=== PATIENT | male | born 1965 | race Caucasian/White ===

== ENCOUNTER 2019-11-30 08:38 | Outpatient (CLI) | payer OTHER, SELFPAY ==
--- NOTE | ~2019-11-30 | CT_ITS ---
EXAMINATION: CT abdomen pelvis w con EXAM DATE: 11/30/2019 09:19 INDICATION: Right lower quadrant pain. TECHNIQUE: Spiral CT of the abdomen and pelvis was performed following intravenous injection of 100 m L Omnipaque 350. Axial, coronal and sagittal images were reviewed. The dose-length product (DLP) fo r this examination was 653.21 mGy-cm. The exposure was tailored according to patient size (auto mA e xposure control), and iterative reconstruction (ASIR) was used as additional dose reduction technique . There is no prior study for comparison. FINDINGS: The liver, spleen, adrenal glands and pancreas are unremarkable. Gallbladder is unremarkab le. No biliary obstruction. Portal and splenic veins are patent. Kidneys enhance symmetrically. T here is no hydronephrosis. The prostate is unremarkable. The bladder is unremarkable. There is no retroperitoneal or pelvic lymphadenopathy. There is mild scattered arteriosclerotic disease. The appendix is normal. The stomach and small bowel are unremarkable. There is moderate amount of c olonic stool. No free intraperitoneal gas. The heart is normal in size. There are no pericardial or pleural effusions. The lung bases are unremarkable. There is a lesion within the left femoral n marlon measuring 1.5 cm, with narrow zone of transition, not causing endosteal scalloping, another simil ar-appearing but even more chronic benign-appearing lesion in the anterior aspect of the left acetabu lum. These are more likely benign lesions then osteolytic disease. Consider 3-six-month follow-up CT pelvis. IMPRESSION: 1. No acute intra-abdominal findings. Normal appendix. 2. Right femoral neck and left acetabular bone lesions most likely benign; recommend 3-six-month fol low-up CT pelvis without contrast. Reviewed, dictated and finalized at location A. IMPRESSION: 1. No acute intra-abdominal findings. Normal appendix. 2. Right femoral neck and left acetabular bone lesions most likely benign; rec ommend 3-six-month follow-up CT pelvis without contrast.
[2019-11-30 09:10] LABS: Estimated Glomerular Filt Rate > 60
== END 2019-11-30 08:39 | disposition home or self-care (01) ==
LOC: ANHIMG 08:44
PROVIDERS: PCP Internal Medicine; Visit Provider Internal Medicine Gastroenterology
DX: R10.31 Right lower quadrant pain (principal); M89.9 Disorder of bone, unspecified
CPT/HCPCS: 36415; 74177; Q9967

== ENCOUNTER 2019-12-16 12:27 | Outpatient (CLI) | payer OTHER, SELFPAY ==
--- NOTE | ~2019-12-16 | XR_ITS ---
EXAMINATION: XR femur RT min 2V, XR pelvis 1-2V DATE: 12/16/2019 INDICATION: Lytic lesions at the right femoral neck and left acetabulum on recent CT study. TECHNIQUE: 1. Anteroposterior view of the pelvis was obtained. 2. Overlapping distal frontal and lateral views of the remainder of the more distal femur were obtain ed. COMPARISON: CT dated 11/30/2019 FINDINGS: Bone alignment is normal. No fracture. Again seen are subtle lytic lesions at the left acetabulum and with mild endosteal scalloping at the right femoral neck. There is an additional eccentric 1.9 x 1.0 cm ovoid lytic lesion in the distal right femoral diaphysis without evident endosteal scalloping. Po stoperative change of prior right anterior cruciate ligament reconstruction. Mild patellofemoral oste oarthritis with small marginal osteophytes but without significant joint space narrowing. Several phl eboliths in the pelvis. IMPRESSION: 1. Lytic lesions at the left acetabulum, right femoral neck and distal right femoral diaphysis. The f ormer is in a location typical of degenerative subchondral cystic change although the left hip joint space appears relatively preserved. The latter 2 lesions are in more atypical locations with addition al concern is a limited from the endosteal scalloping of the lesion at the femoral neck and different ial would include multiple myeloma and lytic metastatic disease. Reviewed, dictated and finalized at location A. IMPRESSION: 1. Lytic lesions at the left acetabulum, right femoral neck and distal right fe moral diaphysis. The former is in a location typical of degenerative subchondra l cystic change although the left hip joint space appears relatively preserved. The latter 2 lesions are in more atypical locations with additional concern is a limited from the endosteal scalloping of the lesion at the femoral neck and differential would include multiple myeloma and lytic metastatic disease.
== END 2019-12-16 12:28 | disposition home or self-care (01) ==
PROVIDERS: PCP Internal Medicine; Visit Provider Internal Medicine
DX: R93.89 Abnormal findings on diagnostic imaging of other specified body structures (principal); M89.9 Disorder of bone, unspecified
CPT/HCPCS: 72170; 73552

== ENCOUNTER 2020-10-26 13:31 | Outpatient (CLI) | payer OTHER, SELFPAY ==
[2020-10-26 14:11] LABS: Hematocrit 52.1 % (42.0-52.0); Hemoglobin 17.6 g/dL (14.0-18.0); Mean Corpuscular HGB Conc 33.8 g/dl (32-36); Mean Corpuscular Hemoglobin 29.9 pg (26-34); Mean Corpuscular Volume 88.5 fl (80-100); Mean Platelet Volume 8.3 fl (7.4-10.4); Platelet Count Result 202 k/mm3 (150-375); Red Blood Count 5.89 M/mm3 (4.6-6.20); Red Cell Distribution Width 12.9 % (11.5-14.5); White Blood Count 7.9 K/mm3 (4.5-10.0)
[2020-10-26 14:25] LABS: Alanine Aminotransferase 30 U/L (4-50); Albumin Level 4.1 g/dL (3.5-5.1); Alkaline Phosphatase 71 U/L (38-126); Anion Gap 3 mmol/L (8-16); Aspartate Amino Transferase 40 U/L (17-59); Bilirubin,Total 0.6 mg/dL (0.2-1.3); Blood Urea Nitrogen 14 mg/dL (9-20); CRP 0.6 mg/dL (<1.0); Calcium 10.2 mg/dL (8.4-10.2); Carbon Dioxide 27 mmol/L (22-30); Chloride 111 mmol/L (98-107); Estimated Glomerular Filt Rate > 60; Glucose 95 mg/dL (75-110); Potassium 4.3 mmol/L (3.4-5.0); Sodium 141 mmol/L (137-145)
[2020-10-26 15:10] LABS: Erythrocyte Sedimentation Rate 2 mm/hr (0-20)
== END 2020-10-26 13:32 | disposition home or self-care (01) ==
PROVIDERS: PCP Internal Medicine; Visit Provider Nurse Practitioner Family
DX: K51.90 Ulcerative colitis, unspecified, without complications (principal)
CPT/HCPCS: 36415; 80053; 85027; 85652; 86140

== ENCOUNTER 2021-10-18 07:53 | Emergency (ER) | payer OTHER, SELFPAY ==
[2021-10-18] VITALS (15 sets, daily range): BP systolic 106–136; BP diastolic 68–80; PULSE 61–82; RESP 12–20; TEMP 37; O2SAT 96–100
--- NOTE | ~2021-10-18 | CT_ITS ---
EXAMINATION: CT abdomen pelvis w con DATE: 10/18/2021 09:18 INDICATION: Bloody stools. History of ulcerative colitis. Abdomen pain. TECHNIQUE: Computed tomography (CT) of the abdomen and pelvis was performed with 100 cc Omnipaque 350 intravenous contrast. The dose-length product was 942.45 mGy-cm. Automated exposure control and iter ative reconstruction technique were employed. COMPARISON: CT dated 11/30/2019. FINDINGS: Lung bases are unremarkable. Heart size normal. No significant pleural or pericardial effus ion. No significant vascular abnormality. No lymphadenopathy. Fatty infiltration of the liver. There are surgical changes in the upper abdomen. Gallbladder is pres ent. The spleen, pancreas, adrenal glands and right kidney are unremarkable. There is a 2-3 mm nonobs tructing left renal stone. Gallbladder is present. No ureteral stones or hydronephrosis. Bladder is d ecompressed limiting evaluation for wall thickening. There is abnormal thickening of the transverse, descending and sigmoid colon as well as rectum, consi stent with colitis. 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 Mild lumbar spondylosis. IMPRESSION: 1. Findings compatible with colitis, likely infectious or inflammatory. 2: Nonobstructing left nephrolithiasis. Reviewed, dictated and finalized at location B. 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
[2021-10-18 08:12] LABS: Basophils Absolute Auto 0.1 K/mm3 (0.0-0.1); Basophils Percent Auto 0.7 % (0.2-1.2); Eosinophils Absolute Auto 0.5 K/mm3 (0-0.3); Eosinophils Percent Auto 4.9 % (0-4.4); Hematocrit 46.5 % (42.0-52.0); Hemoglobin 15.5 g/dL (14.0-18.0); Immature Granulocyte Absolute 0.12 K/mm3 (0.00-0.031); Immature Granulocyte Percent A 1.2 % (0-0.5); Lymphocytes Percent Auto 31.3 % (18.3-44.2); Mean Corpuscular HGB Conc 33.3 g/dl (32-36); Mean Corpuscular Hemoglobin 30.1 pg (26-34); Mean Corpuscular Volume 90.3 fl (80-100); Mean Platelet Volume 8.3 fl (7.4-10.4); Monocytes Absolute Auto 1.2 K/mm3 (0.1-0.6); Monocytes Percent Auto 11.4 % (2.6-8.5); Neutrophils Absolute Auto 5.2 K/mm3 (1.3-6.7); Neutrophils Percent Auto 50.5 % (45.5-73.1); Platelet Count Result 263 k/mm3 (150-375); Red Blood Count 5.15 M/mm3 (4.6-6.20); Red Cell Distribution Width 12.2 % (11.5-14.5); White Blood Count 10.2 K/mm3 (4.5-10.0)
--- NOTE | 2021-10-18 08:18 | ED.GENADULT ---
HPI - General Adult General Chief complaint: GI Bleed Stated complaint: blood in stool Time Seen by Provider: 10/18/21 07:55 Source: RN notes reviewed History of Present Illness HPI narrative: Patient presents emergency department from home for blood in stool. Patient states has been having blood in his stool for the past 2 weeks he states that initially was more bright red has become darker in color he states over the past 4 days has been having numerous loose stools states he has a history of ulcerative colitis and is followed by Dr. Mccann he called the office and they had instructed him to come the ER for symptoms worsen states he had some mild lightheadedness yesterday and came into the emergency department today for further evaluation he notes mild abdominal pain in the left lower abdomen described as cramping he denies any fevers or chills chest pain shortness of breath or any other symptoms Related Data Home Medications Medication Instructions Recorded Confirmed pantoprazole 40 mg tablet,delayed 40 mg PO QAM 10/26/20 10/26/20 release fenofibrate micronized mg 10/18/21 lisinopril-hydrochlorothiazide tablet 10/18/21 metoprolol tartrate 10/18/21 rivaroxaban [Xarelto] mg 10/18/21 Allergies Allergy/AdvReac Type Severity Reaction Status Date / Time NSAIDS (Non-Steroidal Allergy Mild Unknown Verified 10/26/20 13:04 Anti-Inflamma Review of Systems Review of Systems: Gen.: Denies fevers or chills ENT: Denies congestion Respiratory: Denies shortness of breath or cough CV: Denies chest pain or palpitations GI: See HPI denies burning, urgency, frequency or hematuria Musculoskeletal: Denies back pain or muscle pain Neuro: Denies numbness, tingling, weakness or focal weakness Skin: Denies rash Except as documented, all other systems reviewed and negative [facility] Past Medical History Medical History GERD (gastroesophageal reflux disease) Overweight (BMI 25.0-29.9) Tobacco use Ulcerative colitis Social History Social History Smoking status: Current some day smoker Exam Narrative: APPEARANCE: No acute distress, nontoxic, resting in bed HEENT: Normocephalic, atraumatic, OMM RESPIRATORY: No respiratory distress, clear to auscultation bilaterally with no rhonchi wheezing or rales CARDIOVASCULAR: RRR s murmur ABDOMINAL: Soft nondistended tender palpation left lower quadrant no tenderness left upper quadrant, right upper quadrant right lower quadrant no rebound or guarding Rectal: No hemorrhoids or fissures soft brown stool that is Hemoccult positive MUSCULOSKELETAl: Moves all extremities. No clubbing, cyanosis or edema. NEURO: Awake and alert. Following commands, speech normal, no focal deficits SKIN:: Warm, dry. Normal Color PSYCHIATRIC: Normal affect/mood Course Course Emergency Course: Discussed with Dr. Mccann presentation and work-up at this time recommends patient start on a Medrol Dosepak and may be discharged follow-up in the office is a schedule appointment October 26 Discussed with patient results of workup and diagnosis. Discussed need for follow-up with primary care, proper use of medication, and reasons to return to the emergency department. Patient understands and agrees to current treatment plan Vital Signs Vital signs: Vital Signs Temperature 98.6 F 10/18/21 07:57 Pulse Rate 78 10/18/21 07:57 Respiratory Rate 14 10/18/21 07:57 Blood Pressure 136/80 10/18/21 07:57 Pulse Oximetry 100 10/18/21 07:57 Temperature 98.6 F 10/18/21 07:57 Pulse Rate 82 10/18/21 11:11 Respiratory Rate 20 10/18/21 10:15 Blood Pressure 126/78 10/18/21 11:11 Pulse Oximetry 99 10/18/21 10:15 Medical Decision Making [facility] Narrative Medical decision making narrative: Patient with history of ulcerative colitis blood in stool for the past 2 weeks hemoglobin currently stable he is fo
[2021-10-18 08:22] LABS: Alanine Aminotransferase 25 U/L (4-50); Albumin Level 4.3 g/dL (3.5-5.1); Alkaline Phosphatase 71 U/L (38-126); Anion Gap 7 mmol/L (8-16); Aspartate Amino Transferase 36 U/L (17-59); Bilirubin,Total 0.7 mg/dL (0.2-1.3); Blood Urea Nitrogen 17 mg/dL (9-20); Calcium 9.6 mg/dL (8.4-10.2); Carbon Dioxide 26 mmol/L (22-30); Chloride 103 mmol/L (98-107); Estimated CRCL calculation 77 ml/min; Estimated Glomerular Filt Rate > 60; Glucose 110 mg/dL (65-110); Sodium 136 mmol/L (137-145)
[2021-10-18 09:15] LABS: INR 1.3; Prothrombin Time 15.7 Seconds (11.1-14.7)
[2021-10-18] MEDS: predniSONE 20 MG TABLET 60 MG PO (10:00)
[2021-10-18] MEDS: SODIUM CHLORIDE 0.9% IV 1,000 ML 999 ML IV CONT (10:00)
== END 2021-10-18 11:26 | disposition home or self-care (01) ==
PROVIDERS: Emergency Provider Emergency Medicine; PCP Internal Medicine
DX: K51.90 Ulcerative colitis, unspecified, without complications (principal); K92.2 Gastrointestinal hemorrhage, unspecified; K21.9 Gastro-esophageal reflux disease without esophagitis; E66.3 Overweight; Z68.31 Body mass index [BMI] 31.0-31.9, adult; F17.200 Nicotine dependence, unspecified, uncomplicated; Z79.01 Long term (current) use of anticoagulants; N20.0 Calculus of kidney
CPT/HCPCS: 36415; 74177; 80053; 85025; 85610; 85730; 86850; 86900; 86901; 96360; 99284; J7030; J7512; Q9967

== ENCOUNTER 2021-12-31 01:06 | Day surgery (SDC) | payer OTHER, SELFPAY ==
[2021-12-27 11:23] VITALS: BMI 32.9
--- NOTE | 2021-12-30 12:55 | PM.HPGS ---
History of Present Illness History of Present Illness Consent: Risks, benefits, and alternatives have been discussed and questions answered. Patient agrees to proceed with procedure. Chief complaint: ulcerative colitis Narrative: Lorenzo Vicente is a 56 year old male With chronic ulcerative colitis maintained on balsalazide. At the time of his last colonoscopy he had moderately severe colitis in the rectum and sigmoid colon. Good after starting Cosentyx for arthritis a couple of months ago he began having severe diarrhea with blood, 5-10 stools per day as well as abdominal cramping. He was seen in our office and started on a prednisone taper and also was given Flagyl. We had also gone to the emergency room where CT scan was done that showed evidence of colitis in the transverse and descending colon as well as the more distal colon. He states that the bleeding has slowed down. Stool cultures were done which were negative. Calprotectin level however on October 29, was over 2400. Review of Systems Review of Systems: All systems reviewed & are unremarkable except as noted in HPI and below PMFSH Past Medical History Medical History Atrial flutter GERD (gastroesophageal reflux disease) Hypertension Overweight (BMI 25.0-29.9) Tobacco use Ulcerative colitis Social History Social History Smoking packs per day: 1 Smoking cigarettes per day: 20.0 Years smoked: 20 Smoking pack-years: 20.00 Smoking status: Current every day smoker Tobacco type: cigarettes Alcohol intake: current Alcohol use details: social Substance use: never Substance use type: does not use Living arrangements: with family Spiritual care concerns: No Meds Home Medications and Allergies Home Medications Medication Instructions Recorded Confirmed Type pantoprazole 40 mg tablet,delayed 40 mg PO QAM 10/26/20 12/31/21 History release fenofibrate micronized 134 mg PO DAILY 10/18/21 12/31/21 History lisinopril-hydrochlorothiazide 1 tablet PO DAILY 10/18/21 12/31/21 History metoprolol tartrate 50 mg PO BID 10/18/21 12/31/21 History rivaroxaban [Xarelto] 20 mg PO DAILY 10/18/21 12/31/21 History balsalazide 750 mg capsule 2,250 mg PO TID 90 Days #810 cap 11/10/21 12/31/21 Rx Allergies Allergy/AdvReac Type Severity Reaction Status Date / Time NSAIDS (Non-Steroidal Allergy Mild Unknown Verified 12/31/21 11:46 Anti-Inflamma Exam Resp: Auscultation: clear to auscultation bilaterally Cardio: Rate: regular rate Rhythm: regular rhythm GI: GI Palp: Yes Soft to palpation and No Tenderness to palpation present (GI) Assessment and Plan Assessment and plan (1) Ulcerative colitis: Code(s): K51.90 - Ulcerative colitis, unspecified, without complications Status: Acute Assessment and Plan: Colonoscopy with possible biopsy or polypectomy or cautery or injection of substances.
[2021-12-31 11:47] VITALS: BP 128/84; PULSE 95; RESP 18; TEMP 36.3; O2SAT 97
[2021-12-31] MEDS: LACTATED RINGERS 1,000 ML 150 ML IV CONT (11:55)
--- NOTE | 2021-12-31 12:46 | P.PNAN_ITS ---
Anes - Initial Pre Proc Eval Procedure: Operation Date: 12/31/21 13:00 Proposed Procedures p Colonoscopy - Pedro Pablo Mccann MD Date/Time: 12/31/21 12:46 Surgeon: Pedro Pablo Mccann MD Pre Op Diagnosis: ulcerative colitis Patient Data Age: 56 Gender: M Height: 1.73 m Weight: 93.1 kg Last Vital Signs Temp 36.3 C L 12/31/21 11:47 Pulse 95 12/31/21 11:47 Resp 18 12/31/21 11:47 BP 128/84 12/31/21 11:47 Pulse Ox 97 12/31/21 11:47 Allergies Allergy/AdvReac Type Severity Reaction Status Date / Time NSAIDS (Non-Steroidal Allergy Mild Unknown Verified 12/31/21 11:46 Anti-Inflamma Home Medications Medication Instructions Recorded Confirmed Type pantoprazole 40 mg tablet,delayed 40 mg PO QAM 10/26/20 12/31/21 History release fenofibrate micronized 134 mg PO DAILY 10/18/21 12/31/21 History lisinopril-hydrochlorothiazide 1 tablet PO DAILY 10/18/21 12/31/21 History metoprolol tartrate 50 mg PO BID 10/18/21 12/31/21 History rivaroxaban [Xarelto] 20 mg PO DAILY 10/18/21 12/31/21 History balsalazide 750 mg capsule 2,250 mg PO TID 90 Days #810 cap 11/10/21 12/31/21 Rx Patient hx anesthesia problems: none Family hx anesthesia problems: none Results Review: All pre-operative results and documents have been reviewed as part of the pre-operative evaluation. [facility] Past Medical History Medical History Atrial flutter GERD (gastroesophageal reflux disease) Hypertension Overweight (BMI 25.0-29.9) Tobacco use Ulcerative colitis Social History Social History Smoking packs per day: 1 Smoking cigarettes per day: 20.0 Years smoked: 20 Smoking pack-years: 20.00 Smoking status: Current every day smoker Tobacco type: cigarettes Alcohol intake: current Alcohol use details: social Substance use: never Substance use type: does not use Living arrangements: with family Spiritual care concerns: No Anes - Eval Final PreProcedure Day of Procedure 12/31/21 12:46 Patient weight: overweight Heart: regular rate and rhythm Lungs: decreased breath sounds Airway: Mallampati scale class II Neurological: alert and oriented Last oral intake: >/= 8 hours ASA classification: III Emergent: no Anesthetic plan: proceed Anesthesia type and monitoring: general GIVS and standard monitoring Results Review: All pre-operative results and documents have been reviewed as part of the pre-operative evaluation. Informed Consent: The patient's anesthetic plan and its attendant risks and benefits were discussed with the patient/family/POA. Questions were solicited and answers provided to the satisfaction of the patient/family/POA.
[2021-12-31 13:11] VITALS: BP 106/75; PULSE 101; RESP 22; O2SAT 95
[2021-12-31 13:21] VITALS: BP 108/77; PULSE 93; RESP 24; O2SAT 96
[2021-12-31 13:31] VITALS: BP 127/91; PULSE 81; RESP 20; O2SAT 96
== END 2021-12-31 13:41 | disposition home or self-care (01) ==
PROVIDERS: PCP Internal Medicine; Visit Provider Internal Medicine Gastroenterology
PROC: 0DJD8ZZ Inspection of Lower Intestinal Tract, Via Natural or Artificial Opening Endoscopic (ICD-10-PCS; CPT 45378; principal; 2021-12-31 13:00)
DX: K51.00 Ulcerative (chronic) pancolitis without complications (principal); I48.92 Unspecified atrial flutter; I10 Essential (primary) hypertension; K21.9 Gastro-esophageal reflux disease without esophagitis; F17.210 Nicotine dependence, cigarettes, uncomplicated; Z79.01 Long term (current) use of anticoagulants
CPT/HCPCS: 45380; 88305; J2704; J7120

== ENCOUNTER 2023-09-20 10:00 | Emergency (ER) | payer OTHER, SELFPAY ==
--- NOTE | 2023-09-20 10:04 | ECG_ITS ---
Measurements Intervals [place] Rate: 132 P: 136 MI: 197 QRS: 49 QRSD: 167 T: 49 QT: 336 QTc: 498 Interpretive Statements ATRIAL FLUTTER/TACHYCARDIA WITH RAPID VENTRICULAR RESPONSE RIGHT BUNDLE BRANCH BLOCK ST-T WAVE ABNORMALITY IN ANTEROLATERAL LEADS- CONSIDER ISCHEMIA ABNORMAL ECG NO PREVIOUS ECG AVAILABLE FOR COMPARISON Electronically Signed On 09-20-2023 10:51:21 [employer] by Amarjit Callaway D.O.
--- NOTE | 2023-09-20 10:21 | ED.SOB ---
HPI - SOB/Dyspnea General Chief Complaint: Upper Respiratory Infection Stated Complaint: sob,heart racing,cough Time Seen by Provider: 09/20/23 10:16 Source: patient and RN notes reviewed Mode of arrival: ambulatory Limitations: no limitations History of Present Illness HPI Narrative: 58-year-old male presents concern for malaise, fatigue, shortness of breath, heart racing, vomiting, diarrhea, headache, sinus pressure. Reports symptoms started on Monday and have been worsening since then. He reports he wants a COVID test. He reports a cardiac history of having to have heart shocked twice, he believes it was atrial flutter. He reports history of aortic aneurysm several decades ago. MD elicited complaint: shortness of breath Related Data Home Medications Medication Instructions Recorded Confirmed pantoprazole 40 mg tablet,delayed 40 mg PO QAM 10/26/20 12/31/21 release fenofibrate micronized 134 mg 134 mg PO DAILY 10/18/21 12/31/21 capsule lisinopril 10 1 tablet PO DAILY 10/18/21 12/31/21 mg-hydrochlorothiazide 12.5 mg tablet metoprolol tartrate 50 mg tablet 50 mg PO BID 10/18/21 12/31/21 rivaroxaban 20 mg tablet (Xarelto) 20 mg PO DAILY 10/18/21 12/31/21 Allergies Allergy/AdvReac Type Severity Reaction Status Date / Time NSAIDS (Non-Steroidal Allergy Mild Unknown Verified 12/31/21 11:46 Anti-Inflamma Review of Systems Review of Systems: CONSTITUTIONAL: Reports malaise, chills, sweats, fever. EYES: Denies visual changes, redness, or discharge. ENT: Reports rhinorrhea, congestion, dry mouth CARDIOVASCULAR: Denies chest pain or edema. Reports fast heartbeat RESPIRATORY: Reports cough, dyspnea. GASTROINTESTINAL: Denies abdominal pain. Reports nausea, vomiting, diarrhea SKIN: Denies rash or itching. NEUROLOGIC: Reports headache. All systems reviewed & are unremarkable except as noted in HPI and below PMFSH Past Medical History Medical History Atrial flutter GERD (gastroesophageal reflux disease) Hypertension Overweight (BMI 25.0-29.9) Tobacco use Ulcerative colitis Social History Social History Smoking packs per day: 1 Smoking cigarettes per day: 20.0 Years smoked: 20 Smoking pack-years: 20.00 Smoking status: Current every day smoker Tobacco type: cigarettes Alcohol intake: current Alcohol use details: social Substance use: never Substance use type: does not use Living arrangements: with family Spiritual care concerns: No Comments At time of signature, agree with nursing past medical, surgical, social and family history. There is no relevant family history pertinent to the presenting complaint Exam Narrative: GENERAL: Nontoxic-appearing and in no acute distress. HEAD: Normocephalic EYES: PERRLA, conjunctivae clear ENT: Nares clear. Mucous membranes moist NECK: Supple. CHEST: Clear to auscultation, breath sounds equal. No wheezing, rhonchi, rales, or stridor. No respiratory distress, speaks in full sentences. HEART: Fast rate. No murmur heard. SKIN: Warm, dry, no rash. NEURO: Alert and oriented x3. PSYCH: Normal mood and affect Course Course Emergency Course: Patient is aware of, understands and agrees be transferred to the emergency room. Patient offered EMS transfer, he refused. Reports his daughter is a nurse and she will drive him. I discussed again the risks of driving a prior vehicle versus EMS, patient verbalizes understanding. Patient agrees to proceed directly to the emergency department. Portions of this record may have been created with voice recognition software Level of Care: Express Care Visit Vital Signs Vital signs: Reviewed. Transfer Transfered to: [facility] Medical Transportation: Other (Private vehicle, refused EMS) Transfer rationale: Shortness of breath, abnormal EKG, positive flu Accepting physicia
[2023-09-20 10:24] VITALS: BP 111/83; PULSE 140; RESP 20; TEMP 36.4; O2SAT 100
== END 2023-09-20 10:30 | disposition short-term general hospital (02) ==
PROVIDERS: Emergency Provider Nurse Practitioner; PCP Internal Medicine
DX: R94.31 Abnormal electrocardiogram [ECG] [EKG] (principal); R06.02 Shortness of breath; J10.1 Influenza due to other identified influenza virus with other respiratory manifestations; I48.92 Unspecified atrial flutter; I45.10 Unspecified right bundle-branch block; F17.210 Nicotine dependence, cigarettes, uncomplicated; K21.9 Gastro-esophageal reflux disease without esophagitis; I10 Essential (primary) hypertension; Z79.01 Long term (current) use of anticoagulants
CPT/HCPCS: 87426; 87804; 93005; 99213; G0463

== ENCOUNTER 2023-11-21 13:31 | Emergency (ER) | payer OTHER, SELFPAY ==
--- NOTE | ~2023-11-21 | XR_ITS ---
XR foot RT min 3V 11/21/2023 13:50 Indication: Right foot pain Procedure: 4 views right foot Comparison: No prior studies for comparison. Findings: There is a minimally displaced intra-articular fracture base of the fifth metatarsal. Mild soft tissue swelling. Mild osteoarthritis of the first metatarsal phalangeal and interphalangeal join ts. No other fracture. No foreign bodies. Impression: 1: Minimally displaced intra-articular fracture proximal aspect of the right fifth metatarsal. Reviewed, dictated and finalized at location L. Impression: 1: Minimally displaced intra-articular fracture proximal aspect of the right fi fth metatarsal.
--- NOTE | 2023-11-21 13:43 | ED.LOWEXIN ---
HPI - Extremity Injury (Lower) General Chief Complaint: Extremity Injury, Lower Stated Complaint: lower extremity injury Time Seen by Provider: 11/21/23 14:04 Source: patient and RN notes reviewed Mode of arrival: ambulatory Limitations: no limitations History of Present Illness HPI Narrative: 58-year-old male presents with concern for right foot pain. Reports he tripped over his shoe last night and rolled his foot. He reports deformities lateral foot, pain, worsening pain with weight-bearing. He has taken Tylenol without pain MD complaint: foot injury Related Data Home Medications Medication Instructions Recorded Confirmed pantoprazole 40 mg tablet,delayed 40 mg PO QAM 10/26/20 11/21/23 release fenofibrate micronized 134 mg 134 mg PO DAILY 10/18/21 11/21/23 capsule lisinopril 10 1 tablet PO DAILY 10/18/21 11/21/23 mg-hydrochlorothiazide 12.5 mg tablet metoprolol tartrate 50 mg tablet 50 mg PO BID 10/18/21 11/21/23 rivaroxaban 20 mg tablet (Xarelto) 20 mg PO DAILY 10/18/21 11/21/23 amiodarone 200 mg tablet 200 mg PO BID 11/21/23 11/21/23 duloxetine 30 mg capsule,delayed 30 mg PO DAILY 11/21/23 11/21/23 release magnesium oxide 400 mg (241.3 mg 400 mg PO BID 11/21/23 11/21/23 magnesium) tablet tadalafil 5 mg tablet 5 mg PO DAILY 11/21/23 11/21/23 Allergies Allergy/AdvReac Type Severity Reaction Status Date / Time NSAIDS (Non-Steroidal AdvReac Mild Gastrointestinal Verified 11/21/23 13:38 Anti-Inflamma Upset Review of Systems Review of Systems: CONSTITUTIONAL: Denies malaise, chills, sweats, or fever. SKIN: Denies rash or itching, open skin, laceration, abrasion, redness, warmth, swelling. MUSCULOSKELETAL: Reports right foot pain NEUROLOGIC: Denies numbness, weakness All systems reviewed & are unremarkable except as noted in HPI and below PMFSH Past Medical History Medical History Atrial flutter GERD (gastroesophageal reflux disease) Hypertension Overweight (BMI 25.0-29.9) Tobacco use Ulcerative colitis Social History Social History Smoking packs per day: 1 Smoking cigarettes per day: 20.0 Years smoked: 20 Smoking pack-years: 20.00 Smoking status: Current every day smoker Tobacco type: cigarettes Alcohol intake: current Alcohol use details: social Substance use: never Substance use type: does not use Living arrangements: with family Spiritual care concerns: No Comments At time of signature, agree with nursing past medical, surgical, social and family history. There is no relevant family history pertinent to the presenting complaint Exam Narrative: GENERAL: Well-appearing, well-nourished, and in no acute distress. HEAD: Normocephalic, atraumatic. EYES: PERRLA, conjunctivae clear NECK: Supple. CHEST: Speaks in full sentences. No respiratory distress. HEART: Regular rate and rhythm. Normal and equal peripheral pulses. EXTREMITIES: Right ankle, foot, digits have grossly normal strength and sensation, gross normal range of motion with slightly decreased flexion in digits 3, 4, 5. No edema or ecchymosis. 5Normal sensation with sensitivity to light touch and pain. Lateral foot tenderness. No open wounds, no skin tenting, no devitalized tissue or atrophy, no trophic changes, no obvious deformity, alignment normal, nearby joints and structures intact. Distal pulses palpable and equal bilaterally, skin warm, dry, pink. Capillary refill less than 3 seconds. SKIN: Warm, dry, no rash. NEURO: Alert and oriented x3. PSYCH: Normal mood and affect Course Course Emergency Course: Patient is aware of diagnosis, understands and agrees to treatment plan. Anticipatory guidance given. Patient agrees to follow-up as directed and is aware of reasons to seek care at the emergency department. Portions of this record may have been created with voice recognition sof
[2023-11-21 13:56] VITALS: BP 144/77; PULSE 69; RESP 20; TEMP 36.6; O2SAT 99
== END 2023-11-21 14:17 | disposition home or self-care (01) ==
PROVIDERS: Emergency Provider Nurse Practitioner; PCP Internal Medicine
DX: S92.351A Displaced fracture of fifth metatarsal bone, right foot, initial encounter for closed fracture (principal); X50.9XXA Other and unspecified overexertion or strenuous movements or postures, initial encounter; F17.210 Nicotine dependence, cigarettes, uncomplicated; I48.92 Unspecified atrial flutter; K21.9 Gastro-esophageal reflux disease without esophagitis; I10 Essential (primary) hypertension
CPT/HCPCS: 73630; 99214; G0463

== ENCOUNTER 2024-03-27 09:56 | Outpatient (CLI) | payer OTHER, SELFPAY ==
--- NOTE | ~2024-03-27 | XR_ITS ---
XR shoulder RT min 2V Ordering provider: Phill Grubbs MD History: . M25.511 - Pain in right shoulder . Comparison: None. FINDINGS: BONES: No acute fracture or dislocation. Degenerative changes in the greater tuberosity which may ind icate supraspinatous tendinitis. JOINT SPACES: The acromioclavicular joint is normal. The glenohumeral joint is normal. SOFT TISSUES: Normal. IMPRESSION: No acute osseous abnormality right shoulder. Degenerative changes at the site of the insertion of the supraspinatus tendon. Reviewed, dictated and finalized at location A.
[2024-03-27 10:36] LABS: Hematocrit 51.6 % (42.0-52.0); Hemoglobin 17.1 g/dL (14.0-18.0); Mean Corpuscular HGB Conc 33.1 g/dl (32-36); Mean Corpuscular Hemoglobin 30.6 pg (26-34); Mean Corpuscular Volume 92.3 fl (80-100); Mean Platelet Volume 8.9 fl (7.4-10.4); Platelet Count Result 219 k/mm3 (150-375); Red Blood Count 5.59 M/mm3 (4.6-6.20); Red Cell Distribution Width 13.1 % (11.5-14.5); White Blood Count 6.6 K/mm3 (4.5-10.0)
[2024-03-27 10:46] LABS: Alanine Aminotransferase 29 U/L (6-50); Albumin Level 4.5 g/dL (3.5-5.1); Alkaline Phosphatase 66 U/L (38-126); Anion Gap 9 mmol/L (4-12); Aspartate Amino Transferase 37 U/L (17-59); Bilirubin,Total 0.6 mg/dL (0.2-1.3); Blood Urea Nitrogen 16 mg/dL (9-20); CRP < 0.5 mg/dL (<1.0); Carbon Dioxide 29 mmol/L (22-30); Chloride 103 mmol/L (98-107); Estimated Glomerular Filt Rate > 60; Glucose 116 mg/dL (65-110); Potassium 4.7 mmol/L (3.4-5.0); Sodium 141 mmol/L (137-145)
[2024-03-27 12:28] LABS: Erythrocyte Sedimentation Rate 1 mm/hr (0-20)
== END 2024-03-27 09:57 | disposition home or self-care (01) ==
PROVIDERS: PCP Internal Medicine; Referring Provider Nurse Practitioner Family; Visit Provider Orthopaedic Surgery
DX: K51.90 Ulcerative colitis, unspecified, without complications (principal); M19.011 Primary osteoarthritis, right shoulder
CPT/HCPCS: 36415; 73030; 80053; 85027; 85652; 86140

== ENCOUNTER 2024-06-18 15:56 | Outpatient (CLI) | payer OTHER, SELFPAY ==
--- NOTE | ~2024-06-18 | MR_ITS ---
EXAMINATION: MR shoulder RT wo con DATE: 06/18/2024 16:29 INDICATION: Impingement syndrome of right shoulder. Right shoulder pain. TECHNIQUE: Magnetic resonance imaging (MRI) of the right shoulder was performed without intravenous c ontrast. Sequences included axial PD-weighted FS FSE, coronal oblique PD-weighted FS FSE and T2-weigh sonya FS FSE, and sagittal oblique T2-weighted FS FSE and T1-weighted FSE. COMPARISON: Right shoulder radiographs 03/27/2024 FINDINGS: Coracoacromial arch: There is a mesoacromial os acromiale. The acromion undersurface is curved in morphology (type II). T here is severe acromioclavicular joint osteoarthritis. There is mild subacromial/subdeltoid bursitis. Rotator cuff: There is severe supraspinatus tendinopathy and mild infraspinatus tendinopathy. There is an interstit ial tear at the distal attachment of posterior aspect of supraspinatus tendon measuring 7 mm anterior to posterior by 20 mm proximal to distal by 60% tendon thickness. Teres minor tendon is normal. Ther e is moderate subscapularis tendinopathy. There is no asymmetric fatty atrophy of the rotator cuff mu scle bellies. Biceps tendon and glenoid labrum: Biceps tendon is in bicipital groove. There is a partial tear of biceps tendon. There is a degenerati ve tear of glenoid labrum at 12:00 (SLAP tear). Fluid: There is a small glenohumeral joint effusion. Bones/cartilage: There is cartilage surface irregularity of glenoid and humeral head. Osteophytes are noted. IMPRESSION: 1. Severe rotator cuff tendinopathy with partial-thickness tear of supraspinatus tendon. 2. Mild glenohumeral joint chondrosis. 3. Partial tear of biceps tendon. 4. Small glenohumeral joint effusion. 5. Severe acromioclavicular joint osteoarthritis. 6. Mild subacromial/subdeltoid bursitis. Reviewed, dictated and finalized at location A. IMPRESSION: 1. Severe rotator cuff tendinopathy with partial-thickness tear of supraspinatu s tendon. 2. Mild glenohumeral joint chondrosis. 3. Partial tear of biceps tendon. 4. Small glenohumeral joint effusion. 5. Severe acromioclavicular joint osteoarthritis. 6. Mild subacromial/subdeltoid bursitis.
== END 2024-06-18 15:57 | disposition home or self-care (01) ==
PROVIDERS: PCP Internal Medicine; Visit Provider Physician Assistant Surgical
DX: M25.411 Effusion, right shoulder (principal); M19.011 Primary osteoarthritis, right shoulder; M75.51 Bursitis of right shoulder
CPT/HCPCS: 73221

== ENCOUNTER 2024-12-12 13:22 | Outpatient (CLI) | payer OTHER, SELFPAY ==
--- NOTE | 2024-12-12 13:30 | ECG_ITS ---
Test Date: 2024-12-12 13:48:25 Measurements Intervals [place] Rate: 60 P: -65 NH: 228 QRS: -75 QRSD: 216 T: 31 QT: 504 QTc: 505 Interpretive Statements ELECTRONIC ATRIAL PACEMAKER RIGHT BUNDLE BRANCH BLOCK LEFT ANTERIOR FASCICULAR BLOCK BASELINE ARTIFACT- II, III, AVR, AVL, AVF, V4-V6 ABNORMAL ECG No previous ECG available for comparison Electronically Signed On 12-12-2024 13:57:44 CDT by Amarjit Callaway D.O.
--- OUTSIDE RECORDS SUMMARY | 2024-12-12 13:43 | XMS_ITS | Clinical Summary ---
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 Gender Identity Not on file Sexual Orientation Not on file Plan of Treatment Health Maintenance Due Date Last Done Comments DTAP/TDAP/TD VACCINES (1 - Tdap) 1982 COLORECTAL SCREENING 2008 Colorectal Cancer Screening 2008 FIT-DNA Q 3 years 2008 FIT/FOBT Q 1 year 2008 Flex Sig/CT Colonography Q 5 years 2008 ZOSTER VACCINE (1 of 2) 2013 INFLUENZA VACCINE (#1) 2024 RSV VACCINE (60+ or ) (1 - 1-dose 75+ series) 2038 Insurance [facility] [id number] Care Teams Stone Polisher Relationship Specialty Start Date End Date Odilon Garvey MD [address] [place] [address] PCP - General Internal Medicine 09/16/19
--- OUTSIDE RECORDS SUMMARY | 2024-12-12 13:43 | XMS_ITS | Patient Health Record ---
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 Odilon Ruby Unavailable [phone] ZZ-Migration, Provider Unavailable Unavailab le Allergies No Known Allergies Reason For Referral No Information Medications Medication SIG (Take, Route, Frequency, Duration) Notes Start Date End Date Status LISINOPRIL 10 mg 1 tab(s) orally once a day Active Lisinopril 10 MG 1 tab(s) orally once a day Active TRAMADOL 100 mg/24 hours 1 pill orally 4x/day Active BALSALAZIDE 750 mg 3 cap(s) orally 3 times a day Active METOPROLOL 50 mg 1 tab(s) orally once a day Active CETIRIZINE 10 mg 1 tab(s) orally once a day Active XARELTO 10 mg 1 tab(s) orally once a day Active FENOFIBRATE 67 mg 1 cap(s) orally once a day Active PANTOPRAZOLE 40 mg 1 tab(s) orally once a day Active Fenofibrate 67 MG 1 cap(s) orally once a day Active Pantoprazole Sodium 40 MG 1 tab(s) orally once a day Active ALFUZOSIN 10 mg 1 tab(s) orally once a day Active Xarelto 10 MG 1 tab(s) orally once a day Active Alfuzosin HCl ER 10 MG 1 tab(s) orally once a day Active PREGABALIN 100 mg 1 qHS x 1 wk, then 1 bid x 1 wk, then 1 tid orally as directed for 30 days 06/29/2023 Active Metoprolol Tartrate 50 MG 1 tab(s) [...] cap(s) orally 3 times a day Active Pregabalin 100 MG 1 qHS x 1 wk, then 1 bid x 1 wk, then 1 tid orally as directed for 30 days 06/29/2023 Active Problems Problem Type SNOMED Code ICD Code Onset Dates Problem Status W/U Status Risk Notes Problem Chronic migraine without aura, non-refractory (disorder) (37683308463714 0) Migraine without aura, not intractable, without status migrainosus (G43.009) Active confirmed Problem Migraine with aura (1796230) Migraine with aura, not intractable, without status migrainosus (G43.109) Active confirmed Problem Chronic migraine without aura, non-intractable (17509333489364 0) Chronic migraine without aura, not intractable, without status migrainosus (G43.709) Active confirmed Problem Hereditary disorder of nervous system (779686524) Hereditary and idiopathic neuropathy, unspecified (G60.9) Active confirmed Encounters Encounter Location Date Provider Diagnosis [address] [address] 02/10/2024 Provider MITCHELL-Yamilka Hereditary and idiopathic neuropathy, 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
--- OUTSIDE RECORDS SUMMARY | 2024-12-12 13:44 | XMS_ITS | Data Portability ---
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 Plan: The following were reviewed and explained to the patient: primary care/referral note [facility] home sleep study 07/15/21 AHI = 2 [facility] diagnostic sleep study 08/17/22 sleep onset = 34.5 minutes, REM onset = 70.5 minutes, AHI = 7, REM AHI = 11, supine AHI = 53, PLMI = 12 [facility] home sleep study 10/11/23 AHI = 25, supine AHI = 82 [facility] titration sleep study 12/29/23 sleep onset = 39.5 minutes, REM onset = 37.5 minutes, ResMed large AirFit P10 nasal pillows @ 15 cmH2O, PLMI = 0.0 Elevation in periodic limb movement index may be contributed by cetirizine. Non-pharmacologic therapy options for periodic limb movement disorder include avoidance of aggravating drugs and substances, mental alerting activities, short daily hemodialysis for patients in renal failure, exercise, leg massage, stretching calf muscles, use of a weighted blanket and applied heat. Patient will cut down on alcohol consumption, nicotine use and caffeine intake. We will check BUN, Creatinine, Vitamin E, Vitamin B12, RBC folate, Iron, TIBC, Ferritin, ESR, Magnesium, Hgb and Hct levels. Educated the patient on problems and solutions associated with positive airway pressure (PAP) use. Difficulty tolerating pressure, mask leaks, intolerance of interface, nasal congestion, claustrophobic response, dry mouth, and unintentional mask removal during sleep were covered. ResMed Air Sense 11 auto set unit with heated humidifier, supplies and ResMed large AirFit P10 nasal pillows @ 15 cmH2O ordered. Further titration will be based on clinical response. Provided the patient with a list of local home care stores where positive airway pressure (PAP) units, accouterments, and services are available. Home care store selection is based on patient's insurance carrier. Patient will setup an appointment with [facility] for supplies and pressure adjustments. A major predictor of success with use of PAP is follow-up with both the respiratory supplier and the treating physician. The respiratory supplier optimally will follow-up within two weeks after starting use while the treating physician optimally will follow-up within 90 days after starting therapy to assess adherence and effectiveness of treatment. The download results can show the treating physician information about adherence to treatment, residual AHI while on treatment and presence of large mask leakage. This information is especially helpful if the patient has residual sleepiness despite treatment. General information on sleep disordered breathing, evaluation of sleep disordered breathing, treatment with PAP therapy, and living with PAP therapy were covered. We discussed with the patient the impact of weight on: Sleep disordered breathing DM Mixed hyperlipidemia Hypertension LONG Lumbar spondylosis Plantar fasciitis Metatarsal fracture We discussed with the patient the benefit of PAP therapy on: Sleep disordered breathing Rhinitis DM Hypertension LONG ED Educated the patient on sleep hygiene measures. Relaxing rituals to rest easy, understanding foods with positive and negative impact on sleep, creating a peaceful sleep environment, timing of exercise, using herbal sleep aids, and practicing sleep-friendly meditation were covered. To determine how much sleep is needed, the patient will assess where he falls on the spectrum, examine what lifestyle factors such as work schedules and stress are affecting the quality and quantity of sleep. In general, adults need 7-9 hours of sleep. Educated the patient regarding foods that promote sleep. These include but are not limited to cherries, bananas, toast, oatmeal, and warm milk. Educated the patient regarding foods and drinks to avoid before bedtime. These include but are not limited to aged cheese, chocolate, spicy foods, tomato-based sauces, soy, ginseng tea and processed meat. Advocated influenza vaccination annually and pneumonia vaccination DILAN. Advocated weight loss through diet and exercise. Patient's ideal body weight according to height and gender is up to 180 lbs. Encouraged patient to adjust caloric intake to maintain/achieve ideal body weight, emphasizing on fruits, vegetables, whole grains, and fat-free or low-fat products. These include lean meats, poultry, fish, beans, eggs, and nuts and foods that are low in saturated fats, trans-fats, cholesterol, salt (sodium), and glycemic index. Stressed the importance of regular exercise up to the patient's capacity limits. In this case, we recommend 20 min daily walking, 2 days a week of resistance training. Patient to monitor BP daily and bring records to PCP for further management. 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 Plan: The following were reviewed and explained to the patient: [facility] home sleep study 07/15/21 AHI = 2 [facility] diagnostic sleep study 08/17/22 sleep onset = 34.5 minutes, REM onset = 70.5 minutes, AHI = 7, REM AHI = 11, supine AHI = 53, PLMI = 12 [facility] home sleep study 10/11/23 AHI = 25, supine AHI = 82 [facility] titration sleep study 12/29/23 sleep onset = 39.5 minutes, REM onset = 37.5 minutes, ResMed large AirFit P10 nasal pillows @ 15 cmH2O, PLMI = 0.0 B12 01/16/24 >1000 pg/mL Hgb 01/16/24 17.5 gm% Hct 01/16/24 50.5% Elevation in periodic limb movement index may be contributed by cetirizine. Non-pharmacologic therapy options for periodic limb movement disorder include avoidance of aggravating drugs and substances, mental alerting activities, short daily hemodialysis for patients in renal failure, exercise, leg massage, stretching calf muscles, use of a weighted blanket and applied heat. Patient will cut down on alcohol consumption, nicotine use and caffeine intake. BUN, Creatinine, Vitamin E, RBC folate, Iron, TIBC, Ferritin, ESR, Magnesium are within normal limits. Patient will cut down his B12 5 mg from daily to weekly to keep the levels > 400 pg/ml. We will hold off on dopaminergic therapy for now. PAP compliance downloaded and interpreted x 20 minutes. Data reviewed and explained to the patient. Average apnea/hypopnea index (AHI) is 1.5. Patient used PAP > 4 hours 56% of the time. PAP is set at 15 cmH2O. PAP will be reset at 14 cmH2O. Turn EPR on to +1. Keep ramp start at 4 cmH2O. Keep ramp time at 15 minutes. Keep humidifier level at 5. Keep tube temperature at 80 F. Oxygen supplementation: none Patient is benefiting from PAP therapy. Encouraged patient to maintain PAP use more than 70% of the time. Statement of PAP use and benefits will be sent to the home care store. Provide chin strap to prevent jaw drop during sleep. Educated the patient on problems and solutions associated with positive airway pressure (PAP) use. Difficulty tolerating pressure, mask leaks, intolerance of interface, nasal congestion, claustrophobic response, dry mouth, and unintentional mask removal during sleep were covered. Provided the patient with a list of local home care stores where positive airway pressure (PAP) units, accoutrement, and services are available. Home care store selection is based on patient's insurance carrier. Patient will setup an appointment with [facility] for supplies and pressure adjustments. A major predictor of success with use of PAP is follow-up with both the respiratory supplier and the treating physician. The respiratory supplier optimally will follow-up within two weeks after starting use while the treating physician optimally will follow-up within 90 days after starting therapy to assess adherence and effectiveness of treatment. The download results can show the treating physician information about adherence to treatment, residual AHI while on treatment and presence of large mask leakage. This information is especially helpful if the patient has residual sleepiness despite treatment. General information on sleep disordered breathing, evaluation of sleep disordered breathing, treatment with PAP therapy, and living with PAP therapy were covered. We discussed with the patient the impact of weight on: Sleep disordered breathing DM Mixed hyperlipidemia Hypertension LONG Lumbar spondylosis Plantar fasciitis Metatarsal fracture We discussed with the patient the benefit of PAP therapy on: Sleep disordered breathing Rhinitis DM Hypertension LONG ED Educated the patient on sleep hygiene measures. Relaxing rituals to rest easy, understanding foods with positive and negative impact on sleep, creating a peaceful sleep environment, timing of exercise, using herbal sleep aids, and practicing sleep-friendly meditation were covered. To determine how much sleep is needed, the patient will assess where he falls on the spectrum, examine what lifestyle factors such as work schedules and stress are affecting the quality and quantity of sleep. In general, adults need 7-9 hours of sleep. Educated the patient regarding foods that promote sleep. These include but are not limited to cherries, bananas, toast, oatmeal, and warm milk. Educated the patient regarding foods and drinks to avoid before bedtime. These include but are not limited to aged cheese, chocolate, spicy foods, tomato-based sauces, soy, ginseng tea and processed meat. Advocated influenza vaccination annually and pneumonia vaccination DILAN. Advocated weight loss through diet and exercise. Patient's ideal body weight according to height and gender is up to 180 lbs. Encouraged patient to adjust caloric intake to maintain/achieve ideal body weight, emphasizing on fruits, vegetables, whole grains, and fat-free or low-fat products. These include lean meats, poultry, fish, beans, eggs, and nuts and foods that are low in saturated fats, trans-fats, cholesterol, salt (sodium), and glycemic index. Stressed the importance of regular exercise up to the patient's capacity limits. In this case, we recommend 20 min daily walking, 2 days a week of resistance training. Patient to monitor BP daily and bring records to PCP for further management. Follow-up: 2 months, April 2024 Not available 03/07/2024 11:00:20 Plan of Treatment Reminders Order Date Submit Date Provider Last Modified By Organization Details Last Modified Time Details Appointments None recorded. Lab vitamin B12, serum 2023 024 [email or web address] 82 [facility] (Lab), [address] [place], [address], 4 12:49:41 iron + TIBC + ferritin, serum 2023 024 [email or web address] [facility] (Lab), [address] [place], [address], 19:15:27 folate, RBC 2023 024 [email or web address] 25 [facility] (Lab), [address] [place], [address], 4 09:28:47 vitamin B12, serum 2023 024 [email or web address] 25 [facility] (Lab), [address] [place], [address], 4 09:28:47 ESR (erythrocyt e sedimentati on rate), blood 2023 024 [email or web address] 25 [facility] (Lab), [address] [place], [address], 4 09:28:47 hemoglobin + hematocrit, blood 2023 024 [email or web address] 25 [facility] (Lab), [address] [place], [address], 4 09:28:48 bun (blood urea nitrogen), serum or plasma 2023 024 [email or web address] 25 [facility] (Lab), [address] [place], [address], 4 09:28:48 creatinine, serum or plasma 2023 024 [email or web address] 25 [facility] (Lab), [address] [place], [address], 4 09:28:48 magnesium, serum or plasma [email or web address] [place] [address] (Lab), [address] [place], [address], 4 09:28:48 vitamin E, serum [email or web address] [place] [address] (Lab), [address] [place], [address], 4 09:28:48 CMP, serum or plasma 2022 023 [facility] (Lab), [address] [place], [address], 3 18:19:29 lipid panel, serum 2022 023 [facility] (Lab), [address] [place], [address], 3 18:19:43 CBC w/ auto diff 2022 023 [facility] (Lab), [address] [place], [address], 18:03:56 magnesium, serum or plasma 2022 023 [facility] (Lab), [address] [place], [address], 18:19:49 PSA, total, serum or plasma [address], [address] [place], [address], 14:23:17 Referral None recorded. Procedures None recorded. Surgeries None recorded. Imaging US, bladder 2022 023 [email or web address], [address] [facility] [address], [place], [address], 3 14:23:17 Medication Orders Uroxatral 10 mg tablet,exte nded release 2022 023 [place] [id number], [address] [facility], [place], [place], [id number], 3 17:33:53 Cialis 5 mg tablet 2022 023 [facility], [address] , [place], [address], 14:59:53 Patient TargetsNo targets recorded. Patient InstructionsNo instructions recorded. Reason for Referral None Reported. Results Created Date Observation Date Name Description Value Unit Range Abnormal Flag Note LastModifiedBy Organization Detail LastModifiedTime 11/30/19 23 11/29/2022 CBC/C OMPLE TE BLD COUNT W/DIF F white blood cells 7.4 x10'3 /uL 4.2-10 .8 Not Available [facility] (Lab) [address] [place], [address], 11/29/2022 18:16:29 11/30/1911/29/2022 CBC/C OMPLE TE BLD COUNT W/DIF F red blood cells 5.36 x10'6 /uL 4.10-5 .80 Not Available [facility] (Lab) [address] [place], [address], 11/29/2022 18:16:29 11/30/19 23 11/29/2022 CBC/C OMPLE TE BLD COUNT W/DIF F hemoglobin 15.7 g/dL 13.2-1 7.0 Not Available [facility] (Lab) [address] [place], [address], 11/29/2022 18:16:29 11/30/1911/29/2022 CBC/C OMPLE TE BLD COUNT W/DIF F hematocrit 48.6 % 39.3-5 0.0 Not Available [facility] (Lab) [address] [place], [address], 11/29/2022 18:16:29 11/30/1911/29/2022 CBC/C OMPLE TE BLD COUNT W/DIF F mean red cell volume 90.7 fL 80.0-9 7.0 Not Available [facility] (Lab) [address] [place], [address], 11/29/2022 18:16:29 11/30/19 23 11/29/2022 CBC/C OMPLE TE BLD COUNT W/DIF F mean red cell hemoglobin 29.3 pg 27.0-3 3.0 Not Available [facility] (Lab) [address] [place], [address], 11/29/2022 18:16:29 11/30/19 23 11/29/2022 CBC/C OMPLE TE BLD COUNT W/DIF F mean RBC HGB concentratio n 32.3 g/dL 31.0-3 6.0 Not Available [facility] (Lab) [address] [place], [address], 11/29/2022 18:16:29 11/30/19 23 11/29/2022 CBC/C OMPLE TE BLD COUNT W/DIF F red cell distribution width 13.2 % 11.8-1 5.5 Not Available [facility] (Lab) [address] [place], [address], 11/29/2022 18:16:29 11/30/19 23 11/29/2022 CBC/C OMPLE TE BLD COUNT W/DIF F platelets 221 x10'3 /uL 150-40 0 Not Available [facility] (Lab) [address] [place], [address], 11/29/2022 18:16:29 11/30/19 23 11/29/2022 CBC/C OMPLE TE BLD COUNT W/DIF F mean platelet volume 9.1 fL 9.0-12 .4 Not Available [facility] (Lab) [address] [place], [address], 11/29/2022 18:16:29 11/30/19 23 11/29/2022 CBC/C OMPLE TE BLD COUNT W/DIF F neutrophils 41.2 % 39.0-7 2.0 Not Available [facility] (Lab) [address] [place], [address], 11/29/2022 18:16:29 11/30/19 23 11/29/2022 CBC/C OMPLE TE BLD COUNT W/DIF F lymphocytes 44.8 % 16.0-4 7.0 Not Available [facility] (Lab) [address] [place], [address], 11/29/2022 18:16:29 11/30/19 23 11/29/2022 CBC/C OMPLE TE BLD COUNT W/DIF F monocytes 10.6 % 5.0-12 .0 Not Available [facility] (Lab) [address] [place], [address], 11/29/2022 18:16:29 11/30/19 23 11/29/2022 CBC/C OMPLE TE BLD COUNT W/DIF F eosinophils 2.6 % 1.0-7. 0 Not Available [facility] (Lab) [address] [place], [address], 11/29/2022 18:16:29 11/30/19 23 11/29/2022 CBC/C OMPLE TE BLD COUNT W/DIF F basophils 0.4 % 0.0-2. 0 Not Available [facility] (Lab) [address] [place], [address], 11/29/2022 18:16:29 11/30/1911/29/2022 CBC/C OMPLE TE BLD COUNT W/DIF F immature granulocytes 0.4 % 0.00-0 .50 Not Available [facility] (Lab) [address] [place], [address], 11/29/2022 18:16:29 11/30/19 23 11/29/2022 CBC/C OMPLE TE BLD COUNT W/DIF F neutrophils, absolute count 3.06 x10'3 /uL 1.5-8. 0 Not Available [facility] (Lab) [address] [place], [address], 11/29/2022 18:16:29 11/30/19 23 11/29/2022 CBC/C OMPLE TE BLD COUNT W/DIF F lymphocytes, absolute count 3.33 x10'3 /uL 1.07-3 .43 Not Available [facility] (Lab) [address] [place], [address], 11/29/2022 18:16:29 11/30/19 23 11/29/2022 CBC/C OMPLE TE BLD COUNT W/DIF F monocytes, absolute count 0.79 x10'3 /uL 0.29-0 .99 Not Available [facility] (Lab) [address] [place], [address], 11/29/2022 18:16:29 11/30/19 23 11/29/2022 CBC/C OMPLE TE BLD COUNT W/DIF F eosinophils, absolute count 0.19 x10'3 /uL 0.02-0 .53 Not Available [facility] (Lab) [address] [place], [address], 11/29/2022 18:16:29 11/30/19 23 11/29/2022 CBC/C OMPLE TE BLD COUNT W/DIF F basophils, absolute count 0.03 x10'3 /uL 0.01-0 .08 Not Available [facility] (Lab) [address] [place], [address], 11/29/2022 18:16:29 11/30/19 23 11/29/2022 CBC/C OMPLE TE BLD COUNT W/DIF F immature granulocytes ,absolute 0.03 x10'3 /uL 0.00-0 .05 Not Available [facility] (Lab) [address] [place], [address], 11/29/2022 18:16:29 11/30/19 23 11/29/2022 CBC/C OMPLE TE BLD COUNT W/DIF F nucleated red blood cells 0.0 % -0 Not Available [facility] (Lab) [address] [place], [address], 11/29/2022 18:16:29 11/30/19 23 11/29/2022 CBC/C OMPLE TE BLD COUNT W/DIF F NRBC# 0.00 x10'3 /uL Not Available [facility] (Lab) [address] [place], [address], 11/29/2022 18:16:29 11/30/19 23 11/29/2022 COMPR EHENS JANAK METAB OLIC PANEL sodium 141 mmol/ L 137-14 5 Not Available [facility] (Lab) [address] [place], [address], 11/29/2022 18:54:21 11/30/19 23 11/29/2022 COMPR EHENS JANAK METAB OLIC PANEL potassium 4.4 mmol/ L 3.5-5. 1 Not Available [facility] (Lab) [address] [place], [address], 11/29/2022 18:54:21 11/30/19 23 11/29/2022 COMPR EHENS JANAK METAB OLIC PANEL chloride 110 mmol/ L 98-107 high Not Available [facility] (Lab) [address] [place], [address], 11/29/2022 18:54:21 11/30/19 23 11/29/2022 COMPR EHENS JANAK METAB OLIC PANEL carbon dioxide 23 mmol/ L 22-30 Not Available [facility] (Lab) [address] [place], [address], 11/29/2022 18:54:21 11/30/19 23 11/29/2022 COMPR EHENS JANAK METAB OLIC PANEL anion gap 12.4 mmol/ L 14-22 low Not Available [facility] (Lab) [address] [place], [address], 11/29/2022 18:54:21 11/30/19 23 11/29/2022 COMPR EHENS JANAK METAB OLIC PANEL glucose 87 mg/dL 70-99 Not Available [facility] (Lab) [address] [place], [address], 11/29/2022 18:54:21 11/30/19 23 11/29/2022 COMPR EHENS JANAK METAB OLIC PANEL BUN 23 mg/dL 8-19 high Not Available [facility] (Lab) [address] [place], [address], 11/29/2022 18:54:21 11/30/19 23 11/29/2022 COMPR EHENS JANAK METAB OLIC PANEL creatinine 0.86 mg/dL 0.66-1 .25 Not Available [facility] (Lab) [address] [place], [address], 11/29/2022 18:54:21 11/30/19 23 11/29/2022 COMPR EHENS JANAK METAB OLIC PANEL GFR >60 Refer ence Range : Pierce ge GFR Healt hy Adult : >60 mL/mi n/1.7 3 m2 Chron ic Kidne y Disea se: 15-60 mL/mi n/1.7 3 m2 Kidne y Failu re: <15/m L/min /1.73 m2 www.n iddk. nih.g ov The MDRD study equat ion has not been valid ated in child celestino <18 years of age; pregn ant women ; the elder ly >85 years of age; or in some racia l or ethni c subgr oups, such as Hispa nics. Outsi de the valid ated lupe eters , estim ated GFR is less accur ate, requi ring clini fredrick judgm ent on a case- by-ca se basis . Clini fredrick inter preta tion for other races and ages must be made by the clini elizabeth. The MDRD study equat ion has not been valid ated for the evalu ation of serum creat inine relat ed to nutri stephany l statu s or medic ation usage . For perso ns <18 years of age, a pedia tric GFR calcu latshahida is avail able on the [facility] websi te: https ://edgardo ryan.mehran rodriguez/pr ofess ional s/kdo qi/gf r_cal culat or Not Available [facility] (Lab) [address] [place], [address], 11/29/2022 18:54:21 11/30/19 23 11/29/2022 COMPR EHENS JANAK METAB OLIC PANEL alkaline phosphatase 68 U/L 38-126 Not Available [facility] (Lab) [address] [place], [address], 11/29/2022 18:54:21 11/30/19 23 11/29/2022 COMPR EHENS JANAK METAB OLIC PANEL alanine aminotransfe rase 39 U/L 0-50 Not Available [facility] (Lab) [address] [place], [address], 11/29/2022 18:54:21 11/30/19 23 11/29/2022 COMPR EHENS JANAK METAB OLIC PANEL aspartate aminotransfe rase 50 U/L 15-46 high Not Available [facility] (Lab) [address] [place], [address], 11/29/2022 18:54:21 11/30/19 23 11/29/2022 COMPR EHENS JANAK METAB OLIC PANEL bilirubin, total 0.50 mg/dL 0.20-1 .30 Not Available [facility] (Lab) [address] [place], [address], 11/29/2022 18:54:21 11/30/19 23 11/29/2022 COMPR EHENS JANAK METAB OLIC PANEL calcium 10.2 mg/dL 8.4-10 .2 Not Available [facility] (Lab) [address] [place], [address], 11/29/2022 18:54:21 11/30/19 23 11/29/2022 COMPR EHENS JANAK METAB OLIC PANEL total protein 6.9 g/dL 6.3-8. 2 Not Available [facility] (Lab) [address] [place], [address], 11/29/2022 18:54:21 11/30/19 23 11/29/2022 COMPR EHENS JANAK METAB OLIC PANEL albumin 4.4 g/dL 3.4-5. 0 Not Available [facility] (Lab) [address] [place], [address], 11/29/2022 18:54:21 11/30/19 23 11/29/2022 COMPR EHENS JANAK METAB OLIC PANEL globulin 2.5 g/dL 2.6-4. 2 low Not Available [facility] (Lab) [address] [place], [address], 11/29/2022 18:54:21 11/30/19 23 11/29/2022 COMPR EHENS JANAK METAB OLIC PANEL A/G ratio 1.8 ratio 1.0-2. 0 Not Available [facility] (Lab) [address] [place], [address], 11/29/2022 18:54:21 11/30/19 23 11/29/2022 LIPID PANEL cholesterol 196 mg/dL 140-19 9 [facility] HENRY NSUS RECOM MENDA TION FOR EDITH STERO L: ADULT CHILD LOW RISK: <200 <170 BORDE RLINE : <200- 239 ----- HIGH RISK: >240 >200 Not Available [facility] (Lab) [address] [place], [address], 11/29/2022 18:54:25 11/30/19 23 11/29/2022 LIPID PANEL triglyceride s 264 mg/dL 0-150 high NIH HENRY NSUS REPOR T RECOM MENDA TION FOR TRIGL YCERI SRINI: ADULT CHILD LOW RISK: <150 ----- BODER LINE: 150-1 99 ----- HIGH RISK: >200 ----- Not Available [facility] (Lab) [address] [place], [address], 11/29/2022 18:54:25 11/30/19 23 11/29/2022 LIPID PANEL HDL cholesterol 38 mg/dL 40- low Not Available [facility] (Lab) [address] [place], [address], 11/29/2022 18:54:25 11/30/19 23 11/29/2022 LIPID PANEL LDL cholesterol, calculated 105 mg/dL 0-130 [facility] HENRY NSUS REPOR T RECOM MENDA TIONS FOR LDL: ADULT CHILD LOW RISK <130 <110 (OPTI MAL LDL) <100 ----- BORDE RLINE : 130-1 59 ----- HIGH RISK: >160 >130 A TRIGL YCERI DE RESUL T >400 INVAL IDATE S THE CALCU LATIO N FOR LDL FRACT IONAT ION - THE LDL RESUL T WILL NOT BE REPOR FALGUNI. Not Available [facility] (Lab) [address] [place], [address], 11/29/2022 18:54:25 11/30/19 23 11/29/2022 T3 FREE free T3 3.6 pg/mL 2.77-5 .27 Not Available [facility] (Lab) [address] [place], [address], 11/29/2022 19:00:32 11/30/19 23 11/29/2022 T4 FREE free T4 0.80 NG/dL 0.78-2 .19 Not Available [facility] (Lab) [address] [place], [address], 11/29/2022 19:00:33 11/30/19 23 11/29/2022 TSH thyroid-stim ulating hormone 2.560 uIU/m L 0.465- 4.680 Not Available [facility] (Lab) [address] [place], [address], 11/29/2022 19:14:11 06/12/2006/12/2023 CBC/C OMPLE TE BLD COUNT W/DIF F white blood cells 10.0 x10'3 /uL 4.2-10 .8 Not Available [facility] (Lab) [address] [place], [address], 06/12/2023 18:03:56 06/12/2006/12/2023 CBC/C OMPLE TE BLD COUNT W/DIF F red blood cells 5.35 x10'6 /uL 4.10-5 .80 Not Available [facility] (Lab) [address] [place], [address], 06/12/2023 18:03:56 06/12/2006/12/2023 CBC/C OMPLE TE BLD COUNT W/DIF F hemoglobin 16.1 g/dL 13.2-1 7.0 Not Available [facility] (Lab) [address] [place], [address], 06/12/2023 18:03:56 06/12/2006/12/2023 CBC/C OMPLE TE BLD COUNT W/DIF F hematocrit 48.5 % 39.3-5 0.0 Not Available [facility] (Lab) [address] [place], [address], 06/12/2023 18:03:56 06/12/2006/12/2023 CBC/C OMPLE TE BLD COUNT W/DIF F mean red cell volume 90.7 fL 80.0-9 7.0 Not Available [facility] (Lab) [address] [place], [address], 06/12/2023 18:03:56 06/12/2006/12/2023 CBC/C OMPLE TE BLD COUNT W/DIF F mean red cell hemoglobin 30.1 pg 27.0-3 3.0 Not Available [facility] (Lab) [address] [place], [address], 06/12/2023 18:03:56 06/12/2006/12/2023 CBC/C OMPLE TE BLD COUNT W/DIF F mean RBC HGB concentratio n 33.2 g/dL 31.0-3 6.0 Not Available [facility] (Lab) [address] [place], [address], 06/12/2023 18:03:56 06/12/2006/12/2023 CBC/C OMPLE TE BLD COUNT W/DIF F red cell distribution width 13.2 % 11.8-1 5.5 Not Available [facility] (Lab) [address] [place], [address], 06/12/2023 18:03:56 06/12/2006/12/2023 CBC/C OMPLE TE BLD COUNT W/DIF F platelets 211 x10'3 /uL 150-40 0 Not Available [facility] (Lab) [address] [place], [address], 06/12/2023 18:03:56 06/12/2006/12/2023 CBC/C OMPLE TE BLD COUNT W/DIF F mean platelet volume 9.1 fL 9.0-12 .4 Not Available [facility] (Lab) [address] [place], [address], 06/12/2023 18:03:56 06/12/2006/12/2023 CBC/C OMPLE TE BLD COUNT W/DIF F neutrophils 46.8 % 39.0-7 2.0 Not Available [facility] (Lab) [address] [place], [address], 06/12/2023 18:03:56 06/12/2006/12/2023 CBC/C OMPLE TE BLD COUNT W/DIF F lymphocytes 37.4 % 16.0-4 7.0 Not Available [facility] (Lab) [address] [place], [address], 06/12/2023 18:03:56 06/12/2006/12/2023 CBC/C OMPLE TE BLD COUNT W/DIF F monocytes 10.9 % 5.0-12 .0 Not Available [facility] (Lab) [address] [place], [address], 06/12/2023 18:03:56 06/12/2006/12/2023 CBC/C OMPLE TE BLD COUNT W/DIF F eosinophils 4.0 % 1.0-7. 0 Not Available [facility] (Lab) [address] [place], [address], 06/12/2023 18:03:56 06/12/2006/12/2023 CBC/C OMPLE TE BLD COUNT W/DIF F basophils 0.5 % 0.0-2. 0 Not Available [facility] (Lab) [address] [place], [address], 06/12/2023 18:03:56 06/12/2006/12/2023 CBC/C OMPLE TE BLD COUNT W/DIF F immature granulocytes 0.4 % 0.00-0 .50 Not Available [facility] (Lab) [address] [place], [address], 06/12/2023 18:03:56 06/12/2006/12/2023 CBC/C OMPLE TE BLD COUNT W/DIF F neutrophils, absolute count 4.67 x10'3 /uL 1.5-8. 0 Not Available [facility] (Lab) [address] [place], [address], 06/12/2023 18:03:56 10/16/20 23 06/12/2023 CBC/C OMPLE TE BLD COUNT W/DIF F lymphocytes, absolute count 3.73 x10'3 /uL 1.07-3 .43 high Not Available [facility] (Lab) [address] [place], [address], 06/12/2023 18:03:56 06/12/2006/12/2023 CBC/C OMPLE TE BLD COUNT W/DIF F monocytes, absolute count 1.09 x10'3 /uL 0.29-0 .99 high Not Available [facility] (Lab) [address] [place], [address], 06/12/2023 18:03:56 06/12/2006/12/2023 CBC/C OMPLE TE BLD COUNT W/DIF F eosinophils, absolute count 0.40 x10'3 /uL 0.02-0 .53 Not Available [facility] (Lab) [address] [place], [address], 06/12/2023 18:03:56 06/12/2006/12/2023 CBC/C OMPLE TE BLD COUNT W/DIF F basophils, absolute count 0.05 x10'3 /uL 0.01-0 .08 Not Available [facility] (Lab) [address] [place], [address], 06/12/2023 18:03:56 06/12/2006/12/2023 CBC/C OMPLE TE BLD COUNT W/DIF F immature granulocytes ,absolute 0.04 x10'3 /uL 0.00-0 .05 Not Available [facility] (Lab) [address] [place], [address], 06/12/2023 18:03:56 06/12/2006/12/2023 CBC/C OMPLE TE BLD COUNT W/DIF F nucleated red blood cells 0.0 % -0 Not Available [facility] (Lab) [address] [place], [address], 06/12/2023 18:03:56 06/12/2006/12/2023 CBC/C OMPLE TE BLD COUNT W/DIF F NRBC# 0.00 x10'3 /uL Not Available [facility] (Lab) [address] [place], [address], 06/12/2023 18:03:56 06/12/2006/12/2023 COMPR EHENS JANAK METAB OLIC PANEL sodium 139 mmol/ L 137-14 5 Not Available [facility] (Lab) [address] [place], [address], 06/12/2023 18:19:29 06/12/2006/12/2023 COMPR EHENS JANAK METAB OLIC PANEL potassium 4.4 mmol/ L 3.5-5. 1 Not Available [facility] (Lab) [address] [place], [address], 06/12/2023 18:19:29 06/12/2006/12/2023 COMPR EHENS JANAK METAB OLIC PANEL chloride 105 mmol/ L 98-107 Not Available [facility] (Lab) [address] [place], [address], 06/12/2023 18:19:29 06/12/20 23 06/12/2023 COMPR EHENS JANAK METAB OLIC PANEL carbon dioxide 29 mmol/ L 22-30 Not Available [facility] (Lab) [address] [place], [address], 06/12/2023 18:19:29 06/12/20 23 06/12/2023 COMPR EHENS JANAK METAB OLIC PANEL anion gap 9.4 mmol/ L 14-22 low Not Available [facility] (Lab) [address] [place], [address], 06/12/2023 18:19:29 06/12/20 23 06/12/2023 COMPR EHENS JANAK METAB OLIC PANEL glucose 98 mg/dL 70-99 Not Available [facility] (Lab) [address] [place], [address], 06/12/2023 18:19:29 06/12/20 23 06/12/2023 COMPR EHENS JANAK METAB OLIC PANEL BUN 18 mg/dL 8-19 Not Available [facility] (Lab) [address] [place], [address], 06/12/2023 18:19:29 06/12/20 23 06/12/2023 COMPR EHENS JANAK METAB OLIC PANEL creatinine 0.98 mg/dL 0.66-1 .25 Not Available [facility] (Lab) [address] [place], [address], 06/12/2023 18:19:29 06/12/2006/12/2023 COMPR EHENS JANAK METAB OLIC PANEL GFR >60 Refer ence Range : Pierce ge GFR Healt hy Adult : >60 mL/mi n/1.7 3 m2 Chron ic Kidne y Disea se: 15-60 mL/mi n/1.7 3 m2 Kidne y Failu re: <15/m L/min /1.73 m2 www.n iddk. nih.g ov The MDRD study equat ion has not been valid ated in child celestino <18 years of age; pregn ant women ; the elder ly >85 years of age; or in some racia l or ethni c subgr oups, such as Hispa nics. Outsi de the valid ated lupe eters , estim ated GFR is less accur ate, requi ring clini fredrick judgm ent on a case- by-ca se basis . Clini fredrick inter preta tion for other races and ages must be made by the clini elizabeth. The MDRD study equat ion has not been valid ated for the evalu ation of serum creat inine relat ed to nutri stephany l statu s or medic ation usage . For perso ns <18 years of age, a pedia tric GFR calcu lator is avail able on the NKF websi te: https ://edgardo ryan.mehran rodriguez/pr ofess ional s/kdo qi/gf r_cal culat or Not Available [facility] (Lab) [address] [place], [address], 06/12/2023 18:19:29 06/12/20 23 06/12/2023 COMPR EHENS JANAK METAB OLIC PANEL alkaline phosphatase 60 U/L 38-126 Not Available [facility] (Lab) [address] [place], [address], 06/12/2023 18:19:29 06/12/2006/12/2023 COMPR EHENS JANAK METAB OLIC PANEL alanine aminotransfe rase 31 U/L 0-50 Not Available [facility] (Lab) [address] [place], [address], 06/12/2023 18:19:29 06/12/20 23 06/12/2023 COMPR EHENS JANAK METAB OLIC PANEL aspartate aminotransfe rase 37 U/L 15-46 Not Available [facility] (Lab) [address] [place], [address], 06/12/2023 18:19:29 06/12/20 23 06/12/2023 COMPR EHENS JANAK METAB OLIC PANEL bilirubin, total 0.50 mg/dL 0.20-1 .30 Not Available [facility] (Lab) [address] [place], [address], 06/12/2023 18:19:29 06/12/20 23 06/12/2023 COMPR EHENS JANAK METAB OLIC PANEL calcium 10.5 mg/dL 8.4-10 .2 high Not Available [facility] (Lab) [address] [place], [address], 06/12/2023 18:19:29 06/12/20 23 06/12/2023 COMPR EHENS JANAK METAB OLIC PANEL total protein 6.7 g/dL 6.3-8. 2 Not Available [facility] (Lab) [address] [place], [address], 06/12/2023 18:19:29 06/12/2006/12/2023 COMPR EHENS JANAK METAB OLIC PANEL albumin 4.2 g/dL 3.4-5. 0 Not Available [facility] (Lab) [address] [place], [address], 06/12/2023 18:19:29 06/12/2006/12/2023 COMPR EHENS JANAK METAB OLIC PANEL globulin 2.5 g/dL 2.6-4. 2 low Not Available [facility] (Lab) [address] [place], [address], 06/12/2023 18:19:29 06/12/2006/12/2023 COMPR EHENS JANAK METAB OLIC PANEL A/G ratio 1.7 ratio 1.0-2. 0 Not Available [facility] (Lab) [address] [place], [address], 06/12/2023 18:19:29 06/12/2006/12/2023 LIPID PANEL cholesterol 172 mg/dL 140-19 9 NIH HENRY NSUS RECOM MENDA TION FOR EDITH STERO L: ADULT CHILD LOW RISK: <200 <170 BORDE RLINE : <200- 239 ----- HIGH RISK: >240 >200 Not Available [facility] (Lab) [address] [place], [address], 06/12/2023 18:19:43 06/12/2006/12/2023 LIPID PANEL triglyceride s 232 mg/dL 0-150 high NIH HENRY NSUS REPOR T RECOM MENDA TION FOR TRIGL YCERI SRINI: ADULT CHILD LOW RISK: <150 ----- BODER LINE: 150-1 99 ----- HIGH RISK: >200 ----- Not Available [facility] (Lab) [address] [place], [address], 06/12/2023 18:19:43 06/12/2006/12/2023 LIPID PANEL HDL cholesterol 36 mg/dL 40- low Not Available [facility] (Lab) [address] [place], [address], 06/12/2023 18:19:43 06/12/2006/12/2023 LIPID PANEL LDL cholesterol, calculated 90 mg/dL 0-130 NIH HENRY NSUS REPOR T RECOM MENDA TIONS FOR LDL: ADULT CHILD LOW RISK <130 <110 (OPTI MAL LDL) <100 ----- BORDE RLINE : 130-1 59 ----- HIGH RISK: >160 >130 A TRIGL YCERI DE RESUL T >400 INVAL IDATE S THE CALCU LATIO N FOR LDL FRACT IONAT ION - THE LDL RESUL T WILL NOT BE REPOR FALGUNI. Not Available [facility] (Lab) [address], [place], [address], 06/12/2023 18:19:43 06/12/2006/12/2023 MAGNE SIUM magnesium 2.2 mg/dL 1.6-2. 3 Not Available [facility] (Lab) [address] [place], [address], 06/12/2023 18:19:49 04/01/20 24 04/02/2024 VITAM IN B12 vitamin B12 556 pg/mL 232-12 45 normal Not Available [facility] ([facility]) [address], [place], [address], 04/02/2024 03:36:13 12/20/1912/19/2022 US, amber er No observ ation record ed. [email or web address] [facility] [address] [address], [place], [address], 12/20/2022 14:26:46 11/21/19 24 11/21/2023 XR, foot No observ ation record ed. [email or web address] [facility] [address], [place], [address], 02/26/2024 09:34:22 01/02/20 24 12/29/2023 polys omnog akilah, titra tion study No observ ation record ed. BARCODE Not Available 2023 17:23:50 01/03/20 24 10/11/2023 home sleep study No observ ation record ed. BARCODE Not Available 2023 12:23:55 Result Notes None recorded. Problems Name Problem SNOMED Code Status Onset Date Resolution Date Notes Provider Name and Address Organization Details Recorded Time Primary erectile dysfuncti on 595125269 Active 2022 Not Available [facility] 4 14:50:19 Kidney stone 86719048 Active 2022 Not Available [facility] 4 14:50:19 Lower urinary tract symptoms due to benign prostatic hypertrop hy 67535868840 101 Active 2022 Not Available [facility] 4 14:50:19 Peptic ulcer 03303494 Active 2021 Not Available [facility] 4 14:50:19 Plantar fasciitis 096761525 Active Not Available [facility] 4 14:50:19 Gastroeso phageal reflux disease 546718972 Active Not Available [facility] 4 14:50:19 Gastroeso phageal reflux disease without esophagit is 433170206 Active 2021 Not Available [facility] 4 14:50:19 Anxiety 63437979 Active Not Available [facility] 4 14:50:19 Talipes planus 24471023 Active Not Available [facility] 4 14:50:19 Atrial flutter 7482758 Active 2020 CLAIRE cardiover neel 2020 Not Available [facility] 4 14:50:19 Essential hypertens ion 57516375 Active 2018 Not Available [facility] 4 14:50:19 Ulcerativ e colitis 98029518 Active 2021 Not Available [facility] 4 14:50:19 Obesity 019640548 Active 2022 Not Available [facility] 14:50:19 Obstructi ve sleep apnea syndrome 02143380 Active 2023 Newton Barker MD [address] [address], [address], [place], [address] , [facility] [employer] [facility] 4 12:24:06 Periodic limb movement disorder 074087426 Active 2023 Newton Barker MD [address], [place], [address] , [facility] [employer] [facility] 4 12:33:13 Notes:Medical History: Rhini tis Nicotine use Persistent early REM onset Erythrocytosis Obesity with mod OSAHS, AHI = 25, 10/11/23, on CPAP c/o IVRC T2DM with neuropathy Mixed hyperlipidemia Hypertension RBBB Paroxysmal atrial flutter on Xarelto LONG Ulcerative colitis on Simponi, balsalazide Renal calculi BPH with LUTS ED Lumbar spondylosis PLMD Plantar fasciitis Talipes planus Right 5th metatarsal fracture Procedure History: AAA repair 1999 Right knee surgery 2005 Colonoscopy 2021 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 Procedures Surgical History Date Name Laterality Status Provider Name and Address Organization Details Recorded Time Rotator cuff surgery completed Not Available [facility] 10/26/2022 02:55:59 AAA Repair completed Not Available [facility] 10/26/2022 02:55:59 transesophageal echocardiography completed Not Available [facility] 10/26/2022 02:55:59 Imaging Results Imaging Date Name Status LastModified by Organiz ation Details LastModified Time 12/19/2022 US, bladder completed [email or web address] [facility] [address] [facility] [address], [place], [address], 12/20/2022 14:26:46 11/21/2023 XR, foot completed [email or web address] [facility] [address] [place] [address] [address], [address], 02/26/2024 09:34:22 12/29/2023 polysomnogram, titration study completed BARCODE Information not available 01/02/2024 17:23:50 10/11/2023 home sleep study completed [facility] Information not available 01/03/2024 12:23:55 Procedure Notes None recorded. Medical Equipment None Reported. Allergies Allergen ID Allergen Name Allergen Category Reaction Reaction Severity Criticality Documentation Date Start Date Code Code System Note Provider Name and Address Organization Details Recorded Time 5489 Non-stero idal anti-infl ammatory agent (product) medicatio n Not available Not available Not available 10/26/2022 12129 005 SNOMED abdom inal aneur ysm Not Available [facility] 03:13:30 Medications Name Sig Start Date Stop Date Status Note LastModified by Organization Details LastModified Time amoxicillin 500 mg capsule Take 1 capsule 3 times a day by oral route for 7 days. active Not Available Not Available No t Available prednisone 10 mg tablet TAKE 1-2 TABLETS BY MOUTH ONCE DAILY FOR ARTHRITIS FLARE UPS 06/06 completed Not Available Not Available Not Available doxycycline hyclate 100 mg capsule TK ONE C PO QD 10/15 completed Not Available Not Available Not Available ketoconazol e 2 % shampoo 04/07 completed Not Available Not Available Not Available nabumetone 750 mg tablet TK 1 T PO BID 12/10 completed Not Available Not Available Not Available clindamycin HCl 300 mg capsule TAKE 1 CAPSULE BY MOUTH EVERY 12 HOURS FOR 7 DAYS 04/27 completed Not Available Not Available Not Available cetirizine 10 mg tablet TAKE 1 TABLET BY MOUTH EVERY DAY active Not Available Not Available No t Available azithromyci n 250 mg tablet TAKE 2 TABLETS BY MOUTH FOR 1 DAY THEN TAKE 1 TABLET BY MOUTH DAILY FOR 4 DAYS 12/31 completed Not Available Not Available Not Available amiodarone 200 mg tablet TAKE 1 TABLET BY MOUTH TWICE DAILY active Not Available Not Available No t Available hydrocodone 5 mg-acetamin ophen 325 mg tablet TAKE 1 TABLET BY MOUTH EVERY 4 TO 6 HOURS NEEDED FOR PAIN active Not Available Not Available No t Available meloxicam 15 mg tablet TK 1 T PO ONCE A DAY 12/10 completed Not Available Not Available Not Available prednisone 5 mg tablet 11/18 completed Not Available Not Available Not Available sulfasalazi ne 500 mg tablet,alyssa yed release TAKE 1 TO 2 TABLETS BY MOUTH TWICE DAILY 11/29 completed Not Available Not Available Not Available clobetasol 0.05 % topical cream APPLY TO AFFECTED AREAS TWICE DAILY 04/07 completed Not Available Not Available Not Available amlodipine 2.5 mg tablet TAKE 1 TABLET BY MOUTH EVERY DAY 06/08 completed Not Available Not Available Not Available metronidazo le 500 mg tablet TAKE 1 TABLET BY MOUTH EVERY 8 HOURS FOR 7 DAYS 11/18 completed Not Available Not Available Not Available azathioprin e 50 mg tablet 12/31 completed Not Available Not Available Not Available phentermine 37.5 mg tablet TAKE 1 TABLET BY MOUTH 2 HOURS AFTER BREAKFAST active Not Available Not Available No t Available acetaminoph en 300 mg-codeine 30 mg tablet TAKE 1 TO 2 TABLETS BY MOUTH EVERY 4 HOURS NEEDED FOR PAIN 04/27 completed Not Available Not Available Not Available ciprofloxac in 500 mg tablet TAKE 1 TABLET BY MOUTH TWICE DAILY 11/29 completed Not Available Not Available Not Available sulfamethox azole 800 mg-trimetho prim 160 mg tablet TK 1 T PO Q 12 H 10/15 completed Not Available Not Available Not Available tramadol 50 mg tablet TAKE 1 TO 2 TABLETS BY MOUTH THREE TIMES DAILY FOR 16 DAYS NEEDED active Not Available Not Available No t Available triamcinolo ne acetonide 0.1 % topical cream JORGE TO BOTH ARMS BID PRN 06/06 completed Not Available Not Available Not Available fenofibrate micronized 134 mg capsule TAKE 1 CAPSULE BY MOUTH EVERY DAY active Not Available Not Available No t Available ketorolac 10 mg tablet TAKE 1 TABLET BY MOUTH EVERY 6 HOURS NEEDED 04/27 completed Not Available Not Available Not Available terbinafine HCl 250 mg tablet TK 1 T PO QD 11/15 completed Not Available Not Available Not Available amoxicillin 875 mg tablet TAKE 1 TABLET BY MOUTH TWICE DAILY UNTIL ALL TAKEN 12/31 completed Not Available Not Available Not Available magnesium oxide 400 mg (241.3 mg magnesium) tablet TAKE 1 TABLET BY MOUTH TWICE DAILY active Not Available Not Available No t Available benzonatate 100 mg capsule TK ONE C PO Q 8 H 10/23 completed Not Available Not Available Not Available hydrocodone 7.5 mg-acetamin ophen 325 mg tablet 10/15 completed Not Available Not Available Not Available pantoprazol e 40 mg tablet,alyssa yed release TAKE 1 TABLET BY MOUTH EVERY DAY active Not Available Not Available No t Available tacrolimus 0.1 % topical ointment JORGE TO HANDS BID PRN 10/15 completed Not Available Not Available Not Available oseltamivir 75 mg capsule TAKE 1 CAPSULE BY MOUTH EVERY 12 HOURS FOR 5 DAYS 01/15 completed Not Available Not Available Not Available triamcinolo ne acetonide 0.1 % topical ointment JORGE AA BID 10/15 completed Not Available Not Available Not Available metoprolol tartrate 50 mg tablet TAKE 1 TABLET BY MOUTH TWICE DAILY. INCREASE DOSE active Not Available Not Available No t Available triamcinolo ne acetonide 0.025 % topical ointment JORGE SMALL AMOUNT AA BID UTD 04/27 completed Not Available Not Available Not Available balsalazide 750 mg capsule TAKE 3 CAPSULES BY MOUTH THREE TIMES DAILY active Not Available Not Available No t Available folic acid 1 mg tablet 11/29 completed Not Available Not Available Not Available montelukast 10 mg tablet TK 1 T PO Q NIGHT active Not Available Not Available No t Available hydroxyzine HCl 25 mg tablet TAKE 1 TABLET BY MOUTH THREE TIMES DAILY NEEDED FOR ITCHING active Not Available Not Available No t Available mupirocin 2 % topical ointment JORGE A SML AMT IEN BID 10/15 completed Not Available Not Available Not Available gabapentin 100 mg capsule 11/29 completed Not Available Not Available Not Available clobetasol 0.05 % topical ointment APPLY THIN LAYER TOPICALLY TO THE AFFECTED AREA TWICE DAILY 12/31 completed Not Available Not Available Not Available Viagra 100 mg tablet TAKE ONE TABLET DIRECTED 10/16 completed Not Available Not Available Not Available diazepam 10 mg tablet 10/15 completed Not Available Not Available Not Available epinephrine 0.3 mg/0.3 mL injection, auto-inject or INJ UTD FOR ANAPHYLAX IS 06/06 completed Not Available Not Available Not Available lisinopril 10 mg-hydrochl orothiazide 12.5 mg tablet TAKE 1 TABLET BY MOUTH EVERY DAY active Not Available Not Available No t Available levofloxaci n 500 mg tablet TK 1 T PO QD 10/15 completed Not Available Not Available Not Available methylpredn isolone 4 mg tablets in a dose pack FOLLOW PACKAGE DIRECTION S 06/06 completed Not Available Not Available Not Available ketoconazol e 2 % topical cream APPLY THIN LAYER TOPICALLY TO FEET TWICE DAILY UNTIL GONE. CONTINUE FOR 1 ADDITIONA L WEEK. 30 DAYS SUPPLY 12/31 completed Not Available Not Available Not Available hydroxyzine HCl 10 mg tablet TAKE 1 TABLET BY MOUTH AT NIGHT NEEDED 01/15 completed Not Available Not Available Not Available clobetasol 0.05 % scalp solution APPLY TOPICALLY TO THE SCALP TWICE DAILY IN THE MORNING AND IN THE EVENING 12/31 completed Not Available Not Available Not Available cefdinir 300 mg capsule Take 1 capsule twice a day by oral route for 10 days. active Not Available Not Available No t Available fluticasone propionate 50 mcg/actuati on nasal spray,suspe nsion SHAKE LIQUID AND USE 2 SPRAYS IN EACH NOSTRIL EVERY DAY IN THE EVENING active Not Available Not Available No t Available amoxicillin 875 mg-potassiu m clavulanate 125 mg tablet TK 1 T PO BID FOR 10 DAYS 04/26 completed Not Available Not Available Not Available Ventolin HFA 90 mcg/actuati on aerosol inhaler INHALE 2 PUFFS BY MOUTH EVERY 4 HOURS active Not Available Not Available No t Available methotrexat e sodium (PF) 25 mg/mL injection solution 11/29 completed Not Available Not Available Not Available vardenafil 10 mg tablet TAKE 1 TABLET BY MOUTH EVERY DAY DIRECTED 12/31 completed Not Available Not Available Not Available Levitra 20 mg tablet take as directed 06/25 completed Not Available Not Available Not Available Uroxatral 10 mg tablet,exte nded release Take 1 tablet(s) every day by oral route. active Not Available Not Available No t Available tadalafil 5 mg tablet TAKE ONE TABLET BY MOUTH DAILY active Not Available Not Available No t Available metoprolol tartrate 25 mg tablet TAKE 1 TABLET BY MOUTH TWICE DAILY 06/06 completed Not Available Not Available Not Available clobetasol 0.05 % shampoo APPLY TO SCALP DAILY PRN 12/31 completed Not Available Not Available Not Available duloxetine 30 mg capsule,del ayed release TAKE 1 CAPSULE BY MOUTH EVERY DAY active Not Available Not Available No t Available pregabalin 100 mg capsule active Not Available Not Available Not Available Men's One Daily 01/15 completed Not Available Not Available Not Available diclofenac 1 % topical gel JORGE TO BOTH FEET PRN 10/15 completed Not Available Not Available Not Available Simponi 12/31 completed Not Available Not Available Not Available Suprep Bowel Prep Kit 17.5 gram-3.13 gram-1.6 gram oral solution MIX AND DRINK UTD 12/10 completed Not Available Not Available Not Available Xarelto 20 mg tablet TAKE 1 TABLET BY MOUTH EVERY DAY active Not Available Not Available No t Available Fluvirin 45 mcg (15 mcg x 3)/0.5 mL intramuscul ar suspension ADM 0.5ML UTD active Not Available Not Available No t Available Otezla 30 mg tablet Take 1 tablet twice a day by oral route. 11/18 completed Not Available Not Available Not Available Fluvirin 45 mcg (15 mcg x 3)/0.5 mL intramuscul ar suspension INJECT 0.5 ML INTRAMUSC ULARLY DIRECTED. active Not Available Not Available No t Available ProAir RespiClick 90 mcg/actuati on breath activated INL 2 PFS PO Q 6 H PRF COUGH OR WHZ OR SOB 12/10 completed Not Available Not Available Not Available naloxone 4 mg/actuatio n nasal spray active Not Available Not Available Not Available Orencia ClickJect 125 mg/mL subcutaneou s auto-inject or active Not Available Not Available Not Available Fluvirin (PF) 45 mcg (15 mcg x 3)/0.5 mL intramuscul ar syringe ADM 0.5ML IM UTD 11/15 completed Not Available Not Available Not Available Fluvirin (PF) 45 mcg(15 mcg x3)/0.5 mL intramuscul ar syringe ADM 0.5ML IM UTD 10/16 completed Not Available Not Available Not Available Fluzone Quad (PF) 60 mcg(15 mcgx4)/0.5 mL intramuscul ar syringe ADM 0.5ML IM UTD 10/15 completed Not Available Not Available Not Available Afluria Qd 2018- (36 mos up)(PF)60 mcg (15 mcg x4)/0.5 mL IM syringe ADM 0.5ML IM UTD 10/23 completed Not Available Not Available Not Available Rybelsus 3 mg tablet Take by oral route for 30 days. active Not Available Not Available No t Available Wegovy 0.25 mg/0.5 mL subcutaneou s pen injector inject 0.25mg wkly for 4wks then go to 0.5mg wkly for 4wks 12/19 completed Not Available Not Available Not Available Wegovy 0.5 mg/0.5 mL subcutaneou s pen injector inject 0.5mg wkly for 4wks then go to 1mg wkly for 4wks 12/19 completed Not Available Not Available Not Available Vitals Date Recorded Body height Provider Name an d Address Organization Details Last Updated DateTime 12/19/2022 177.8 cm Priti Dougherty MA ME ITYZ [facility] [employer] 12/19/2022 17:00:13 Date Recorded Body mass index (BMI) Body weight Heart rate Body temperature Oxygen saturation Oxygen saturation in Arterial blood by Pulse oximetry Systolic blood pressure Diastolic blood pressure Provider Name and Address Organization Details Last Updated DateTime 3 31.7 kg/m2 890512. 91 g 54 /min 97.3 [degF] 97 % 97 % 138 mm[Hg] 86 mm[Hg] LUZ MARINA Harrington ME ITYZ [facility] [employer] 3 17:03:52 Date Recorded Body height Heart rate Body temperature Body mass index (BMI) Body weight Oxygen saturation Oxygen saturation in Arterial blood by Pulse oximetry Systolic blood pressure Diastolic blood pressure Provider Name and Address Organization Details Last Updated DateTime 3 177.8 cm 79 /min 97.9 [degF] 30.8 kg/m2 55917.3 6 g 96 % 96 % 131 mm[Hg] 97 mm[Hg] Priti Dougherty MA [employer] 3 17:15:54 Date Recorded Body height Body weight Body temperature Heart rate Oxygen saturation Oxygen saturation in Arterial blood by Pulse oximetry Systolic blood pressure Diastolic blood pressure Provider Name and Address Organization Details Last Updated DateTime 3 177.8 cm 72466.9 5 g 98 [degF] 88 /min 98 % 98 % 110 mm[Hg] 70 mm[Hg] Sandee Gonzalez RN [facility] [employer] [facility] 3 16:52:27 Date Recorded Body height Body mass index (BMI) Body weight Heart rate Oxygen saturation Oxygen saturation in Arterial blood by Pulse oximetry Body temperature Systolic blood pressure Diastolic blood pressure Provider Name and Address Organization Details Last Updated DateTime 4 177.8 cm 31.6 kg/m2 24764.3 2 g 75 /min 96 % 96 % 98 [degF] 122 mm[Hg] 72 mm[Hg] Braeden Silveira [facility] [employer] 4 11:29:18 Date Recorded Heart rate Respiratory rate Provider Elvia mercer and Address Organization Details Last Updated DateTime 01/16/2024 75 /min 15 /min Newton Barker MD [address], [place], [address], [facility] [employer] [facility] 01/16/2024 12:43:17 Date Recorded Body height Body mass index (BMI) Body weight Heart rate Oxygen saturation Oxygen saturation in Arterial blood by Pulse oximetry Body temperature Systolic blood pressure Diastolic blood pressure Provider Name and Address Organization Details Last Updated DateTime 4 177.8 cm 31.1 kg/m2 80249.5 4 g 65 /min 97 % 97 % 97.8 [degF] 118 mm[Hg] 68 mm[Hg] Braeden Silveira [facility] 4 10:16:31 Date Recorded Heart rate Respiratory rate Provider Elvia mercer and Address Organization Details Last Updated DateTime 03/07/2024 65 /min 14 /min Newton Barker MD [address], [address], [place], [address], [facility] [employer] 03/07/2024 11:05:45 Social History Question Answer Notes LastModified by Organizat ion Details LastModified Time Tobacco Smoking Status Current Every Day Smoker GARY Ma, [facility] 12/19/2022 17:02:58 Do You Have An Advance Directive? Yes [id number] Information not available 10/26/2022 What Is Your Level Of Alcohol Consumption? Moderate MIGRATION.85488 [id number] Information not available 10/26/2022 Do You Wear A Helmet When Biking? No MIGRATION.38709 90469 Information not available 10/26/2022 What Is Your Level Of Caffeine Consumption? Moderate MIGRATION.64100 82717 Information not available 10/26/2022 How Much Tobacco Do You Chew? None MIGRATION.79612 [id number] Information not available 10/26/2022 In The 14 Days Before Symptom Onset, Have You Had Close Contact With A Laboratory-confi rmed COVID-19 While That Case Was Ill? No MIGRATION.83408 84369 Information not available 10/26/2022 In The 14 Days Before Symptom Onset, Have You Had Close Contact With A Person Who Is Under Investigation For COVID-19 While That Person Was Ill? No MIGRATION.49753 41755 Information not available 10/26/2022 What Type Of Diet Are You Following? REGULAR MIGRATION.11890 75520 Information not available 10/26/2022 Which Illicit Or Recreational Drugs Have You Used? None MIGRATION.98883 55292 Information not available 10/26/2022 Do You Or Have You Ever Used E-cigarettes Or Vape? Never Used Electronic Cigarettes MIGRATION.96678 16734 Information not available 10/26/2022 What Is The Highest Grade Or Level Of School You Have Completed Or The Highest Degree You Have Received? 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 No MIGRATION.84652 13422 Information not available 10/26/2022 Are There Any Guns Present In Your Home? Yes MIGRATION.06507 86609 Information not available 10/26/2022 Do You Use Insect Repellent Routinely? No MIGRATION.13866 37705 Information not available 10/26/2022 Where Do You Live? [facility] MIGRATION.22939 73343 Information not available 10/26/2022 Do You Have A Medical Power Of Scrap Bunch Maker? Yes MIGRATION.46578 06540 Information not available 10/26/2022 What Was The Date Of Your Most Recent Tobacco Screening? 06/12/2023 [email or web address] Information not available 06/12/2023 Have You Ever Been Counseled For Unhealthy Alcohol Use? No MIGRATION.72156 27634 Information not available 10/26/2022 Do You Have Any Pets? Yes MIGRATION.11880 30843 Information not available 10/26/2022 What Is Your Relationship Status? MIGRATION.96654 39508 Information not available 10/26/2022 Do You Use Your Seat Belt Or Car Seat Routinely? Yes MIGRATION.65729 33958 Information not available 10/26/2022 Do You Have Smoke And Carbon Monoxide Detectors In Your Home? Yes MIGRATION.34600 56927 Information not available 10/26/2022 At What Age Did You Start Smoking Tobacco? 11 MIGRATION.00447 79675 Information not available 10/26/2022 Are You Passively Exposed To Smoke? No MIGRATION.47489 39644 Information not available 10/26/2022 Do You Or Have You Ever Used Smokeless Tobacco? Never Used Smokeless Tobacco MIGRATION.03092 36756 Information not available 10/26/2022 Are There Any Smokers In Your House? No MIGRATION.78539 43539 Information not available 10/26/2022 How Much Tobacco Do You Smoke? 1 PPW MIGRATION.42591 85470 Information not available 10/26/2022 Do You Feel Stressed (tense, Restless, Nervous, Or Anxious, Or Unable To Sleep At Night)? [id number] MIGRATION.92596 07757 Information not available 10/26/2022 Do You Use Any Illicit Or Recreational Drugs? No MIGRATION.22185 43673 Information not available 10/26/2022 Do You Use Sunscreen Routinely? Yes MIGRATION.51128 57838 Information not available 10/26/2022 Has Tobacco Cessation Counseling Been Provided? No MIGRATION.45194 82858 Information not available 10/26/2022 How Many Years Have You Smoked Tobacco? 40 [email or web address] Information not available 12/19/2022 Have You Recently Traveled Abroad? No MIGRATION.59896 07110 Information not available 10/26/2022 Do You Have Any Dietary Restrictions? No MIGRATION.79986 70615 Information not available 10/26/2022 Do You Or Have You Ever Used Any Other Forms Of Tobacco Or Nicotine? No MIGRATION.84513 43241 Information not available 10/26/2022 Sex: Male Functional Status Question Answer Note LastModified by Organizat ion Details LastModified Time What is your exercise level? Moderate [id number] Information not available 10/26/2022 Mental Status None recorded. Family History Relationship Description Onset Age of this Age Resolved Age Notes LastModified by Organization Details LastModified Time Father Pulmonary embolism 50 [id number] Not available 10/26/2022 02:56:05 Father Hypertensive disorder [email or web address] Not available 2023 12:35:41 Brother Hypertensive disorder [email or web address] Not available 2023 12:35:47 Sister Osteoarthrit is of knee [email or web address] Not available 01/15 12:36:55 Medical History Condition Response BLINDNESS N NERVE DISEASE N RHEUMATIC FEVER N BLADDER PROBLEMS N KIDNEY STONES N MRSA N OTHER # 1 N POLIO N LUNG DISEASE/DISORDER N HISTORY OF DRUG ABUSE N RADIATION / CHEMOTHERAPY N COPD N Other # 2 N BLOOD DISEASES N SURGERY N EAR OR HEARING PROBLEMS N MUMPS N SHINGLES N BOWEL PROBLEMS N DEPRESSION (INCLUDING POST ) N STROKE/TIA N ULCERS N BENIGN PROSTATIC HYPERPLASIA N MEASLES N MYOCARDIAL INFARCTION N OBESITY N GERD/NAUSEA Y ANEURYSM N URINARY/BLADDER/KIDNEY PROBLEMS N CORONARY ARTERY DISEASE (CAD) N ADDICTION CONCERNS N Impotence Y ENDOMETRIOSIS N USE OF BLOOD THINNERS N SKIN PROBLEMS Y GASTROINTESTINAL DISORDER N PERIPHERAL VASCULAR DISEASE N MUSCLE,JOINT OR BONE PROBLEMS N GASTROINTESTINAL BLEEDING N BLOOD CLOTS N ASTHMA N CATARACTS N ERECTILE DYSFUNCTION N VARICOSITIES N GI PROBLEMS N Low Testosterone N INFERTILITY N AIDS/HIV N CHEMOTHERAPY / RADIATION N LIVER DISEASE N MALE HYPOGONADISM N HYPERTENSION Y Deficiency N ANXIETY DISORDER Y BLOOD TRANSFUSION N ANEMIA/BLOOD DISORDER N CHRONIC EAR INFECTIONS N BRONCHITIS N TUBERCULOSIS N GLAUCOMA N FOOT PROBLEM N DIVERTICULITIS N SLEEP APNEA N CHICKENPOX N INFECTIOUS DISEASE N PROSTATE N HEART ARRHYTHMIA N INSOMNIA N HIGH CHOLESTEROL / HYPERLIPIDEMIA N EYE PROBLEMS N HYPERTHYROIDISM N NEUROLOGICAL PROBLEMS N EDEMA N CHRONIC PAIN SYNDROME N HYPOTHYROIDISM N CAROTID BLOCKAGE N CONSTIPATION N BACK / NECK PROBLEMS N HAVE YOU BEEN HOSPITALIZED OR SEEN IN [facility] IN THE PAST YEAR ? Y ATHEROSCLEROSIS N BREAST PROBLEMS N DIALYSIS N ECZEMA N OSTEOPOROSIS N ARTHRITIS N APPENDICITIS N DIABETES, TYPE N BAD TEETH N ENT N HEARTBURN / REFLUX N AUTISM SPECTRUM DISORDER (ASD) N HEPATITIS / LIVER DISEASE N GOUT N SLEEP DISORDER N ALZHEIMER'S DISEASE N Brain Problems N DEMENTIA N HERPES N SEIZURES/EPILEPSY N HEADACHES/MIGRAINES N VASCULAR DISEASE N PACEMAKER N Blood Disorder N DIZZINESS N HEART DISEASE/HEART PROBLEMS Y KIDNEY DISEASE N MULTIPLE SCLEROSIS N CANCER: SPECIFY N CARDIAC ARRHYTHMIA N ATRIAL FIBRILLATION N Gall Stones N PULMONARY EMBOLISM N AUTOIMMUNE DISEASE N Immunizations Vaccine Type Date Status Note Provider Nam e and Address Organization Details Recorded Time Td, adsorbed, preservative free, adult use, Lf unspecified 2 completed Not Available [facility] 10/17/2023 14:50:21 COVID-19, mRNA, LNP-S, PF, 100 mcg/0.5mL dose or 50 mcg/0.25mL dose 1 completed Not Available [facility] 10/17/2023 14:50:21 COVID-19, mRNA, LNP-S, PF, 100 mcg/0.5mL dose or 50 mcg/0.25mL dose 1 completed Not Available [facility] 10/17/2023 14:50:21 Influenza, split virus, quadrivalent, preservative 9 completed Not Available [facility] 10/17/2023 14:50:21 influenza, unspecified formulation 8 completed Not Available [facility] 10/17/2023 14:50:21 zoster recombinant 1 completed Not Available [facility] 10/17/2023 14:50:21 zoster recombinant 1 completed Not Available [facility] 10/17/2023 14:50:21 Influenza, high-dose, trivalent, PF 3 completed Not Available [facility] 10/17/2023 14:50:21 Influenza, split virus, quadrivalent, PF 2 completed Not Available [facility] 10/17/2023 14:50:21 Influenza, split virus, quadrivalent, PF 6 completed Not Available [facility] 10/17/2023 14:50:21 Past Encounters Encounter ID Performer Location Encounter Start Date Encounter Closed Date Diagnosis/Indication Diagnosis SNOMED-CT Code Diagnosis ICD10 Code Diagnosis Note [id number] [facility] [place] [address] 12/10/2020 00:00:00 12/10/2020 21:19:22 [id number] [facility] [address] 04/27/2021 00:00:00 05/03/2021 11:23:00 [id number] [facility] Mallory reagan [address] [facility] , [facility] [place] [address] 06/08/2021 00:00:00 06/09/2021 09:05:26 [id number] [facility] [address] [facility], [address] [address] 11/18/2021 00:00:00 12/25/2021 11:14:58 [id number] [facility] [address] [place] [address], [address] [address] 06/06/2022 00:00:00 06/06/2022 14:29:05 [id number] Brenda Garvey MD [facility] [address] [facility], [address] [address] 11/29/2022 16:23:40 11/29/2022 17:12:16 Essential hypertension 75203517 I10 Dysuria 98162426 R30.0 Overweight 893989810 E66 .3 Urinary symptoms 6918192 08 R39.9 Ulcerative colitis 99823 004 K51.90 [id number] MD PAULINE [facility] [address] [place] [address] 12/19/2022 16:32:40 12/19/2022 17:27:36 Screening for malignant neoplasm of prostate 978049784 Z12.5 Bothersome symptoms, suggested he try daily cialis and cut out caffeine. Normal YOKO, check psa. Primary er ectile dysfunction 700704309 N52.9 Suggested stop smokine and try cialis, told could take up to 20mg a day. [id number] Dorian Wade MD [facility] [address] [place] [address] 02/20/2023 16:46:47 02/20/2023 17:32:01 Lower urinary tract symptoms due to benign prostatic hypertrophy 6732426355 9101 N40.1 Bothersome symptoms, will try switching to uroxatral, and use cialis prn for erections. 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 D50.8 E83.42 [id number] Newton Barker MD [place] [address] 03/07/2024 10:05:45 03/08/2024 08:42:22 Obstructive sleep apnea syndrome 24736727 G47.33 Periodic l imb movement disorder 657504692 G47.61 D50.8 E83.42 Health Concerns Section Related Observation LastModified by Organization Detai ls LastModified Time None Recorded Concern Status LastModified by Organization Details LastModified Time None Recorded Advance Directives Directive Y: Payers Encounter Date Sequence Insurance Name Policy Number Policy Hoffmann Covered Member ID Hoffmann Member ID Guarantor Name 12/19/2022 1 [employer] - CHOICE PLUS [id number] Farrukh L Cinthia [id number] Lorenzo L Cinthia 02/20/2023 1 [facility] [employer] [id number] Farrukh L Cinthia [id number] Lorenzo L Cinthia 06/12/2023 1 [facility] [employer] [id number] Farrukh L Cinthia [id number] Lorenzo L Cinthia 01/16/2024 1 [facility] [employer] [id number] Farrukh L Cinthia [id number] Lorenzo L Cinthia 03/07/2024 1 [facility] [id number] Farrukh Vicente [id number] Lorenzo Ramirez Cinthia Notes Date Note Type Note Provider Name and Address Organization Details Recorded Time 3 text/html BPH (benign prostatic hyperplasia)Reported bypatient.Notes:Pt presents with complaints of discomfort with voiding for past month or so, states urine has been darker, no hematuria. No urgency or frequency had has to wait to start , stream is ok, nocturia 1-2x. No hx of utis or stones, urine check was negative. Nothing new in diet or meds. Drinks coffee and coke, smokes a pack a week.Erectile DysfunctionReported bypatient.Notes:Minimal erections, has tried viagra and cialis in the past , viagra worked better. Dorian Wade MD [address], [facility], [place], [address], [employer] 12/19/2022 17:45:59 3 text/html BPH (benign prostatic hyperplasia)Reported bypatient.Notes:Pt presents with complaints of discomfort with voiding for past month or so, states urine has been darker, no hematuria. No urgency or frequency had has to wait to start , stream is ok, nocturia 1-2x. No hx of utis or stones, urine check was negative. Nothing new in diet or meds. Drinks coffee and coke, smokes a pack a week.02/20/23Pt thinks stream is better on cialis but not satisfied, he is still drinking tea and got up 3 x , no dysuria or hematuria. PSA was .95Erectile DysfunctionReported bypatient.Notes:Daily cialis helped some, still smoking a little. Dorian Wade MD [address], [facility] [employer], [place], [address], [employer] 02/20/2023 17:33:47 3 text/html Hypertension no headache or dizzinessStill struggles with feetWould like some strategies to help lose weight because of his severe foot pain he cannot exerciseErectile dysfunction pills not working would like to see specialistGERD is doing fine Brenda Garvey MD [address], [facility] [address], [place], [address], [place] [facility] 06/12/2023 17:51:32 4 text/html Primary care/Referring provider: Brenda Garvey MD; Sanford Bowden MD During the [facility] home sleep study on 07/15/21, AHI = 2. During the [facility] diagnostic sleep study on 08/17/22, sleep onset = 34.5 minutes, REM onset = 70.5 minutes, AHI = 7, REM AHI = 11, supine AHI = 53, PLMI = 12. During the [facility] home sleep study on 10/11/23, AHI = 25, supine AHI = 82. During the [facility] titration sleep study on 12/29/23, sleep onset = 39.5 minutes, REM onset = 37.5 minutes, PLMI = 0.0. The patient uses a [employer]Med AirSense 11 autoset unit with heated humidification. The patient does not need the ramp to start low and go up slowly on the pressure anymore. There is no xerostomia in a.m. There is no hose/mask condensation with water. The patient wears a [employer] large AirFit P10 nasal pillows without chin strap. There is no claustrophobia, no nostril/nose bridge irritation, no facial rash, no facial numbness, no nosebleeding. The patient feels more refreshed upon waking and daytime alertness is improved. Energy levels are sustained for the remainder of the day. At home, the patient sleeps from 10:30 pm to 5 am and wakes up without an alarm. Snoring: heavy, since 1980s. Snorting: no Choking: no Coughing: yes Gasping: no Gagging: no Sighing: no Witnessed apnea: yes Twitching or jerking of leg(s), arm(s), body, head: yes Teeth grinding: no Teeth clenching: no Sleeptalking: no Sleepwalking: no Sleep crying: no Bedwetting: no Tongue/lip/gum/cheek biting: no Sleeping with open mouth: yes Sleep paralysis: no Hypnagogic hallucinations: no Hypnopompic hallucinations: no Vivid dreams: yes Difficulty with sleep onset: no Difficulty with sleep maintenance: yes Sleep interruptions: nocturia x 3 Patient wakes up with: fatigue, sore throat Daytime cataplexy: no Morning hypersomnolence: no Afternoon hypersomnolence: yes Caffeine sources in diet: tea 3.5 cups per day, soda 1 can per day Associated medical and psychiatric conditions: Congestive heart failure: no Coronary artery disease: no Myocardial infarction: no Hypertension: yesArrhythmias: yes Stroke: no Bronchial asthma: no Chronic obstructive pulmonary disease: no Depression: no Bipolar disorder: no Anxiety: no Panic disorder: no Posttraumatic stress disorder: no Attention deficit and hyperactivity disorder: no Obsessive Compulsive disorder: no Schizophrenia: no Schizoaffective disorder: no Personality disorder: no Chronic analgesic use: no Chronic sedative/hypnotic use: no EPWORTH SLEEPINESS SCALE (ESS) CHANCE OF DOZING SCORE 0 = would never doze 1 = slight chance of dozing 2 = moderate chance of dozing 3 = high chance of dozing SITUATION AND CHANCE OF DOZING Sitting and reading - 0 Watching television - 0 Sitting inactive in a public place (e.g. a theater or meeting) - 0 As a passenger in a car for an hour without a break - 0 Lying down to rest in the afternoon when circumstances permit - 0 Sitting and talking to someone - 0 Sitting quietly after lunch without alcohol - 0 In a car, while stopped for a few minutes in the traffic - 0 TOTAL SCORE 0 Subjectively, patient has no chance of dozing. Newton Barker MD [address] [place] [address], [phone], [facility] [employer] 01/16/2024 12:43:31 4 text/html Primary care/Referring provider: Brenda Garvey MD; Sanford Bowden MD During the [facility] home sleep study on 07/15/21, AHI = 2. During the [facility] diagnostic sleep study on 08/17/22, sleep onset = 34.5 minutes, REM onset = 70.5 minutes, AHI = 7, REM AHI = 11, supine AHI = 53, PLMI = 12. During the [facility] home sleep study on 10/11/23, AHI = 25, supine AHI = 82. During the [facility] titration sleep study on 12/29/23, sleep onset = 39.5 minutes, REM onset = 37.5 minutes, PLMI = 0.0. At home since 02/09/24, the patient uses a ResMed AirSense 11 autoset unit with heated humidification. The patient does not need the ramp to start low and go up slowly on the pressure anymore. There is some xerostomia in a.m. There is no hose/mask condensation with water.The patient wears a [employer]Med large AirFit P10 nasal pillows to a [employer]Med medium AirFit N30i nasal mask without chin strap. There is no claustrophobia, no nostril/nose bridge irritation, no facial rash, no facial numbness, no nosebleeding. The patient feels more refreshed upon waking and daytime alertness is improved. Energy levels are sustained for the remainder of the day. At home, the patient sleeps from 10:30 pm to 5 am and wakes up without an alarm. Snoring: heavy, since .Snorting: noChoking: noCoughing: yesGasping: noGagging: noSighing: noWitnessed apnea: yesTwitching or jerking of leg(s), arm(s), body, head: yesTeeth grinding: noTeeth clenching: noSleeptalking: noSleepwalking: noSleep crying: noBedwetting: noTongue/lip/gum/cheek biting: noSleeping with open mouth: yesSleep paralysis: noHypnagogic hallucinations: noHypnopompic hallucinations: noVivid dreams: yesDifficulty with sleep onset: noDifficulty with sleep maintenance: yesSleep interruptions: nocturia x 3Patient wakes up with: fatigue, xerostomia, sore throatDaytime cataplexy: noMorning hypersomnolence: noAfternoon hypersomnolence: yesCaffeine sources in diet: tea 3.5 cups per day, soda 1 can per day Associated medical and psychiatric conditions:Congestive heart failure: noCoronary artery disease: noMyocardial infarction: noHypertension: yesArrhythmias: yesStroke: noBronchial asthma: noChronic obstructive pulmonary disease: noDepression: noBipolar disorder: noAnxiety: noPanic disorder: noPosttraumatic stress disorder: noAttention deficit and hyperactivity disorder: noObsessive Compulsive disorder: noSchizophrenia: noSchizoaffective disorder: noPersonality disorder: noChronic analgesic use: noChronic sedative/hypnotic use: no EPWORTH SLEEPINESS SCALE (ESS) CHANCE OF DOZING SCORE0 = would never doze1 = slight chance of dozing2 = moderate chance of dozing3 = high chance of dozing SITUATION AND CHANCE OF DOZINGSitting and reading - 0Watching television - 0Sitting inactive in a public place (e.g. a theater or meeting) - 0As a passenger in a car for an hour without a break - 0Lying down to rest in the afternoon when circumstances permit - 1Sitting and talking to someone - 0Sitting quietly after lunch without alcohol - 0In a car, while stopped for a few minutes in the traffic - 0TOTAL SCORE 1Subjectively, patient has a slight chance of dozing. Newton Barker MD [address] [place] [address], [place] [address], [place], [id number], [place] - [facility] 03/07/2024 11:06:52
--- OUTSIDE RECORDS SUMMARY | 2024-12-12 13:44 | XMS_ITS | Data Portability ---
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 Blood work has been ordered Old records requested Medications reviewed and we will continue Follow-up in 4 months Will try to get GLP-1 for weight loss no contraindications and patient is agreeable [email or web address] Not available 12/31/2023 14:33:05 03/07/2024 03/07/2024 continue current therapy we will start phentermine he has been cleared by Cardiology to use it GLP 1 agents throughout of his reach financially and insurance company why so see me back in a couple of months other diagnosis have been discussed [email or web address] Not available 03/17/2024 21:52:53 06/06/2024 06/06/2024 we will try Cymbalta. We will try to get GLP 1 agent there is no contraindication he will follow up in 4 months. He will call in 3-4 weeks with how the Cymbalta is doing because I told him we can titrate that [email or web address] Not available 06/08/2024 16:38:06 10/03/2024 10/03/2024 obtain blood wor k quitting tobacco care instructions continue current therapy also wants things settled down with his pacemaker which was just put in they are going to contemplate doing shoulder surgery on the right see me in 4 months. He has seen some pain management physicians and Julian Huitron and they have tried a variety of things and just nothing is really helping him and he is really frustrated he is very compliant with the medical regimens just nothing is helping I think we need the opinion of a tertiary care center to see if there is anything they can do to help this ino with regards to his bilateral feet pain that is really becoming very intrusive on his quality of life [email or web address] Not available 10/03/2024 23:05:48 Plan of Treatment Reminders Order Date Submit Date Provider Last Modified By Organization Details Last Modified Time Details Appointments ANY 15 2024 10:30A M Brenda Garvey MD Not available Not available Not available Lab lipid panel, serum 2024 025 [facility], [address] [place] [address] 2, [place], [address], 10/12/2024 13:07:42 CBC w/ auto diff 2024 025 [facility], [address] [place] [address] 2, [place], [address], 10/12/2024 13:07:44 CMP, serum or plasma 2024 025 [facility], [address] [place] [address] 2, [place], [address], 10/12/2024 13:07:43 testoster one, free + total, serum 2024 025 [facility], [address] [place] [address] 2, [place], [address], 10/12/2024 13:07:41 HbA1c (hemoglob in A1c), blood 2023 024 [facility], [address], [address], [place], [address], 12/26/2023 13:10:33 PSA, total, serum or plasma 2023 024 [facility], [address], [address], [place], [address], 12/26/2023 13:10:35 CBC w/ auto diff 2023 024 [facility], [address], [address], [place], [address], 12/26/2023 13:10:34 lipid panel, serum 2023 024 [facility], [facility] [address], [place], [address], 12/26/2023 13:10:31 CMP, serum or plasma 2023 024 [facility], [facility] [address] [address], [place], [address], 12/26/2023 13:10:32 TSH, ultra-sen sitive, serum 2023 024 [facility], [facility] [address] [address], [place], [address], 12/26/2023 13:10:34 T3, free, serum or plasma 2023 024 [facility], [address], [address], [place], [address], 12/26/2023 13:10:36 unlisted lab - T4, free 2023 024 [facility], [address], [address], [place], [address], 12/26/2023 13:10:32 Referral None recorded. Procedures None recorded. Surgeries None recorded. Imaging None recorded. Medication Orders Zepbound 2.5 mg/0.5 mL subcutane ous pen injector [id number] [email or web address] [id number], [address], [place], [place], [id number], 06/06/2024 17:57:18 Cymbalta 30 mg capsule,d elayed release 2023 024 [facility] #[id number], [address], [place], [place], [id number], 06/06/2024 17:57:18 Patient TargetsNo targets recorded. Patient Instructions Encounter Date Encounter Id Patient Instructions Last Modified By Organization Details Last Modified Time 06/06/2024 [id number] A healthy lifestyle: care instructions [email or web address] Not available 06/06/2024 17:57:18 10/03/2024 [id number] A healthy lifestyle: care instructions [email or web address] Not available 10/03/2024 17:44:41 Quitting Tobacco : Care Instructions [email or web address] Not available 10/03/2024 17:44:41 Reason for Referral None Reported. Results Created Date Observation Date Name Description Value Unit Range Abnormal Flag Note LastModifiedBy Organization Detail LastModifiedTime 12/25/19 24 12/26/2023 LIPID PANEL cholesterol, total 194 mg/dL 100-19 9 Not Available [facility] ([facility]) [address] [facility] [address], [place], [address], 12/26/2023 13:10:31 12/25/19 24 12/26/2023 LIPID PANEL triglyceride s 435 mg/dL 0-149 above high normal Not Available [facility] ([facility]) [address] [place], [address], 12/26/2023 13:10:31 12/25/19 24 12/26/2023 LIPID PANEL HDL cholesterol 36 mg/dL >39 below low normal Not Available [facility] ([facility]) [address] [place], [address], 12/26/2023 13:10:31 12/25/19 24 12/26/2023 LIPID PANEL VLDL cholesterol fredrick 71 mg/dL 5-40 above high normal Not Available [facility] ([facility]) [address] [place], [address], 12/26/2023 13:10:31 12/25/19 24 12/26/2023 LIPID PANEL LDL chol calc ([facility]) 87 mg/dL 0-99 Not Available [facility]) [address] [place], [address], 12/26/2023 13:10:31 12/25/19 24 12/26/2023 T4, FREE T4,free(dire ct) 1.09 NG/dL 0.82-1 .77 Not Available [facility] ([facility]) [address] [place], [address], 12/26/2023 13:10:31 12/25/19 24 12/26/2023 COMP. METAB OLIC PANEL (14) glucose 100 mg/dL 70-99 above high normal Not Available [facility] ([facility]) [address] [place], [address], 12/26/2023 13:10:32 12/25/19 24 12/26/2023 COMP. METAB OLIC PANEL (14) BUN 20 mg/dL 8-27 Not Available [facility] ([facility]) [address] [place], [address], 12/26/2023 13:10:32 12/25/19 24 12/26/2023 COMP. METAB OLIC PANEL (14) creatinine 1.04 mg/dL 0.76-1 .27 Not Available [facility] ([facility]) [address] [place], [address], 12/26/2023 13:10:32 12/25/19 24 12/26/2023 COMP. METAB OLIC PANEL (14) eGFR 82 mL/mi n/1.7 3 >59 Not Available [facility] ([facility]) [address] [place], [address], 12/26/2023 13:10:32 12/25/19 24 12/26/2023 COMP. METAB OLIC PANEL (14) BUN/creatini ne ratio 19 10-24 Not Available [facility] ([facility]) [address], [place], [address], 12/26/2023 13:10:32 12/25/19 24 12/26/2023 COMP. METAB OLIC PANEL (14) sodium 141 mmol/ L 134-14 4 Not Available [facility] ([facility]) [address], [place], [address], 12/26/2023 13:10:32 12/25/19 24 12/26/2023 COMP. METAB OLIC PANEL (14) potassium 4.3 mmol/ L 3.5-5. 2 Not Available [facility] ([facility]) [address] [facility], [place], [address], 12/26/2023 13:10:32 12/25/19 24 12/26/2023 COMP. METAB OLIC PANEL (14) chloride 104 mmol/ L 96-106 Not Available [facility] ([facility]) [address] [facility], [place], [address], 12/26/2023 13:10:32 12/25/19 24 12/26/2023 COMP. METAB OLIC PANEL (14) carbon dioxide, total 20 mmol/ L 20- Not Available [facility] ([facility]) [address] [facility], [place], [address], 12/26/2023 13:10:32 12/25/19 24 12/26/2023 COMP. METAB OLIC PANEL (14) calcium 10.5 mg/dL 8.6-10 .2 above high normal Not Available [facility] ([facility]) [address] [facility], [place], [address], 12/26/2023 13:10:32 12/25/19 24 12/26/2023 COMP. METAB OLIC PANEL (14) protein, total 6.7 g/dL 6.0-8. 5 Not Available [facility] ([facility]) [address], [place], [address], 12/26/2023 13:10:32 12/25/19 24 12/26/2023 COMP. METAB OLIC PANEL (14) albumin 4.4 g/dL 3.8-4. 9 Not Available [facility] ([facility]) [address], [place], [address], 12/26/2023 13:10:32 12/25/19 24 12/26/2023 COMP. METAB OLIC PANEL (14) globulin, total 2.3 g/dL 1.5-4. 5 Not Available [facility] ([facility]) [address], [place], [address], 12/26/2023 13:10:32 12/25/19 24 12/26/2023 COMP. METAB OLIC PANEL (14) A/G ratio 1.9 1.2-2. 2 Not Available [facility] ([facility]) [address], [place], [address], 12/26/2023 13:10:32 12/25/19 24 12/26/2023 COMP. METAB OLIC PANEL (14) bilirubin, total 0.3 mg/dL 0.0-1. 2 Not Available [facility] ([facility]) [address], [place], [address], 12/26/2023 13:10:32 12/25/19 24 12/26/2023 COMP. METAB OLIC PANEL (14) alkaline phosphatase 64 IU/L 44-121 Not Available [facility] ([facility]) [address], [place], [address], 12/26/2023 13:10:32 12/25/19 24 12/26/2023 COMP. METAB OLIC PANEL (14) AST (SGOT) 38 IU/L 0-40 Not Available [facility] ([facility]) [address] [facility] [place], [address], 12/26/2023 13:10:32 12/25/19 24 12/26/2023 COMP. METAB OLIC PANEL (14) ALT (SGPT) 29 IU/L 0-44 Not Available [facility] ([facility]) [address] [place], [address], 12/26/2023 13:10:32 12/25/19 24 12/26/2023 HEMOG LOBIN A1C hemoglobin A1C 5.8 % 4.8-5. 6 above high normal Predi abete s: 5.7 - 6.4 Diabe salome: >6.4 Glyce kendal contr ol for adult s with diabe salome: <7.0 Not Available [facility] ([facility]) [address] [place], [address], 12/26/2023 13:10:33 12/25/19 24 12/26/2023 TSH TSH 1.610 uIU/m L 0.450- 4.500 Not Available [facility] ([facility]) [address] [place], [address], 12/26/2023 13:10:33 12/25/19 24 12/26/2023 CBC WITH DIFFE RENTI AL/PL ATELE T WBC 8.4 x10e3 /uL 3.4-10 .8 Not Available [facility] ([facility]) [address] [place], [address], 12/26/2023 13:10:34 12/25/19 24 12/26/2023 CBC WITH DIFFE RENTI AL/PL ATELE T RBC 5.38 x10e6 /uL 4.14-5 .80 Not Available [facility] ([facility]) [address] [place], [address], 12/26/2023 13:10:34 12/25/19 24 12/26/2023 CBC WITH DIFFE RENTI AL/PL ATELE T hemoglobin 16.3 g/dL 13.0-1 7.7 Not Available [facility] ([facility]) [address] [facility], [place], [address], 12/26/2023 13:10:34 12/25/19 24 12/26/2023 CBC WITH DIFFE RENTI AL/PL ATELE T hematocrit 48.4 % 37.5-5 1.0 Not Available [facility] ([facility]) [address] [place], [address], 12/26/2023 13:10:34 12/25/19 24 12/26/2023 CBC WITH DIFFE RENTI AL/PL ATELE T MCV 90 fL 79-97 Not Available [facility] ([facility]) [address] [place], [address], 12/26/2023 13:10:34 12/25/19 24 12/26/2023 CBC WITH DIFFE RENTI AL/PL ATELE T MCH 30.3 pg 26.6-3 3.0 Not Available [facility] ([facility]) [address] [place], [address], 12/26/2023 13:10:34 12/25/19 24 12/26/2023 CBC WITH DIFFE RENTI AL/PL ATELE T MCHC 33.7 g/dL 31.5-3 5.7 Not Available [facility] ([facility]) [address] [place], [address], 12/26/2023 13:10:34 12/25/19 24 12/26/2023 CBC WITH DIFFE RENTI AL/PL ATELE T RDW 13.4 % 11.6-1 5.4 Not Available [facility] ([facility]) [address] [place], [address], 12/26/2023 13:10:34 12/25/19 24 12/26/2023 CBC WITH DIFFE RENTI AL/PL ATELE T platelets 226 x10e3 /uL 150-45 0 Not Available [facility] ([facility]) [address] [facility], [place], [address], 12/26/2023 13:10:34 12/25/19 24 12/26/2023 CBC WITH DIFFE RENTI AL/PL ATELE T neutrophils 50 % notest ab. Not Available [facility] ([facility]) [address] [facility] [address], [place], [address], 12/26/2023 13:10:34 12/25/19 24 12/26/2023 CBC WITH DIFFE RENTI AL/PL ATELE T lymphs 35 % notest ab. Not Available [facility] ([facility]) [address] [facility], [place], [address], 12/26/2023 13:10:34 12/25/19 24 12/26/2023 CBC WITH DIFFE RENTI AL/PL ATELE T monocytes 8 % notest ab. Not Available [facility] ([facility]) [address] [facility], [place], [address], 12/26/2023 13:10:34 12/25/19 24 12/26/2023 CBC WITH DIFFE RENTI AL/PL ATELE T eos 5 % notest ab. Not Available [facility] ([facility]) [address] [facility], [place], [address], 12/26/2023 13:10:34 12/25/19 24 12/26/2023 CBC WITH DIFFE RENTI AL/PL ATELE T basos 1 % notest ab. Not Available [facility] ([facility]) [address] [facility], [place], [address], 12/26/2023 13:10:34 12/25/19 24 12/26/2023 CBC WITH DIFFE RENTI AL/PL ATELE T neutrophils (absolute) 4.3 x10e3 /uL 1.4-7. 0 Not Available [facility] ([facility]) [address] [facility], [place], [address], 12/26/2023 13:10:34 12/25/19 24 12/26/2023 CBC WITH DIFFE RENTI AL/PL ATELE T lymphs (absolute) 2.9 x10e3 /uL 0.7-3. 1 Not Available [facility] ([facility]) [address] [facility], [place], [address], 12/26/2023 13:10:34 12/25/19 24 12/26/2023 CBC WITH DIFFE RENTI AL/PL ATELE T monocytes(ab solute) 0.7 x10e3 /uL 0.1-0. 9 Not Available [facility] ([facility]) [address] [facility], [place], [address], 12/26/2023 13:10:34 12/25/19 24 12/26/2023 CBC WITH DIFFE RENTI AL/PL ATELE T eos (absolute) 0.4 x10e3 /uL 0.0-0. 4 Not Available [facility] ([facility]) [address] [facility], [place], [address], 12/26/2023 13:10:34 12/25/19 24 12/26/2023 CBC WITH DIFFE RENTI AL/PL ATELE T baso (absolute) 0.1 x10e3 /uL 0.0-0. 2 Not Available [facility] ([facility]) [address] [place], [address], 12/26/2023 13:10:34 12/25/19 24 12/26/2023 CBC WITH DIFFE RENTI AL/PL ATELE T immature granulocytes 1 % notest ab. Not Available [facility] ([facility]) [address] [place], [address], 12/26/2023 13:10:34 12/25/19 24 12/26/2023 CBC WITH DIFFE RENTI AL/PL ATELE T immature grans (abs) 0.1 x10e3 /uL 0.0-0. 1 Not Available [facility] ([facility]) [address] [facility], [place], [address], 12/26/2023 13:10:34 12/25/19 24 12/26/2023 PROST ATE-S PECIF IC AG prostate specific Ag 1.2 NG/mL 0.0-4. 0 Vipul ECLIA metho dolog y. Accor ding to the Ameri can [employer]rolo g[employer] Ass[employer] iatio n, Serum PSA shoul d decre ase and remai n at undet ectab le level s after radic al prost atect issac. The AUA defin es bioch emica l recur rence as an initi al PSA value 0.2 ng/mL or great er follo wed by a subse quent confi rmato ry PSA value 0.2 ng/mL or great er. Value s obtai brittney with diffe rent assay metho ds or kits canno t be used inter spicer eably . Resul ts canno t be inter prete d as absol georgette evide nce of the prese nce or absen ce of johann costello se. Not Available [facility] ([facility]) [address] [facility] [address], [place], [address], 12/26/2023 13:10:35 12/25/19 24 12/26/2023 TRIIO DOTHY ARTIE E (T3), FREE triiodothyro nine (T3), free 2.7 pg/mL 2.0-4. 4 Not Available [facility] ([facility]) [address] [facility], [place], [address], 12/26/2023 13:10:35 04/01/20 24 04/02/2024 Cobal snyder (Carmen min B12) [Mass /volu me] in Serum or Plasm a cobalamin (vitamin B12) [mass/volume ] in serum or plasma vitam in B12 Not Available Not Available 10/15/2024 13:36:51 10/08/19 25 10/09/2024 TESTO STERO NE,FR EE AND TOTAL testosterone 661 NG/dL 264-91 6 Adult male refer ence inter angela is based on a popul ation of healt hy nonob abi males (BMI <30) betwe en 19 and 39 years old. David nguyen et.al . JCEM 2017, 102;1 161-1 173. PMID: 17236 103. Not Available [facility] ([facility]) [address] [place], [address], 10/12/2024 13:07:41 10/08/19 25 10/12/2024 TESTO STERO NE,FR EE AND TOTAL free testosterone (direct) 5.3 pg/mL 6.6-18 .1 below low normal Not Available [facility] ([facility]) [address] [place], [address], 10/12/2024 13:07:41 10/08/19 25 10/09/2024 LIPID PANEL cholesterol, total 201 mg/dL 100-19 9 above high normal Not Available [facility] ([facility]) [address] [place], [address], 10/12/2024 13:07:42 10/08/19 25 10/09/2024 LIPID PANEL triglyceride s 296 mg/dL 0-149 above high normal Not Available [facility] ([facility]) [address] [place], [address], 10/12/2024 13:07:42 10/08/19 25 10/09/2024 LIPID PANEL HDL cholesterol 40 mg/dL >39 Not Available [facility] ([facility]) [address] [place], [address], 10/12/2024 13:07:42 10/08/19 25 10/09/2024 LIPID PANEL VLDL cholesterol fredrick 51 mg/dL 5-40 above high normal Not Available [facility] ([facility]) [address] [place], [address], 10/12/2024 13:07:42 10/08/19 25 10/09/2024 LIPID PANEL LDL chol calc ([facility]) 110 mg/dL 0-99 above high normal Not Available [facility] ([facility]) [address] [place], [address], 10/12/2024 13:07:42 10/08/19 25 10/09/2024 COMP. METAB OLIC PANEL (14) glucose 101 mg/dL 70-99 above high normal Not Available [facility] ([facility]) [address] [place], [address], 10/12/2024 13:07:43 10/08/19 25 10/09/2024 COMP. METAB OLIC PANEL (14) BUN 17 mg/dL 8-27 Not Available [facility] ([facility]) [address] [place], [address], 10/12/2024 13:07:43 10/08/19 25 10/09/2024 COMP. METAB OLIC PANEL (14) creatinine 1.14 mg/dL 0.76-1 .27 Not Available [facility] ([facility]) [address] [place], [address], 10/12/2024 13:07:43 10/08/19 25 10/09/2024 COMP. METAB OLIC PANEL (14) eGFR 73 mL/mi n/1.7 3 >59 Not Available [facility] ([facility]) [address] [place], [address], 10/12/2024 13:07:43 10/08/19 25 10/09/2024 COMP. METAB OLIC PANEL (14) BUN/creatini ne ratio 15 10-24 Not Available [facility] ([facility]) [address] [place], [address], 10/12/2024 13:07:43 10/08/19 25 10/09/2024 COMP. METAB OLIC PANEL (14) sodium 142 mmol/ L 134-14 4 Not Available [facility] ([facility]) [address] [facility] [place], [address], 10/12/2024 13:07:43 10/08/19 25 10/09/2024 COMP. METAB OLIC PANEL (14) potassium 4.1 mmol/ L 3.5-5. 2 Not Available [facility] ([facility]) [address] [facility] [place], [address], 10/12/2024 13:07:43 10/08/19 25 10/09/2024 COMP. METAB OLIC PANEL (14) chloride 104 mmol/ L 96-106 Not Available [facility] ([facility]) [address] [facility] [place], [address], 10/12/2024 13:07:43 10/08/19 25 10/09/2024 COMP. METAB OLIC PANEL (14) carbon dioxide, total 23 mmol/ L 20-29 Not Available [facility] ([facility]) [address] [facility] [place], [address], 10/12/2024 13:07:43 10/08/19 25 10/09/2024 COMP. METAB OLIC PANEL (14) calcium 10.3 mg/dL 8.6-10 .2 above high normal Not Available [facility] ([facility]) [address] [facility] [place], [address], 10/12/2024 13:07:43 10/08/19 25 10/09/2024 COMP. METAB OLIC PANEL (14) protein, total 6.7 g/dL 6.0-8. 5 Not Available [facility] ([facility]) [address] [facility] [place], [address], 10/12/2024 13:07:43 10/08/19 25 10/09/2024 COMP. METAB OLIC PANEL (14) albumin 4.4 g/dL 3.9-4. 9 Not Available [facility] ([facility]) [address] [facility] [place], [address], 10/12/2024 13:07:43 10/08/19 25 10/09/2024 COMP. METAB OLIC PANEL (14) globulin, total 2.3 g/dL 1.5-4. 5 Not Available [facility] ([facility]) [address] [facility], [place], [address], 10/12/2024 13:07:43 10/08/19 25 10/09/2024 COMP. METAB OLIC PANEL (14) bilirubin, total 0.5 mg/dL 0.0-1. 2 Not Available [facility] ([facility]) [address] [facility], [place], [address], 10/12/2024 13:07:43 10/08/19 25 10/09/2024 COMP. METAB OLIC PANEL (14) alkaline phosphatase 63 IU/L 44-121 Not Available [facility] ([facility]) [address] [facility], [place], [address], 10/12/2024 13:07:43 10/08/19 25 10/09/2024 COMP. METAB OLIC PANEL (14) AST (SGOT) 31 IU/L 0-40 Not Available [facility] ([facility]) [address] [facility] [place], [address], 10/12/2024 13:07:43 10/08/19 25 10/09/2024 COMP. METAB OLIC PANEL (14) ALT (SGPT) 23 IU/L 0-44 Not Available [facility] ([facility]) [address] [place], [address], 10/12/2024 13:07:43 10/08/19 25 10/08/2024 CBC WITH DIFFE RENTI AL/PL ATELE T WBC 7.6 x10e3 /uL 3.4-10 .8 Not Available [facility] ([facility]) [address] [facility] [place], [address], 10/12/2024 13:07:44 10/08/19 25 10/08/2024 CBC WITH DIFFE RENTI AL/PL ATELE T RBC 5.87 x10e6 /uL 4.14-5 .80 above high normal Not Available [facility] ([facility]) [address] [place], [address], 10/12/2024 13:07:44 10/08/19 25 10/08/2024 CBC WITH DIFFE RENTI AL/PL ATELE T hemoglobin 17.5 g/dL 13.0-1 7.7 Not Available [facility] ([facility]) [address] [facility] [place], [address], 10/12/2024 13:07:44 10/08/19 25 10/08/2024 CBC WITH DIFFE RENTI AL/PL ATELE T hematocrit 52.4 % 37.5-5 1.0 above high normal Not Available [facility] ([facility]) [address] [place], [address], 10/12/2024 13:07:44 10/08/19 25 10/08/2024 CBC WITH DIFFE RENTI AL/PL ATELE T MCV 89 fL 79-97 Not Available [facility] ([facility]) [address] [place], [address], 10/12/2024 13:07:44 10/08/19 25 10/08/2024 CBC WITH DIFFE RENTI AL/PL ATELE T MCH 29.8 pg 26.6-3 3.0 Not Available [facility] ([facility]) [address] [place], [address], 10/12/2024 13:07:44 10/08/19 25 10/08/2024 CBC WITH DIFFE RENTI AL/PL ATELE T MCHC 33.4 g/dL 31.5-3 5.7 Not Available [facility] ([facility]) [address] [facility] [place], [address], 10/12/2024 13:07:44 10/08/19 25 10/08/2024 CBC WITH DIFFE RENTI AL/PL ATELE T RDW 12.0 % 11.6-1 5.4 Not Available [facility] ([facility]) [address] [facility], [place], [address], 10/12/2024 13:07:44 10/08/19 25 10/08/2024 CBC WITH DIFFE RENTI AL/PL ATELE T platelets 248 x10e3 /uL 150-45 0 Not Available [facility] ([facility]) [address] [facility], [place], [address], 10/12/2024 13:07:44 10/08/19 25 10/08/2024 CBC WITH DIFFE RENTI AL/PL ATELE T neutrophils 46 % notest ab. Not Available [facility] ([facility]) [address] [facility], [place], [address], 10/12/2024 13:07:44 10/08/19 25 10/08/2024 CBC WITH DIFFE RENTI AL/PL ATELE T lymphs 36 % notest ab. Not Available [facility] ([facility]) [address] [facility], [place], [address], 10/12/2024 13:07:44 10/08/19 25 10/08/2024 CBC WITH DIFFE RENTI AL/PL ATELE T monocytes 7 % notest ab. Not Available [facility] ([facility]) [address] [facility], [place], [address], 10/12/2024 13:07:44 10/08/19 25 10/08/2024 CBC WITH DIFFE RENTI AL/PL ATELE T eos 9 % notest ab. Not Available [facility] ([facility]) [address] [facility], [place], [address], 10/12/2024 13:07:44 10/08/19 25 10/08/2024 CBC WITH DIFFE RENTI AL/PL ATELE T basos 1 % notest ab. Not Available [facility] ([facility]) [address] [facility], [place], [address], 10/12/2024 13:07:44 10/08/19 25 10/08/2024 CBC WITH DIFFE RENTI AL/PL ATELE T neutrophils (absolute) 3.5 x10e3 /uL 1.4-7. 0 Not Available [facility] ([facility]) [address] [facility], [place], [address], 10/12/2024 13:07:44 10/08/19 25 10/08/2024 CBC WITH DIFFE RENTI AL/PL ATELE T lymphs (absolute) 2.7 x10e3 /uL 0.7-3. 1 Not Available [facility] ([facility]) [address] [place], [address], 10/12/2024 13:07:44 10/08/19 25 10/08/2024 CBC WITH DIFFE RENTI AL/PL ATELE T monocytes(ab solute) 0.5 x10e3 /uL 0.1-0. 9 Not Available [facility] ([facility]) [address] [place], [address], 10/12/2024 13:07:44 10/08/19 25 10/08/2024 CBC WITH DIFFE RENTI AL/PL ATELE T eos (absolute) 0.7 x10e3 /uL 0.0-0. 4 above high normal Not Available [facility] ([facility]) [address] [place], [address], 10/12/2024 13:07:44 10/08/19 25 10/08/2024 CBC WITH DIFFE RENTI AL/PL ATELE T baso (absolute) 0.1 x10e3 /uL 0.0-0. 2 Not Available [facility] ([facility]) [address] [facility], [place], [address], 10/12/2024 13:07:44 10/08/19 25 10/08/2024 CBC WITH DIFFE RENTI AL/PL ATELE T immature granulocytes 1 % notest ab. Not Available [facility] ([facility]) [address] [facility], [place], [address], 10/12/2024 13:07:44 10/08/19 25 10/08/2024 CBC WITH DIFFE RENTI AL/PL ATELE T immature grans (abs) 0.1 x10e3 /uL 0.0-0. 1 Not Available [facility] ([facility]) [address] [facility], [place], [address], 10/12/2024 13:07:44 02/19/20 24 02/19/2024 XR, foot No observ ation record ed. [address], [place], [address], 02/21/2024 11:07:05 03/27/20 24 03/27/2024 XR, shoul miguel, 2 or more view No observ ation record ed. [address], [place], [address], 03/29/2024 09:30:37 06/19/2006/18/2024 MRI, susanul miguel, w/o contr ast No observ ation record ed. [facility] [address], [place], [address], 06/21/2024 12:32:31 06/19/20 24 06/18/2024 MRI, shoul miguel, w/o contr ast No observ ation record ed. [facility] [address], [place], [address], 06/21/2024 12:33:16 09/13/19 25 09/06/2024 cardi ac monit or No observ ation record ed. [facility] [address], [place], [address], 09/20/2024 09:07:34 09/13/19 25 09/06/2024 cardi ac monit or No observ ation record ed. [facility] [address], [place], [address], 09/20/2024 09:07:43 09/18/19 25 09/18/2024 cardi ac monit or No observ ation record ed. [facility] [address], [place], [address], 09/20/2024 09:08:38 10/14/19 25 10/14/2024 XR, chest No observ ation record ed. [email or web address] [place], [address], 10/15/2024 14:15:51 11/20/19 25 09/05/2024 cardi ac monit or No observ ation record ed. [email or web address] [facility] [address], [place], [address], 11/20/2024 13:57:55 11/20/19 25 11/19/2024 cardi ac monit or No observ ation record ed. [email or web address] [facility] [address], [place], [address], 11/20/2024 13:58:21 11/30/19 25 11/29/2024 XR, shoul miguel, 2 or more view No observ ation record ed. [facility] [address] [facility] [address], [place], [address], 12/02/2024 09:40:57 Result Notes None recorded. Problems Name Problem SNOMED Code Status Onset Date Resolution Date Notes Provider Name and Address Organization Details Recorded Time Essential hypertension 70274761 Active 2023 Brenda Garvey MD Attn: Accountshereen g,[address] [facility], [place], [address], [place] [facility] 4 14:31:21 Obesity 695448159 Active 2023 Brenda Garvey MD Attn: Accountshereen g,[address] [facility], [place], [address], [place] [facility] 4 14:31:24 Chronic pain syndrome 820522451 Active 2023 Brenda Garvey MD Attn: Accountin g,[address] [facility], [place], [address], [place] [facility] 4 14:31:25 Atrial fibrillation 20522900 Active 2023 rBenda Garvey MD Attn: Accountshereen g,[address] [facility], [place], [address], [place] [facility] 4 14:31:26 Erectile dysfunction 953580602 Active 2023 Brenda Garvey MD Attn: Accountin g,[address] [facility], [place], [address], [place] [facility] 4 14:31:28 Gastroesophage al reflux disease without esophagitis 701685181 Active 2023 Brenda Garvey MD Attn: Accountshereen g,[address] [facility], [place], [address], [place] [facility] 4 14:31:30 History of peptic ulcer 842613293 Active 2023 Brenda Garvey MD Attn: Accountin g,[address] [facility], [place], [address], [place] [facility] 4 14:31:31 Hyperlipidemia 52675889 Active 2023 Brenda Garvey MD Attn: Katein g,[address] [facility], [place], [address], [place] [facility] 4 14:31:47 Ulcerative colitis 07188713 Active 2023 Brenda Garvey MD Attn: Johnny almanzar,[address], [place], [address], [place] [facility] 4 21:50:09 Sleep apnea 95993216 Active 2023 Brenda Garvey MD Attn: Johnny almanzar,[address], [place], [address], [place] [facility] 4 21:50:35 Problem Notes None recorded. Procedures Surgical History Date Name Laterality Status Provider Name and Address Organization Details Recorded Time Pacemaker completed Mary Flores MA [place] [facility] 10/03/2024 11:02:03 Defibrillator completed Mary Flores [place] [facility] 12/21/2023 16:57:13 Heart Surgery completed Mary Flores MA [place] [facility] 12/21/2023 16:57:19 Imaging Results Imaging Date Name Status LastModified by Organiz ation Details LastModified Time 02/19/2024 XR, foot completed [address], [address], 02/21/2024 11:07:05 03/27/2024 XR, shoulder, 2 or more view completed [address] [place] [address], [address], 03/29/2024 09:30:37 06/18/2024 MRI, shoulder, w/o contrast completed [facility] [address], [place], [address], 06/21/2024 12:32:31 06/18/2024 MRI, shoulder, w/o contrast completed [facility] [address], [place], [address], 06/21/2024 12:33:16 09/06/2024 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 [facility] [address], [place], [address], 09/20/2024 09:07:34 09/06/2024 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 [email or web address] [facility] [address], [place], [address], 09/20/2024 09:07:43 09/18/2024 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 [email or web address] [facility] [address], [place], [address], 09/20/2024 09:08:38 10/14/2024 XR, chest completed [address] [place], [address], 10/15/2024 14:15:51 09/05/2024 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 Medical Equipment None Reported. Allergies Allergen ID Allergen Name Allergen Category Reaction Reaction Severity Criticality Documentation Date Start Date Code Code System Note Provider Name and Address Organization Details Recorded Time 17790831 Non-stero idal anti-infl ammatory agent (product) medicatio n Not available Not available Not available 06/06/2024 52014 005 SNOMED Not Available Not Available Not Available Medications Name Sig Start Date Stop Date Status Note LastModified by Organization Details LastModified Time ketoconazol e 2 % shampoo active Not Available Not Available Not Available flecainide 150 mg tablet TAKE 1 TABLET BY MOUTH TWICE DAILY active Not Available Not Available No t Available cetirizine 10 mg tablet TAKE 1 TABLET BY MOUTH DAILY active Not Available Not Available No t Available azithromyci n 250 mg tablet TAKE 2 TABLETS BY MOUTH FOR 1 DAY THEN TAKE 1 TABLET BY MOUTH DAILY FOR 4 DAYS 12/20 completed Not Available Not Available Not Available amiodarone 200 mg tablet TAKE 1 TABLET BY MOUTH TWICE DAILY active Not Available Not Available No t Available hydrocodone 5 mg-acetamin ophen 325 mg tablet TAKE 1 TABLET BY MOUTH EVERY 4 TO 6 HOURS NEEDED FOR PAIN 06/06 completed Not Available Not Available Not Available clobetasol 0.05 % topical cream APPLY TO AFFECTED AREAS TWICE DAILY active Not Available Not Available No t Available phentermine 37.5 mg tablet TAKE 1 TABLET BY MOUTH 2 HOURS AFTER BREAKFAST 10/03 completed Not Available Not Available Not Available ciprofloxac in 500 mg tablet TAKE 1 TABLET BY MOUTH TWICE DAILY 12/20 completed Not Available Not Available Not Available tramadol 50 mg tablet TAKE 1 TO 2 TABLETS BY MOUTH THREE TIMES DAILY FOR 16 DAYS NEEDED 03/07 completed Not Available Not Available Not Available fenofibrate micronized 134 mg capsule TAKE 1 CAPSULE BY MOUTH EVERY DAY active Not Available Not Available No t Available amoxicillin 875 mg tablet TAKE 1 TABLET BY MOUTH TWICE DAILY UNTIL ALL TAKEN 12/20 completed Not Available Not Available Not Available magnesium oxide 400 mg (241.3 mg magnesium) tablet TAKE 1 TABLET BY MOUTH TWICE DAILY active Not Available Not Available No t Available cephalexin 500 mg capsule TAKE 1 CAPSULE BY MOUTH THREE TIMES DAILY 11/06 completed Not Available Not Available Not Available pantoprazol e 40 mg tablet,alyssa yed release TAKE 1 TABLET BY MOUTH EVERY DAY active Not Available Not Available No t Available oseltamivir 75 mg capsule TAKE 1 CAPSULE BY MOUTH EVERY 12 HOURS FOR 5 DAYS 03/07 completed Not Available Not Available Not Available metoprolol tartrate 50 mg tablet TAKE 1 TABLET BY MOUTH TWICE DAILY. INCREASE DOSE 12/20 completed Not Available Not Available Not Available balsalazide 750 mg capsule TAKE 3 CAPSULES BY MOUTH THREE TIMES DAILY active Not Available Not Available No t Available omeprazole 20 mg capsule,del ayed release TAKE 1 CAPSULE BY MOUTH EVERY DAY active Not Available Not Available No t Available hydroxyzine HCl 25 mg tablet TAKE 1 TABLET BY MOUTH THREE TIMES DAILY NEEDED FOR ITCHING active Not Available Not Available No t Available lisinopril 10 mg-hydrochl orothiazide 12.5 mg tablet TAKE 1 TABLET BY MOUTH EVERY DAY active Not Available Not Available No t Available levofloxaci n 500 mg tablet TAKE 1 TABLET BY MOUTH TWICE DAILY active Not Available Not Available No t Available hydroxyzine HCl 10 mg tablet TAKE 1 TABLET BY MOUTH AT NIGHT NEEDED 12/20 completed Not Available Not Available Not Available alfuzosin ER 10 mg tablet,exte nded release 24 hr TAKE 1 TABLET BY MOUTH EVERY DAY 03/07 completed Not Available Not Available Not Available tadalafil 5 mg tablet TAKE ONE TABLET BY MOUTH DAILY active Not Available Not Available No t Available tadalafil 10 mg tablet TAKE 1 TABLET BY MOUTH NEEDED active Not Available Not Available No t Available duloxetine 30 mg capsule,del ayed release TAKE 1 CAPSULE BY MOUTH EVERY DAY 2024 active Not Available Not Available Not Avai lable pregabalin 100 mg capsule 03/07 completed Not Available Not Available Not Available Xarelto 20 mg tablet 03/07 completed Not Available Not Available Not Available naloxone 4 mg/actuatio n nasal spray 03/07 completed Not Available Not Available Not Available Orencia ClickJect 125 mg/mL subcutaneou s auto-inject or 12/20 completed Not Available Not Available Not Available semaglutide (weight loss) 0.25 mg/0.5 mL subcutaneou s pen injector Inject by subcutane ous route. active Not Available Not Available No t Available Zepbound 2.5 mg/0.5 mL subcutaneou s pen injector INJECT 2.5MG UNDER THE SKIN EVERY WEEK X 4 WEEKS active Not Available Not Available No t Available Vitals Date Recorded Body height Body mass index (BMI) Body weight Heart rate Oxygen saturation Oxygen saturation in Arterial blood by Pulse oximetry Systolic blood pressure Diastolic blood pressure Provider Name and Address Organization Details Last Updated DateTime 4 177.8 cm 32.7 kg/m2 394277. 34 g 60 /min 96 % 96 % 132 mm[Hg] 74 mm[Hg] Mary Flores [place] [facility] 4 16:52:51 Date Recorded Body height Body mass index (BMI) Body weight Heart rate Oxygen saturation Oxygen saturation in Arterial blood by Pulse oximetry Systolic blood pressure Diastolic blood pressure Provider Name and Address Organization Details Last Updated DateTime 4 177.8 cm 31 kg/m2 25333.9 5 g 82 /min 95 % 95 % 128 mm[Hg] 84 mm[Hg] Chelsy Abernathy MA [facility] 4 17:18:15 Date Recorded Body height Body mass index (BMI) Body weight Heart rate Oxygen saturation Oxygen saturation in Arterial blood by Pulse oximetry Systolic blood pressure Diastolic blood pressure Provider Name and Address Organization Details Last Updated DateTime 4 177.8 cm 31.1 kg/m2 91362.5 4 g 72 /min 95 % 95 % 130 mm[Hg] 90 mm[Hg] Andra Gaytan MA [facility] 4 16:35:34 Date Recorded Body height Body mass index (BMI) Body weight Heart rate Oxygen saturation Oxygen saturation in Arterial blood by Pulse oximetry Systolic blood pressure Diastolic blood pressure Provider Name and Address Organization Details Last Updated DateTime 5 177.8 cm 31.8 kg/m2 116966. 15 g 64 /min 95 % 95 % 124 mm[Hg] 70 mm[Hg] Mary Flores MA [facility] 5 11:05:47 Social History Question Answer Notes LastModified by Organizat ion Details LastModified Time Tobacco Smoking Status Current Every Day Smoker Mary Flores MA [facility] 12/21/2023 16:58:18 Do You Have An Advance Directive? Yes Information not available 12/21/2023 What Is Your Level Of Alcohol Consumption? Moderate Information not available 12/21/2023 How Many Years Have You Consumed Alcohol? 20 Information not available 12/21/2023 Are You Blind Or Do You Have Difficulty Seeing? No Information not available 12/21/2023 What Is Your Level Of Caffeine Consumption? Occasional Soda Information not available 12/21/2023 In The 14 Days Before Symptom Onset, Have You Had Close Contact With A Laboratory-confir med COVID-19 While That Case Was Ill? No Information not available 12/21/2023 In The 14 Days Before Symptom Onset, Have You Had Close Contact With A Person Who Is Under Investigation For COVID-19 While That Person Was Ill? No Information not available 12/21/2023 Have You Been To An Area Known To Be High Risk For COVID-19? No Information not available 12/21/2023 Are You Currently Employed? Yes Information not available 06/06/2024 Are You Deaf Or Do You Have Serious Difficulty Hearing? No Information not available 12/21/2023 What Type Of Diet Are You Following? REGULAR Information not available 12/21/2023 What Is Your Occupation? [employer] Information not available 06/06/2024 Are There Any Guns Present In Your Home? Yes Information not available 12/21/2023 What Was The Date Of Your Most Recent Tobacco Screening? 10/03/2024 Information not available 10/03/2024 What Is Your Current Pack Years? 10packyears Information not available 12/21/2023 What Is Your Relationship Status? Information not available 12/21/2023 Do You Use Your Seat Belt Or Car Seat Routinely? Yes Information not available 12/21/2023 Do You Have Smoke And Carbon Monoxide Detectors In Your Home? Yes Information not available 12/21/2023 How Much Tobacco Do You Smoke? 1 PPW 1 Pack Per Month Information not available 10/03/2024 Do You Feel Stressed (tense, Restless, Nervous, Or Anxious, Or Unable To Sleep At Night)? AS0884-4 Information not available 12/21/2023 Do You Use Any Illicit Or Recreational Drugs? No Information not available 12/21/2023 Do You Use Sunscreen Routinely? Yes Information not available 12/21/2023 Has Tobacco Cessation Counseling Been Provided? Yes Information not available 10/03/2024 On What Date Was Tobacco Cessation Counseling Provided? 10/03/2024 Information not available 10/03/2024 How Many Years Have You Smoked Tobacco? 20 Information not available 12/21/2023 Do You Or Have You Ever Used Any Other Forms Of Tobacco Or Nicotine? No Information not available 12/21/2023 Sex: Male Functional Status Question Answer Note LastModified by Organization D etails LastModified Time Are you able to care for yourself? Yes Information n ot available 12/21/2023 What is your exercise level? None Information not available 12/21/2023 Mental Status None recorded. Family History Relationship Description Onset Age of this Age Resolved Age Notes LastModified by Organization Details LastModified Time Father Heart disease [email or web address] Not available 2023 16:57:33 Father Hypercholest erolemia mebyma Not available 2023 16:57:38 Father Hypertensive disorder [email or web address] Not available 2023 16:57:42 Medical History Condition Response Coronary Artery Disease N Other N Atrial Fibrillation Y High Blood Pressure Y Depression N COPD N Blood Clots N Anxiety Disorder N Muscle, Joint, or Bone Problems Y Acid Reflux (GERD) Y Cancer N Stroke N Headaches N Kidney or Bladder Problems N Skin Problems N Asthma N Allergies N Have you had a PSA blood test in the las t year? Y Hepatitis N High Cholesterol Y Liver Disease N Thyroid Problems N GI Problems N Anemia N Heart Attack (NM) N Diabetes N Seizures/Epilepsy N Heart Failure N Osteoporosis N Immunizations Vaccine Type Date Status Note Provider Nam e and Address Organization Details Recorded Time Influenza, split virus, quadrivalent, preservative 9 completed GARY [place], [place] [facility] 03/07/2024 17:14:02 zoster recombinant 1 completed Chelsy Abernathy [place] [facility] 03/07/2024 17:14:02 zoster recombinant 1 completed Chelsy [place] [facility] 03/07/2024 17:14:02 zoster recombinant 1 completed Chelsy Abern[place] [facility] 03/07/2024 17:14:02 zoster recombinant 1 [place] [facility] 03/07/2024 17:14:02 Td, adsorbed, preservative free, adult use, Lf unspecified 2 [place] [facility] 03/07/2024 17:14:02 COVID-19, mRNA, LNP-S, PF, 100 mcg/0.5mL dose or 50 mcg/0.25mL dose 1 [place] [facility] 03/07/2024 17:14:02 COVID-19, mRNA, LNP-S, PF, 100 mcg/0.5mL dose or 50 mcg/0.25mL dose 1 completed [place] [facility] 03/07/2024 17:14:02 COVID-19, mRNA, LNP-S, PF, 100 mcg/0.5mL dose or 50 mcg/0.25mL dose 1 [place] [facility] 03/07/2024 17:14:02 influenza, unspecified formulation 8 completed [place] [facility] 03/07/2024 17:14:02 Tdap 2 [place] [facility] 03/07/2024 17:14:02 Influenza, split virus, trivalent, preservative 3 completed [place] [facility] 03/07/2024 17:14:02 Influenza, split virus, trivalent, preservative 4 [place] [facility] 03/07/2024 17:14:02 Influenza, split virus, trivalent, PF 7 completed [place] [facility] 03/07/2024 17:14:02 Influenza, split virus, trivalent, PF 6 completed [place] [facility] 03/07/2024 17:14:02 Influenza, split virus, quadrivalent, PF 6 completed [place] [facility] 03/07/2024 17:14:02 Influenza, split virus, quadrivalent, PF 2 completed [place] [facility] 03/07/2024 17:14:02 Influenza, split virus, quadrivalent, PF 8 completed [place] [facility] 03/07/2024 17:14:02 Past Encounters Encounter ID Performer Location Encounter Start Date Encounter Closed Date Diagnosis/Indication Diagnosis SNOMED-CT Code Diagnosis ICD10 Code Diagnosis Note [id number] Brenda Garvey MD [facility] [address] [place] [id number] 12/21/2023 16:19:13 12/21/2023 17:29:27 Essential hypertension 99545166 I10 Screening for malignant neoplasm of prostate 615666745 Z12.5 Obesity 561536277 E66.9 Chronic pain syndrome 37 4908196 G89.4 Atrial fibrillation 4943 6004 I48.91 Erectile dysfunction 860 462579 F52.21 Gastroesop hageal reflux disease without esophagitis 003835933 K21.9 History of peptic ulcer 062235481 Z87.11 Hyperlipidemia 27949147 E78.5 [id number] Brenda Garvey MD [facility] [address] [place] [id number] 03/07/2024 15:55:05 03/07/2024 17:54:34 Hyperlipidemia 36735382 E78.5 Obesity 388981272 E66.9 Gastroesop hageal reflux disease without esophagitis 345745788 K21.9 Essential hypertension 30184079 I10 Atrial fibrillation 4943 6004 I48.91 Ulcerative colitis 31674 004 K51.90 [id number] Brenda Garvey MD [facility] [address] [place] [id number] 06/06/2024 16:06:09 06/06/2024 17:24:17 Obesity 579114273 E66.9 Neuropathy 402683602 G62 .9 Essential hypertension 57135643 I10 Erectile dysfunction 860 928399 F52.21 Chronic pain syndrome 37 6328692 G89.4 Atrial fibrillation 4943 6004 I48.91 History of peptic ulcer 297680697 Z87.11 Gastroesop hageal reflux disease without esophagitis 881998872 K21.9 Hyperlipidemia 37439481 E78.5 [id number] Brenda Garvey MD [facility] [address] [place] [id number] 10/03/2024 10:47:06 10/03/2024 11:49:15 Smoker 90361409 F17.200 Body mass index 30+ - obesity 794844237 Z68.31 Obesity 676923286 E66.9 Essential hypertension 67975076 I10 Hyperlipidemia 12317622 E78.5 Fatigue 31603662 R53.83 Neuropathy 842390635 G62 .9 Health Concerns Section Related Observation LastModified by Organization Detai ls LastModified Time None Recorded Concern Status LastModified by Organization Details LastModified Time None Recorded Advance Directives Directive Y: Payers Encounter Date Sequence Insurance Name Policy Number Policy Hoffmann Covered Member ID Hoffmann Member ID Guarantor Name 12/21/2023 1 [facility] [id number] Lorenzo Cinthia [id number] Lorenzo Cinthia 03/07/2024 1 [facility] [id number] Lorenzo Cinthia [id number] Lorenzo Cinthia 06/06/2024 1 [employer] [id number] Lorenzo Ramirez Cinthia [id number] Lorenzo Cinthia 10/03/2024 1 [employer] [id number] Lorenzo Ramirez Cinthia [id number] Lorenzo Cinthia Notes Date Note Type Note Provider Name and Address Organization Details Recorded Time 12/21/2023 text/html 58-year-old with atrial fibrillation status post ablation hypertension dyslipidemia chronic foot pain erectile dysfunction GERD and history of peptic ulcer comes in for evaluation of his medical problems. Hypertension blood pressures been well-controlled no headache or dizziness obesity because of his pain in his feet has been unable to exercise and this has been going on for some time he is put on a significant amount of weight. Atrial fibrillation ablation and has been controlled. ED stable on current medical regimen. History of peptic ulcer disease no nausea no vomiting GERD no GI symptoms. Brenda Garvey MD Attn: Accounting,[address] [facility], [place], [address], [facility] 12/31/2023 14:34:15 03/07/2024 text/html AFib no palpitat ions hypertension no headache or dizziness GERD no nausea or vomiting obesity hard time losing weight hyperlipidemia does try to follow a low-fat diet but because of his chronic foot pain he just can not get active Brenda Garvey MD Attn: Accounting[address] [place], [address], [facility] 03/17/2024 21:54:06 06/06/2024 text/html still has proble ms with his feet he has been to multiple specialists foot pain management no help told he had neuropathy I believe he has even seen a neurologist. Struggling with weight would like to try something we will consider a shot hypertension no headache or dizziness GERD with history of duodenal ulcer no nausea no vomiting erectile dysfunction stable dyslipidemia does try to watch his diet ulcerative colitis stable AFib ablation stable Brenda Garvey MD Attn: Accounting, [address] [facility], [place], [address], [facility] [place]08[place]2024 16:38:27 10/03/2024 text/html he says some fat igue from time to time apparently he is getting some semaglutide from a private pay clinic at which she says they also told him his testosterone was low.Pacemaker placed without incidentGERD has been doing finereally still bothered by the neuropathic pain in his feethypertension blood pressure is controlled Brenda Garvey MD Attn: Accounting,[address] [facility], [place], [address], [facility] 10/03/2024 23:06:07
--- OUTSIDE RECORDS SUMMARY | 2024-12-12 13:44 | XMS_ITS | Clinical Summary ---
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 This disclosure is being madepursuant to the Care Everywhere program and may not contain all information available regarding this patient. Last updated 18.[facility] [employer] Allergies Active Allergy Reactions Criticality Noted Date Comments Nsaids Other High 10/28/2019 Medications * Be aware that medications may not be up to date on this document. Alwaysverify current medications with the patient. sulfaSALAzine EC (Azulfidine Entab) 500 MG tablet Take 1 (one) tablet by mouth once daily 3 Active rivaroxaban (Xarelto) 20 MG tablet Take 1 (one) tablet by mouth once daily 2 Active pantoprazole EC (Protonix) 40 MG tablet Take 1 (one) tablet by mouth once daily 3 Active metoprolol tartrate IR (Lopressor) 50 MG tablet Take 1 (one) tablet by mouth once daily 3 Active lisinopril-hydr oCHLOROthiazide (Prinzide; Zestoretic) 10-12.5 MG tablet Take 1 (one) tablet by mouth once daily 3 Active Fenofibrate 134 MG CAPS Take 1 capsule by mouth once daily 3 Active balsalazide (Colazal) 750 MG capsule Take 3 (three) capsules by mouth 3 times daily 3 Active ketoconazole (Nizoral) 2 % creamIndication s:Tinea pedis of both feet Apply thin layer to feet twice daily until clear, then continue for 1 additional week. 30 days supply. 60 g 3 Active clobetasol (Temovate) 0.05 % cream Apply to affected areas twice daily. 30 days supply. 60 g 2 4 Active ketoconazole (Nizoral) 2 % shampoo Apply to wet hair, leave on for 3 minutes, then rinse; three times weekly. 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 Actinic keratoses 10/19/2022 Inflamed seborrheic keratosis 10/19/2022 Tinea pedis of both feet 10/19/2022 Multiple benign melanocytic nevi of face, upper and lower extremities and trunk 10/19/2022 Actinic skin damage 10/19/2022 Steven angioma 10/19/2022 Psoriatic arthritis 10/19/2022 Social History Tobacco Use Types Packs/Day Years Used Date Smoking Tobacco: Never Assessed Sex and Gender Information Value Date Recorded Sex Assigned at Not on file 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 [place] [address] Ghazal Caro MD [address] [facility] [place] [address] Health Maintenance Due Date Last Done Comments COLOGUARD (AGES 45-75) - COL ON CA SCREENING 1963 COLON MONITORING 1963 COLONOSCOPY - COLON CA SCREENING 1963 CT COLONOGRAPHY - COLON CA SCREENING 1963 Colorectal Cancer Screening 1963 FIT - COLON CA SCREENING 1963 FLEX SIG - COLON CA SCREENING 1963 LIPID TESTING 1963 HIV SCREENING 1978 DTAP/TDAP/TD VACCINES (1 - Tdap) 1982 PNEUMOCOCCAL VACCINE 50+ (1 of 1 - PCV) 2013 ZOSTER VACCINE (1 of 2) 2013 COVID-19 VACCINE (3 - 2023-2 5 season) 2024 10/20/2020, 09/22/2020 DEPRESSION SCREENING 08/28/2024 INFLUENZA VACCINE (Season Ended) 2025 06/06/2022, 09/14/2015 Respiratory Syncytial Virus (RSV) Vaccine Pt: or over 60 yrs (1 - 1-dose 75+ series) 2038 HEPATITIS C SCREENING Completed 01/21/2021 HEPATITIS B VACCINE Aged Out No longe r eligible based on patient's age to complete this topic HIB VACCINE Aged Out No longer eligi ble based on patient's age to complete this topic HPV VACCINE Aged Out No longer eligi ble based on patient's age to complete this topic MENINGOCOCCAL (Group B) VACCINE SHARED DECISION-MAKING Aged Out No longer eligible based on patient's age to complete this topic MENINGOCOCCAL GROUPS A/C/Y/W VACCINE Aged Out No longer eligible b ased on patient's age to complete this topic Insurance [address] [place] [address] [facility] Care Teams Cp Bleacher Operator Relationship Specialty Start Date End Date Odilon Garvey MD PCP - General 01/05/22
--- OUTSIDE RECORDS SUMMARY | 2024-12-12 13:44 | XMS_ITS | CONTINUITY OF CARE DOCUMENT ---
Author Name margret oswald Address Unknown Organization [facility] Address [id number] [place] [address] [address] [place] [address] Phone [phone] Care Team Providers Care Senior C Software Developer Name Role Phone Kal BALLESTEROS, Sanford Gan Unavailable BRENDA MCINTOSH MD Unavailable [phone] BRENDA MCINTOSH MD Unavailable PROBLEMS Condition Status Date Provider Notes S/P Dual chamb PCM - Biotron ik ( MRI Safe) active Svetlanaher Mcraean Family history of cardiovascular disease active 12/23 Amy Ramirez Right bundle branch block active Amy Mayn lazaro Abnormal electrocardiogram active Amy May nard SNORING active Sanford Bowden MD SARS-associated coronavirus active Sanford Bowden MD Atrial flutter active Sanford Bowden MD HTN essential active Sanford Bowden MD Chest pain-type to be determined active Don Bowden MD Ventricular tachycardia, unspecified active Ryder Lyons DIVISION CONTROLLER Syncope active Ryder Lyons NP Sleep apnea active Sanford Bowden MD Cardiology examination active Sanford rush MD Preop cardiovasc. examination active Miguelito Bowden MD ENCOUNTERS Date Type Provider Location Encounter Diag nosis - In-person encounter Office Visit Maritza Coker MD [facility] - In-person encounter Office Visit Maritza Coker MD [facility] - In-person encounter Office Visit Maritza Coker MD [facility] - In-person encounter Office Visit Maritza Ckoer MD [facility] - In-person encounter Office Visit Maritza Coker MD [facility] - In-person encounter Office Visit Sanford Bowden MD [facility] Cardiology examinationPreop cardiovasc. examination - In-person encounter Office Visit Sanford Bowden MD [facility] Sleep apnea - In-person encounter Office Visit Maritza Coker MD [facility] Ventricular tachycardia, unspecifiedSyncope - In-person encounter Office Visit Sanford Bowden MD [facility] Chest pain-type to be determined - In-person encounter Office Visit Sanford Bowden MD [facility] - In-person encounter Office Visit Sanford Bowden MD [facility] - In-person encounter Office Visit Sanford Bowden MD [facility] - In-person encounter Office Visit Sanford Bowden MD [facility] - In-person encounter Office Visit Sanford Bowden MD [facility] - In-person encounter Office Visit Sanford Bowden MD [facility] HTN essential - In-person encounter Office Visit Sanford Bowden MD [facility] SNORINGSARS-associated coronavirusAtrial flutter VITAL SIGNS Date Observation Value Provider Body Mass Index (Ratio) 30.85 kg/m2 Skip Parks blood pressure, diastolic 94 mm[Hg] Di nagy [place] blood pressure, systolic 134 mm[Hg] [facility], oximetry 96 % [facility] pulse rate 80 /min [facility] respiratory rate E&M 12 /min [facility] weight E&M 215 [lb_av] [facility] height E&M 70 [in_i] [facility] blood pressure, cuff size regular Di garciaFour [facility] height E&M 70 [in_i] [facility] blood pressure, cuff size regular [facility] Body Mass Index (Ratio) 31.99 kg/m2 Skip [facility] blood pressure, diastolic 93 mm[Hg] Di [facility] blood pressure, systolic 148 mm[Hg] Cinthya [facility]iviaFour [facility] oxygen saturation, oximetry 97 % [facility] respiratory rate E&M 12 /min [facility] pulse rate 76 /min [facility] weight E&M 223 [lb_av] [facility] height E&M 70 [in_i] [facility] blood pressure, cuff size regular Di [facility] Body Mass Index (Ratio) 31.99 kg/m2 Duong ram Maria Del Carmen blood pressure, cuff size regular Ke rri Gruenenfeld blood pressure, diastolic 94 mm[Hg] Ke rri Gruenenfeld blood pressure, systolic 162 mm[Hg] Ker ri Gruenenfeldhernandez pulse rate 44 /min Blanquita Gruenenfe lder oxygen saturation, oximetry 96 % Blanquita Ortiz weight E&M 223 [lb_av] Blanquita Leigh [facility] height E&M 70 [in_i] Blanquita Leigh [facility] Body Mass Index (Ratio) 31.99 kg/m2 Duong as Dorr blood pressure, diastolic 84 mm[Hg] Di garciaFour [facility] blood pressure, systolic 166 mm[Hg] Cinthya oliviaFour [facility] oxygen saturation, oximetry 91 % [facility] pulse rate 69 /min [facility] respiratory rate E&M 14 /min [facility] weight E&M 223 [lb_av] [facility] height E&M 70 [in_i] [facility] blood pressure, cuff size regular An [facility] Body Mass Index (Ratio) 31.42 kg/m2 Duong as Dorr blood pressure, diastolic 82 mm[Hg] Jenny nkLogic blood pressure, systolic 139 mm[Hg] Ivanna og blood pressure, cuff size regular [facility] blood pressure, diastolic 82 mm[Hg] Justin et blood pressure, systolic 139 mm[Hg] Jar ret pulse rate 76 /min Antonio oxygen saturation, oximetry 98 % respiratory rate E&M 14 /min Antonio weight E&M 219 [lb_av] Antonio height E&M 70 [in_i] Antonio y Body Mass Index (Ratio) 31.85 kg/m2 Duong as Dorr blood pressure, diastolic 72 mm[Hg] Li nkLogic blood pressure, systolic 131 mm[Hg] Ivanna Haiderog blood pressure, cuff size regular [facility] blood pressure, diastolic 72 mm[Hg] [facility] blood pressure, systolic 131 mm[Hg] [facility] pulse rate 81 /min [facility] oxygen saturation, oximetry 97 % [facility] respiratory rate E&M 16 /min Ca Radha iller weight E&M 222 [lb_av] [facility] height E&M 70 [in_i] [facility] Body Mass Index (Ratio) 31.85 kg/m2 Patsy Bowden MD blood pressure, diastolic 82 mm[Hg] Jenny liangLog blood pressure, systolic 139 mm[Hg] [facility] blood pressure, cuff size regular [facility] blood pressure, diastolic 82 mm[Hg] [facility] blood pressure, systolic 139 mm[Hg] [facility] oxygen saturation, oximetry 95 % [facility] respiratory rate E&M 16 /min Ca Radha iller pulse rate 54 /min [facility] weight E&M 222 [lb_av] [facility] height E&M 70 [in_i] [facility] Body Mass Index (Ratio) 30.85 kg/m2 Patsy Bowden MD blood pressure, diastolic 79 mm[Hg] Jenny liangLog blood pressure, systolic 126 mm[Hg] Ivanna [facility] oxygen saturation, oximetry 97 % Marian Xie pulse rate 63 /min Marian Xie blood pressure, diastolic 79 mm[Hg] Sh sweta Xie blood pressure, systolic 126 mm[Hg] She rry Anne-Marie respiratory rate E&M 20 /min Marian Xie weight E&M 215 [lb_av] Marian Xie height E&M 70 [in_i] Marian Xie blood pressure, cuff size regular Durga Xie Body Mass Index (Ratio) 30.99 kg/m2 Patsy Bowden MD blood pressure, cuff size regular Ke rri Gruenenfeldhernandez blood pressure, diastolic 92 mm[Hg] Ke rri Gruenenfelder blood pressure, systolic 146 mm[Hg] Ker ri Ignaciouenenfelder oxygen saturation, oximetry 96 % Blanquita Diana respiratory rate E&M 12 /min Blanquita G ruenenfelder pulse rate 61 /min Blanquita Akiranfe lder weight E&M 216 [lb_av] Blanquita Akiranfe lder height E&M 70 [in_i] Blanquita Gruenenfe lder Body Mass Index (Ratio) 31.85 kg/m2 Patsy Bowden MD blood pressure, diastolic 78 mm[Hg] Ri chacha Chackoerson blood pressure, systolic 120 mm[Hg] Anibal gael Chackoerson oxygen saturation, oximetry 98 % Uyen Persaud respiratory rate E&M 16 /min Ana Persaud pulse rate 65 /min Uyenjordin Chackohernandez son weight E&M 222 [lb_av] Uyen Chackoer son height E&M 70 [in_i] Uyen Sosa son Body Mass Index (Ratio) 31.71 kg/m2 Patsy Bowden MD blood pressure, diastolic 88 mm[Hg] Jenny nkLogic blood pressure, systolic 112 mm[Hg] Ivanna kLogic blood pressure, diastolic 88 mm[Hg] Ch astjessi Kunal blood pressure, systolic 112 mm[Hg] Diana stity Kunal oxygen saturation, oximetry 96 % Chastity Kunal pulse rate 142 /min Chastity Kunal weight E&M 221 [lb_av] Chastity Kunal respiratory rate E&M 16 /min Chastit y Kunal height E&M 70 [in_i] Chastity Kunal Body Mass Index (Ratio) 31.13 kg/m2 Patsy Bowden MD blood pressure, cuff size large Ke rri Gruenenfelder blood pressure, diastolic 68 mm[Hg] Ke rri Gruenenfelder blood pressure, systolic 126 mm[Hg] Cesilia ri Rolfer oxygen saturation, oximetry 96 % Blanquita Rolfer respiratory rate E&M 16 /min Blanquita G leoraenenfelder pulse rate 75 /min Blanquita Gruenenfe lder weight E&M 217 [lb_av] Blanquita Gruenenfe lder height E&M 70 [in_i] Blanquita Gruenenfe lder Body Mass Index (Ratio) 32.14 kg/m2 Patsy Bowden MD blood pressure, diastolic 80 mm[Hg] Li nkLogic blood pressure, systolic 160 mm[Hg] Ivanna kLogic blood pressure, cuff size large Tr gabby Jacobs blood pressure, diastolic 80 mm[Hg] Tr gabby Jacobs blood pressure, systolic 160 mm[Hg] Try sayda Jacobs oxygen saturation, oximetry 98 % Tony Jacobs respiratory rate E&M 18 /min Trysayda Jacobs pulse rate 68 /min Tony Jacobs weight E&M 224 [lb_av] Tony Jacobs height E&M 70 [in_i] Tony Jacobs Body Mass Index (Ratio) 30.99 kg/m2 Patsy Bowden MD blood pressure, diastolic 87 mm[Hg] astjessi Kunal blood pressure, systolic 145 mm[Hg] Diana stity Kunal oxygen saturation, oximetry 98 % [facility] pulse [facility] 66 /min [facility] Kunal height E&M 70 [in_i] [facility] 216 [lb_av] [facility] E&M 16 /min Chastit eliecer Syed blood pressure, diastolic 100 mm[Hg] Ke rri Diana blood pressure, systolic 140 mm[Hg] Ker ri Diana ALLERGIES Allergy Name Onset Date Reaction Criticality Status NSAIDS High Criticality active REASON FOR REFERRAL Date Service [Description: Dr. Fish ryder] RESULTS Date Observation Value Provider Reference Range Interpretation Location prothrombin time (patient) 11.7 s [facility] 9.0-11.5 High international normalized ratio (INR) 1.1 [facility] Normal hyaline casts, urine NONE SEEN [facility] NONE SEEN Normal bacteria, urine microscopy NONE SEEN [facility] NONE SEEN Normal epithelial cells, urine NONE SEEN [facility] < OR = 5 Normal RBC urine by microscopy NONE SEEN [facility] < OR = 2 Normal WBC urine on microscopy NONE SEEN /HPF [facility] < OR = 5 Normal protein, urine, semiquantitative (dipstick) NEGATIVE [facility] NEGATIVE Normal blood in urine (hemoglobin) by dipstick NEGATIVE [facility] NEGATIVE Normal ketones, urine, by test strip NEGATIVE [facility] NEGATIVE Normal bilirubin, urine NEGATIVE [facility] NEGATIVE Normal glucose, urine, semiquantitative NEGATIVE [facility] NEGATIVE Normal pH, urine, semiquantitative 7.5 [facility] 5.0-8.0 Normal specific gravity, urine 1.017 [facility] 1.001-1.035 Normal appearance, urine TURBID [facility] CLEAR Abnormal urine color YELLOW [facility] YELLOW Normal PTT patient 28 s [facility] 23-32 Normal basophils as percent of blood leukocytes 1.0 % [facility] Normal eosinophils as percent of blood leukocytes 3.8 % [facility] Normal monocyte count, blood 9.7 % [facility] Normal lymphocyte count, blood 37.3 % [facility] Normal neutrophils as percent of blood leukocytes 48.2 % [facility] Normal basophils, absolute, manual 69 cells/mcL [facility] 0-200 Normal eosinophils, absolute, manual 262 cells/mcL [facility] 15-500 Normal monocytes, absolute, manual 669 cells/mcL [facility] 200-950 Normal lymphocytes, absolute 2574 CELLS/UL [facility] 850-3900 Normal Absolute Neutrophil count 3326 cells/mcL [facility] 1471-2629 Normal mean platelet volume 9.5 fL [facility] 7.5-12.5 Normal platelet count 229 THOUSAND/UL [facility] 140-400 Normal red blood cell distribution width 12.3 % [facility] 11.0-15.0 Normal mean corpuscular hemoglobin concentration, RBC 33.1 G/DL [facility] 32.0-36.0 Normal mean corpuscular hemoglobin, RBC 30.5 pg [facility] 27.0-33.0 Normal mean corpuscular volume, RBC 92.1 fL [facility] 80.0-100.0 Normal hematocrit, blood 51.6 % [facility] 38.5-50.0 High hemoglobin electrophoresis, blood 17.1 [facility] 13.2-17.1 Normal erythrocyte (RBC) count 5.60 MILLION/UL [facility] 4.20-5.80 Normal leukocyte (white blood cells) count, blood 6.9 THOUSAND/UL [facility] 3.8-10.8 Normal alanine aminotransferase (SGPT), serum 28 1/L [facility] 9-46 Normal aspartate aminotransferase (SGOT), serum 37 1/L [facility] 10-35 High alkaline phosphatase, serum 60 1/L [facility] 35-144 Normal bilirubin, serum, total 0.4 mg/dL [facility] 0.2-1.2 Normal albumin/globulin ratio, serum 2.3 (calc) [facility] 1.0-2.5 Normal globulins, serum, total 1.9 G/DL (CALC) [facility] 1.9-3.7 Normal albumin, serum 4.3 g/dL [facility] 3.6-5.1 Normal protein, total, serum 6.2 g/dL [facility] 6.1-8.1 Normal calcium, serum 9.7 mg/dL [facility] 8.6-10.3 Normal carbon dioxide, venous blood 26 mmol/L [facility] 20-32 Normal chloride, serum 107 mmol/L [facility] 98-110 Normal potassium, serum 4.4 mmol/L [facility] 3.5-5.3 Normal sodium, serum 140 mmol/L [facility] 135-146 Normal urea nitrogen/creatinine ratio, serum SEE NOTE: (calc) [facility] 6-22 creatinine, serum 0.92 mg/dL [facility] 0.70-1.35 Normal urea nitrogen, blood 14 mg/dL [facility] 7-25 Normal blood glucose, random 130 mg/dL [facility] 65-99 High HISTORY OF MEDICATION USE Medication Status Instructions Dates Provider Indications [facility] ments magnesium oxide 400 mg (241.3 mg magnesium) tablet active TAKE 1 TABLET BY MOUTH TWICE DAILY Waleska Libanva flecainide 150 mg tablet active Take 1 tablet by mouth twice a day Skip Parksbarbara levofloxacin 500 mg tablet active Take 1 tablet by mouth twice a day Smooth Joyce Percocet 5-325 mg tablet active Take 1 tablet by mouth every six hours for pain do not share, sell, or abuse this medication Maritza Coker MD cephalexin 500 mg capsule active Take 1 capsule by mouth three times a day Maritza Coker MD amiodarone 200 mg tablet completed TAKE 1 TABLET BY MOUTH TWICE DAILY - Johnathan Ioamaris amiodarone 200 mg tablet completed Take 1 tablet by mouth twice a day - Antonio Best magnesium oxide 400 mg magnesium tablet completed Take 1 tablet by mouth twice a day - Waleska Gage lisinopril-hydr ochlorothiazide 10-12.5 mg tablet active TAKE 1 TABLET BY MOUTH EVERY DAY Waleska Gage metoprolol tartrate 50 mg tablet active TAKE 1 TABLET BY MOUTH TWICE DAILY. INCREASE DOSE Waleska Gage fenofibrate micronized 134 mg capsule active TAKE 1 CAPSULE BY MOUTH EVERY DAY Antonio Best Xarelto 20 mg tablet completed TAKE 1 TABLET DAILY - Jeimy Shaikh fenofibrate micronized 134 mg capsule completed Take 1 capsule by mouth once a day TAKE 1 CAPSULE BY MOUTH EVERY DAY - Lena Son lisinopril-hydr ochlorothiazide 10-12.5 mg tablet completed Take 1 tablet by mouth once a day TAKE 1 TABLET BY MOUTH EVERY DAY - Lena Son Xarelto 20 mg tablet completed Take 1 tablet once a day TAKE 1 TABLET BY MOUTH EVERY DAY - Lena Son metoprolol tartrate 50 mg tablet completed Take 1 tablet by mouth twice a day . increased dose - Waleska Gage pantoprazole 40 mg tablet,delayed release (DR/EC) active TAKE 1 TABLET BY MOUTH EVERY DAY Ayleen Syed balsalazide 750 mg capsule active TK 3 CS PO TID Ayleen Syed fenofibrate micronized 134 mg capsule completed TAKE 1 CAPSULE BY MOUTH EVERY DAY - Blanquita Diana tramadol 50 mg tablet completed TAKE 1 TABLET BY MOUTH THREE TIMES DAILY NEEDED - Ryder Lyons NP amlodipine 2.5 mg tablet completed TK 1 T PO QD - Ayleen Syed cetirizine 10 mg tablet active TAKE 1 TABLET BY MOUTH EVERY DAY Ayleen Syed SOCIAL HISTORY Date Observation Value Provider smoking history, tot al pack/day 1 pkg a week cigs Skip Bealchui cigarette use yes Skip Wili smoking status Current every day smoker R inderjit Wili smoking history, tot al pack/day 1 pkg a week cigs Johnathan Iorfida cigarette use yes Johnathan Iorfida smoking status Current every day smoker A melony Iorfida smoking history, tot al pack/day 1 pkg a week cigs Sanford Bowden MD cigarette use yes Sanford min MD smoking status Current every day smoker S anne Bowden MD smoking history, tot al pack/day 1 pkg a week cigs Sanford Bowden MD cigarette use yes Sanford min MD smoking status Current every day smoker S anne Bowden MD smoking history, tot al pack/day 1 pkg a week cigs Ca Orellana cigarette use yes Ca Orellana smoking status Current every day smoker F nona Orellana smoking history, tot al pack/day 1 pkg a week cigs Ca Orellana cigarette use yes Ca Orellana smoking status Current every day smoker F nona Orellana social history E&M S moking History: P atient currently smokes every day. Sanford Bowden MD social history reviewed E&M revi ewed - no changes required Sanford Bowden MD smoking history, tot al pack/day 1 pkg a week cigs Marian Xie cigarette use yes Marian Xie smoking status Current every day smoker S collins Xie social history reviewed E&M revi ewed - no changes required Sanford Bowden MD social history E&M S moking History: P atient currently smokes every day. Sanford Bowden MD smoking history, tot al pack/day 2 Sanford Bowden MD cigarette use yes Sanford min MD smoking status Current every day smoker S anne Bowden MD social history E&M S moking History: P atient currently smokes every day. Sanford Bowden MD social history reviewed E&M revi ewed - no changes required Sanford Bowden MD smoking history, tot al pack/day 2 Uyen Persaud cigarette use yes Uyen sneed smoking status Current every day smoker R julian Persaud social history E&M S moking History: P atient currently smokes every day. Sanford Bowden MD social history reviewed E&M revi ewed - no changes required Sanford Bowden MD smoking history, tot al pack/day 2 Chastity Kunal cigarette use yes Chastity Kunal smoking status Current every day smoker C shane Syed social history E&M S moking History: P atmagali currently smokes every day. Sanford Bowden MD social history reviewed E&M revi ewed - no changes required Sanford Bowden MD smoking history, tot al pack/day 2 Blanquita Diana cigarette use yes Blanquita Ced irizarry smoking status Current every day smoker K david Diana social history E&M S moking History: P atient currently smokes every day. Sanford Bowden MD social history reviewed E&M revi ewed - no changes required Sanford Bowden MD smoking history, tot al pack/day 2 Tony Jacobs cigarette use yes Tony thompson smoking status Current every day smoker T nicola Jacobs number of grandchildren Sanford Bowden MD social history E&M S moking History: P placido currently smokes every day. Sanford Bowden MD social history reviewed E&M revi ewed - no changes required Sanford Bowden MD smoking status Current every day smoker C shane Kunal smoking status Current every day smoker K david Diana FUNCTIONAL STATUS Date Observation Value Provider periodic limb movement index absent (0) Len Cuello MD FAMILY HISTORY Family Member Condition Father [place] male <55 INSURANCE PROVIDERS Payer name Policy type / Coverage type [place] [employer] party ID [employer] [facility] Other [id number] ADVANCE DIRECTIVES Name Date LIVING WILL ON FILE TREATMENT PLAN Date Name Performer [id number],C, B P today: 126/79 P rior BP: 146/92 (12/16/2022) Prior 10 Yr Risk Heart Disease: Not enough information (12/23/2016) His updated medication list for this problem includes: Metoprolol Tartrate 50 Mg Tablet (Metoprolol tartrate) ..... Take 1 tablet by mouth twice daily. increase dose Lisinopril-hydrochlorothiazide 10-12.5 Mg Tablet (Lisinopril-hydrochlorothiazide) ..... Take 1 tablet by mouth every day Sanford Bowden MD [id number],Isaias Esparza MSR. He had CV on 04/29/22. Remains on Xarelto. December 16, 2022 W gary reviewed to issues of coming off of AC. However, due to his young age and risk of embolic events from AFIB and the fact that he has required cardioversions we have elected to stay on AC from safety prespective. He is aware not to ingage in activities which could cause him injury and bleeding. In particular intercranial injuries, various activites were discussed. Including climbing on high ladders, roofs of houses, getting injured with sporting events. April 05, 2023 H gary will remain on Xaralto indefinitely for lifetime since he had recurrance of Afib. suspect Teena considering inititiating CPAP if he has recurrent Afib Sanford Bowden MD [id number],jay Esparza he has been snoring for 30 years S leep study scheduled for 06/2021March 11, 2022 N egative TEENA workup June 17, 2022 P ending TEENA workup in [place]. December 16, 2022 A pparently did not have enough TEENA to warrant getting CPAP had testing done in [place] 08/17/2022 April 05, 2023 e He will remain on Xaralto indefinitely for lifetime since he had recurrance of Afib. suspect Teena considering inititiating CPAP if he has recurrent Afib Sanford Bowden MD [id number],jay Esparza he has been snoring for 30 years S leep study scheduled for 06/2021March 11, 2022 N egative TEENA workup June 17, 2022 P ending TEENA workup in [place]. December 16, 2022 A pparently did not have enough TEENA to warrant getting CPAP had testing done in [place] 08/17/2022 Sanford Bowden MD [id number],C C andrey MSR. He had CV on 04/29/22. Remains on Xarelto. December 16, 2022 Jocelyne vega reviewed to issues of coming off of AC. However, due to his young age and risk of embolic events from AFIB and the fact that he has required cardioversions we have elected to stay on AC from safety prespective. He is aware not to ingage in activities which could cause him injury and bleeding. In particular intercranial injuries, various activites were discussed. Including climbing on high ladders, roofs of houses, getting injured with sporting events. Sanford Bowden MD [id number],C, H is updated medication list for this problem includes: Metoprolol Tartrate 50 Mg Tablet (Metoprolol tartrate) ..... Take 1 tablet by mouth twice daily. increase dose Lisinopril-hydrochlorothiazide 10-12.5 Mg Tablet (Lisinopril-hydrochlorothiazide) ..... Take 1 tablet by mouth every day Sanford Bowden MD [id number],C, s albas he has been snoring for 30 years S leep study scheduled for 06/2021March 11, 2022 N egative TEENA workup June 17, 2022 P ending TEENA workup in [place]. Sanford Bowden MD [id number],C, U nchanged from prior EKG. Remains RBBB with SR. Sanford Bowden MD [id number],C,C andrey MSR. He had CV on 04/29/22. Remains on Xarelto. Sanford Bowden MD [id number],C, B P today: 120/78 P rior BP: 112/88 (04/27/2022) Prior 10 Yr Risk Heart Disease: Not enough information (12/23/2016) Sanford Bowden MD [id number],S, U nchanged from prior EKG. Sanford Bowden MD [id number],C,B ack in AFIB needs CLAIRE/CV. Apparently took some Nervive nutritional supllement for his nerves in his feet, may benefit from going on gabapentin. BP is well controlled. Will arrange for Monday or Monday for CV Sanford Bowden MD [id number],C, s ays he has been snoring for 30 years S leep study scheduled for 06/2021March 11, 2022 N egative TEENA workup Sanford Bowden MD [id number],S,Sinus rhythm on EKG today. Sanford Bowden MD [id number],C, s ays he has been snoring for 30 years S leep study scheduled for 06/2021March 11, 2022 N egative TEENA workup Sanford Bowden MD [id number],C, U nderwent CLAIRE/CV converting flutter to SR with 50J shock. E cho showed normal EF. No ASD/PFO. Mild MR. Shultz ad tele monitor, had PAF noted. Remains on xarelto 20 once daily W ill increase his BB dose to 50 bid to see if we can suppress further Afib/flutter. A lso has TEENA, needs sleep testing. September 10, 2021 n o TEENA on home sleep March 11, 2022 H gary remains without palpitations for now several months. He would like to potentially come off of Xarelto. He carries a hx of prior GI ulcer secondary to ASA. 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 Then we will determine whether he maintains a sinus rhythm to take him off anticoagulation. Assuming there is no AFib we will leave him off of anticoagulation especially since he is young and his MAG II score is low. Sanford Bowden MD [id number],C,U nchanged from prior EKG. H is updated medication list for this problem includes: Lisinopril-hydrochlorothiazide 10-12.5 Mg Tablet (Lisinopril-hydrochlorothiazide) ..... Take 1 tablet by mouth once a day take 1 tablet by mouth every day Metoprolol Tartrate 50 Mg Tablet (Metoprolol tartrate) ..... Take 1 tablet by mouth twice a day . increased dose Sanford Bowden MD [id number],C, v accinated Sanford Bowden MD [id number],C, U nderwent CLAIRE/CV converting flutter to SR with 50J shock. E cho showed normal EF. No ASD/PFO. Mild MR. H ad tele monitor, had PAF noted. Remains on xarelto 20 once daily W ill increase his BB dose to 50 bid to see if we can suppress further Afib/flutter. A lso has TEENA, needs sleep testing. September 10, 2021 n o TEENA on home sleep Sanford Bowden MD [id number],C, s ays he has been snoring for 30 years S leep study scheduled for 06/2021 Sanford Bowden MD [id number],C, v accinated Sanford Bowden MD [id number],C, U nderwent CLAIRE/CV converting flutter to SR with 50J shock. E cho showed normal EF. No ASD/PFO. Mild MR. H ad tele monitor, had PAF noted. Remains on xarelto 20 once daily W ill increase his BB dose to 50 bid to see if we can suppress further Afib/flutter. A lso has TEENA, needs sleep testing. Sanford Bowden MD Electrophysiology:Wi ll start Flecainide 150 mg BID for rate control Skip Rasheed Electrophysiology: B P today: 134/94 P rior BP: 148/93 (09/13/2024) Prior 10 Yr Risk Heart Disease: Not enough information (12/23/2016) Labs Reviewed: C reat: 0.92 (09/18/2024) His updated medication list for this problem includes: Lisinopril-hydrochlorothiazide 10-12.5 Mg Tablet (Lisinopril-hydrochlorothiazide) ..... Take 1 tablet by mouth every day Metoprolol Tartrate 50 Mg Tablet (Metoprolol tartrate) ..... Take 1 tablet by mouth twice daily. increase dose Skip Wili Electrophysiology Skip Wili Electrophysiology: H is updated medication list for this problem includes: Metoprolol Tartrate 50 Mg Tablet (Metoprolol tartrate) ..... Take 1 tablet by mouth twice daily. increase dose Maritza Coker MD Electrophysiology: T his visit has been a part of the consistent, comprehensive, and ongoing management of the chronic medical condition(s) listed above for the patient. He has had flutter ablation, currently NSR. WIll have him weat moniotr for 48 hrs. Discontinue Xarelto.He has no palpitations. LV EF normalized August 09, 2024 W ill have him see Glory to evaluate if he can go on MULTAQ OR DOFETALIDE OR FLECANIDE SO THAT WE CAN GET HIM OFF AMIODARONE August 16, 2024 P t is still on Amioderone and will decrease it to 200mg per day and will stop it when he runs out. W ill start Mag Ox 400mg BID W ill schedule loop recorder with Dr. Bowden as he had a 2.5 second pause September 13, 2024 ILR was not approved as he needs to wear demonstrator knitting for 30 days, he is wearing cardiac montior for 30 days currently. There was an alert of pause of 3.99 seconds but we do not have EKG strips for review. He is asymptomatic currently. Recommend ILR implant if no significant findings seen on demonstrator knitting as we planned previously. If significant pause is seen indicating implantation of pacemaker, we would proceed with this. Skip Wili Electrophysiology:no recent episodes His updated medication list for this problem includes: Lisinopril-hydrochlorothiazide 10-12.5 Mg Tablet (Lisinopril-hydrochlorothiazide) ..... Take 1 tablet by mouth every day Metoprolol Tartrate 50 Mg Tablet (Metoprolol tartrate) ..... Take 1 tablet by mouth twice daily. increase dose Skip Rasheed Electrophysiology:Lowe CP or SOB. His updated medication list for this problem includes: Lisinopril-hydrochlorothiazide 10-12.5 Mg Tablet (Lisinopril-hydrochlorothiazide) ..... Take 1 tablet by mouth every day Metoprolol Tartrate 50 Mg Tablet (Metoprolol tartrate) ..... Take 1 tablet by mouth twice daily. increase dose Skip Rasheed Electrophysiology: T his visit has been a part of the consistent, comprehensive, and ongoing management of the chronic medical condition(s) listed above for the patient. He has had flutter ablation, currently NSR. WIll have him weat moniotr for 48 hrs. Discontinue Xarelto.He has no palpitations. LV EF normalized August 09, 2024 W ill have him see Glory to evaluate if he can go on MULTAQ OR DOFETALIDE OR FLECANIDE SO THAT WE CAN GET HIM OFF AMIODARONE August 16, 2024 P t is still on Amioderone and will decrease it to 200mg per day and will stop it when he runs out. W ill start Mag Ox 400mg BID W ill schedule loop recorder with Dr. Bowedn as he had a 2.5 second pause September 13, 2024 ILR was not approved as he needs to wear demonstrator knitting for 30 days, he is wearing cardiac montior for 30 days currently. There was an alert of pause of 3.99 seconds but we do not have EKG strips for review. He is asymptomatic currently. Recommend ILR implant if no significant findings seen on demonstrator knitting as we planned previously. Skip Rasheed Electrophysiology: B P today: 148/93 P rior BP: 162/94 (08/16/2024) Prior 10 Yr Risk Heart Disease: Not enough information (12/23/2016) His updated medication list for this problem includes: Lisinopril-hydrochlorothiazide 10-12.5 Mg Tablet (Lisinopril-hydrochlorothiazide) ..... Take 1 tablet by mouth every day Metoprolol Tartrate 50 Mg Tablet (Metoprolol tartrate) ..... Take 1 tablet by mouth twice daily. increase dose Skip Rasheed Electrophysiology: V T noted on recent holter monitor 10/09-10/12/23. Patient reports syncopal episodes. W ill need to get [facility] to assess coronaries and if no blockage then will consider AICD. J une 2023 L HC EF 40%, normal CORS, f/u echo, normal EF, livest D/C Skip Parksbarbara Electrophysiology: S tarting CPAP The patient is using CPAP on a regular basis. The patient has been benefiting from therapy and should continue use. This visit has been a part of the consistent, comprehensive, and ongoing management of the chronic medical condition(s) listed above for the patient. Skip Parksbarbara Electrophysiology: S tarting CPAP The patient is using CPAP on a regular basis. The patient has been benefiting from therapy and should continue use. This visit has been a part of the consistent, comprehensive, and ongoing management of the chronic medical condition(s) listed above for the patient. Johnathan Damon Electrophysiology:No recent episodes His updated medication list for this problem includes: Lisinopril-hydrochlorothiazide 10-12.5 Mg Tablet (Lisinopril-hydrochlorothiazide) ..... Take 1 tablet by mouth every day Metoprolol Tartrate 50 Mg Tablet (Metoprolol tartrate) ..... Take 1 tablet by mouth twice daily. increase dose Johnathan Pepeida Electrophysiology: B P today: 162/94 P rior BP: 166/84 (08/09/2024) Prior 10 Yr Risk Heart Disease: Not enough information (12/23/2016) His updated medication list for this problem includes: Lisinopril-hydrochlorothiazide 10-12.5 Mg Tablet (Lisinopril-hydrochlorothiazide) ..... Take 1 tablet by mouth every day Metoprolol Tartrate 50 Mg Tablet (Metoprolol tartrate) ..... Take 1 tablet by mouth twice daily. increase dose Johnathan Iorfida Electrophysiology:No recent episodes The following medications were removed from the medication list: Amiodarone 200 Mg Tablet (Amiodarone) ..... Take 1 tablet by mouth twice daily & #13;His updated medication list for this problem includes: Lisinopril-hydrochlorothiazide 10-12.5 Mg Tablet (Lisinopril-hydrochlorothiazide) ..... Take 1 tablet by mouth every day Metoprolol Tartrate 50 Mg Tablet (Metoprolol tartrate) ..... Take 1 tablet by mouth twice daily. increase dose Johnathan Nelson Electrophysiology: T his visit has been a part of the consistent, comprehensive, and ongoing management of the chronic medical condition(s) listed above for the patient. He has had flutter ablation, currently NSR. WIll have him weat moniotr for 48 hrs. Discontinue Xarelto.He has no palpitations. LV EF normalized August 09, 2024 W ill have him see Glory to evaluate if he can go on MULTAQ OR DOFETALIDE OR FLECANIDE SO THAT WE CAN GET HIM OFF AMIODARONE August 16, 2024 P t is still on Amioderone and will decrease it to 200mg per day and will stop it when he runs out. W ill start Mag Ox 400mg BID W ill schedule loop recorder with Dr. Bowden as he had a 2.5 second pause This visit has been a part of the consistent, comprehensive, and ongoing management of the chronic medical condition(s) listed above for the patient. Johnathan Nelson Cardiology: S tarting CPAP The patient is using CPAP on a regular basis. The patient has been benefiting from therapy and should continue use. This visit has been a part of the consistent, comprehensive, and ongoing management of the chronic medical condition(s) listed above for the patient. Sanford Bowden MD Cardiology:This visi t has been a part of the consistent, comprehensive, and ongoing management of the chronic medical condition(s) listed above for the patient. Sanford Bowden MD Cardiology: s uspect TEENA may be causing these SX, check HSS Sanford Bowden MD Cardiology:he has pl anned colonoscopy and surgery on right rotator cuff Upon review of invasive and noninvasive testing and recent exam the patient is an acceptable candidate for the planned surgical procedures as noted above. Recommend to maintain his blood pressure range of 110 to 140 mmHg and a heart rate of 60-80 B p.m.. It is okay to use IV beta blockers calcium channel blockers nitrates and afterload reducing agents to maintain the aforementioned hemodynamics parameters. Tele monitoring and EKG should be done if the patient has arrhythmia during procedure. HAS HX OF AFLUTTER/FIB Prior Cath 10/21/23 with Angio normal cors. LVEF 40%. Mild LV dysfunction. 11/03/23 Echo CONCLUSIONS: 1 . Normal left ventricular systolic function. Normal left ventricular wall thickness. Mild enlargement of left ventricular c hamber. There is E to A wave reversal consistent with impaired LV relaxation. Left ventricular ejection fraction is measured a t 60 %. 2 . Mild enlargement of right ventricle. Normal right ventricular systolic function. 3 . There is trace physiologic mitral valve regurgitation. 4 . There is trace physiologic tricuspid valve regurgitation. The RA pressure is estimated at 5.0 mmHg. Estimated peak p ulmonary artery systolic pressure is 28.0 mmHg. Sanford Bowden MD Cardiology:This visi t has been a part of the consistent, comprehensive, and ongoing management of the chronic medical condition(s) listed above for the patient. His updated medication list for this problem includes: Lisinopril-hydrochlorothiazide 10-12.5 Mg Tablet (Lisinopril-hydrochlorothiazide) ..... Take 1 tablet by mouth every day Metoprolol Tartrate 50 Mg Tablet (Metoprolol tartrate) ..... Take 1 tablet by mouth twice daily. increase dose BP today: 166/84 P rior BP: 139/82 (02/09/2024) Prior 10 Yr Risk Heart Disease: Not enough information (12/23/2016) Sanford Bowden MD Cardiology:This visi t has been a part of the consistent, comprehensive, and ongoing management of the chronic medical condition(s) listed above for the patient. He has had flutter ablation, currently NSR. WIll have him weat moniotr for 48 hrs. Discontinue Xarelto.He has no palpitations. LV EF normalized D ec2023 W ill have him see Glory to evaluate if he can go on MULTAQ OR DOFETALIDE OR FLECANIDE SO THAT WE CAN GET HIM OFF AMIODARONE Sanford Bowden MD Cardiology: This visit has been a part of the consistent, comprehensive, and ongoing management of the chronic medical condition(s) listed above for the patient. Smooth Joyce Cardiology:He has ugalde d flutter ablation, currently NSR. WIll have him weat moniotr for 48 hrs. Discontinue Xarelto.He has no palpitations. LV EF normalized T his visit has been a part of the consistent, comprehensive, and ongoing management of the chronic medical condition(s) listed above for the patient. Smooth Joyce Cardiology:Starting CPAP Sanford Bowden MD Cardiology:Cath doen in hospital , was normal. Sanford Bowden MD Cardiology Sanford Bowden MD Cardiology:He has ugalde d flutter ablation, currently NSR. WIll have him weat moniotr for 48 hrs. Discontinue Xarelto.He has no palpitations. LV EF normalized Sanford Bowden MD Cardiology: V T noted on recent holter monitor 10/09-10/12/23. Patient reports syncopal episodes. W ill need to get [facility] to assess coronaries and if no blockage then will consider AICD. February 09, 2024 L HC EF 40%, normal CORS, f/u echo, normal EF, livest D/C Sanford Bowden MD Electrophysiology: R ahmet has had syncopal episodes. Discussed likley due to VT. Will need to get [facility] to assess coronaries and consider AICD if no blockage noted. Ryder Lyons NP Electrophysiology: V T noted on recent holter monitor 10/09-10/12/23. Patient reports syncopal episodes. W ill need to get [facility] to assess coronaries and if no blockage then will consider AICD. Ryder Lyons NP Electrophysiology: B P today: 131/72 P rior BP: 139/82 (10/04/2023) H is updated medication list for this problem includes: Lisinopril-hydrochlorothiazide 10-12.5 Mg Tablet (Lisinopril-hydrochlorothiazide) ..... Take 1 tablet by mouth every day Metoprolol Tartrate 50 Mg Tablet (Metoprolol tartrate) ..... Take 1 tablet by mouth twice daily. increase dose Ryder Whalenjohnna GALDAMEZ Electrophysiology Ryder Lyons RUDOLPH Electrophysiology:48 hour holter 10/09-10/12/23 T echnician Summary Notes: S inus Rhythm with paroxysmal Atrial F lutter, 45 Ventricular Tachycardia e vents, rareVentricular ectopics, and rare Supraventricular ectopics. Sinus: 7 0bpm, [id number], MinHR 45bpm. AF: A vgHR 132bpm, MaxHR 156bpm, MinHR 1 09bpm. VT:Longest 66 beats, MaxHR 2 40bpm. PSVT: Longest 6 beats, MaxHR 153bpm. VE's:triplets, couplets, i solated. SVE's: triplets, couplets, i solated.Novelty Maker: Heriberto Hendrickson - [User Removed] on 10-12-2023 3:57 PM C linician Summary Notes: r eviewed with SK appears to be VT will h ave him see SK today on 10/13/23 pt r ecalls having somesensation at the left c hest when wearing monitor - Sanford Bowden on 10-13-2023 10:22 AM On OAC with no bleeding issues. Ryder Lyons NP Cardiology:prior atr ial flutter, arrange for 48hr holkter Sanford Bowden MD Cardiology:Concernin g for possible angina vs arrhythmia S chedule for PET CT Sanford Bowden MD Cardiology:suspect O SA may be causing these SX, check HSS Sanford Bowden MD Cardiology: H is updated medication list for this problem includes: Lisinopril-hydrochlorothiazide 10-12.5 Mg Tablet (Lisinopril-hydrochlorothiazide) ..... Take 1 tablet by mouth every day Metoprolol Tartrate 50 Mg Tablet (Metoprolol tartrate) ..... Take 1 tablet by mouth twice daily. increase dose BP today: 139/82 P rior BP: 126/79 (04/05/2023) Prior 10 Yr Risk Heart Disease: Not enough information (12/23/2016) Sanford Bowden MD Cardiology:s/p cardi oversion. LIkely triggered by dehydration after influenza infection a rrange for 48hr holter Sanford Bowden MD Cardiology: B P today: 126/79 P rior BP: 146/92 (12/16/2022) Prior 10 Yr Risk Heart Disease: Not enough information (12/23/2016) His updated medication list for this problem includes: Metoprolol Tartrate 50 Mg Tablet (Metoprolol tartrate) ..... Take 1 tablet by mouth twice daily. increase dose Lisinopril-hydrochlorothiazide 10-12.5 Mg Tablet (Lisinopril-hydrochlorothiazide) ..... Take 1 tablet by mouth every day Sanford Bowden MD Cardiology: Isaias balderas MSR. He had CV on 04/29/22. Remains on Xarelto. December 16, 2022 W e reviewed to issues of coming off of AC. However, due to his young age and risk of embolic events from AFIB and the fact that he has required cardioversions we have elected to stay on AC from safety prespective. He is aware not to ingage in activities which could cause him injury and bleeding. In particular intercranial injuries, various activites were discussed. Including climbing on high ladders, roofs of houses, getting injured with sporting events. April 05, 2023 H e will remain on Xaralto indefinitely for lifetime since he had recurrance of Afib. suspect Teena considering inititiating CPAP if he has recurrent Afib Sanford Bowden MD Cardiology: s ays he has been snoring for 30 years S leep study scheduled for 06/2021March 11, 2022 N egative TEENA workup June 17, 2022 P ending TEENA workup in [place]. December 16, 2022 A pparently did not have enough TEENA to warrant getting CPAP had testing done in [place] 08/17/2022 April 05, 2023 e He will remain on Xaralto indefinitely for lifetime since he had recurrance of Afib. suspect Teena considering inititiating CPAP if he has recurrent Afib Sanford Bowden MD Cardiology: s ever he has been snoring for 30 years S leep study scheduled for 06/2021March 11, 2022 N egative TEENA workup June 17, 2022 P ending TEENA workup in [place]. December 16, 2022 A pparently did not have enough TEENA to warrant getting CPAP had testing done in [place] 08/17/2022 Sanford Bowden MD Cardiology: Isaias balderas MSR. He had CV on 04/29/22. Remains on Xarelto. December 16, 2022 Jocelyne vega reviewed to issues of coming off of AC. However, due to his young age and risk of embolic events from AFIB and the fact that he has required cardioversions we have elected to stay on AC from safety prespective. He is aware not to ingage in activities which could cause him injury and bleeding. In particular intercranial injuries, various activites were discussed. Including climbing on high ladders, roofs of houses, getting injured with sporting events. Sanford Bowden MD Cardiology: H is updated medication list for this problem includes: Metoprolol Tartrate 50 Mg Tablet (Metoprolol tartrate) ..... Take 1 tablet by mouth twice daily. increase dose Lisinopril-hydrochlorothiazide 10-12.5 Mg Tablet (Lisinopril-hydrochlorothiazide) ..... Take 1 tablet by mouth every day Sanford Bowden MD Cardiology: s ever he has been snoring for 30 years S leep study scheduled for 06/2021March 11, 2022 N egative TEENA workup June 17, 2022 P ending TEENA workup in [place]. Sanford Bowden MD Cardiology: U nchanged from prior EKG. Remains RBBB with SR. Sanford Bowden MD Cardiology:Currently MSR. He had CV on 04/29/22. Remains on Xarelto. Sanford Bowden MD Cardiology: B P today: 120/78 P rior BP: 112/88 (04/27/2022) Prior 10 Yr Risk Heart Disease: Not enough information (12/23/2016) Sanford Bowden MD Cardiology: U nchanged from prior EKG. Sanford Bowedn MD Cardiology:Back in A FIB needs CLAIRE/CV. Apparently took some Nervive nutritional supllement for his nerves in his feet, may benefit from going on gabapentin. BP is well controlled. Will arrange for Monday or Monday for CV Sanford Bowden MD Cardiology: s ever he has been snoring for 30 years S leep study scheduled for 06/2021March 11, 2022 N egative TEENA workup Sanford Bowden MD Cardiology:Sinus rhythm on EKG t rylie. Sanford Bowden MD Cardiology: s ever he has been snoring for 30 years S leep study scheduled for 06/2021March 11, 2022 N egative TEENA workup Sanford Bowden MD Cardiology: U nderwent CLAIRE/CV converting flutter to SR with 50J shock. E cho showed normal EF. No ASD/PFO. Mild MR. Shultz ad tele monitor, had PAF noted. Remains on xarelto 20 once daily W ill increase his BB dose to 50 bid to see if we can suppress further Afib/flutter. A lso has TEENA, needs sleep testing. September 10, 2021 n o TEENA on home sleep March 11, 2022 He remains without palpitations for now several months. He would like to potentially come off of Xarelto. He carries a hx of prior GI ulcer secondary to ASA. 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 Then we will determine whether he maintains a sinus rhythm to take him off anticoagulation. Assuming there is no AFib we will leave him off of anticoagulation especially since he is young and his MAG II score is low. Sanford Bowden MD Cardiology:Unchanged from prior EKG. H is updated medication list for this problem includes: Lisinopril-hydrochlorothiazide 10-12.5 Mg Tablet (Lisinopril-hydrochlorothiazide) ..... Take 1 tablet by mouth once a day take 1 tablet by mouth every day Metoprolol Tartrate 50 Mg Tablet (Metoprolol tartrate) ..... Take 1 tablet by mouth twice a day . increased dose Sanford Bowden MD Cardiology: v accinated Sanford Bowden MD Cardiology: U nderwent CLAIRE/CV converting flutter to SR with 50J shock. E cho showed normal EF. No ASD/PFO. Mild MR. H ad tele monitor, had PAF noted. Remains on xarelto 20 once daily W ill increase his BB dose to 50 bid to see if we can suppress further Afib/flutter. A lso has TEENA, needs sleep testing. September 10, 2021 n o TEENA on home sleep Sanford Bowden MD Cardiology: s ever he has been snoring for 30 years S leep study scheduled for 06/2021 Sanford Bowden MD Cardiology: v accinated Sanford Bowden MD Cardiology: U nderwent CLAIRE/CV converting flutter to SR with 50J shock. E cho showed normal EF. No ASD/PFO. Mild MR. H ad tele monitor, had PAF noted. Remains on xarelto 20 once daily W ill increase his BB dose to 50 bid to see if we can suppress further Afib/flutter. A lso has TEENA, needs sleep testing. Sanford Bowden MD Date Name Dr. Coker X-Ray, Chest 2 View PARTIAL THROMBOPLAST IN TIME, ACTIVATED URINALYSIS, COMPLETE W/REFLEX TO CULTURE COMPREHENSIVE METABO LIC PANEL W/EGFR PROTHROMBIN TIME WIT H INR CBC (INCLUDES DIFF/P LT) Monitor - Telemetry (Mobile Cardiac) Loop Rec Implant - G C HEMOGLOBIN A1c T-4, FREE TSH, 3RD GENERATION HEPATIC FUNCTION DE GUZMAN EL LIPID PANEL COMPREHENSIVE METABO LIC PANEL, W/EGFR Holter Monitor 48 hr LIPID PANEL Complete Echo EKG Sleep Study Home Stress Cardiac PET-C T Holter Monitor 48 hr EKG EKG Sleep Study MAGNESIUM LIPID PANEL PROTHROMBIN TIME WIT H INR CBC (INCLUDES DIFF/P LT) COMPREHENSIVE METABO LIC PANEL, W/EGFR CLAIRE/CV - GC BASIC METABOLIC PANE L W/EGFR MAGNESIUM Monitor - Telemetry (Mobile Cardiac) Sleep Study - split night EKG CT, Coronary Calcium Score HISTORY OF PROCEDURES Procedure Date Procedure Name Provider Procedure Notes S tatus EKG Maritza Coker MD comp leted Complex e/m visit ad d on Maritza Coker MD completed Complex e/m visit ad d on Sanford Bowden MD completed EKG Sanford Bowden MD compl eted Complex e/m visit ad d on Sanford Bowden MD completed EKG Sanford Bowden MD compl eted EKG Sanford Bowden MD compl eted EKG Sanford Bowden MD compl eted EKG Sanford Bowden MD compl eted EKG Sanford Bowden MD compl eted EKG Sanford Bowden MD compl eted Event Monitor Sanford Bowden MD co mpleted CT- Coronary CA score Tung Riojas MD completed Stress EKG Len Cuello MD completed
--- OUTSIDE RECORDS SUMMARY | 2024-12-12 13:44 | XMS_ITS | Encounter Summary ---
Author Organization [facility] Address [address] [place] [address] Care Team Providers Care Thermodynamics Teacher Name Role Phone Odilon Garvey MD Primary Care Provider [phone] Reason for Visit * Reason Onset Date Comments Appointment 08/24/2022 Encounter Details Date Type Department Care Team (Late Contact Info) Description 08/24/2022 Telephone [facility] [address] [place] [address] Checo Austin MD [address] [phone] Appointment Social History Tobacco Use Types Packs/Day Years Used Date Smoking Tobacco: Never Assessed Sex and Gender Information Value Date Recorded Sex Assigned at Not on file 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
--- OUTSIDE RECORDS SUMMARY | 2024-12-12 13:45 | XMS_ITS ---
Author Organization [facility] Address [address] [place] [address] Care Team Providers Care Electric Shipyard Operator Name Role Phone Odilon Garvey Primary Care Provider Dr. Odilon Ruby Unavailable [phone] Allergies No Known Allergies REASON FOR VISIT EMG Review, Peripheral neuropathy Medications Medication SIG (Take, Route, Frequency, Duration) Notes Start Date End Date Status LISINOPRIL 10 mg 1 tab(s) orally once a day Active ALFUZOSIN 10 mg 1 tab(s) orally once a day Active PREGABALIN 100 mg 1 qHS x 1 wk, then 1 bid x 1 wk, then 1 tid orally as directed for 30 days 06/29/2023 Active FENOFIBRATE 67 mg 1 cap(s) orally once a day Active PANTOPRAZOLE 40 mg 1 tab(s) orally once a day Active TRAMADOL 100 mg/24 hours 1 pill orally 4x/day Active BALSALAZIDE 750 mg 3 cap(s) orally 3 ti mes a day Active METOPROLOL 50 mg 1 tab(s) orally once a day Active CETIRIZINE 10 mg 1 tab(s) orally once a day Active XARELTO 10 mg 1 tab(s) orally once a day Active Problems Problem Type SNOMED Code ICD Code Onset Dates Problem Status W/U Status Risk Notes Problem Chronic migraine without aura, non-intractable (33229341098028 0) Chronic migraine without aura, not intractable, without status migrainosus (G43.709) Active confirmed Problem Migraine with aura (2953366) Migraine with aura, not intractable, without status migrainosus (G43.109) Active confirmed Problem Chronic migraine without aura, non-refractory (disorder) (81935067475242 0) Migraine without aura, not intractable, without status migrainosus (G43.009) Active confirmed Problem Hereditary disorder of nervous system (223002927) Hereditary and idiopathic neuropathy, unspecified (G60.9) Active confirmed Vital Signs Blood pressure systolic 132 mm Hg 06/29/20 23 Blood pressure diastolic 88 mm Hg 023 Respiratory Rate 18 /min 06/29/2023 Oximetry 96 % 06/29/2023 Encounters Encounter Location Date Provider Diagnosis [facility] [address] [facility] [address] [place] [address] 06/29/2023 Odilon Giron Hereditary and idiopathic neuropathy, unspecified G60.9 and Neuralgia and neuritis, unspecified M79.2 Assessments Encounter Date Diagnosis (ICD Code) Assessment Notes Treatment Notes Treatment Clinical Notes Section Notes 06/29/2023 Hereditary and idiopathic neuropathy, unspecified (ICD-10 - G60.9) He has an idiopathic peripheral neuropathy. No risk factors by history and laboratory testing unrevealing. No family history to suggest hereditary. Discussed that we cannot fix or cure neuropathy, but we can work on neuropathic pain. Explained that some of his foot pain is also mechanical due to bilateral overpronation 06/29/2023 Neuralgia and neuritis, unspecified (ICD-10 - M79.2) He has an idiopathic peripheral neuropathy. No risk factors by history and laboratory testing unrevealing. No family history to suggest hereditary. Discussed that we cannot fix or cure neuropathy, but we can work on neuropathic pain. Explained that some of his foot pain is also mechanical due to bilateral overpronation Plan Of Treatment Medication Medication Name Sig Start Date Stop Date Notes PREGABALIN 100 mg 1 qHS x 1 wk, then 1 bid x 1 wk, then 1 tid orally as directed for 30 days 06/29/2023 Next Appt Details Follow Up: 3 months, Reason: Evaluation and Management Progress Notes * Farrukh VICENTE LDOB:1965 ( 57 yo M)Acc No.[id number]:06/29/2023 Progress Notes Patient: Farrukh Hernandez Provider: Radha Giron MD :1965 A ge:57 Y S ex:Male Date:06/29/2023 Address:[address] [place] [address] , [place], [id number] Pcp:Odilon Garvey Subjective: * Chief Complaints: * E MG ReviewPeripheral neuropathy * HPI: * Interval History: Notes I scheduled an office visit to review his case. I did an EMG study which showed a fairly severe chronic peripheral neuropathy without clear-cut evidence of lumbosacral radiculopathy on either side. I did laboratory screening as follows:? A 1c 5.8%, Vit D 25; otherwise, B12/MMA, copper, SPEP, s carlos/urine DURGA, SANDEEP, comprehensive SANDEEP panel (dsDNA, CLASS A REGIONAL DRIVERS, Wang, SSA/SSB, etc.) all unrevealing. I don't think the equivocal borderline A1c value is enough to explain his neuropathy. He reports no family history of neuropathy. He denies prior chemotherapy or alcohol abuse. He has history of psoriasis but no autoimmune connective tissue disease (lupus or RA, etc.). I reviewed his history today. He describes onset of symptoms about 8 years ago. He started to feel numbness in both feet. Over time, this progressed and he started to develop distal weakness. He has pain in both feet. I think some of the pain is neuropathic and some is mechanical due to bilateral overpronation, he previously tried orthotics without much benefit. He has tried gabapentin without relief. He has not tried amitriptyline, Lyrica. He is currently using tramadol. * ROS: C ONSTITUTIONAL: Positive for P atient denies fevers, chills, sweats, unintended weight loss, loss of appetite, or chronic fatigue. E NT: Positive P atient denies ear fullness or pain or sinus pain. R ESPIRATORY: Positive for P atient denies shortness of breath or wheezing. O PHTHALMOLOGY: Positive for R vera and except as mentioned above in the HPI is negative. E NDOCRINOLOGY: Positive for P atient denies heat intolerance, cold intolerance, polyuria, elevated blood sugar, chronic fatigue. C ARDIOLOGY: Positive for P atient denies dizziness, palpitations, or chest pain. G ASTROENTEROLOGY: Positive for P atient denies diarrhea, melena, bloody stools, or abdominal pain. U ROLOGY: Positive for P atient denies urinary incontinence or urinary dysfunction. D ERMATOLOGY: Positive for P atient denies rash or hives. ? N EUROLOGY: Positive for R eviewed and except as mentioned above in the HPI is negative. H EMATOLOGY/LYMPH: Positive for P atient denies history of excessive bruising or bleeding diasthesis. M USCULOSKELETAL: Positive for P atient denies extremity joint pain or swelling. P SYCHOLOGY: Positive for R eviewed and except as discussed above in the HPI is otherwise negative. * Medical History: * Surgical History: * Hospitalization/Major Diagno stic Procedure: * Family History: mom - High blood pressure dad - high blood pressure. * Medications: T akingtraMADol 100 mg/24 hours capsule, extended release 1 pill orally 4x/daybalsalazide 750 mg capsule 3 cap(s) orally 3 times a daymetoprolol 50 mg tablet 1 tab(s) orally once a daycetirizine 10 mg tablet 1 tab(s) orally once a dayXarelto 10 mg tablet 1 tab(s) orally once a dayalfuzosin 10 mg tablet, extended release 1 tab(s) orally once a dayfenofibrate 67 mg capsule 1 cap(s) orally once a daypantoprazole 40 mg delayed release tablet 1 tab(s) orally once a daylisinopril 10 mg tablet 1 tab(s) orally once a dayTaking traMADol 100 mg/24 hours capsule, extended release 1 pill orally 4x/dayTaking balsalazide 750 mg capsule 3 cap(s) orally 3 times a dayTaking metoprolol 50 mg tablet 1 tab(s) orally once a dayTaking cetirizine 10 mg tablet 1 tab(s) orally once a dayTaking Xarelto 10 mg tablet 1 tab(s) orally once a dayTaking alfuzosin 10 mg tablet, extended release 1 tab(s) orally once a dayTaking fenofibrate 67 mg capsule 1 cap(s) orally once a dayTaking pantoprazole 40 mg delayed release tablet 1 tab(s) orally once a dayTaking lisinopril 10 mg tablet 1 tab(s) orally once a day * Allergies: N .K.D.A.no[Allergies Verified] Objective: * Vitals: B P:132/88, HR:72 /min, RR:18 /min, Pulse Oximetry:96 %. * Examination: G eneral examination: General appearance: P leasant, well-developed, no distress.? HEENT: P upils equal, round and reactive to light. No conjunctival injection. No tenderness to palpation over the maxillary sinuses. No turbinate hypertrophy. Tympanic membranes appear normal. No oral lesions. No tenderness over the occipital notch bilaterally. Oral cavity: N ormal, no lesions. Neck, thyroid : S upple, non-tender, no anterior cervical lymphadenopathy. Breasts : N ot performed. Heart: R RR, S1-S2, no murmurs, no rubs, no gallops. Lungs: C lear to auscultation and percussion in all lung carmona. Abdomen: S oft, NT/ND, normal active bowel sounds. Neurologic exam: N ormal cranial nerves. Normal proximal. Extremities: H e overpronates both feet, worse on the left.? Assessment: * Assessment: 1. H ereditary and idiopathic neuropathy, unspecified - G60.9 (Primary) 2 . N euralgia and neuritis, unspecified - M79.2 He has an idiopathic periphe ral neuropathy. No risk factors by history and laboratory testing unrevealing. No family history to suggest hereditary. Discussed that we cannot fix or cure neuropathy, but we can work on neuropathic pain. Explained that some of his foot pain is also mechanical due to bilateral overpronation. Plan: * Treatment: * Procedure Codes: G 8427 DOC MEDS VERIFIED W/PT OR RE * Follow Up: 3 months (Reason: Evaluation and Management) * Billing Information: * Visit Code: 60214 Office Visit, Est Pt., Level 4. Modifiers: 25 * Procedure Codes: G8427 DOC MEDS VERIFIED W/PT OR RE. * Sign off status: Completed true * Provider: Radha Giron MD Date: 08/29/2022 Generated for Austin de dios/Kate/Crys on: 12/12/2024 01:44 PM CDT History and Physical Notes * HPI (History of Present Illness) Category Sub-Category Detail Notes Category Not es *Interval History Notes I scheduled an office visit to review his case. I did an EMG study which showed a fairly severe chronic peripheral neuropathy without clear-cut evidence of lumbosacral radiculopathy on either side. I did laboratory screening as follows: A1c 5.8%, Vit D 25; otherwise, B12/MMA, copper, SPEP, serum/urine DURGA, SANDEEP, comprehensive SANDEEP panel (dsDNA, CLASS A REGIONAL DRIVERS, Wang, SSA/SSB, etc.) all unrevealing. I don't think the equivocal borderline A1c value is enough to explain his neuropathy. He reports no family history of neuropathy. He denies prior chemotherapy or alcohol abuse. He has history of psoriasis but no autoimmune connective tissue disease (lupus or RA, etc.). I reviewed his history today. He describes onset of symptoms about 8 years ago. He started to feel numbness in both feet. Over time, this progressed and he started to develop distal weakness. He has pain in both feet. I think some of the pain is neuropathic and some is mechanical due to bilateral overpronation, he previously tried orthotics without much benefit. He has tried gabapentin without relief. He has not tried amitriptyline, Lyrica. He is currently using tramadol Examination Category Sub-Category Detail Notes Category Not es General examination HEENT: Pupils equal , round and reactive to light. No conjunctival injection. No tenderness to palpation over the maxillary sinuses. No turbinate hypertrophy. Tympanic membranes appear normal. No oral lesions. No tenderness over the occipital notch bilaterally Neck, thyroid : Supple, non-tender, no anterior cervical lymphadenopathy Heart: RRR, S1-S2, no murmu rs, no rubs, no gallops Lungs: Clear to auscultatio n and percussion in all lung carmona Abdomen: Soft, NT/ND, normal active bowel sounds Extremities: He overpronates both feet, worse on the left General appearance: Pleasant, well-devel oped, no distress Neurologic exam: Normal cranial nerve s. Normal proximal Oral cavity: Normal, no lesions Breasts : Not performed
--- OUTSIDE RECORDS SUMMARY | 2024-12-12 13:45 | XMS_ITS ---
Author Organization [facility] Address [address] [place] [address] Care Team Providers Care Firer Diesel Locomotive Name Role Phone Odilon Garvey Primary Care Provider UnavailDr. Odilon Meza Unavailable [phone] ZZ-Migration, Provider Unavailable Unavailab le [facility] Encounter Medications Medication SIG (Take, [...] as directed for 30 days 06/29/2023 Active Xarelto 10 MG 1 tab(s) orally once a day Active Metoprolol Tartrate 50 MG 1 tab(s) orally once a day Active Cetirizine HCl 10 MG 1 tab(s) orally once a day Active traMADol HCl 100 MG/24 HOURS 1 PILL ORALLY 4X/DAY *Please review and pick correct strength-formulatio n from [facility] options. If intended option is not shown, discontinue and re-order from Quick Search* Active Balsalazide Disodium 750 MG 3 cap(s) orally 3 times a day Active Encounters Encounter Location Date Provider Diagnosis [facility] [address] [place] [address] 02/10/2024 Provider Pastor Hereditary and idiopathic neuropathy, [...] orally as directed for 30 days 06/29/2023 Progress Notes * Farrukh VICENTE LDOB:1965 ( 59 yo M)Acc No.[id number]:02/10/2024 Patient: Farrukh SHER Provider: Mildred Prather :1965 A ge:58 Y S ex:Male Date:02/10/2024 Address:[facility] [address], [id number] Pcp:Odilon Garvey Subjective: * Chief Complaints: * 1 . [facility] To [facility] Conversion Encounter. * Medical History: * Medications: T aking traMADol HCl 100 MG/24 HOURS CAPSULE, EXTENDED RELEASE 1 PILL ORALLY 4X/DAY , Notes to Pharmacist: *Please review and pick correct strength[facility]formulation [facility] options. If intended option is not [...] Procedure Codes: * Electronic signature of Marti wileyr ZZ-Migration on 12/12/2024 at 01:45 PM CDT Sign off status: Pending * Provider: Mildred amin Migration Date: 0 02/10/2024 Generated for Austin de dios/Kate/Crys on: 0 12/12/2024 01:45 PM CDT
[2024-12-12 14:36] LABS: Anion Gap 7 mmol/L (4-12); Blood Urea Nitrogen 21 mg/dL (9-20); Calcium 10.4 mg/dL (8.4-10.2); Carbon Dioxide 29 mmol/L (22-30); Chloride 104 mmol/L (98-107); Estimated Glomerular Filt Rate > 60; Glucose 118 mg/dL (65-110); Potassium 4.3 mmol/L (3.4-5.0); Sodium 140 mmol/L (137-145)
[2024-12-12 15:46] LABS: MRSA (PCR) NOT DETECTED (NOT DETECTE)
== END 2024-12-12 13:23 | disposition home or self-care (01) ==
LOC: ANHSURGERY 13:27
PROVIDERS: Anesthesiology; PCP Internal Medicine; Visit Provider Orthopaedic Surgery
DX: M75.21 Bicipital tendinitis, right shoulder (principal); I10 Essential (primary) hypertension; I48.92 Unspecified atrial flutter; E87.6 Hypokalemia
CPT/HCPCS: 36415; 80048; 87641; 93005

== ENCOUNTER 2024-12-20 00:26 | Day surgery (SDC) | payer OTHER, SELFPAY ==
[2024-12-11 09:55] VITALS: BMI 28.7
--- NOTE | 2024-12-11 09:55 | PC.NURSE ---
Report to the Outpatient Waiting Room, entrance under the green pavilion located off [facility], at time ___1000____ on date ___12/20/24____. Planned Procedure Time: ____1200____.? Time changes happen often and if your time is changed the preop area will call you the afternoon before. - You and your visitor will be asked to self-screen and do not enter if you have any COVID symptoms. Please call surgeon if you need to reschedule. - A mask is optional within the hospital at this time. Patients may have clear liquids (water, carbonated beverages, clear teas, apple juice) until 3 hours prior to surgery with a maximum of 20 ounces. - No food from midnight until time of surgery and no smoking, or chewing tobacco (or any form of nicotine). No chewing gum, candy or mints. Take only the following medications with a SIP of water on the morning of surgery: amiodarone, flecainide, duloxetine DO NOT STOP ANY OF YOUR OTHER PRESCRIPTION MEDICATIONS PRIOR TO SURGERY EXCEPT THE FOLLOWING Hold all vitamins and supplements for 3 days per anesthesiologist. Medications to discontinue per physician Hold morning of surgery - fenofibrate and lisinopril-hydrochlorothiazide Please no make-up, nail welsh, hairspray, perfume, deodorant, or body powder the day of surgery.? No jewelry (including any body piercings) or valuables the day of surgery, leave them at home.? Please take a shower or bath the night before, or the morning of, surgery with an antibacterial soap.? Wear comfortable, loose fitting clothing.? Children are encouraged to wear pajamas. - Jewelry must be removed prior to entering the operating room.? Rings and piercings that are not removed may be cut off. - The hospital will not accept responsibility for valuables.? - Please leave all valuables, including medications, at home the day of surgery. If you are going home after surgery, a licensed driver/refuse collector must drive you home.? - NO public transportation without another adult if you receive anesthesia. - We recommend that an adult stay with you for 24 hours following discharge. - We also recommend that you do not drive, make important decision, drink alcoholic beverages, or take any drugs that were not prescribed by your health care provider for at least 24 hours after your discharge time. Follow any additional instructions given to you from your surgeon. Telephone instructions given to Lorenzo and asked if any additional questions and then verbalized understanding. Patient advised to call surgeon office or pre surgery nurse liaison [phone] if any additional questions.
[2024-12-20] VITALS (7 sets, daily range): BP systolic 139–160; BP diastolic 78–93; PULSE 58–63; RESP 14–19; TEMP 36.1; O2SAT 95–100
--- NOTE | ~2024-12-20 | XR_ITS ---
EXAMINATION: XR shoulder RT min 2V DATE: 12/20/2024 15:21 INDICATION: Status post right shoulder arthroscopy and rotator cuff repair TECHNIQUE: AP and transscapular Y views of the right shoulder were obtained. COMPARISON: None FINDINGS: Bone alignment is normal. Interval anterior acromioplasty. No fracture. There is prominent soft tissu e swelling of the deltoid lateral to the proximal humerus with small focus of soft tissue gas likely related to the reported arthroscopy right-sided dual-lead cardiac pacemaker. Small right lung volume. IMPRESSION: Soft tissue swelling small amount of soft tissue gas at the right deltoid postoperative change relate d to reported arthroscopy and rotator cuff repair. See procedure note for further detail. 2. Status post anterior right acromioplasty. Reviewed, dictated and finalized at location A. IMPRESSION: Soft tissue swelling small amount of soft tissue gas at the right deltoid posto perative change related to reported arthroscopy and rotator cuff repair. See pr ocedure note for further detail. 2. Status post anterior right acromioplasty.
--- OUTSIDE RECORDS SUMMARY | 2024-12-20 00:30 | XMS_ITS | Patient Health Record ---
Author Organization [facility] ([address]) Address [address] [place] [address] Care Team Providers Care Solder Deposit Operator Name Role Phone Odilon Garvey Primary Care Provider UnavailDr. Odilon Meza Unavailable [phone] ZZ-Migration, Provider Unavailable Unavailab le Allergies No [...] Problem Chronic migraine without aura, non-refractory (disorder) (15201838774039 0) Migraine without aura, not intractable, without status migrainosus (G43.009) Active confirmed Problem Migraine with aura (6111687) Migraine with aura, not intractable, without status migrainosus (G43.109) Active confirmed Problem Chronic migraine without aura, non-intractable (95248041521192 0) Chronic migraine without aura, not intractable, without status migrainosus (G43.709) Active confirmed Problem Hereditary disorder of nervous system (578232894) Hereditary and idiopathic neuropathy, unspecified (G60.9) Active confirmed Encounters Encounter Location Date Provider Diagnosis [address] [address] [facility] Hereditary and idiopathic neuropathy, unspecified G60.9 Assessments Encounter Date Diagnosis (ICD Code) Assessment Notes Treatment Notes Treatment Clinical Notes Section Notes 02/10/2024 Hereditary and idiopathic neuropathy, unspecified (ICD-10 - G60.9) Plan Of Treatment No Information Insurance Providers Payer Name Payer Address Payer Phone Subscriber Number Group Number Insured Name Patient Relationship to Insured Coverage Start Date Coverage End Date [facility] [address] [address] [place] [address] [id number] Farrukh Vicente Self - patient is the insured
--- OUTSIDE RECORDS SUMMARY | 2024-12-20 00:30 | XMS_ITS | Clinical Summary ---
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
--- OUTSIDE RECORDS SUMMARY | 2024-12-20 00:30 | XMS_ITS | Encounter Summary ---
Author Organization [facility] Address [address] [place] [address] Care Team Providers Care Sales Applications Engineer Name Role Phone Odilon Garvey MD Primary Care Provider [phone] Reason for Visit * Reason Onset Date Comments Appointment 08/24/2022 Encounter Details Date Type Department Care Team (Late Contact Info) Description 08/24/2022 Telephone [facility] [address] [place] [address] Checo Austin MD [address] [id number] Appointment Social History Tobacco Use Types Packs/Day Years Used Date Smoking Tobacco: Never Assessed Sex and Gender Information Value Date Recorded Sex Assigned at Not on file 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
--- OUTSIDE RECORDS SUMMARY | 2024-12-20 00:30 | XMS_ITS | Data Portability ---
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 We will try to get GLP 1 agent there is no contraindication he will follow up in 4 months. He will call in 3-4 weeks with how the Cymbalta is doing because I told him we can titrate that [email or web address] Not available 06/08/2024 16:38:06 10/03/2024 10/03/2024 obtain [...] very intrusive on his quality of life [email or web address] Not available 10/03/2024 23:05:48 Plan of Treatment Reminders Order Date Submit Date Provider Last Modified By Organization Details Last Modified Time Details Appointments ANY 15 2024 10:30A M Brenda Garvey MD Not available Not available Not available Lab lipid panel, serum 2024 025 [facility], [address] [place] [address] 2, [place], [address], 10/12/2024 13:07:42 CBC w/ auto diff 2024 025 [facility], [address] [place] [address] 2, [place], [address], 10/12/2024 13:07:44 CMP, serum or plasma 2024 025 [facility], [address] [place] [address] 2, [place], [address], 10/12/2024 13:07:43 testoster one, free + total, serum 2024 025 [facility], [address] [place] [address] 2, [place], [address], 10/12/2024 13:07:41 HbA1c (hemoglob in A1c), blood 2023 024 [facility], [address], [address], [place], [address], 12/26/2023 13:10:33 PSA, total, serum or plasma 2023 024 [facility], [address], [address], [place], [address], 12/26/2023 13:10:35 CBC w/ auto diff 2023 024 [facility], [address], [address], [place], [address], 12/26/2023 13:10:34 lipid panel, serum 2023 024 [facility], [facility] [address], [place], [address], 12/26/2023 13:10:31 CMP, serum or plasma 2023 024 [facility], [facility] [address], [address], [place], [address], 12/26/2023 13:10:32 TSH, ultra-sen sitive, serum 2023 024 [facility], [facility] [address], [address], [place], [address], 12/26/2023 13:10:34 T3, free, serum or plasma 2023 024 [facility], [address], [address], [place], [address], 12/26/2023 13:10:36 unlisted lab - T4, free 2023 024 [facility], [address], [address], [place], [address], 12/26/2023 13:10:32 Referral None recorded. Procedures None recorded. Surgeries None recorded. Imaging None recorded. Medication Orders Zepbound 2.5 mg/0.5 mL subcutane ous pen injector [id number] [id number] [id number], [address] [facility], [place], [place], [id number], 06/06/2024 17:57:18 Cymbalta 30 mg capsule,d elayed release 2023 024 [id number] [facility] #[id number], [address], [place], [place], [id number], 06/06/2024 17:57:18 Patient TargetsNo targets recorded. Patient Instructions Encounter Date Encounter Id Patient Instructions Last Modified By Organization Details Last Modified Time 06/06/2024 [id number] A healthy lifestyle: care instructions [email or web address] Not available 06/06/2024 17:57:18 10/03/2024 [id number] A healthy lifestyle: care instructions [email or web address] Not available 10/03/2024 17:44:41 Quitting Tobacco : Care Instructions Not available 10/03/2024 17:44:41 Reason for Referral None Reported. Results Created Date Observation Date Name Description Value Unit Range Abnormal Flag Note LastModifiedBy Organization Detail LastModifiedTime 12/25/19 24 12/26/2023 LIPID PANEL cholesterol, total 194 mg/dL 100-19 9 Not Available [facility] ([facility]) [address] [facility], [place], [address], 12/26/2023 13:10:31 12/25/19 24 12/26/2023 LIPID PANEL triglyceride s 435 mg/dL 0-149 above high normal Not Available [facility] ([facility]) [address] [place], [address], 12/26/2023 13:10:31 12/25/19 24 12/26/2023 LIPID PANEL HDL cholesterol 36 mg/dL >39 below low normal Not Available [facility] ([facility]) [address] [place], [address], 12/26/2023 13:10:31 12/25/19 24 12/26/2023 LIPID PANEL VLDL cholesterol fredrick 71 mg/dL 5-40 above high normal Not Available [facility] ([facility]) [address] [place], [address], 12/26/2023 13:10:31 12/25/19 24 12/26/2023 LIPID PANEL LDL chol [facility]) 87 mg/dL 0-99 Not Available [facility] ([facility]) [address] [place], [address], 12/26/2023 13:10:31 12/25/19 24 12/26/2023 T4, FREE T4,free(dire ct) 1.09 NG/dL 0.82-1 .77 Not Available [facility] ([facility]) [address] [place], [address], 12/26/2023 13:10:31 12/25/19 24 12/26/2023 COMP. METAB OLIC PANEL (14) glucose 100 mg/dL 70-99 above high normal Not Available [facility] ([facility]) [address] [place], [address], 12/26/2023 13:10:32 12/25/19 24 12/26/2023 COMP. METAB OLIC PANEL (14) BUN 20 mg/dL 8-27 Not Available [facility] ([facility]) [address] [place], [address], 12/26/2023 13:10:32 12/25/19 24 12/26/2023 COMP. METAB OLIC PANEL (14) creatinine 1.04 mg/dL 0.76-1 .27 Not Available [facility] ([facility]) [address] [place], [address], 12/26/2023 13:10:32 12/25/19 24 12/26/2023 COMP. METAB OLIC PANEL (14) eGFR 82 mL/mi n/1.7 3 >59 Not Available [facility] ([facility]) [address] [place], [address], 12/26/2023 13:10:32 12/25/19 24 12/26/2023 COMP. METAB OLIC PANEL (14) BUN/creatini ne ratio 19 10-24 Not Available [facility] ([facility]) [address], [place], [address], 12/26/2023 13:10:32 12/25/19 24 12/26/2023 COMP. METAB OLIC PANEL (14) sodium 141 mmol/ L 134-14 4 Not Available [facility] ([facility]) [address], [place], [address], 12/26/2023 13:10:32 12/25/19 24 12/26/2023 COMP. METAB OLIC PANEL (14) potassium 4.3 mmol/ L 3.5-5. 2 Not Available [facility] ([facility]) [address] [facility], [place], [address], 12/26/2023 13:10:32 12/25/19 24 12/26/2023 COMP. METAB OLIC PANEL (14) chloride 104 mmol/ L 96-106 Not Available [facility] ([facility]) [address] [facility], [place], [address], 12/26/2023 13:10:32 12/25/19 24 12/26/2023 COMP. METAB OLIC PANEL (14) carbon dioxide, total 20 mmol/ L 20- Not Available [facility] ([facility]) [address] [facility], [place], [address], 12/26/2023 13:10:32 12/25/19 24 12/26/2023 COMP. METAB OLIC PANEL (14) calcium 10.5 mg/dL 8.6-10 .2 above high normal Not Available [facility] ([facility]) [address] [facility], [place], [address], 12/26/2023 13:10:32 12/25/19 24 12/26/2023 COMP. METAB OLIC PANEL (14) protein, total 6.7 g/dL 6.0-8. 5 Not Available [facility] ([facility]) [address], [place], [address], 12/26/2023 13:10:32 12/25/19 24 12/26/2023 COMP. METAB OLIC PANEL (14) albumin 4.4 g/dL 3.8-4. 9 Not Available [facility] ([facility]) [address], [place], [address], 12/26/2023 13:10:32 12/25/19 24 12/26/2023 COMP. METAB OLIC PANEL (14) globulin, total 2.3 g/dL 1.5-4. 5 Not Available [facility] ([facility]) [address], [place], [address], 12/26/2023 13:10:32 12/25/19 24 12/26/2023 COMP. METAB OLIC PANEL (14) A/G ratio 1.9 1.2-2. 2 Not Available [facility] ([facility]) [address], [place], [address], 12/26/2023 13:10:32 12/25/19 24 12/26/2023 COMP. METAB OLIC PANEL (14) bilirubin, total 0.3 mg/dL 0.0-1. 2 Not Available [facility] ([facility]) [address], [place], [address], 12/26/2023 13:10:32 12/25/19 24 12/26/2023 COMP. METAB OLIC PANEL (14) alkaline phosphatase 64 IU/L 44-121 Not Available [facility] ([facility]) [address], [place], [address], 12/26/2023 13:10:32 12/25/19 24 12/26/2023 COMP. METAB OLIC PANEL (14) AST (SGOT) 38 IU/L 0-40 Not Available [facility] ([facility]) [address] [facility] [place], [address], 12/26/2023 13:10:32 12/25/19 24 12/26/2023 COMP. METAB OLIC PANEL (14) ALT (SGPT) 29 IU/L 0-44 Not Available [facility] ([facility]) [address] [place], [address], 12/26/2023 13:10:32 12/25/19 24 12/26/2023 HEMOG LOBIN A1C hemoglobin A1C 5.8 % 4.8-5. 6 above high normal Predi abete s: 5.7 - 6.4 Diabe salome: >6.4 Glyce kendal contr ol for adult s with diabe salome: <7.0 Not Available [facility] ([facility]) [address] [place], [address], 12/26/2023 13:10:33 12/25/19 24 12/26/2023 TSH TSH 1.610 uIU/m L 0.450- 4.500 Not Available [facility] ([facility]) [address] [place], [address], 12/26/2023 13:10:33 12/25/19 24 12/26/2023 CBC WITH DIFFE RENTI AL/PL ATELE T WBC 8.4 x10e3 /uL 3.4-10 .8 Not Available [facility] ([facility]) [address] [place], [address], 12/26/2023 13:10:34 12/25/19 24 12/26/2023 CBC WITH DIFFE RENTI AL/PL ATELE T RBC 5.38 x10e6 /uL 4.14-5 .80 Not Available [facility] ([facility]) [address] [place], [address], 12/26/2023 13:10:34 12/25/19 24 12/26/2023 CBC WITH DIFFE RENTI AL/PL ATELE T hemoglobin 16.3 g/dL 13.0-1 7.7 Not Available [facility] ([facility]) [address] [facility], [place], [address], 12/26/2023 13:10:34 12/25/19 24 12/26/2023 CBC WITH DIFFE RENTI AL/PL ATELE T hematocrit 48.4 % 37.5-5 1.0 Not Available [facility] ([facility]) [address] [place], [address], 12/26/2023 13:10:34 12/25/19 24 12/26/2023 CBC WITH DIFFE RENTI AL/PL ATELE T MCV 90 fL 79-97 Not Available [facility] ([facility]) [address] [place], [address], 12/26/2023 13:10:34 12/25/19 24 12/26/2023 CBC WITH DIFFE RENTI AL/PL ATELE T MCH 30.3 pg 26.6-3 3.0 Not Available [facility] ([facility]) [address] [place], [address], 12/26/2023 13:10:34 12/25/19 24 12/26/2023 CBC WITH DIFFE RENTI AL/PL ATELE T MCHC 33.7 g/dL 31.5-3 5.7 Not Available [facility] ([facility]) [address] [place], [address], 12/26/2023 13:10:34 12/25/19 24 12/26/2023 CBC WITH DIFFE RENTI AL/PL ATELE T RDW 13.4 % 11.6-1 5.4 Not Available [facility] ([facility]) [address] [place], [address], 12/26/2023 13:10:34 12/25/19 24 12/26/2023 CBC WITH DIFFE RENTI AL/PL ATELE T platelets 226 x10e3 /uL 150-45 0 Not Available [facility] ([facility]) [address] [facility], [place], [address], 12/26/2023 13:10:34 12/25/19 24 12/26/2023 CBC WITH DIFFE RENTI AL/PL ATELE T neutrophils 50 % notest ab. Not Available [facility] ([facility]) [address] [facility], [place], [address], 12/26/2023 13:10:34 12/25/19 24 12/26/2023 CBC WITH DIFFE RENTI AL/PL ATELE T lymphs 35 % notest ab. Not Available [facility] ([facility]) [address] [facility], [place], [address], 12/26/2023 13:10:34 12/25/19 24 12/26/2023 CBC WITH DIFFE RENTI AL/PL ATELE T monocytes 8 % notest ab. Not Available [facility] ([facility]) [address] [facility], [place], [address], 12/26/2023 13:10:34 12/25/19 24 12/26/2023 CBC WITH DIFFE RENTI AL/PL ATELE T eos 5 % notest ab. Not Available [facility] ([facility]) [address] [facility], [place], [address], 12/26/2023 13:10:34 12/25/19 24 12/26/2023 CBC WITH DIFFE RENTI AL/PL ATELE T basos 1 % notest ab. Not Available [facility] ([facility]) [address] [facility], [place], [address], 12/26/2023 13:10:34 12/25/19 24 12/26/2023 CBC WITH DIFFE RENTI AL/PL ATELE T neutrophils (absolute) 4.3 x10e3 /uL 1.4-7. 0 Not Available [facility] ([facility]) [address] [facility], [place], [address], 12/26/2023 13:10:34 12/25/19 24 12/26/2023 CBC WITH DIFFE RENTI AL/PL ATELE T lymphs (absolute) 2.9 x10e3 /uL 0.7-3. 1 Not Available [facility] ([facility]) [address] [facility], [place], [address], 12/26/2023 13:10:34 12/25/19 24 12/26/2023 CBC WITH DIFFE RENTI AL/PL ATELE T monocytes(ab solute) 0.7 x10e3 /uL 0.1-0. 9 Not Available [facility] ([facility]) [address] [facility], [place], [address], 12/26/2023 13:10:34 12/25/19 24 12/26/2023 CBC WITH DIFFE RENTI AL/PL ATELE T eos (absolute) 0.4 x10e3 /uL 0.0-0. 4 Not Available [facility] ([facility]) [address] [facility], [place], [address], 12/26/2023 13:10:34 12/25/19 24 12/26/2023 CBC WITH DIFFE RENTI AL/PL ATELE T baso (absolute) 0.1 x10e3 /uL 0.0-0. 2 Not Available [facility] ([facility]) [address] [place], [address], 12/26/2023 13:10:34 12/25/19 24 12/26/2023 CBC WITH DIFFE RENTI AL/PL ATELE T immature granulocytes 1 % notest ab. Not Available [facility] ([facility]) [address] [place], [address], 12/26/2023 13:10:34 12/25/19 24 12/26/2023 CBC WITH DIFFE RENTI AL/PL ATELE T immature grans (abs) 0.1 x10e3 /uL 0.0-0. 1 Not Available [facility] ([facility]) [address] [facility], [place], [address], 12/26/2023 13:10:34 12/25/19 24 12/26/2023 PROST ATE-S [...] of johann costello se. Not Available [facility] ([facility]) [address] [facility], [place], [address], 12/26/2023 13:10:35 12/25/19 24 12/26/2023 TRIIO DOTHY ARTIE E (T3), FREE triiodothyro nine (T3), free 2.7 pg/mL 2.0-4. 4 Not Available [facility] ([facility]) [address] [facility], [place], [address], 12/26/2023 13:10:35 04/01/20 24 04/02/2024 Cobal snyder [...] . JCEM 2017, 102;1 161-1 173. PMID: 68284 103. Not Available [facility] ([facility]) [address] [place], [address], 10/12/2024 13:07:41 10/08/19 25 10/12/2024 TESTO STERO NE,FR EE AND TOTAL free testosterone (direct) 5.3 pg/mL 6.6-18 .1 below low normal Not Available [facility] ([facility]) [address] [place], [address], 10/12/2024 13:07:41 10/08/19 25 10/09/2024 LIPID PANEL cholesterol, total 201 mg/dL 100-19 9 above high normal Not Available [facility] ([facility]) [address] [place], [address], 10/12/2024 13:07:42 10/08/19 25 10/09/2024 LIPID PANEL triglyceride s 296 mg/dL 0-149 above high normal Not Available [facility] ([facility]) [address] [place], [address], 10/12/2024 13:07:42 10/08/19 25 10/09/2024 LIPID PANEL HDL cholesterol 40 mg/dL >39 Not Available [facility] ([facility]) [address] [place], [address], 10/12/2024 13:07:42 10/08/19 25 10/09/2024 LIPID PANEL VLDL cholesterol fredrick 51 mg/dL 5-40 above high normal Not Available [facility] ([facility]) [address] [place], [address], 10/12/2024 13:07:42 10/08/19 25 10/09/2024 LIPID PANEL LDL chol calc ([facility]) 110 mg/dL 0-99 above high normal Not Available [facility] ([facility]) [address] [place], [address], 10/12/2024 13:07:42 10/08/19 25 10/09/2024 COMP. METAB OLIC PANEL (14) glucose 101 mg/dL 70-99 above high normal Not Available [facility] ([facility]) [address] [place], [address], 10/12/2024 13:07:43 10/08/19 25 10/09/2024 COMP. METAB OLIC PANEL (14) BUN 17 mg/dL 8-27 Not Available [facility] ([facility]) [address] [place], [address], 10/12/2024 13:07:43 10/08/19 25 10/09/2024 COMP. METAB OLIC PANEL (14) creatinine 1.14 mg/dL 0.76-1 .27 Not Available [facility] ([facility]) [address] [place], [address], 10/12/2024 13:07:43 10/08/19 25 10/09/2024 COMP. METAB OLIC PANEL (14) eGFR 73 mL/mi n/1.7 3 >59 Not Available [facility] ([facility]) [address] [place], [address], 10/12/2024 13:07:43 10/08/19 25 10/09/2024 COMP. METAB OLIC PANEL (14) BUN/creatini ne ratio 15 10-24 Not Available [facility] ([facility]) [address] [place], [address], 10/12/2024 13:07:43 10/08/19 25 10/09/2024 COMP. METAB OLIC PANEL (14) sodium 142 mmol/ L 134-14 4 Not Available [facility] ([facility]) [address] [facility] [place], [address], 10/12/2024 13:07:43 10/08/19 25 10/09/2024 COMP. METAB OLIC PANEL (14) potassium 4.1 mmol/ L 3.5-5. 2 Not Available [facility] ([facility]) [address] [facility] [place], [address], 10/12/2024 13:07:43 10/08/19 25 10/09/2024 COMP. METAB OLIC PANEL (14) chloride 104 mmol/ L 96-106 Not Available [facility] ([facility]) [address] [facility] [place], [address], 10/12/2024 13:07:43 10/08/19 25 10/09/2024 COMP. METAB OLIC PANEL (14) carbon dioxide, total 23 mmol/ L 20-29 Not Available [facility] ([facility]) [address] [facility] [place], [address], 10/12/2024 13:07:43 10/08/19 25 10/09/2024 COMP. METAB OLIC PANEL (14) calcium 10.3 mg/dL 8.6-10 .2 above high normal Not Available [facility] ([facility]) [address] [facility] [place], [address], 10/12/2024 13:07:43 10/08/19 25 10/09/2024 COMP. METAB OLIC PANEL (14) protein, total 6.7 g/dL 6.0-8. 5 Not Available [facility] ([facility]) [address] [facility] [place], [address], 10/12/2024 13:07:43 10/08/19 25 10/09/2024 COMP. METAB OLIC PANEL (14) albumin 4.4 g/dL 3.9-4. 9 Not Available [facility] ([facility]) [address] [facility], [place], [address], 10/12/2024 13:07:43 10/08/19 25 10/09/2024 COMP. METAB OLIC PANEL (14) globulin, total 2.3 g/dL 1.5-4. 5 Not Available [facility] ([facility]) [address] [facility], [place], [address], 10/12/2024 13:07:43 10/08/19 25 10/09/2024 COMP. METAB OLIC PANEL (14) bilirubin, total 0.5 mg/dL 0.0-1. 2 Not Available [facility] ([facility]) [address] [facility], [place], [address], 10/12/2024 13:07:43 10/08/19 25 10/09/2024 COMP. METAB OLIC PANEL (14) alkaline phosphatase 63 IU/L 44-121 Not Available [facility] ([facility]) [address] [facility], [place], [address], 10/12/2024 13:07:43 10/08/19 25 10/09/2024 COMP. METAB OLIC PANEL (14) AST (SGOT) 31 IU/L 0-40 Not Available [facility] ([facility]) [address] [facility], [place], [address], 10/12/2024 13:07:43 10/08/19 25 10/09/2024 COMP. METAB OLIC PANEL (14) ALT (SGPT) 23 IU/L 0-44 Not Available [facility] ([facility]) [address] [place], [address], 10/12/2024 13:07:43 10/08/19 25 10/08/2024 CBC WITH DIFFE RENTI AL/PL ATELE T WBC 7.6 x10e3 /uL 3.4-10 .8 Not Available [facility] ([facility]) [address] [facility], [place], [address], 10/12/2024 13:07:44 10/08/19 25 10/08/2024 CBC WITH DIFFE RENTI AL/PL ATELE T RBC 5.87 x10e6 /uL 4.14-5 .80 above high normal Not Available [facility] ([facility]) [address] [place], [address], 10/12/2024 13:07:44 10/08/19 25 10/08/2024 CBC WITH DIFFE RENTI AL/PL ATELE T hemoglobin 17.5 g/dL 13.0-1 7.7 Not Available [facility] ([facility]) [address] [facility], [place], [address], 10/12/2024 13:07:44 10/08/19 25 10/08/2024 CBC WITH DIFFE RENTI AL/PL ATELE T hematocrit 52.4 % 37.5-5 1.0 above high normal Not Available [facility] ([facility]) [address] [place], [address], 10/12/2024 13:07:44 10/08/19 25 10/08/2024 CBC WITH DIFFE RENTI AL/PL ATELE T MCV 89 fL 79-97 Not Available [facility] ([facility]) [address] [place], [address], 10/12/2024 13:07:44 10/08/19 25 10/08/2024 CBC WITH DIFFE RENTI AL/PL ATELE T MCH 29.8 pg 26.6-3 3.0 Not Available [facility] ([facility]) [address] [place], [address], 10/12/2024 13:07:44 10/08/19 25 10/08/2024 CBC WITH DIFFE RENTI AL/PL ATELE T MCHC 33.4 g/dL 31.5-3 5.7 Not Available [facility] ([facility]) [address] [facility], [place], [address], 10/12/2024 13:07:44 10/08/19 25 10/08/2024 CBC WITH DIFFE RENTI AL/PL ATELE T RDW 12.0 % 11.6-1 5.4 Not Available [facility] ([facility]) [address] [facility], [place], [address], 10/12/2024 13:07:44 10/08/19 25 10/08/2024 CBC WITH DIFFE RENTI AL/PL ATELE T platelets 248 x10e3 /uL 150-45 0 Not Available [facility] ([facility]) [address] [facility], [place], [address], 10/12/2024 13:07:44 10/08/19 25 10/08/2024 CBC WITH DIFFE RENTI AL/PL ATELE T neutrophils 46 % notest ab. Not Available [facility] ([facility]) [address] [facility], [place], [address], 10/12/2024 13:07:44 10/08/19 25 10/08/2024 CBC WITH DIFFE RENTI AL/PL ATELE T lymphs 36 % notest ab. Not Available [facility] ([facility]) [address] [facility], [place], [address], 10/12/2024 13:07:44 10/08/19 25 10/08/2024 CBC WITH DIFFE RENTI AL/PL ATELE T monocytes 7 % notest ab. Not Available [facility] ([facility]) [address] [facility], [place], [address], 10/12/2024 13:07:44 10/08/19 25 10/08/2024 CBC WITH DIFFE RENTI AL/PL ATELE T eos 9 % notest ab. Not Available [facility] ([facility]) [address] [facility], [place], [address], 10/12/2024 13:07:44 10/08/19 25 10/08/2024 CBC WITH DIFFE RENTI AL/PL ATELE T basos 1 % notest ab. Not Available [facility] ([facility]) [address] [facility], [place], [address], 10/12/2024 13:07:44 10/08/19 25 10/08/2024 CBC WITH DIFFE RENTI AL/PL ATELE T neutrophils (absolute) 3.5 x10e3 /uL 1.4-7. 0 Not Available [facility] ([facility]) [address] [facility], [place], [address], 10/12/2024 13:07:44 10/08/19 25 10/08/2024 CBC WITH DIFFE RENTI AL/PL ATELE T lymphs (absolute) 2.7 x10e3 /uL 0.7-3. 1 Not Available [facility] ([facility]) [address] [place], [address], 10/12/2024 13:07:44 10/08/19 25 10/08/2024 CBC WITH DIFFE RENTI AL/PL ATELE T monocytes(ab solute) 0.5 x10e3 /uL 0.1-0. 9 Not Available [facility] ([facility]) [address] [place], [address], 10/12/2024 13:07:44 10/08/19 25 10/08/2024 CBC WITH DIFFE RENTI AL/PL ATELE T eos (absolute) 0.7 x10e3 /uL 0.0-0. 4 above high normal Not Available [facility] ([facility]) [address] [place], [address], 10/12/2024 13:07:44 10/08/19 25 10/08/2024 CBC WITH DIFFE RENTI AL/PL ATELE T baso (absolute) 0.1 x10e3 /uL 0.0-0. 2 Not Available [facility] ([facility]) [address] [facility], [place], [address], 10/12/2024 13:07:44 10/08/19 25 10/08/2024 CBC WITH DIFFE RENTI AL/PL ATELE T immature granulocytes 1 % notest ab. Not Available [facility] ([facility]) [address] [facility], [place], [address], 10/12/2024 13:07:44 10/08/19 25 10/08/2024 CBC WITH DIFFE RENTI AL/PL ATELE T immature grans (abs) 0.1 x10e3 /uL 0.0-0. 1 Not Available [facility] ([facility]) [address] [facility], [place], [address], 10/12/2024 13:07:44 02/19/20 24 02/19/2024 XR, foot No observ ation record ed. [address], [place], [address], 02/21/2024 11:07:05 03/27/20 24 03/27/2024 XR, shoul miguel, 2 or more view No observ ation record ed. [address], [place], [address], 03/29/2024 09:30:37 06/19/2006/18/2024 MRI, susanul miguel, w/o contr ast No observ ation record ed. [facility] [address], [place], [address], 06/21/2024 12:32:31 06/19/20 24 06/18/2024 MRI, shoul miguel, w/o contr ast No observ ation record ed. [facility] [address], [place], [address], 06/21/2024 12:33:16 09/13/19 25 09/06/2024 cardi ac monit or No observ ation record ed. [facility] [address], [place], [address], 09/20/2024 09:07:34 09/13/19 25 09/06/2024 cardi ac monit or No observ ation record ed. [facility] [address], [place], [address], 09/20/2024 09:07:43 09/18/19 25 09/18/2024 cardi ac monit or No observ ation record ed. [facility] [address], [place], [address], 09/20/2024 09:08:38 10/14/19 25 10/14/2024 XR, chest No observ ation record ed. [email or web address] [place], [address], 10/15/2024 14:15:51 11/20/19 25 09/05/2024 cardi ac monit or No observ ation record ed. [email or web address] [facility] [address], [place], [address], 11/20/2024 13:57:55 11/20/19 25 11/19/2024 cardi ac monit or No observ ation record ed. [email or web address] [facility] [address], [place], [address], 11/20/2024 13:58:21 11/30/19 25 11/29/2024 XR, shoul miguel, 2 or more view No observ ation record ed. [facility] [address] [facility] [address], [place], [address], 12/02/2024 09:40:57 Result Notes None recorded. Problems Name Problem SNOMED Code Status Onset Date Resolution Date Notes Provider Name and Address Organization Details Recorded Time Essential hypertension 80160521 Active 2023 Brenda Garvey MD Attn: Accountshereen g,[address] [facility], [place], [address], [place] [facility] 4 14:31:21 Obesity 520072037 Active 2023 Brenda Garvey MD Attn: Accountshereen g,[address] [facility], [place], [address], [place] [facility] 4 14:31:24 Chronic pain syndrome 101331813 Active 2023 Brenda Garvey MD Attn: Accountin g,[address] [facility], [place], [address], [place] [facility] 4 14:31:25 Atrial fibrillation 56792255 Active 2023 Brenda Garvey MD Attn: Accountshereen g,[address] [facility], [place], [address], [place] [facility] 4 14:31:26 Erectile dysfunction 312646132 Active 2023 Brenda Garvey MD Attn: Accountin g,[address] [facility], [place], [address], [place] [facility] 4 14:31:28 Gastroesophage al reflux disease without esophagitis 914677178 Active 2023 Brenda Garvey MD Attn: Accountshereen g,[address] [facility], [place], [address], [place] [facility] 4 14:31:30 History of peptic ulcer 216256651 Active 2023 Brenda Garvey MD Attn: Accountin g,[address] [facility], [place], [address], [place] [facility] 4 14:31:31 Hyperlipidemia 86244431 Active 2023 Brenda Garvey MD Attn: Katein g,[address] [facility], [place], [address], [place] [facility] 4 14:31:47 Ulcerative colitis 32375685 Active 2023 Brenda Garvey MD Attn: Johnny almanzar,[address], [place], [address], [place] [facility] 4 21:50:09 Sleep apnea 19078889 Active 2023 Brenda Garvey MD Attn: Johnny almanzar,[address], [place], [address], [place] - [facility] 4 21:50:35 Problem Notes None recorded. Procedures Surgical History Date Name Laterality Status Provider Name and Address Organization Details Recorded Time Pacemaker completed Mary Flores MA [place] - [facility] 10/03/2024 11:02:03 Defibrillator completed Mary Flores [place] [facility] 12/21/2023 16:57:13 Heart Surgery completed Mary Flores [place] [facility] 12/21/2023 16:57:19 Imaging Results Imaging Date Name Status LastModified by Organiz ation Details LastModified Time 02/19/2024 XR, foot completed [address], [address], 02/21/2024 11:07:05 03/27/2024 XR, shoulder, 2 or more view completed [address] [place] [address], [address], 03/29/2024 09:30:37 06/18/2024 MRI, shoulder, w/o contrast completed [facility] [address], [place], [address], 06/21/2024 12:32:31 06/18/2024 MRI, shoulder, w/o contrast completed [facility] [address], [place], [address], 06/21/2024 12:33:16 09/06/2024 compliance monitor completed [facility] [address], [place], [address], 09/20/2024 09:07:34 09/06/2024 compliance monitor completed [email or web address] [facility] [address], [place], [address], 09/20/2024 09:07:43 09/18/2024 compliance monitor completed [email or web address] [facility] [address], [place], [address], 09/20/2024 09:08:38 10/14/2024 XR, chest completed [address] [place], [address], 10/15/2024 14:15:51 09/05/2024 compliance monitor completed [email or web address] [facility] [address], [place], [address], 11/20/2024 13:57:55 11/19/2024 compliance monitor completed [email or web address] [facility] [address], [place], [address], 11/20/2024 13:58:21 11/29/2024 XR, shoulder, 2 or more view completed [place] [address] [facility] [address], [place], [address], 12/02/2024 09:40:57 Procedure Notes None recorded. Medical Equipment None Reported. Allergies Allergen ID Allergen Name Allergen Category Reaction Reaction Severity Criticality Documentation Date Start Date Code Code System Note Provider Name and Address Organization Details Recorded Time 17790831 Non-stero idal anti-infl ammatory agent (product) medicatio n Not available Not available Not available 06/06/2024 65500 005 SNOMED Not Available Not Available Not [...] Updated DateTime 4 177.8 cm 32.7 kg/m2 150595. 34 g 60 /min 96 % 96 % 132 mm[Hg] 74 mm[Hg] Mary Flores [place] [facility] 4 16:52:51 Date Recorded Body height Body mass index (BMI) Body weight Heart rate Oxygen saturation Oxygen saturation in Arterial blood by Pulse oximetry Systolic blood pressure Diastolic blood pressure Provider Name and Address Organization Details Last Updated DateTime 4 177.8 cm 31 kg/m2 18381.9 5 g 82 /min 95 % 95 % 128 mm[Hg] 84 mm[Hg] Chelsy Abernathy MA [facility] 4 17:18:15 Date Recorded Body height Body mass index (BMI) Body weight Heart rate Oxygen saturation Oxygen saturation in Arterial blood by Pulse oximetry Systolic blood pressure Diastolic blood pressure Provider Name and Address Organization Details Last Updated DateTime 4 177.8 cm 31.1 kg/m2 65043.5 4 g 72 /min 95 % 95 % 130 mm[Hg] 90 mm[Hg] Andra Gaytan MA [facility] 4 16:35:34 Date Recorded Body height Body mass index (BMI) Body weight Heart rate Oxygen saturation Oxygen saturation in Arterial blood by Pulse oximetry Systolic blood pressure Diastolic blood pressure Provider Name and Address Organization Details Last Updated DateTime 5 177.8 cm 31.8 kg/m2 493441. 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 [id number] Information not available 12/21/2023 Do You Use [...] Atrial Fibrillation Y High Blood Pressure Y Kidney or Bladder Problems N Thyroid Problems N GI Problems N Depression N COPD N Blood Clots N Skin Problems N Anemia N Heart Attack (ID) N Anxiety Disorder N Diabetes N Muscle, Joint, or Bone Problems Y Seizures/Epilepsy N Acid Reflux (GERD) Y Cancer N Stroke N Asthma N Allergies N Have you had a PSA blood test in the las t year? Y High Cholesterol Y Hepatitis N Liver Disease N Headaches N Heart Failure N Osteoporosis N Immunizations [...] SNOMED-CT Code Diagnosis ICD10 Code Diagnosis Note [id number] Brenda Garvey MD [facility] [address] [place] [address] 12/21/2023 16:19:13 12/21/2023 17:29:27 Essential hypertension 66620451 I10 Screening for malignant neoplasm of prostate 652456330 Z12.5 Obesity 994849604 E66.9 Chronic pain syndrome 37 4419762 G89.4 Atrial fibrillation 4943 6004 I48.91 Erectile dysfunction 860 668744 F52.21 Gastroesop hageal reflux disease without esophagitis 366649995 K21.9 History of peptic ulcer 742284775 Z87.11 Hyperlipidemia 31091498 E78.5 [id number] Brenda Garvey MD [facility] [address] [place] [address] 03/07/2024 15:55:05 03/07/2024 17:54:34 Hyperlipidemia 86220786 E78.5 Obesity 643642319 E66.9 Gastroesop hageal reflux disease without esophagitis 428648229 K21.9 Essential hypertension 53868403 I10 Atrial fibrillation 4943 6004 I48.91 Ulcerative colitis 21801 004 K51.90 [id number] Brenda Garvey MD [facility] [address] [place] [address] 06/06/2024 16:06:09 06/06/2024 17:24:17 Obesity 172566548 E66.9 Neuropathy 315276587 G62 .9 Essential hypertension 55499905 I10 Erectile dysfunction 860 250133 F52.21 Chronic pain syndrome 37 5695732 G89.4 Atrial fibrillation 4943 6004 I48.91 History of peptic ulcer 896497350 Z87.11 Gastroesop hageal reflux disease without esophagitis 219334746 K21.9 Hyperlipidemia 89593016 E78.5 [id number] Brenda Garvey MD [facility] [address] [place] [address] 10/03/2024 10:47:06 10/03/2024 11:49:15 Smoker 11921141 F17.200 Body mass index 30+ - obesity 312639647 Z68.31 Obesity 440836082 E66.9 Essential hypertension 20426569 I10 Hyperlipidemia 43173217 E78.5 Fatigue 59399578 R53.83 Neuropathy 718787926 G62 .9 Health Concerns Section Related Observation LastModified by Organization Detai ls LastModified Time None Recorded Concern Status LastModified by Organization Details LastModified Time None Recorded Advance Directives Directive Y: Payers Encounter Date Sequence Insurance Name Policy Number Policy Hoffmann Covered Member ID Hoffmann Member ID Guarantor Name 12/21/2023 1 [facility] [id number] Lorenzo Cinthia [id number] Lorenzo Cinthia 03/07/2024 1 [facility] [id number] Lorenzo Cinthia [id number] Lorenzo Cinthia 06/06/2024 1 [employer] [id number] Lorenzo Ramirez Cinthia [id number] Lorenzo Cinthia 10/03/2024 1 [employer] [id number] Lorenzo Ramirez Cinthia [id number] Lorenzo Cinthia Notes Date Note Type Note [...] symptoms. Brenda Garvey MD Attn: Accounting,[address] [facility], [place], [address], [facility] 12/31/2023 14:34:15 03/07/2024 text/html AFib no palpitat ions hypertension no headache or dizziness GERD no nausea or vomiting obesity hard time losing weight hyperlipidemia does try to follow a low-fat diet but because of his chronic foot pain he just can not get active Brenda Garvey MD Attn: Accounting,[address] , [place], [address], [facility] 03/17/2024 21:54:06 06/06/2024 text/html [...] Brenda Garvey MD Attn: Accounting, [address] [facility], [place], [address], [facility] 06/08/2024 16:38:27 10/03/2024 text/html he says some fat igue from time to time apparently he is getting some semaglutide from a private pay clinic at which she says they also told him his testosterone was low.Pacemaker placed without incidentGERD has been doing finereally still bothered by the neuropathic pain in his feethypertension blood pressure is controlled Brenda Garvey MD Attn: Accounting,[address] [facility], [place], [address], [facility] 10/03/2024 23:06:07
--- OUTSIDE RECORDS SUMMARY | 2024-12-20 00:30 | XMS_ITS | Data Portability ---
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 Patient will setup an appointment with [facility] for supplies and pressure adjustments. A [...] were reviewed and explained to the patient: [facility] home sleep study 07/15/21 AHI = [address] [facility] diagnostic sleep study 08/17/22 sleep onset = 34.5 minutes, REM onset = 70.5 minutes, AHI = 7, REM AHI = 11, supine AHI = 53, PLMI = 12 [facility] home sleep study 10/11/23 AHI = 25, supine AHI = [address] [facility] titration sleep study 12/29/23 sleep onset [...] carrier. Patient will setup an appointment with [facility] for supplies and pressure adjustments. A [...] vitamin B12, serum 2023 024 [email or web address] [facility] (Lab), [address] [place], [address], 4 12:49:41 iron + TIBC + ferritin, serum 2023 024 [email or web address] [facility] (Lab), [address] [place], [address], 19:15:27 folate, RBC 2023 024 [email or web address] [facility] (Lab), [address] [place], [address], 4 09:28:47 vitamin B12, serum 2023 024 [email or web address] 25 [facility] (Lab), [address] [place], [address], 4 09:28:47 ESR (erythrocyt e sedimentati on rate), blood 2023 024 [email or web address] 25 [facility] (Lab), [address] [place], [address], 4 09:28:47 hemoglobin + hematocrit, blood 2023 024 [email or web address] 25 [facility] (Lab), [address] [place], [address], 4 09:28:48 bun (blood urea nitrogen), serum or plasma 2023 024 [email or web address] 25 [facility] (Lab), [address] [place], [address], 4 09:28:48 creatinine, serum or plasma 2023 024 [email or web address] 25 [facility] (Lab), [address] [place], [address], 4 09:28:48 magnesium, serum or plasma [email or web address] [place] [address] (Lab), [address] [place], [address], 4 09:28:48 vitamin E, serum [email or web address] [place] [address] (Lab), [address] [place], [address], 4 09:28:48 CMP, serum or plasma 2022 023 [facility] (Lab), [address] [place], [address], 3 18:19:29 lipid panel, serum 2022 023 [facility] (Lab), [address] [place], [address], 3 18:19:43 CBC w/ auto diff 2022 023 [facility] (Lab), [address] [place], [address], 18:03:56 magnesium, serum or plasma 2022 023 [facility] (Lab), [address] [place], [address], 18:19:49 PSA, total, serum or plasma [address], [address] [place], [address], 14:23:17 Referral None recorded. Procedures None recorded. Surgeries None recorded. Imaging US, bladder 2022 023 [facility] [place], [address] [facility] [address], [place], [address], 3 14:23:17 Medication Orders Uroxatral 10 mg tablet,exte nded release 2022 023 [id number], [address] [facility], [place], [place], [id number], 3 17:33:53 Cialis 5 mg tablet 2022 023 [facility], [address] , [place], [address], 14:59:53 Patient TargetsNo targets recorded. Patient InstructionsNo instructions recorded. Reason for Referral None Reported. Results Created Date Observation Date Name Description Value Unit Range Abnormal Flag Note LastModifiedBy Organization Detail LastModifiedTime 11/30/19 23 11/29/2022 CBC/C OMPLE TE BLD COUNT W/DIF F white blood cells 7.4 x10'3 /uL 4.2-10 .8 Not Available [facility] (Lab) [address] [place], [address], 11/29/2022 18:16:29 11/30/1911/29/2022 CBC/C OMPLE TE BLD COUNT W/DIF F red blood cells 5.36 x10'6 /uL 4.10-5 .80 Not Available [facility] (Lab) [address] [place], [address], 11/29/2022 18:16:29 11/30/19 23 11/29/2022 CBC/C OMPLE TE BLD COUNT W/DIF F hemoglobin 15.7 g/dL 13.2-1 7.0 Not Available [facility] (Lab) [address] [place], [address], 11/29/2022 18:16:29 11/30/1911/29/2022 CBC/C OMPLE TE BLD COUNT W/DIF F hematocrit 48.6 % 39.3-5 0.0 Not Available [facility] (Lab) [address] [place], [address], 11/29/2022 18:16:29 11/30/1911/29/2022 CBC/C OMPLE TE BLD COUNT W/DIF F mean red cell volume 90.7 fL 80.0-9 7.0 Not Available [facility] (Lab) [address] [place], [address], 11/29/2022 18:16:29 11/30/19 23 11/29/2022 CBC/C OMPLE TE BLD COUNT W/DIF F mean red cell hemoglobin 29.3 pg 27.0-3 3.0 Not Available [facility] (Lab) [address] [place], [address], 11/29/2022 18:16:29 11/30/19 23 11/29/2022 CBC/C OMPLE TE BLD COUNT W/DIF F mean RBC HGB concentratio n 32.3 g/dL 31.0-3 6.0 Not Available [facility] (Lab) [address] [place], [address], 11/29/2022 18:16:29 11/30/19 23 11/29/2022 CBC/C OMPLE TE BLD COUNT W/DIF F red cell distribution width 13.2 % 11.8-1 5.5 Not Available [facility] (Lab) [address] [place], [address], 11/29/2022 18:16:29 11/30/19 23 11/29/2022 CBC/C OMPLE TE BLD COUNT W/DIF F platelets 221 x10'3 /uL 150-40 0 Not Available [facility] (Lab) [address] [place], [address], 11/29/2022 18:16:29 11/30/19 23 11/29/2022 CBC/C OMPLE TE BLD COUNT W/DIF F mean platelet volume 9.1 fL 9.0-12 .4 Not Available [facility] (Lab) [address] [place], [address], 11/29/2022 18:16:29 11/30/19 23 11/29/2022 CBC/C OMPLE TE BLD COUNT W/DIF F neutrophils 41.2 % 39.0-7 2.0 Not Available [facility] (Lab) [address] [place], [address], 11/29/2022 18:16:29 11/30/19 23 11/29/2022 CBC/C OMPLE TE BLD COUNT W/DIF F lymphocytes 44.8 % 16.0-4 7.0 Not Available [facility] (Lab) [address] [place], [address], 11/29/2022 18:16:29 11/30/19 23 11/29/2022 CBC/C OMPLE TE BLD COUNT W/DIF F monocytes 10.6 % 5.0-12 .0 Not Available [facility] (Lab) [address] [place], [address], 11/29/2022 18:16:29 11/30/19 23 11/29/2022 CBC/C OMPLE TE BLD COUNT W/DIF F eosinophils 2.6 % 1.0-7. 0 Not Available [facility] (Lab) [address] [place], [address], 11/29/2022 18:16:29 11/30/19 23 11/29/2022 CBC/C OMPLE TE BLD COUNT W/DIF F basophils 0.4 % 0.0-2. 0 Not Available [facility] (Lab) [address] [place], [address], 11/29/2022 18:16:29 11/30/1911/29/2022 CBC/C OMPLE TE BLD COUNT W/DIF F immature granulocytes 0.4 % 0.00-0 .50 Not Available [facility] (Lab) [address] [place], [address], 11/29/2022 18:16:29 11/30/19 23 11/29/2022 CBC/C OMPLE TE BLD COUNT W/DIF F neutrophils, absolute count 3.06 x10'3 /uL 1.5-8. 0 Not Available [facility] (Lab) [address] [place], [address], 11/29/2022 18:16:29 11/30/19 23 11/29/2022 CBC/C OMPLE TE BLD COUNT W/DIF F lymphocytes, absolute count 3.33 x10'3 /uL 1.07-3 .43 Not Available [facility] (Lab) [address] [place], [address], 11/29/2022 18:16:29 11/30/19 23 11/29/2022 CBC/C OMPLE TE BLD COUNT W/DIF F monocytes, absolute count 0.79 x10'3 /uL 0.29-0 .99 Not Available [facility] (Lab) [address] [place], [address], 11/29/2022 18:16:29 11/30/19 23 11/29/2022 CBC/C OMPLE TE BLD COUNT W/DIF F eosinophils, absolute count 0.19 x10'3 /uL 0.02-0 .53 Not Available [facility] (Lab) [address] [place], [address], 11/29/2022 18:16:29 11/30/19 23 11/29/2022 CBC/C OMPLE TE BLD COUNT W/DIF F basophils, absolute count 0.03 x10'3 /uL 0.01-0 .08 Not Available [facility] (Lab) [address] [place], [address], 11/29/2022 18:16:29 11/30/19 23 11/29/2022 CBC/C OMPLE TE BLD COUNT W/DIF F immature granulocytes ,absolute 0.03 x10'3 /uL 0.00-0 .05 Not Available [facility] (Lab) [address] [place], [address], 11/29/2022 18:16:29 11/30/19 23 11/29/2022 CBC/C OMPLE TE BLD COUNT W/DIF F nucleated red blood cells 0.0 % -0 Not Available [facility] (Lab) [address] [place], [address], 11/29/2022 18:16:29 11/30/19 23 11/29/2022 CBC/C OMPLE TE BLD COUNT W/DIF F NRBC# 0.00 x10'3 /uL Not Available [facility] (Lab) [address] [place], [address], 11/29/2022 18:16:29 11/30/19 23 11/29/2022 COMPR EHENS JANAK METAB OLIC PANEL sodium 141 mmol/ L 137-14 5 Not Available [facility] (Lab) [address] [place], [address], 11/29/2022 18:54:21 11/30/19 23 11/29/2022 COMPR EHENS JANAK METAB OLIC PANEL potassium 4.4 mmol/ L 3.5-5. 1 Not Available [facility] (Lab) [address] [place], [address], 11/29/2022 18:54:21 11/30/19 23 11/29/2022 COMPR EHENS JANAK METAB OLIC PANEL chloride 110 mmol/ L 98-107 high Not Available [facility] (Lab) [address] [place], [address], 11/29/2022 18:54:21 11/30/19 23 11/29/2022 COMPR EHENS JANAK METAB OLIC PANEL carbon dioxide 23 mmol/ L 22-30 Not Available [facility] (Lab) [address] [place], [address], 11/29/2022 18:54:21 11/30/19 23 11/29/2022 COMPR EHENS JANAK METAB OLIC PANEL anion gap 12.4 mmol/ L 14-22 low Not Available [facility] (Lab) [address] [place], [address], 11/29/2022 18:54:21 11/30/19 23 11/29/2022 COMPR EHENS JANAK METAB OLIC PANEL glucose 87 mg/dL 70-99 Not Available [facility] (Lab) [address] [place], [address], 11/29/2022 18:54:21 11/30/19 23 11/29/2022 COMPR EHENS JANAK METAB OLIC PANEL BUN 23 mg/dL 8-19 high Not Available [facility] (Lab) [address] [place], [address], 11/29/2022 18:54:21 11/30/19 23 11/29/2022 COMPR EHENS JANAK METAB OLIC PANEL creatinine 0.86 mg/dL 0.66-1 .25 Not Available [facility] (Lab) [address] [place], [address], 11/29/2022 18:54:21 11/30/19 23 11/29/2022 COMPR EHENS JANAK METAB OLIC PANEL GFR >60 Refer ence Range : [address] ge GFR Healt hy Adult : >60 [...] calcu latshahida is avail able on the [facility] websi te: [email or web address] :[email or web address] ional s/kdo qi/gf r_cal culat or Not Available [facility] (Lab) [address] [place], [address], 11/29/2022 18:54:21 11/30/19 23 11/29/2022 COMPR EHENS JANAK METAB OLIC PANEL alkaline phosphatase 68 U/L 38-126 Not Available [facility] (Lab) [address] [place], [address], 11/29/2022 18:54:21 11/30/19 23 11/29/2022 COMPR EHENS JANAK METAB OLIC PANEL alanine aminotransfe rase 39 U/L 0-50 Not Available [facility] (Lab) [address] [place], [address], 11/29/2022 18:54:21 11/30/19 23 11/29/2022 COMPR EHENS JANAK METAB OLIC PANEL aspartate aminotransfe rase 50 U/L 15-46 high Not Available [facility] (Lab) [address] [place], [address], 11/29/2022 18:54:21 11/30/19 23 11/29/2022 COMPR EHENS JANAK METAB OLIC PANEL bilirubin, total 0.50 mg/dL 0.20-1 .30 Not Available [facility] (Lab) [address] [place], [address], 11/29/2022 18:54:21 11/30/19 23 11/29/2022 COMPR EHENS JANAK METAB OLIC PANEL calcium 10.2 mg/dL 8.4-10 .2 Not Available [facility] (Lab) [address] [place], [address], 11/29/2022 18:54:21 11/30/19 23 11/29/2022 COMPR EHENS JANAK METAB OLIC PANEL total protein 6.9 g/dL 6.3-8. 2 Not Available [facility] (Lab) [address] [place], [address], 11/29/2022 18:54:21 11/30/19 23 11/29/2022 COMPR EHENS JANAK METAB OLIC PANEL albumin 4.4 g/dL 3.4-5. 0 Not Available [facility] (Lab) [address] [place], [address], 11/29/2022 18:54:21 11/30/19 23 11/29/2022 COMPR EHENS JANAK METAB OLIC PANEL globulin 2.5 g/dL 2.6-4. 2 low Not Available [facility] (Lab) [address] [place], [address], 11/29/2022 18:54:21 11/30/19 23 11/29/2022 COMPR EHENS JANAK METAB OLIC PANEL A/G ratio 1.8 ratio 1.0-2. 0 Not Available [facility] (Lab) [address] [place], [address], 11/29/2022 18:54:21 11/30/19 23 11/29/2022 LIPID PANEL cholesterol 196 mg/dL 140-19 9 NIH HENRY NSUS RECOM MENDA TION FOR EDITH STERO L: ADULT CHILD LOW RISK: <200 <170 BORDE RLINE : <200- 239 ----- HIGH RISK: >240 >200 Not Available [facility] (Lab) [address] [place], [address], 11/29/2022 18:54:25 11/30/19 23 11/29/2022 LIPID PANEL triglyceride s 264 mg/dL 0-150 high NIH HENRY NSUS REPOR T RECOM MENDA TION FOR TRIGL YCERI SRINI: ADULT CHILD LOW RISK: <150 ----- BODER LINE: 150-1 99 ----- HIGH RISK: >200 ----- Not Available [facility] (Lab) [address] [place], [address], 11/29/2022 18:54:25 11/30/19 23 11/29/2022 LIPID PANEL HDL cholesterol 38 mg/dL 40- low Not Available [facility] (Lab) [address] [place], [address], 11/29/2022 18:54:25 11/30/19 23 11/29/2022 LIPID PANEL [...] WILL NOT BE REPOR FALGUNI. Not Available [facility] (Lab) [address] [place], [address], 11/29/2022 18:54:25 11/30/19 23 11/29/2022 T3 FREE free T3 3.6 pg/mL 2.77-5 .27 Not Available [facility] (Lab) [address] [place], [address], 11/29/2022 19:00:32 11/30/19 23 11/29/2022 T4 FREE free T4 0.80 NG/dL 0.78-2 .19 Not Available [facility] (Lab) [address] [place], [address], 11/29/2022 19:00:33 11/30/19 23 11/29/2022 TSH thyroid-stim ulating hormone 2.560 uIU/m L 0.465- 4.680 Not Available [facility] (Lab) [address] [facility], [address], 11/29/2022 19:14:11 06/12/2006/12/2023 CBC/C OMPLE TE BLD COUNT W/DIF F white blood cells 10.0 x10'3 /uL 4.2-10 .8 Not Available [facility] (Lab) [address] [place], [address], 06/12/2023 18:03:56 06/12/2006/12/2023 CBC/C OMPLE TE BLD COUNT W/DIF F red blood cells 5.35 x10'6 /uL 4.10-5 .80 Not Available [facility] (Lab) [address] [place], [address], 06/12/2023 18:03:56 06/12/2006/12/2023 CBC/C OMPLE TE BLD COUNT W/DIF F hemoglobin 16.1 g/dL 13.2-1 7.0 Not Available [facility] (Lab) [address] [place], [address], 06/12/2023 18:03:56 06/12/2006/12/2023 CBC/C OMPLE TE BLD COUNT W/DIF F hematocrit 48.5 % 39.3-5 0.0 Not Available [facility] (Lab) [address] [place], [address], 06/12/2023 18:03:56 06/12/2006/12/2023 CBC/C OMPLE TE BLD COUNT W/DIF F mean red cell volume 90.7 fL 80.0-9 7.0 Not Available [facility] (Lab) [address] [place], [address], 06/12/2023 18:03:56 06/12/2006/12/2023 CBC/C OMPLE TE BLD COUNT W/DIF F mean red cell hemoglobin 30.1 pg 27.0-3 3.0 Not Available [facility] (Lab) [address] [place], [address], 06/12/2023 18:03:56 06/12/2006/12/2023 CBC/C OMPLE TE BLD COUNT W/DIF F mean RBC HGB concentratio n 33.2 g/dL 31.0-3 6.0 Not Available [facility] (Lab) [address] [place], [address], 06/12/2023 18:03:56 06/12/2006/12/2023 CBC/C OMPLE TE BLD COUNT W/DIF F red cell distribution width 13.2 % 11.8-1 5.5 Not Available [facility] (Lab) [address] [place], [address], 06/12/2023 18:03:56 06/12/2006/12/2023 CBC/C OMPLE TE BLD COUNT W/DIF F platelets 211 x10'3 /uL 150-40 0 Not Available [facility] (Lab) [address] [place], [address], 06/12/2023 18:03:56 06/12/2006/12/2023 CBC/C OMPLE TE BLD COUNT W/DIF F mean platelet volume 9.1 fL 9.0-12 .4 Not Available [facility] (Lab) [address] [place], [address], 06/12/2023 18:03:56 06/12/2006/12/2023 CBC/C OMPLE TE BLD COUNT W/DIF F neutrophils 46.8 % 39.0-7 2.0 Not Available [facility] (Lab) [address] [place], [address], 06/12/2023 18:03:56 06/12/2006/12/2023 CBC/C OMPLE TE BLD COUNT W/DIF F lymphocytes 37.4 % 16.0-4 7.0 Not Available [facility] (Lab) [address] [place], [address], 06/12/2023 18:03:56 06/12/2006/12/2023 CBC/C OMPLE TE BLD COUNT W/DIF F monocytes 10.9 % 5.0-12 .0 Not Available [facility] (Lab) [address] [place], [address], 06/12/2023 18:03:56 06/12/2006/12/2023 CBC/C OMPLE TE BLD COUNT W/DIF F eosinophils 4.0 % 1.0-7. 0 Not Available [facility] (Lab) [address] [place], [address], 06/12/2023 18:03:56 06/12/2006/12/2023 CBC/C OMPLE TE BLD COUNT W/DIF F basophils 0.5 % 0.0-2. 0 Not Available [facility] (Lab) [address] [place], [address], 06/12/2023 18:03:56 06/12/2006/12/2023 CBC/C OMPLE TE BLD COUNT W/DIF F immature granulocytes 0.4 % 0.00-0 .50 Not Available [facility] (Lab) [address] [place], [address], 06/12/2023 18:03:56 06/12/2006/12/2023 CBC/C OMPLE TE BLD COUNT W/DIF F neutrophils, absolute count 4.67 x10'3 /uL 1.5-8. 0 Not Available [facility] (Lab) [address] [place], [address], 06/12/2023 18:03:56 10/16/20 23 06/12/2023 CBC/C OMPLE TE BLD COUNT W/DIF F lymphocytes, absolute count 3.73 x10'3 /uL 1.07-3 .43 high Not Available [facility] (Lab) [address] [place], [address], 06/12/2023 18:03:56 06/12/2006/12/2023 CBC/C OMPLE TE BLD COUNT W/DIF F monocytes, absolute count 1.09 x10'3 /uL 0.29-0 .99 high Not Available [facility] (Lab) [address] [place], [address], 06/12/2023 18:03:56 06/12/2006/12/2023 CBC/C OMPLE TE BLD COUNT W/DIF F eosinophils, absolute count 0.40 x10'3 /uL 0.02-0 .53 Not Available [facility] (Lab) [address] [place], [address], 06/12/2023 18:03:56 06/12/2006/12/2023 CBC/C OMPLE TE BLD COUNT W/DIF F basophils, absolute count 0.05 x10'3 /uL 0.01-0 .08 Not Available [facility] (Lab) [address] [place], [address], 06/12/2023 18:03:56 06/12/2006/12/2023 CBC/C OMPLE TE BLD COUNT W/DIF F immature granulocytes ,absolute 0.04 x10'3 /uL 0.00-0 .05 Not Available [facility] (Lab) [address] [place], [address], 06/12/2023 18:03:56 06/12/2006/12/2023 CBC/C OMPLE TE BLD COUNT W/DIF F nucleated red blood cells 0.0 % -0 Not Available [facility] (Lab) [address] [place], [address], 06/12/2023 18:03:56 06/12/2006/12/2023 CBC/C OMPLE TE BLD COUNT W/DIF F NRBC# 0.00 x10'3 /uL Not Available [facility] (Lab) [address] [place], [address], 06/12/2023 18:03:56 06/12/2006/12/2023 COMPR EHENS JANAK METAB OLIC PANEL sodium 139 mmol/ L 137-14 5 Not Available [facility] (Lab) [address] [place], [address], 06/12/2023 18:19:29 06/12/2006/12/2023 COMPR EHENS JANAK METAB OLIC PANEL potassium 4.4 mmol/ L 3.5-5. 1 Not Available [facility] (Lab) [address] [place], [address], 06/12/2023 18:19:29 06/12/2006/12/2023 COMPR EHENS JANAK METAB OLIC PANEL chloride 105 mmol/ L 98-107 Not Available [facility] (Lab) [address] [place], [address], 06/12/2023 18:19:29 06/12/20 23 06/12/2023 COMPR EHENS JANAK METAB OLIC PANEL carbon dioxide 29 mmol/ L 22-30 Not Available [facility] (Lab) [address] [place], [address], 06/12/2023 18:19:29 06/12/20 23 06/12/2023 COMPR EHENS JANAK METAB OLIC PANEL anion gap 9.4 mmol/ L 14-22 low Not Available [facility] (Lab) [address] [place], [address], 06/12/2023 18:19:29 06/12/20 23 06/12/2023 COMPR EHENS JANAK METAB OLIC PANEL glucose 98 mg/dL 70-99 Not Available [facility] (Lab) [address] [place], [address], 06/12/2023 18:19:29 06/12/20 23 06/12/2023 COMPR EHENS JANAK METAB OLIC PANEL BUN 18 mg/dL 8-19 Not Available [facility] (Lab) [address] [place], [address], 06/12/2023 18:19:29 06/12/20 23 06/12/2023 COMPR EHENS JANAK METAB OLIC PANEL creatinine 0.98 mg/dL 0.66-1 .25 Not Available [facility] (Lab) [address] [place], [address], 06/12/2023 18:19:29 06/12/2006/12/2023 COMPR EHENS JANAK METAB OLIC PANEL GFR >60 Refer ence Range : [address] ge GFR Healt hy Adult : >60 [...] s/kdo qi/gf r_cal culat or Not Available [facility] (Lab) [address] [place], [address], 06/12/2023 18:19:29 06/12/20 23 06/12/2023 COMPR EHENS JANAK METAB OLIC PANEL alkaline phosphatase 60 U/L 38-126 Not Available [facility] (Lab) [address] [place], [address], 06/12/2023 18:19:29 06/12/2006/12/2023 COMPR EHENS JANAK METAB OLIC PANEL alanine aminotransfe rase 31 U/L 0-50 Not Available [facility] (Lab) [address] [place], [address], 06/12/2023 18:19:29 06/12/20 23 06/12/2023 COMPR EHENS JANAK METAB OLIC PANEL aspartate aminotransfe rase 37 U/L 15-46 Not Available [facility] (Lab) [address] [place], [address], 06/12/2023 18:19:29 06/12/20 23 06/12/2023 COMPR EHENS JANAK METAB OLIC PANEL bilirubin, total 0.50 mg/dL 0.20-1 .30 Not Available [facility] (Lab) [address] [place], [address], 06/12/2023 18:19:29 06/12/20 23 06/12/2023 COMPR EHENS JANAK METAB OLIC PANEL calcium 10.5 mg/dL 8.4-10 .2 high Not Available [facility] (Lab) [address] [place], [address], 06/12/2023 18:19:29 06/12/20 23 06/12/2023 COMPR EHENS JANAK METAB OLIC PANEL total protein 6.7 g/dL 6.3-8. 2 Not Available [facility] (Lab) [address] [place], [address], 06/12/2023 18:19:29 06/12/2006/12/2023 COMPR EHENS JANAK METAB OLIC PANEL albumin 4.2 g/dL 3.4-5. 0 Not Available [facility] (Lab) [address] [place], [address], 06/12/2023 18:19:29 06/12/2006/12/2023 COMPR EHENS JANAK METAB OLIC PANEL globulin 2.5 g/dL 2.6-4. 2 low Not Available [facility] (Lab) [address] [place], [address], 06/12/2023 18:19:29 06/12/2006/12/2023 COMPR EHENS JANAK METAB OLIC PANEL A/G ratio 1.7 ratio 1.0-2. 0 Not Available [facility] (Lab) [address] [place], [address], 06/12/2023 18:19:29 06/12/2006/12/2023 LIPID PANEL cholesterol 172 mg/dL 140-19 9 [facility] HENRY NSUS RECOM MENDA TION FOR EDITH STERO L: ADULT CHILD LOW RISK: <200 <170 BORDE RLINE : <200- 239 ----- HIGH RISK: >240 >200 Not Available [facility] (Lab) [address] [place], [address], 06/12/2023 18:19:43 06/12/2006/12/2023 LIPID PANEL triglyceride s 232 mg/dL 0-150 high NIH HENRY NSUS REPOR T RECOM MENDA TION FOR TRIGL YCERI SRINI: ADULT CHILD LOW RISK: <150 ----- BODER LINE: 150-1 99 ----- HIGH RISK: >200 ----- Not Available [facility] (Lab) [address] [place], [address], 06/12/2023 18:19:43 06/12/2006/12/2023 LIPID PANEL HDL cholesterol 36 mg/dL 40- low Not Available [facility] (Lab) [address] [facility] [place], [address], 06/12/2023 18:19:43 06/12/2006/12/2023 LIPID PANEL LDL cholesterol, [...] WILL NOT BE REPOR FALGUNI. Not Available [facility] (Lab) [address] [facility], [place], [address], 06/12/2023 18:19:43 06/12/2006/12/2023 MAGNE SIUM magnesium 2.2 mg/dL 1.6-2. 3 Not Available [facility] (Lab) [address] [place], [address], 06/12/2023 18:19:49 04/01/20 24 04/02/2024 VITAM IN B12 vitamin B12 556 pg/mL [id number] [phone] normal Not Available [facility] ([facility]) [address] [facility], [place], [address], 04/02/2024 03:36:13 12/20/1912/19/2022 US, amber er No observ ation record ed. [email or web address] [facility] [place] [address] [facility] [address], [place], [address], 12/20/2022 14:26:46 11/21/19 24 11/21/2023 XR, foot No observ ation record ed. [email or web address] [facility] [address], [place], [address], 02/26/2024 09:34:22 01/02/20 24 12/29/2023 polys omnog [...] Details Recorded Time Primary erectile dysfuncti on 350900564 Active 2022 Not Available [facility] 4 14:50:19 Kidney stone 38097376 Active 2022 Not Available [employer] 4 14:50:19 Lower urinary tract symptoms due to benign prostatic hypertrop hy 67336227106 101 Active 2022 Not Available [facility] 4 14:50:19 Peptic ulcer 12151977 Active 2021 Not Available [facility] 4 14:50:19 Plantar fasciitis 303603156 Active Not Available [facility] 4 14:50:19 Gastroeso phageal reflux disease 366031055 Active Not Available [facility] 4 14:50:19 Gastroeso phageal reflux disease without esophagit is 809800272 Active 2021 Not Available [facility] 4 14:50:19 Anxiety 27605477 Active Not Available [facility] 4 14:50:19 Talipes planus 34291204 Active Not Available [facility] 4 14:50:19 Atrial flutter 7425566 Active 2020 CLAIRE cardiover neel 2020 Not Available [facility] 4 14:50:19 Essential hypertens ion 57917903 Active 2018 Not Available [facility] 4 14:50:19 Ulcerativ e colitis 73063229 Active 2021 Not Available [facility] 4 14:50:19 Obesity 975497588 Active 2022 Not Available [facility] 14:50:19 Obstructi ve sleep apnea syndrome 19939654 Active 2023 Newton Barker MD [address] [facility], [address], [place], [address] , [facility] [employer] [facility] [employer] [facility] 4 12:24:06 Periodic limb movement disorder 777636455 Active 2023 Newton Barker MD [address] [facility], [address], [place], [address] , [facility] [employer] [facility] 4 12:33:13 Notes:Medical History: Rhini tis [...] Rotator cuff surgery completed Not Available [facility] 10/26/2022 02:55:59 AAA Repair completed Not Available [facility] 10/26/2022 02:55:59 transesophageal echocardiography completed Not Available [facility] 10/26/2022 02:55:59 Imaging Results Imaging Date Name Status LastModified by Organiz ation Details LastModified Time 12/19/2022 US, bladder completed [email or web address] [facility] [place] [address] [facility] [address], [place], [address], 12/20/2022 14:26:46 11/21/2023 XR, foot completed [email or web address] [facility] [place] [facility] [address] [place] [address] [address], [address], 02/26/2024 09:34:22 12/29/2023 polysomnogram, titration study completed [...] Not available Not available Not available 10/26/2022 07571 005 SNOMED abdom inal aneur ysm Not Available [facility] 03:13:30 Medications Name Sig Start Date Stop [...] DateTime 12/19/2022 177.8 cm Priti Dougherty MA [place] [employer] [facility] [employer] 12/19/2022 17:00:13 Date Recorded Body mass index (BMI) Body weight Heart rate Body temperature Oxygen saturation Oxygen saturation in Arterial blood by Pulse oximetry Systolic blood pressure Diastolic blood pressure Provider Name and Address Organization Details Last Updated DateTime 3 31.7 kg/m2 689096. 91 g 54 /min 97.3 [degF] 97 % 97 % 138 mm[Hg] 86 mm[Hg] LUZ MARINA Harrington AL [employer] [facility] [employer] 3 17:03:52 Date Recorded Body height Heart rate Body temperature Body mass index (BMI) Body weight Oxygen saturation Oxygen saturation in Arterial blood by Pulse oximetry Systolic blood pressure Diastolic blood pressure Provider Name and Address Organization Details Last Updated DateTime 3 177.8 cm 79 /min 97.9 [degF] 30.8 kg/m2 01519.3 6 g 96 % 96 % 131 mm[Hg] 97 mm[Hg] Priti Dougherty MA [employer] 3 17:15:54 Date Recorded Body height Body weight Body temperature Heart rate Oxygen saturation Oxygen saturation in Arterial blood by Pulse oximetry Systolic blood pressure Diastolic blood pressure Provider Name and Address Organization Details Last Updated DateTime 3 177.8 cm 92843.9 5 g 98 [degF] 88 /min 98 % 98 % 110 mm[Hg] 70 mm[Hg] Sandee Gonzalez RN [facility] [employer] [facility] 3 16:52:27 Date Recorded Body height Body mass index (BMI) Body weight Heart rate Oxygen saturation Oxygen saturation in Arterial blood by Pulse oximetry Body temperature Systolic blood pressure Diastolic blood pressure Provider Name and Address Organization Details Last Updated DateTime 4 177.8 cm 31.6 kg/m2 75532.3 2 g 75 /min 96 % 96 % 98 [degF] 122 mm[Hg] 72 mm[Hg] Braeden Silveira [facility] [employer] [facility] 4 11:29:18 Date Recorded Heart rate Respiratory rate Provider Elvia mercer and Address Organization Details Last Updated DateTime 01/16/2024 75 /min 15 /min Newton Barker MD [address], [address], [address], [facility] [employer] [facility] 01/16/2024 12:43:17 Date Recorded Body height Body mass index (BMI) Body weight Heart rate Oxygen saturation Oxygen saturation in Arterial blood by Pulse oximetry Body temperature Systolic blood pressure Diastolic blood pressure Provider Name and Address Organization Details Last Updated DateTime 4 177.8 cm 31.1 kg/m2 19627.5 4 g 65 /min 97 % 97 % 97.8 [degF] 118 mm[Hg] 68 mm[Hg] Braeden Silveira [facility] [employer] [facility] 4 10:16:31 Date Recorded Heart rate Respiratory rate Provider Elvia mercer and Address Organization Details Last Updated DateTime 03/07/2024 65 /min 14 /min Newton Barker MD [address], [address], [place], [address], [facility] [employer] 03/07/2024 11:05:45 Social History Question Answer Notes LastModified by Organizat ion Details LastModified Time Tobacco Smoking Status Current Every Day Smoker GARY Ma, [facility] [employer] [facility] 12/19/2022 17:02:58 Do You Have An Advance Directive? Yes MIGRATION.07530 92460 Information not available 10/26/2022 What Is Your Level Of Alcohol Consumption? Moderate MIGRATION.35591 68943 Information not available 10/26/2022 Do You Wear A Helmet When Biking? No MIGRATION.96005 13960 Information not available 10/26/2022 What Is Your Level Of Caffeine Consumption? Moderate MIGRATION.84190 77844 Information not available 10/26/2022 How Much Tobacco Do You Chew? None MIGRATION.78018 72170 Information not available 10/26/2022 In The 14 Days Before Symptom Onset, Have You Had Close Contact With A Laboratory-confi rmed COVID-19 While That Case Was Ill? No MIGRATION.89290 85823 Information not available 10/26/2022 In The 14 Days Before Symptom Onset, Have You Had Close Contact With A Person Who Is Under Investigation For COVID-19 While That Person Was Ill? No MIGRATION.83520 41305 Information not available 10/26/2022 What Type Of Diet Are You Following? REGULAR MIGRATION.70090 71444 Information not available 10/26/2022 Which Illicit Or Recreational Drugs Have You Used? None MIGRATION.03871 81402 Information not available 10/26/2022 Do You Or Have You Ever Used E-cigarettes Or Vape? Never Used Electronic Cigarettes MIGRATION.01449 95095 Information not available 10/26/2022 What Is The Highest Grade Or Level Of School You Have Completed Or The Highest Degree You Have Received? 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 No MIGRATION.23952 30780 Information not available 10/26/2022 Are There Any Guns Present In Your Home? Yes MIGRATION.03045 56153 Information not available 10/26/2022 Do You Use Insect Repellent Routinely? No MIGRATION.52876 95969 Information not available 10/26/2022 Where Do You Live? [facility] MIGRATION.34737 91888 Information not available 10/26/2022 Do You Have A Medical Power Of Foot Piece Assembler? Yes MIGRATION.78120 24841 Information not available 10/26/2022 What Was The Date Of Your Most Recent Tobacco Screening? 06/12/2023 Information not available 06/12/2023 Have You Ever Been Counseled For Unhealthy Alcohol Use? No MIGRATION.35242 20286 Information not available 10/26/2022 Do You Have Any Pets? Yes MIGRATION.25814 40263 Information not available 10/26/2022 What Is Your Relationship Status? MIGRATION.40125 02363 Information not available 10/26/2022 Do You Use Your Seat Belt Or Car Seat Routinely? Yes MIGRATION.29437 01279 Information not available 10/26/2022 Do You Have Smoke And Carbon Monoxide Detectors In Your Home? Yes MIGRATION.71941 81503 Information not available 10/26/2022 At What Age Did You Start Smoking Tobacco? 11 MIGRATION.56754 18160 Information not available 10/26/2022 Are You Passively Exposed To Smoke? No MIGRATION.34864 86619 Information not available 10/26/2022 Do You Or Have You Ever Used Smokeless Tobacco? Never Used Smokeless Tobacco MIGRATION.31154 50268 Information not available 10/26/2022 Are There Any Smokers In Your House? No MIGRATION.55089 43821 Information not available 10/26/2022 How Much Tobacco Do You Smoke? 1 PPW MIGRATION.67180 58363 Information not available 10/26/2022 Do You Feel Stressed (tense, Restless, Nervous, Or Anxious, Or Unable To Sleep At Night)? [id number] MIGRATION.17631 72760 Information not available 10/26/2022 Do You Use Any Illicit Or Recreational Drugs? No MIGRATION.29669 67040 Information not available 10/26/2022 Do You Use Sunscreen Routinely? Yes MIGRATION.39961 47359 Information not available 10/26/2022 Has Tobacco Cessation Counseling Been Provided? No MIGRATION.27211 14731 Information not available 10/26/2022 How Many Years Have You Smoked Tobacco? 40 [email or web address] Information not available 12/19/2022 Have You Recently Traveled Abroad? No MIGRATION.21222 67548 Information not available 10/26/2022 Do You Have Any Dietary Restrictions? No MIGRATION.23616 29534 Information not available 10/26/2022 Do You Or Have You Ever Used Any Other Forms Of Tobacco Or Nicotine? No MIGRATION.53187 94655 Information not available 10/26/2022 Sex: Male Functional Status Question Answer Note LastModified by Organizat ion Details LastModified Time What is your exercise level? Moderate MIGRATION.119663954 6 Information not available 10/26/2022 Mental Status None recorded. Family History Relationship Description Onset Age of this Age Resolved Age Notes LastModified by Organization Details LastModified Time Father Pulmonary embolism 50 MIGRATION.715 [id number] Not available 10/26/2022 02:56:05 Father Hypertensive disorder [email or web address] Not available 2023 12:35:41 Brother Hypertensive disorder [email or web address] Not available 2023 12:35:47 Sister Osteoarthrit is of knee [email or web address] Not available 01/15 12:36:55 Medical History Condition Response NERVE DISEASE N BLINDNESS N RHEUMATIC FEVER N KIDNEY STONES N BLADDER PROBLEMS N MRSA N OTHER # 1 N POLIO N LUNG DISEASE/DISORDER N HISTORY OF DRUG ABUSE N COPD N RADIATION / CHEMOTHERAPY N Other # 2 N BLOOD DISEASES N SURGERY N EAR OR HEARING PROBLEMS N MUMPS N SHINGLES N DEPRESSION (INCLUDING POST ) N BOWEL PROBLEMS N STROKE/TIA N ULCERS N BENIGN PROSTATIC [...] HAVE YOU BEEN HOSPITALIZED OR SEEN IN [facility] IN THE PAST YEAR ? [...] use, Lf unspecified 2 completed Not Available [facility] 10/17/2023 14:50:21 COVID-19, mRNA, LNP-S, PF, 100 mcg/0.5mL dose or 50 mcg/0.25mL dose 1 completed Not Available [facility] 10/17/2023 14:50:21 COVID-19, mRNA, LNP-S, PF, 100 mcg/0.5mL dose or 50 mcg/0.25mL dose 1 completed Not Available [facility] 10/17/2023 14:50:21 Influenza, split virus, quadrivalent, preservative 9 completed Not Available [facility] 10/17/2023 14:50:21 influenza, unspecified formulation 8 completed Not Available [facility] 10/17/2023 14:50:21 zoster recombinant 1 completed Not Available [facility] 10/17/2023 14:50:21 zoster recombinant 1 completed Not Available [facility] 10/17/2023 14:50:21 Influenza, high-dose, trivalent, PF 3 completed Not Available [facility] 10/17/2023 14:50:21 Influenza, split virus, quadrivalent, PF 2 completed Not Available [facility] 10/17/2023 14:50:21 Influenza, split virus, quadrivalent, PF 6 completed Not Available [facility] 10/17/2023 14:50:21 Past Encounters Encounter ID Performer Location Encounter Start Date Encounter Closed Date Diagnosis/Indication Diagnosis SNOMED-CT Code Diagnosis ICD10 Code Diagnosis Note [id number] [facility] [place] [place] [address] 12/10/2020 00:00:00 12/10/2020 21:19:22 [id number] [facility] [place] [address] 04/27/2021 00:00:00 05/03/2021 11:23:00 [id number] [facility] Mallory reagan [address] [facility] , [facility] [address] 06/08/2021 00:00:00 06/09/2021 09:05:26 [id number] [facility] Med [facility] [address] [facility], [address] [address] 11/18/2021 00:00:00 12/25/2021 11:14:58 [id number] [facility] [address] [place] [address], [address] [address] 06/06/2022 00:00:00 06/06/2022 14:29:05 [id number] Brenda Garvey MD [facility] [address] [facility], [address] [address] 11/29/2022 16:23:40 11/29/2022 17:12:16 Essential hypertension 50760229 I10 Dysuria 26932133 R30.0 Overweight 189859880 E66 .3 Urinary symptoms 5344510 08 R39.9 Ulcerative colitis 33668 004 K51.90 [id number] MD PAULINE Edwards[facility] [address] [place] [address] 12/19/2022 16:32:40 12/19/2022 17:27:36 Screening for malignant neoplasm of prostate 132216750 Z12.5 Bothersome symptoms, suggested he try daily cialis and cut out caffeine. Normal YOKO, check psa. Primary er ectile dysfunction 926105320 N52.9 Suggested stop smokine and try cialis, told could take up to 20mg a day. [id number] Dorian Wade MD [facility] [address] [place] [address] 02/20/2023 16:46:47 02/20/2023 17:32:01 Lower urinary tract symptoms due to benign prostatic hypertrophy 9283582102 9101 N40.1 Bothersome symptoms, will try switching to uroxatral, and use cialis prn for erections. [id number] Brenda Garvey MD [facility] Internal Med 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 D50.8 E83.42 [id number] Newton Barker MD [place] [address] 03/07/2024 10:05:45 03/08/2024 08:42:22 Obstructive sleep apnea syndrome 09600114 G47.33 Periodic l imb movement disorder 930408530 G47.61 D50.8 E83.42 Health Concerns Section Related Observation LastModified by Organization Detai ls LastModified Time None Recorded Concern Status LastModified by Organization Details LastModified Time None Recorded Advance Directives Directive Y: Payers Encounter Date Sequence Insurance Name Policy Number Policy Hoffmann Covered Member ID Hoffmann Member ID Guarantor Name 12/19/2022 1 [employer] - CHOICE PLUS [id number] Farrukh L Cinthia [id number] Lorenzo L Cinthia 02/20/2023 1 [employer] CHO[employer]US [id number] Farrukh L Cinthia [id number] Lorenzo L Cinthia 06/12/2023 1 [employer]US [id number] Farrukh L Cinthia [id number] Lorenzo L Cnithia 01/16/2024 1 [employer]US [id number] Farrukh L Cinthia [id number] Lorenzo L Cinthia 03/07/2024 1 [facility] [id number] Farrukh Vicente [id number] Lorenzo Ramirez Cinthia Notes Date Note Type [...] viagra worked better. Dorian Wade MD [address], [place], [address], [employer] 12/19/2022 17:45:59 3 text/html BPH (benign prostatic [...] smoking a little. Dorian Wade MD [address], [address], [place], [address], [employer] 02/20/2023 17:33:47 3 text/html Hypertension no headache or dizzinessStill struggles with feetWould like some strategies to help lose weight because of his severe foot pain he cannot exerciseErectile dysfunction pills not working would like to see specialistGERD is doing fine Brenda Garvey MD [address], [facility] [address], [place], [address], [place] [facility] [employer] [facility] 06/12/2023 17:51:32 4 text/html Primary care/Referring provider: Brenda Garvey MD; Sanford Bowden MD During the [facility] home sleep study on 07/15/21, AHI = 2. During the [facility] diagnostic sleep study on 08/17/22, sleep onset = 34.5 minutes, REM onset = 70.5 minutes, AHI = 7, REM AHI = 11, supine AHI = 53, PLMI = 12. During the [facility] home sleep study on 10/11/23, AHI = 25, supine AHI = 82. During the [facility] titration sleep study on 12/29/23, sleep [...] no chance of dozing. Newton Barker MD [address] [place] [address], [address], [facility] [employer] [facility] 01/16/2024 12:43:31 4 text/html Primary care/Referring provider: Brenda Garvey MD; Sanford Bowden MD During the [facility] home sleep study on 07/15/21, AHI = 2. During the [facility] diagnostic sleep study on 08/17/22, sleep onset = 34.5 minutes, REM onset = 70.5 minutes, AHI = 7, REM AHI = 11, supine AHI = 53, PLMI = 12. During the [facility] home sleep study on 10/11/23, AHI = 25, supine AHI = 82. During the [facility] titration sleep study on 12/29/23, sleep [...] slight chance of dozing. Newton Barker MD [address] [place] [address], [place] [address], [place], [address], [place] [facility] [employer] [facility] 03/07/2024 11:06:52
--- OUTSIDE RECORDS SUMMARY | 2024-12-20 00:30 | XMS_ITS | Clinical Summary ---
Author Organization [facility] Address [address] [facility] [place] [address] Care Team Providers Care Energy Attorney Name Role Phone Odilon Garvey MD Primary Care Provider [phone] Source Comments [facility],non-owned Affiliates and Associated Physician Practices is amultiple site organization consisting of ambulatory clinics and hospital sitesin [place], [place], [place] and [place]. This disclosure is being madepursuant to the Care Everywhere program and may not contain all information available regarding this patient. 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 [place] [place] [address] Ghazal Caro MD [address] [facility] [place] [address] Health Maintenance Due Date Last [...] patient's age to complete this topic Insurance [address] [place] [address] [facility] Care Teams Energy Attorney Relationship Specialty Start Date End Date Odilno Garvey MD PCP - General 01/05/22
--- OUTSIDE RECORDS SUMMARY | 2024-12-20 00:31 | XMS_ITS | CONTINUITY OF CARE DOCUMENT ---
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 examination active Miguelito Bowden MD ENCOUNTERS Date Type Provider Location Encounter Diag nosis - In-person encounter Office Visit Maritza Coker MD [facility] - In-person encounter Office Visit Maritza Coker MD [facility] - In-person encounter Office Visit Maritza Coker MD [facility] - In-person encounter Office Visit Maritza Coker MD [facility] - In-person encounter Office Visit Maritza Coker MD [facility] - In-person encounter Office Visit Sanford Bowden MD [facility] Cardiology examinationPreop cardiovasc. examination - In-person encounter Office Visit Sanford Bowden MD [facility] Sleep apnea - In-person encounter Office Visit Maritza Coker MD [facility] Ventricular tachycardia, unspecifiedSyncope - In-person encounter Office Visit Sanford Bowden MD [facility] Chest pain-type to be determined - In-person encounter Office Visit Sanford Bowden MD [facility] - In-person encounter Office Visit Sanford Bowden MD [facility] - In-person encounter Office Visit Sanford Bowden MD [facility] - In-person encounter Office Visit Sanford Bowden MD [facility] - In-person encounter Office Visit Sanford Bowden MD [facility] - In-person encounter Office Visit Sanford Bowden MD [facility] HTN essential - In-person encounter Office Visit Sanford Bowden MD [facility] SNORINGSARS-associated coronavirusAtrial flutter VITAL SIGNS Date Observation Value Provider Body Mass Index (Ratio) 30.85 kg/m2 Skip Parks blood pressure, diastolic 94 mm[Hg] Di nagy Huntington blood pressure, systolic 134 mm[Hg] [facility], oximetry 96 % [facility] pulse rate 80 /min [facility] respiratory rate E&M 12 /min [facility] weight E&M 215 [lb_av] [facility] height E&M 70 [in_i] [facility] blood pressure, cuff size regular Di garciaCommunity [facility] height E&M 70 [in_i] [facility] blood pressure, cuff size regular [facility] Body Mass Index (Ratio) 31.99 kg/m2 Skip [facility] blood pressure, diastolic 93 mm[Hg] Di [facility] blood pressure, systolic 148 mm[Hg] Cinthya olivaiCommunity [facility] oxygen saturation, oximetry 97 % [facility] respiratory rate E&M 12 /min [facility] pulse rate 76 /min [facility] weight E&M 223 [lb_av] [facility] height E&M 70 [in_i] [facility] blood pressure, cuff size regular Di jimenezU[facility] Body Mass Index (Ratio) 31.99 kg/m2 Duong ram Maria Del Carmen blood pressure, cuff size regular Ke rri Gruenenfeld blood pressure, diastolic 94 mm[Hg] Ke rri Gruenenfeld blood pressure, systolic 162 mm[Hg] Ker ri Gruenenfeldhernandez pulse rate 44 /min Blanquita Gruenenfe lder oxygen saturation, oximetry 96 % Blanquita Ortiz weight E&M 223 [lb_av] Blanquita Leigh [facility] height E&M 70 [in_i] Blanquita Leigh [facility] Body Mass Index (Ratio) 31.99 kg/m2 Duong as Gause blood pressure, diastolic 84 mm[Hg] Di [facility]arciaCommunity [facility] blood pressure, systolic 166 mm[Hg] Cinthya ol[facility]Community [facility] oxygen saturation, oximetry 91 % [facility] pulse rate 69 /min [facility] respiratory rate E&M 14 /min [facility] weight E&M 223 [lb_av] [facility] height E&M 70 [in_i] [facility] blood pressure, cuff size regular An [facility] Body Mass Index (Ratio) 31.42 kg/m2 Duong as Gause blood pressure, diastolic 82 mm[Hg] Jenny nkLogic blood pressure, systolic 139 mm[Hg] Ivanna og blood pressure, cuff size regular [facility] blood pressure, diastolic 82 mm[Hg] Justin et blood pressure, systolic 139 mm[Hg] Jar ret pulse rate 76 /min Antonio oxygen saturation, oximetry 98 % respiratory rate E&M 14 /min Antonio weight E&M 219 [lb_av] Antonio height E&M 70 [in_i] Antonio y Body Mass Index (Ratio) 31.85 kg/m2 Duong as Gause blood pressure, diastolic 72 mm[Hg] Li nkLogic blood pressure, systolic 131 mm[Hg] Ivanna Haiderog blood pressure, cuff size regular [facility] blood pressure, diastolic 72 mm[Hg] [facility] blood pressure, systolic 131 mm[Hg] [facility] pulse [facility] 81 /min [facility] oxygen saturation, oximetry 97 % [facility] respiratory rate E&M 16 /min Ca Radha iller weight E&M 222 [lb_av] [facility] height E&M 70 [in_i] [facility] Body Mass Index (Ratio) 31.85 kg/m2 Patsy Bowden MD blood pressure, diastolic 82 mm[Hg] Jenny liangLog blood pressure, systolic 139 mm[Hg] [facility] blood pressure, cuff size regular [facility] blood pressure, diastolic 82 mm[Hg] [facility] blood pressure, systolic 139 mm[Hg] [facility] oxygen saturation, oximetry 95 % [facility] respiratory rate E&M 16 /min Ca Radha iller pulse rate 54 /min [facility] weight E&M 222 [lb_av] [facility] height E&M 70 [in_i] [facility] Body Mass Index (Ratio) 30.85 kg/m2 [...] stity Kunal oxygen saturation, oximetry 98 % [facility] pulse [facility] 66 /min [facility] Kunal height E&M 70 [in_i] [facility]&M 216 [lb_av] [facility] rate E&M 16 /min Chastit [...] Normal Absolute Neutrophil count 3326 cells/mcL [employer] [id number] Normal mean platelet volume 9.5 fL LinkLogic [...] USE Medication Status Instructions Dates Provider Indications [facility] ments magnesium oxide 400 mg (241.3 mg [...] capsule by mouth three times a day Maritaz Coker MD amiodarone 200 mg tablet completed [...] MD FAMILY HISTORY Family Member Condition Father ND male <55 INSURANCE PROVIDERS Payer name Policy type / Coverage type [place] red green party ID [employer] [facility] Other [id number] ADVANCE DIRECTIVES Name Date LIVING WILL ON FILE TREATMENT PLAN Date Name Performer [id number],C, B P today: 126/79 P rior BP: 146/92 (12/16/2022) Prior 10 Yr Risk Heart Disease: Not enough information (12/23/2016) His updated medication list for this problem includes: Metoprolol Tartrate 50 Mg Tablet (Metoprolol tartrate) ..... Take 1 tablet by mouth twice daily. increase dose Lisinopril-hydrochlorothiazide 10-12.5 Mg Tablet (Lisinopril-hydrochlorothiazide) ..... Take 1 tablet by mouth every day Sanford Bowden MD [id number],Isaias Esparza MSR. He had CV on 04/29/22. [...] he has recurrent Afib Sanford Bowden MD [id number],jay Esparza he has been snoring for 30 years S leep study scheduled for 06/2021March 11, 2022 N egative TEENA workup June 17, 2022 P ending TEENA workup in [place]. December 16, 2022 A pparently did not have enough TEENA to warrant getting CPAP had testing done in [place] 08/17/2022 April 05, 2023 e He will remain on Xaralto indefinitely for lifetime since he had recurrance of Afib. suspect Teena considering inititiating CPAP if he has recurrent Afib Sanford Bowden MD [id number],jay Esparza he has been snoring for 30 years S leep study scheduled for 06/2021March 11, 2022 N egative TEENA workup June 17, 2022 P ending TEENA workup in [place]. December 16, 2022 A pparently did not have enough TEENA to warrant getting CPAP had testing done in [place] 08/17/2022 Sanford Bowden MD [id number],C C andrey MSR. He had CV on [...] injured with sporting events. Sanford Bowden MD [id number],C, H is updated medication list for this problem includes: Metoprolol Tartrate 50 Mg Tablet (Metoprolol tartrate) ..... Take 1 tablet by mouth twice daily. increase dose Lisinopril-hydrochlorothiazide 10-12.5 Mg Tablet (Lisinopril-hydrochlorothiazide) ..... Take 1 tablet by mouth every day Sanford Bowden MD [id number],C, s albas he has been snoring for 30 years S leep study scheduled for 06/2021March 11, 2022 N egative TEENA workup June 17, 2022 P ending TEENA workup in [place]. Sanford Bowden MD [id number],C, U nchanged from prior EKG. Remains RBBB with SR. Sanford Bowden MD [id number],C,C andrey MSR. He had CV on 04/29/22. Remains on Xarelto. Sanford Bowden MD [id number],C, B P today: 120/78 P rior BP: 112/88 (04/27/2022) Prior 10 Yr Risk Heart Disease: Not enough information (12/23/2016) Sanford Bowden MD [id number],S, U nchanged from prior EKG. Sanford Bowden MD [id number],C,B ack in AFIB needs CLAIRE/CV. Apparently took some Nervive nutritional supllement for his nerves in his feet, may benefit from going on gabapentin. BP is well controlled. Will arrange for Monday or Monday for CV Sanford Bowden MD [id number],C, s ays he has been snoring for 30 years S leep study scheduled for 06/2021March 11, 2022 N egative TEENA workup Sanford Bowden MD [id number],S,Sinus rhythm on EKG today. Sanford Bowden MD [id number],C, s ays he has been snoring for 30 years S leep study scheduled for 06/2021March 11, 2022 N egative TEENA workup Sanford Bowden MD [id number],C, U nderwent CLAIRE/CV converting flutter to SR [...] II score is low. Sanford Bowden MD [id number],C,U nchanged from prior EKG. H is updated medication list for this problem includes: Lisinopril-hydrochlorothiazide 10-12.5 Mg Tablet (Lisinopril-hydrochlorothiazide) ..... Take 1 tablet by mouth once a day take 1 tablet by mouth every day Metoprolol Tartrate 50 Mg Tablet (Metoprolol tartrate) ..... Take 1 tablet by mouth twice a day . increased dose Sanford Bowden MD [id number],C, v accinated Sanford Bowden MD [id number],C, U nderwent CLAIRE/CV converting flutter to SR [...] TEENA on home sleep Sanford Bowden MD [id number],C, s ays he has been snoring for 30 years S leep study scheduled for 06/2021 Sanford Bowden MD [id number],C, v accinated Sanford Bowden MD [id number],C, U nderwent CLAIRE/CV converting flutter to SR [...] not approved as he needs to wear shelter monitor for 30 days, he is wearing cardiac montior for 30 days currently. There was an alert of pause of 3.99 seconds but we do not have EKG strips for review. He is asymptomatic currently. Recommend ILR implant if no significant findings seen on shelter monitor as we planned previously. If significant pause [...] not approved as he needs to wear shelter monitor for 30 days, he is wearing cardiac montior for 30 days currently. There was an alert of pause of 3.99 seconds but we do not have EKG strips for review. He is asymptomatic currently. Recommend ILR implant if no significant findings seen on shelter monitor as we planned previously. Skip Rasheed Electrophysiology: [...] syncopal episodes. W ill need to get [facility] to assess coronaries and if no blockage [...] and rare Supraventricular ectopics. Sinus: 7 0bpm, HieON397odk, MinHR 45bpm. AF: A vgHR 132bpm, MaxHR 156bpm, MinHR 1 09bpm. VT:Longest 66 beats, MaxHR 2 40bpm. PSVT: Longest 6 beats, MaxHR 153bpm. VE's:triplets, couplets, i solated. SVE's: triplets, couplets, i solated.Barrel Endshaker Adjuster: Heriberto Hendrickson - [User Removed] on 10-12-2023 [...] 17, 2022 P ending TEENA workup in [place]. December 16, 2022 A pparently did not have enough TEENA to warrant getting CPAP had testing done in [place] 08/17/2022 April 05, 2023 e He will remain on Xaralto indefinitely for lifetime since he had recurrance of Afib. suspect Teena considering inititiating CPAP if he has recurrent Afib Sanford Bowden MD Cardiology: s ever he has been snoring for 30 years S leep study scheduled for 06/2021March 11, 2022 N egative TEENA workup June 17, 2022 P ending TEENA workup in [place]. December 16, 2022 A pparently did not have enough TEENA to warrant getting CPAP had testing done in [place] 08/17/2022 Sanford Bowden MD Cardiology: Isaias balderas [...] 17, 2022 P ending TEENA workup in [place]. Sanford Bowden MD Cardiology: U nchanged from prior EKG. Remains RBBB with SR. Sanford Bowden MD Cardiology:Currently MSR. He had CV on 04/29/22. Remains on Xarelto. Sanford Bowden MD Cardiology: B P today: 120/78 P rior BP: 112/88 (04/27/2022) Prior 10 Yr Risk Heart Disease: Not enough information (12/23/2016) Sanford Bowden MD Cardiology: U nchanged from prior EKG. Sanford Bowden MD Cardiology:Back in A FIB needs CLAIRE/CV. [...]
--- OUTSIDE RECORDS SUMMARY | 2024-12-20 00:31 | XMS_ITS ---
Author Organization [facility] [place] ([address]) Address [address] [place] [address] Care Team Providers Care General Machine Operator Name Role Phone Odilon Garvey Primary Care Provider Dr. Odilon Ruby Unavailable [phone] Allergies No Known Allergies REASON FOR VISIT [...] Notes Problem Chronic migraine without aura, non-intractable (04156399279165 0) Chronic migraine without aura, not intractable, without status migrainosus (G43.709) Active confirmed Problem Migraine with aura (3624717) Migraine with aura, not intractable, without status migrainosus (G43.109) Active confirmed Problem Chronic migraine without aura, non-refractory (disorder) (99560290331437 0) Migraine without aura, not intractable, without status migrainosus (G43.009) Active confirmed Problem Hereditary disorder of nervous system (829850588) Hereditary and idiopathic neuropathy, unspecified (G60.9) Active confirmed Vital Signs Blood pressure systolic 132 mm Hg 06/29/20 23 Blood pressure diastolic 88 mm Hg 023 Respiratory Rate 18 /min 06/29/2023 Oximetry 96 % 06/29/2023 Encounters Encounter Location Date Provider Diagnosis [facility] [address] [place] [address] 06/29/2023 Odilon Giron Hereditary and idiopathic neuropathy, [...] Farrukh VICENTE LDOB:1965 ( 57 yo M)Acc No.[id number]:06/29/2023 Progress Notes Patient: Jocelyne Farrukh littlejohn Provider: Radha Giron MD :1965 A ge:57 Y S ex:Male Date:06/29/2023 [facility] [place], [id number] Pcp:Odilon Garvey Subjective: * Chief Complaints: * [...] carlos/urine DURGA, SANDEEP, comprehensive SANDEEP panel (dsDNA, SUPERVISOR BEET END, Wang, SSA/SSB, etc.) all unrevealing. I don't [...] Management) * Billing Information: * Visit Code: 17255 Office Visit, Est Pt., Level 4. Modifiers: 25 * Procedure Codes: G8427 DOC MEDS VERIFIED W/PT OR RE. * Sign off status: Completed true * Provider: Radha Giron MD Date: 08/29/2022 Generated for Austin de dios/Kate/Joeitting on: 0 12/20/2024 12:31 AM CDT History and Physical Notes * HPI [...] serum/urine DURGA, SANDEEP, comprehensive SANDEEP panel (dsDNA, SUPERVISOR BEET END, Wang, SSA/SSB, etc.) all unrevealing. I don't [...]
--- OUTSIDE RECORDS SUMMARY | 2024-12-20 00:31 | XMS_ITS ---
Author Organization [facility] [place] ([address]) Address [address] [place] [phone] Care Team Providers Care Air Value Tester Name Role Phone Odilon Garvey Primary Care Provider UnavailDr. Odilon Meza Unavailable [phone] ZZ-Migration, Provider Unavailable Unavailab le REASON FOR VISIT [facility] Encounter Medications Medication SIG (Take, Route, [...] Active Encounters Encounter Location Date Provider Diagnosis [facility] [address] [address] 02/10/2024 Provider Pastor Hereditary and idiopathic neuropathy, [...] Farrukh VICENTE LDOB:1965 ( 59 yo M)Acc No.[id number]:02/10/2024 Patient: Farrukh SHER Provider: Mildred Prather :1965 A ge:58 Y S ex:Male Date:02/10/2024 Address[facility] [address] [place] [id number] Pcp:Odilon Garvey Subjective: * Chief Complaints: * 1 . Multum To Medispan Conversion Encounter. * Medical History: * Medications: T aking traMADol HCl 100 MG/24 HOURS CAPSULE, EXTENDED RELEASE 1 PILL ORALLY 4X/DAY , Notes to Pharmacist: *Please review and pick correct strength[facility]formulation from [facility] options. If intended option is not shown, [...] * Electronic signature of Marti MEDRANO-Migration on 12/20/2024 at 12:31 AM CDT Sign off status: Pending * Provider: Mildred amin Migration Date: 0 02/10/2024 Generated for Austin de dios/Kate/Crys on: 0 12/20/2024 12:31 AM CDT
[2024-12-20] MEDS: KETOROLAC 15 MG/ML VIAL (*BKC) IV PUSH (11:00)
[2024-12-20] MEDS: LACTATED RINGERS 1,000 ML 30 ML IV CONT ×2 (11:00→15:04)
[2024-12-20] MEDS: ACETAMINOPHEN 500 MG TABLET 1000 MG PO (11:00)
--- NOTE | 2024-12-20 11:01 | P.PNAN_ITS ---
Anes - Initial Pre Proc Eval Procedure: Operation Date: 12/20/24 12:00 Proposed Procedures p Right Shoulder Arthroscopy with Rotator Cuff Repair, Subacromial Decompression, Biceps Tenodesis - Phill Grubbs MD Date/Time: 12/20/24 11:01 Surgeon: Phill Grubbs MD Pre Op Diagnosis: right shoulder rotator cuff tear Patient Data Age: 59 Gender: M Height: 1.78 m Weight: 90.9 kg Allergies Allergy/AdvReac Type Severity Reaction Status Date / Time NSAIDS (Non-Steroidal AdvReac Mild Gastrointestinal Verified 12/20/24 11:25 Anti-Inflamma Upset Home Medications ?Medication ?Instructions ?Recorded ?Confirmed ?Type fenofibrate micronized 134 mg 134 mg PO DAILY 10/18/21 12/11/24 History capsule lisinopril 10 1 tablet PO DAILY 10/18/21 12/11/24 History mg-hydrochlorothiazide 12.5 mg tablet amiodarone 200 mg tablet 200 mg PO BID 11/21/23 12/11/24 History magnesium oxide 400 mg (241.3 mg 400 mg PO BID 11/21/23 12/11/24 History magnesium) tablet balsalazide 750 mg capsule See Rx Instructions .Route 05/22/24 12/11/24 Rx .COMPLEX #270 caps cetirizine 10 mg tablet 10 mg PO DAILY 12/11/24 12/11/24 History duloxetine 30 mg capsule,delayed 30 mg PO DAILY 12/11/24 12/11/24 History release flecainide 150 mg tablet 150 mg PO DAILY 12/11/24 12/11/24 History omeprazole 20 mg capsule,delayed 20 mg PO DAILY 12/11/24 12/11/24 History release tadalafil 10 mg tablet 10 mg PO PRN PRN sexual activity 12/11/24 12/11/24 History aspirin 81 mg tablet,delayed 81 mg PO BID 14 days #28 tabs 12/20/24 Rx release oxycodone-acetaminophen 5 mg-325 1 - 2 tablet PO Q4-6H PRN pain 7 12/20/24 Rx mg tablet days #30 tabs Patient hx anesthesia problems: none Family hx anesthesia problems: none Results Review: All pre-operative results and documents have been reviewed as part of the pre- operative evaluation. [facility] Past Medical History Medical History (Updated 12/20/24 @ 10:34 by Anatoly Zaidi DO) Aneurysm Pacemaker Hypertension Atrial flutter GERD (gastroesophageal reflux disease) Overweight (BMI 25.0-29.9) Tobacco use Ulcerative colitis Social History Social History Smoking packs per day: 1 Smoking cigarettes per day: 20.0 Years smoked: 20 Smoking pack-years: 20.00 Smoking status: Current some day smoker Tobacco type: cigarettes Additional smoking assessment comments: smokes about a pack a week Alcohol intake: current Drinks per week: 12 Alcohol use details: social Substance use: never Substance use type: does not use Do You Feel Safe in your Home?: Yes Lack of Transportation: No Lack of Food: Never True Current Housing: I Have Housing Concerned About Future Housing: No Difficulty Paying Gas/Electric Bills: No Difficulty Paying for Meds: No Currently Unemployed: No Education: Master's Degree or Higher Difficulty w/ Childcare or Family Care: No Living arrangements: alone Spiritual care concerns: No Anes - Eval Final PreProcedure Day of Procedure 12/20/24 11:01 Patient weight: overweight Heart: regular rate and rhythm Lungs: clear to auscultation Airway: Mallampati scale class II Neurological: alert and oriented Last oral intake: >/= 8 hours ASA classification: III Emergent: no Anesthetic plan: proceed Anesthesia type and monitoring: general ETT and standard monitoring Results Review: All pre-operative results and documents have been reviewed as part of the pre- operative evaluation. Informed Consent: The patient's anesthetic plan and its attendant risks and benefits were discussed with the patient/family/POA. Questions were solicited and answers provided to the satisfaction of the patient/family/POA.
--- NOTE | 2024-12-20 11:28 | WPDANESPNB ---
Anes - Peripheral Nerve Block Date/Time: 12/20/24 11:28 I have discussed with the patient/family/POA the placement of a peripheral nerve block for post-operative pain management, including associated risks, benefits, complications, and side effects. Alternative methods of post-operative analgesia were detailed. Questions were solicited and answers provided to the satisfaction of the patient/family/POA. Time-Out: A pre-procedural Time-Out was completed immediately before starting the procedure and confirmed: Patient Identification, Site, Procedure, Patient Position and the Availability of Requisite Equipment. Clinical Indications: Acute post-operative pain management requested by the operative surgeon. Nerve Block Insertion Note Anes-nerve block: interscalene right Patient position: supine Skin prep: chlorhexidine Needle: 22 gauge, stimulating, insulated echogenic needle. Needle length: 50 mm Technique: ultrasound Injectate: bupivacaine 0.5% with epi 5 mcg/ml (20cc- no epi) Observations: tolerated well Complications: none Procedure start time:: 1220 Procedure end time:: 1224
--- NOTE | 2024-12-20 12:08 | WPDHPUPDATE1 ---
History and Physical Update Update Date/Time: 12/20/24 12:08 History and Physical has been reviewed, including an updated exam of the patient. There are NO changes in the patient's condition. Risks, benefits, and alternatives have been discussed and questions answered. Patient agrees to proceed with procedure.
[2024-12-20] MEDS: EPINEPHrine HCL INJ 1 MG/ML AMPUL 3 MG IRRIGATION (12:31)
[2024-12-20] MEDS: ceFAZolin 2 GM/D5W 50 ML 2 GM/50 ML BAG IVPB (12:31)
--- NOTE | 2024-12-20 16:53 | SUR.PHASEII ---
1630: patient and daughter speaking with Dr. Grubbs. Patient ready for dc.
--- NOTE | 2024-12-20 17:05 | P.OP_ITS ---
Procedure Note - Detailed Date of Procedure 12/20/24 Pre-op Diagnosis Right shoulder 1. Complete rotator cuff tear 2. Biceps tendinosis with SLAP tear 3. Subacromial Impingement syndrome Post-op Diagnosis Other (1. Complete Rotator cuff tear 2. Os acromiale with Subacromial impingement 3. Biceps tendinosis with Degenerative SLAP) Procedure Performed Right shoulder 1. Arthroscopic rotator cuff repair 2. Arthroscopic subacromial decompression with excision of os acromiale 3. Arthroscopic biceps tenodesis 4. Arthroscopic labral debridement Surgeon Phill Grubbs MD Senior Engineering Specialist Farida Reddy PA-C Anesthesia General and Regional ( interscalene block) Findings Anterosuperior rotator cuff tear involving the anterior supraspinatus. High- grade partial appearance on MRI confirmed with full-thickness component. After debridement and medial size tear was evident at the supraspinatus with moderate retraction. Repaired with 2 bone tunnels and 6 sutures using a rip stop technique. The biceps was severely frayed and this was treated with biceps tenodesis at the articular margin a SwiveLock anchor was used and a horizontal mattress was placed in the upper border of the subscapularis which had a high- grade partial tear. Mild degenerative changes along the inferior glenoid with degenerative fraying was treated with debridement as well as debridement of the SLAP area. The supraspinatus tendon had some yellowed degenerative type tissue which was debrided prior to repair. The os acromiale was noted to be very large and unstable. It was carefully removed with the arthroscopic bur. Deltoid muscle was protected. Description of Procedure Preoperative antibiotics were given. An interscalene block was administered in the preoperative area. The patient was bought brought to the operating room. A general anesthetic was administered. The patient was carefully positioned in the beach chair position. The head and neck were carefully positioned. The non operative extremity was also carefully positioned. The shoulder was prepped and draped in the usual sterile fashion. Examination was performed. There were no abnormal findings. Standard posterior and anterior arthroscopic portals were established. Inflow achieved with the arthroscopic pump using saline and epinephrine. The glenohumeral joint was carefully inspected. The articular cartilage was healthy other than some mild fraying along the inferior posterior aspect particularly along the entire inferior labrum. This was treated with the radiofrequency probe and shaver. The SLAP tear was debrided. The biceps was severely torn approximately 25% frayed near the articular margin. This was released from the superior labrum and secured with a loop intact system and a 4.75 SwiveLock anchor was placed at this area securing the biceps very well. A horizontal mattress suture was placed in the upper subscapularis and incorporated into this anchor to repair the high-grade partial tear of the subscapularis. The articular aspect of the rotator cuff was clearly torn with high-grade. The full-thickness component could not easily be confirmed so a suture marker was placed. Attention was turned to the subacromial space after gentle probing and debridement it was clear that the tear was full-thickness and the tissue was somewhat degenerative. After debridement of the nonviable tissue a full-thickness medium tear was present with mild retraction. And anatomic repair without undue tension was planned and executed. A complete bursectomy was performed. The tear configuration was carefully assessed. At this point, 2 tunnels were created at the rotator cuff. Three sutures were passed through each tunnel. All sutures were then passed through the cuff tissue. The sutures were tied arthroscopically. The anterolateral acromion was found to be unstable consistent with a large os acromiale careful removal of this bone was performed with the arthroscopic bur. Distal clavicle was carefully smoothed as well as the remaining posterior edge of the acromion. Deltoid fascia remained munguia and was preserved. The arthroscopic instruments were removed. The wounds were closed with 4-0 Monocryl subcuticular suture and steri strips. There were no complications. A sling was applied and the patient brought to the recovery room. Physician administrative services assistant, Farida Reddy PA-C, required for surgery; including p atient positioning, draping, arthroscopic camera operation, maintaining instrument position, suture retrieval, wound closure, and dressing and sling placement. Implants Arthrex 4.75 mm bio composite SwiveLock anchor. Estimated Blood Loss 20 Pathology None sent Complications No immediate complications Condition Stable Disposition PACU [facility] Billing Surgery - Charge Forward: Surgery Billing
== END 2024-12-20 17:00 | disposition home or self-care (01) ==
PROVIDERS: PCP Internal Medicine; Visit Provider Orthopaedic Surgery
PROC: (CPT 29805; principal; 2024-12-20 12:00)
DX: M75.121 Complete rotator cuff tear or rupture of right shoulder, not specified as traumatic (principal); S43.431A Superior glenoid labrum lesion of right shoulder, initial encounter; M75.21 Bicipital tendinitis, right shoulder; M75.41 Impingement syndrome of right shoulder; G89.18 Other acute postprocedural pain; I10 Essential (primary) hypertension; I48.92 Unspecified atrial flutter; K21.9 Gastro-esophageal reflux disease without esophagitis; F17.210 Nicotine dependence, cigarettes, uncomplicated; X58.XXXA Exposure to other specified factors, initial encounter; Z79.891 Long term (current) use of opiate analgesic; Z79.82 Long term (current) use of aspirin; Z95.0 Presence of cardiac pacemaker; Z87.19 Personal history of other diseases of the digestive system; Z86.79 Personal history of other diseases of the circulatory system
CPT/HCPCS: 64415; 29827; 29828; 29826; 73030; A4565; A9270; C1713; J0171; J0690; J1100; J1885; J2250; J2405; J2704; J3010; J7120

== ENCOUNTER 2025-02-18 10:48 | Outpatient (CLI) | payer OTHER, SELFPAY ==
--- NOTE | ~2025-02-18 | XR_ITS ---
EXAM/ PROCEDURE: XR shoulder LT min 2V - 02/18/2025 10:52 CDT HISTORY: 59 years old Male with M25.512 - Pain in left shoulder COMPARISON: None available TECHNIQUE: Four view(s) FINDINGS/ IMPRESSION: There are no fractures or dislocations.Joint space narrowing, subchondral sclerosis, subchondral cyst formation and osteophyte formation, compatible with moderate osteoarthritis. Reviewed, dictated and finalized at location A.
== END 2025-02-18 10:49 | disposition home or self-care (01) ==
LOC: MICIMG 10:49
PROVIDERS: PCP Internal Medicine; Visit Provider Orthopaedic Surgery
DX: M25.512 Pain in left shoulder (principal)
CPT/HCPCS: 73030

== ENCOUNTER 2025-04-08 09:44 | Observation (INO) | payer OTHER, SELFPAY ==
[2025-04-08] VITALS (12 sets, daily range): BP systolic 100–111; BP diastolic 59–77; PULSE 52–93; RESP 16–23; TEMP 36.4–36.9; O2SAT 94–97; BMI 31.1
--- NOTE | ~2025-04-08 | XR_ITS ---
XR chest 2V 04/08/2025 10:19 Indication: Weakness Procedure: AP and lateral views of the chest Comparison: No prior studies for comparison. Findings: Lingular atelectasis. Heart size normal. Pacemaker leads in expected position. Right lung c lear. No significant effusion, edema or pneumothorax. Impression: 1: Lingular atelectasis. Reviewed, dictated and finalized at location A. Impression: 1: Lingular atelectasis.
--- NOTE | ~2025-04-08 | US_ITS ---
EXAMINATION: US renal BI DATE: 04/08/2025 17:09 INDICATION: Acute renal insufficiency TECHNIQUE: Multiple ultrasound grayscale images of the kidneys were obtained. COMPARISON: None. FINDINGS: The right kidney measures 11.9 x 7.6 x 8.2 cm. The left kidney measures 11.6 x 6.3 x 7.6 cm. The kidn eys demonstrate normal echogenicity. There is no hydronephrosis in either kidney. No stones identifi ed. There is mild diffuse wall thickening of the bladder. There is a 3.1 x 2.3 x 2.2 cm very hypoecho ic lesion with central echogenic focus which exerts mild mass effect upon the anterior wall of the bl adder which appears to arise from the pubic symphysis suggesting a small effusion. IMPRESSION: 1. Normal kidneys without hydronephrosis. 2. Mild diffuse bladder wall thickening which could be due to chronic outlet obstruction or cystitis either acute or chronic. Correlate with urinalysis. 3. Nonspecific 3.1 x 2.3 x 2.2 cm hypoechoic lesion likely an effusion arising from the pubic symphys is and which exerts mild mass effect upon the anterior bladder wall. Reviewed, dictated and finalized at location A. IMPRESSION: 1. Normal kidneys without hydronephrosis. 2. Mild diffuse bladder wall thickening which could be due to chronic outlet ob struction or cystitis either acute or chronic. Correlate with urinalysis. 3. Nonspecific 3.1 x 2.3 x 2.2 cm hypoechoic lesion likely an effusion arising from the pubic symphysis and which exerts mild mass effect upon the anterior bl adder wall.
--- NOTE | ~2025-04-08 | CT_ITS ---
EXAMINATION: CT brain wo con DATE: 04/08/2025 10:14 INDICATION: Weakness. Tremors TECHNIQUE: Computed tomography (CT) of the head was performed without intravenous contrast. The dose- length product was 605.33 mGy-cm. COMPARISON: None FINDINGS: No acute intracranial hemorrhage. No mass effect. No midline shift. No hydrocephalus. Partial opacification of the visualized paranasal sinuses. Mastoid air cells are clear. IMPRESSION: 1. No acute intracranial hemorrhage. No mass effect. Reviewed, dictated and finalized at location A.
--- NOTE | 2025-04-08 09:53 | ECG_ITS ---
Test Date: 2025-04-08 09:49:05 Measurements Intervals [place] Rate: 63 P: 7 WY: 208 QRS: 5 QRSD: 210 T: 2 QT: 511 QTc: 526 Interpretive Statements SINUS RHYTHM RIGHT BUNDLE BRANCH BLOCK INFERIOR INFARCT, AGE INDETERMINATE BORDERLINE ST-T WAVE ABNORMALITY- ANTEROLATERAL LEADS BASELINE ARTIFACT- V5 ABNORMAL ECG Compared to ECG 12/12/2024 13:48:25 Atrial-paced complex(es) or rhythm no longer present Electronically Signed On 04-08-2025 10:29:15 CDT by Amarjit Callaway D.O.
[2025-04-08 10:02] LABS: Hematocrit 46.3 % (42.0-52.0); Hemoglobin 15.2 g/dL (14.0-18.0); Immature Granulocyte Percent A 0.9 % (0-0.5); Lymphocytes Absolute Auto 1.70 K/mm3 (0.9-3.2); Mean Corpuscular HGB Conc 32.8 g/dl (32-36); Mean Corpuscular Hemoglobin 29.6 pg (26-34); Mean Corpuscular Volume 90.3 fl (80-100); Nucleated Red Blood Cells Absolute Auto 0.000 K/mm3 (0.0-0.012); Nucleated Red Blood Cells Perc 0.0 % (0.0-0.2); Platelet Count Result 172 k/mm3 (150-375); Red Blood Count 5.13 M/mm3 (4.6-6.20); White Blood Count 10.2 K/mm3 (4.5-10.0)
--- NOTE | 2025-04-08 10:06 | ED_ITS ---
HPI - Weakness General Chief complaint: Weakness <Ekta Rachel PA-C - Last Filed: 04/08/25 13:47> Stated complaint: weakness <Ekta Rachel PA-C - Last Filed: 04/08/25 13:47> Time Seen by Provider: 04/08/25 09:49 <Ekta Rachel PA-C - Last Filed: 04/08/25 13:47> Source: patient <Ekta Rachel PA-C - Last Filed: 04/08/25 13:47> Mode of arrival: EMS <RICHARD Villarreal Last Filed: 04/08/25 13:47> Limitations: no limitations <RICHARD Villarreal Last Filed: 04/08/25 13:47> History of Present Illness HPI Narrative: This is a 59-year-old male that presents to the emergency department for generalized weakness. Reporting tremors. Ongoing since this morning. No other associated symptoms. He does report he is a daily drinker. Denies ever having problems with withdrawal. Denies fever, cough, chest pain, shortness of breath, abdominal pain, vomiting. <Ekta Rachel PA-C - Last Filed: 04/08/25 13:47> Related Data Home medications: Home Medications ?Medication ?Instructions ?Recorded ?Confirmed ?Last Taken ?Type fenofibrate micronized 134 mg 134 mg PO DAILY 10/18/21 04/08/25 04/07/25 History capsule lisinopril 10 1 tablet PO DAILY 10/18/21 04/08/25 04/07/25 History mg-hydrochlorothiazide 12.5 mg tablet amiodarone 200 mg tablet 200 mg PO BID 11/21/23 04/08/25 04/07/25 History magnesium oxide 400 mg (241.3 mg 400 mg PO BID 11/21/23 04/08/25 04/07/25 History magnesium) tablet cetirizine 10 mg tablet 10 mg PO DAILY 12/11/24 04/08/25 04/07/25 History duloxetine 30 mg capsule,delayed 30 mg PO DAILY 12/11/24 04/08/25 04/07/25 History release flecainide 150 mg tablet 150 mg PO Q12H 0404/08/25 04/07/25 History omeprazole 20 mg capsule,delayed 20 mg PO DAILY 12/11/24 04/08/25 04/07/25 History release tadalafil 10 mg tablet 10 mg PO PRN PRN sexual activity 12/11/24 04/08/25 Unknown History <Ekta Rachel PA-C - Last Filed: 04/08/25 13:47> Allergies/Adverse reactions: Allergies Allergy/AdvReac Type Severity Reaction Status Date / Time NSAIDS (Non-Steroidal AdvReac Mild Gastrointestinal Verified 04/08/25 09:53 Anti-Inflamma Upset <Ekta Rachel PA-C - Last Filed: 04/08/25 13:47> Review of Systems 2 Review of Systems: All systems reviewed & are unremarkable except as noted in HPI and below <Ekta Rachel PA-C - Last Filed: 04/08/25 13:47> FORMERLY [facility] Past Medical History Medical History: Medical History (Updated 04/08/25 @ 15:03 by Rachana Victor APRN) Aneurysm Pacemaker Hypertension Atrial flutter GERD (gastroesophageal reflux disease) Overweight (BMI 25.0-29.9) Tobacco use Ulcerative colitis <Ekta Rachel PA-C - Last Filed: 04/08/25 13:47> Surgical History Surgical History: Surgical History Status post left rotator cuff repair (~2007) @ [facility] in [place] - Op Report no longer available (>12 yrs ago) Status post right rotator cuff repair (~12/20/24) SAD, Biceps tenodesis, Labral JEMAL <Ekta Rachel PA-C - Last Filed: 04/08/25 13:47> Social History Social History: Social History Smoking packs per day: 0.20 Smoking cigarettes per day: 4.0 Years smoked: 20 Smoking pack-years: 4.00 Smoking status: Current some day smoker Tobacco type: cigarettes Additional smoking assessment comments: smokes about a pack a week Alcohol intake: current Drinks per week: 12 Alcohol use details: social Substance use: never Substance use type: does not use Do You Feel Safe in your Home?: Yes Lack of Transportation: No Lack of Food: Never True Current Housing: I Have Housing Concerned About Future Housing: No Difficulty Paying Gas/Electric Bills: No Difficulty Paying for Meds: No Currently Unemployed: No Education: Master's Degree or Higher Difficulty w/ Childcare or Family Care: No Living arrangements: alone Spiritual care concerns: No <Ekta Rachel PA-C - Last Filed: 04/08/25 13:47> Exam 2 Narrative: GENERAL: Well-appearing, well-nourished, and in no acute distress. HEAD: Normocephalic, atraumatic. EYES: PERRLA and EOMI. ENT: Nares clear, no rhinorrhea or epistaxis. Mucous membranes dry. Oropharynx without tonsillar hypertrophy exudate or other lesions. Bilateral TMs pearly camarena non-bulging NECK: Supple. No adenopathy or masses. CHEST: Clear to auscultation. No respiratory distress. No wheezes rales or rhonchi HEART: Regular rate and rhythm. No murmur heard. Normal peripheral pulses. ABDOMEN: Soft, nontender, nondistended, normal active bowel sounds. EXTREMITIES: Normal range of motion. No edema. Strength equal in bilateral upper and lower extremities (5/5) SKIN: Warm, dry, no rash. NEURO: No focal deficits. Alert and oriented x3. CN II-XII grossly intact. Mildly tremulous PSYCH: Normal mood and affect <Ekta Rachel PA-C - Last Filed: 04/08/25 13:47> Course Course Emergency Course: patient and family updated on workup <Ekta Rachel PA-C - Last Filed: 04/08/25 13:47> RIM ROLLER OPERATOR/PA Physician Supervision For this patient encounter, I reviewed the RIM ROLLER OPERATOR or PA documentation, treatment plan, and medical decision making; and I had [id number] time with this patient. <Reji Olivares MD - Last Filed: 04/08/25 17:43> Consultations Consultation #1: spoke with hospitalist about patient and workup who accepts admission < Ekta Rachel PA-C - Last Filed: 04/08/25 13:47> Date: 04/08/25 <Ekta Rachel PA-C - Last Filed: 04/08/25 13:47> Vital Signs Vital signs: Vital Signs Temperature 98.4 F 04/08/25 09:44 Pulse Rate 93 04/08/25 09:44 Respiratory Rate 23 H 04/08/25 09:44 Blood Pressure 111/77 04/08/25 09:44 Pulse Oximetry 95 04/08/25 09:44 Oxygen Delivery Room Air 04/08/25 09:44 Temperature 98.2 F 04/08/25 16:00 Pulse Rate 68 04/08/25 17:06 Respiratory Rate 16 04/08/25 17:06 Blood Pressure 109/62 04/08/25 16:00 Pulse Oximetry 96 04/08/25 17:06 Oxygen Delivery Room Air 04/08/25 17:06 <Ekta Rachel PA-C - Last Filed: 04/08/25 13:47> Vital Signs Temperature 98.4 F 04/08/25 09:44 Pulse Rate 93 04/08/25 09:44 Respiratory Rate 23 H 04/08/25 09:44 Blood Pressure 111/77 04/08/25 09:44 Pulse Oximetry 95 04/08/25 09:44 Oxygen Delivery Room Air 04/08/25 09:44 Temperature 98.2 F 04/08/25 16:00 Pulse Rate 68 04/08/25 17:06 Respiratory Rate 16 04/08/25 17:06 Blood Pressure 109/62 04/08/25 16:00 Pulse Oximetry 96 04/08/25 17:06 Oxygen Delivery Room Air 04/08/25 17:06 <Reji Olivares MD - Last Filed: 04/08/25 17:43> MDM - Weakness MDM Narrative Medical decision making narrative: Patient presents to the emergency department for generalized weakness, tremors. Does report history of daily drinking without known history of any withdrawals. His vitals are stable. He is neurologically intact. CBC with mild leukocytosis to 10.2. Metabolic panel with evidence of acute kidney injury. Patient hydrated a L fluids in the ED. urine without evidence of infection. Drug screen positive for cannabinoids. Alcohol level is negative. CT brain without acute findings. Chest x-ray shows atelectasis. Patient and family updated on workup. Will be admitted for further management of DION. Spoke with hospitalist about patient and workup who accepts admission <Ekta Rachel PA-C - Last Filed: 04/08/25 13:47> Differential Diagnosis Differential diagnosis: Likely anemia, dehydration and other (dion, alcohol abuse, alcohol withdrawal) <Ekta Rachel PA-C - Last Filed: 04/08/25 13:47> Lab Data Attestation: I reviewed the patient's lab results. <Ekta Rachel PA-C - Last Filed: 04/08/25 13:47> Result diagrams: 04/08/25 09:56 04/08/25 09:56 <Ekta Rachel PA-C - Last Filed: 04/08/25 13:47> Labs: Lab Results 04/08/25 04/08/25 Range/Units 09:56 10:58 WBC 10.2 H (4.5-10.0) K/mm3 RBC 5.13 (4.6-6.20) M/mm3 Hgb 15.2 (14.0-18.0) g/dL Hct 46.3 (42.0-52.0) % MCV 90.3 (80-100) fl MCH 29.6 (26-34) pg MCHC 32.8 (32-36) g/dl RDW 13.4 (11.5-14.5) % Plt Count 172 (150-375) k/mm3 MPV 8.3 (7.4-10.4) fl Immature Gran % (Auto) 0.9 H (0-0.5) % Neut % (Auto) 75.0 H (45.5-73.1) % Lymph % (Auto) 16.7 L (18.3-44.2) % [place] % (Auto) 6.9 (2.6-8.5) % Eos % (Auto) 0.2 (0-4.4) % Baso % (Auto) 0.3 (0.2-1.2) % Lymph # (Auto) 1.70 (0.9-3.2) K/mm3 [place] # (Auto) 0.7 H (0.1-0.6) K/mm3 Eos # (Auto) 0.0 (0-0.3) K/mm3 Baso # (Auto) 0.0 (0.0-0.1) K/mm3 Abs Immat Gran (auto) 0.09 H (0.00-0.031) K/mm3 Absolute Neuts (auto) 7.6 H (1.3-6.7) K/mm3 Absolute Nucleated RBC 0.000 (0.0-0.012) K/mm3 Nucleated RBC % 0.0 (0.0-0.2) % PT 14.3 (11.1-14.7) Seconds INR 1.1 APTT 24.3 (22.3-36.8) Seconds Sodium 135 L (137-145) mmol/L Potassium 4.4 (3.4-5.0) mmol/L Chloride 104 (98-107) mmol/L Carbon Dioxide 19 L (22-30) mmol/L Anion Gap 12 (4-12) mmol/L BUN 19 (9-20) mg/dL Creatinine 1.74 H (0.7-1.3) mg/dL Estim Creat Clear Calc 48 ml/min Estimated GFR 40 L (59 - ) Glucose 133 H (65-110) mg/dL Calcium 9.7 (8.4-10.2) mg/dL Magnesium 2.0 (1.6-2.3) mg/dL Total Bilirubin 0.7 (0.2-1.3) mg/dL AST 46 (17-59) U/L ALT 36 (6-50) U/L Alkaline Phosphatase 69 (38-126) U/L Total Protein 6.9 (6.3-8.2) g/dL Albumin 4.3 (3.5-5.1) g/dL Vitamin B12 774.0 (239-931) pg/mL Folate 11.4 (2.76->20) ng/mL Urine Color Yellow (Yellow) Urine Appearance Cloudy H (Clear) Urine pH 5.5 (5.0-9.0) Ur Specific [place] 1.010 (1.001-1.035) Urine Protein 2+ H (Negative) mg/dL Urine Glucose (UA) Negative (Negative) mg/dL Urine Ketones Negative (Negative) mg/dL Ur Blood (Man) Trace (Negative) Urine Nitrate Negative (Negative) Urine Bilirubin Negative (Negative) Urine Urobilinogen 0.2 (<2.0) mg/dL Leukocyte Esterase Rfl Negative (Negative) LEXY/UL Urine RBC 0-2 (0-2) /hpf Urine WBC 0-5 (0-3) /hpf Ur Squamous Epith Cells None seen (Few) /hpf Urine Bacteria None seen /hpf Urine Casts 3-5 Urine Opiates Screen Negative (Negative) Urine Methadone Screen Negative (Negative) Ur Barbiturates Screen Negative (Negative) Ur Phencyclidine Scrn Negative (Negative) Ur Amphetamine Screen Negative (Negative) U Benzodiazepines Scrn Negative (Negative) Urine Cocaine Screen Negative (Negative) U Cannabinoids Screen Positive A (Negative) Ethyl Alcohol < 10 (<10) mg/dL <Ekta Rachel PA-C - Last Filed: 04/08/25 13:47> Lab Results 04/08/25 04/08/25 Range/Units 09:56 10:58 WBC 10.2 H (4.5-10.0) K/mm3 RBC 5.13 (4.6-6.20) M/mm3 Hgb 15.2 (14.0-18.0) g/dL Hct 46.3 (42.0-52.0) % MCV 90.3 (80-100) fl MCH 29.6 (26-34) pg MCHC 32.8 (32-36) g/dl RDW 13.4 (11.5-14.5) % Plt Count 172 (150-375) k/mm3 MPV 8.3 (7.4-10.4) fl Immature Gran % (Auto) 0.9 H (0-0.5) % Neut % (Auto) 75.0 H (45.5-73.1) % Lymph % (Auto) 16.7 L (18.3-44.2) % [place] % (Auto) 6.9 (2.6-8.5) % Eos % (Auto) 0.2 (0-4.4) % Baso % (Auto) 0.3 (0.2-1.2) % Lymph # (Auto) 1.70 (0.9-3.2) K/mm3 [place] # (Auto) 0.7 H (0.1-0.6) K/mm3 Eos # (Auto) 0.0 (0-0.3) K/mm3 Baso # (Auto) 0.0 (0.0-0.1) K/mm3 Abs Immat Gran (auto) 0.09 H (0.00-0.031) K/mm3 Absolute Neuts (auto) 7.6 H (1.3-6.7) K/mm3 Absolute Nucleated RBC 0.000 (0.0-0.012) K/mm3 Nucleated RBC % 0.0 (0.0-0.2) % PT 14.3 (11.1-14.7) Seconds INR 1.1 APTT 24.3 (22.3-36.8) Seconds Sodium 135 L (137-145) mmol/L Potassium 4.4 (3.4-5.0) mmol/L Chloride 104 (98-107) mmol/L Carbon Dioxide 19 L (22-30) mmol/L Anion Gap 12 (4-12) mmol/L BUN 19 (9-20) mg/dL Creatinine 1.74 H (0.7-1.3) mg/dL Estim Creat Clear Calc 48 ml/min Estimated GFR 40 L (59 - ) Glucose 133 H (65-110) mg/dL Calcium 9.7 (8.4-10.2) mg/dL Magnesium 2.0 (1.6-2.3) mg/dL Total Bilirubin 0.7 (0.2-1.3) mg/dL AST 46 (17-59) U/L ALT 36 (6-50) U/L Alkaline Phosphatase 69 (38-126) U/L Total Protein 6.9 (6.3-8.2) g/dL Albumin 4.3 (3.5-5.1) g/dL Vitamin B12 774.0 (239-931) pg/mL Folate 11.4 (2.76->20) ng/mL Urine Color Yellow (Yellow) Urine Appearance Cloudy H (Clear) Urine pH 5.5 (5.0-9.0) Ur Specific [place] 1.010 (1.001-1.035) Urine Protein 2+ H (Negative) mg/dL Urine Glucose (UA) Negative (Negative) mg/dL Urine Ketones Negative (Negative) mg/dL Ur Blood (Man) Trace (Negative) Urine Nitrate Negative (Negative) Urine Bilirubin Negative (Negative) Urine Urobilinogen 0.2 (<2.0) mg/dL Leukocyte Esterase Rfl Negative (Negative) LEXY/UL Urine RBC 0-2 (0-2) /hpf Urine WBC 0-5 (0-3) /hpf Ur Squamous Epith Cells None seen (Few) /hpf Urine Bacteria None seen /hpf Urine Casts 3-5 Urine Opiates Screen Negative (Negative) Urine Methadone Screen Negative (Negative) Ur Barbiturates Screen Negative (Negative) Ur Phencyclidine Scrn Negative (Negative) Ur Amphetamine Screen Negative (Negative) U Benzodiazepines Scrn Negative (Negative) Urine Cocaine Screen Negative (Negative) U Cannabinoids Screen Positive A (Negative) Ethyl Alcohol < 10 (<10) mg/dL <Reji Olivares MD - Last Filed: 04/08/25 17:43> Imaging Data Radiologist's impression: ITS Impressions Head CT 04/08/25 10:23 IMPRESSION: 1. No acute intracranial hemorrhage. No mass effect. Chest X-Ray 04/08/25 10:26 Impression: 1: Lingular atelectasis. <Ekta Rachel PA-C - Last Filed: 04/08/25 13:47> ECG Data EKG #1: ECG completion date: 04/08/25 <Ekta Rachel PA-C - Last Filed: 04/08/25 13:47> EKG Interpretation: normal rate, sinus rhythm and other (dual lead pacemaker) <Ekta Rachel PA-C - Last Filed: 04/08/25 13:47> Critical Care Time Critical Care Time Critical Care Time: Yes <Ekta Rachel PA-C - Last Filed: 04/08/25 13:47> Total Critical Care Time: 35 <Ekta Rachel PA-C - Last Filed: 04/08/25 13:47> Discharge Plan Discharge Clinical Impression: Acute kidney injury, Alcohol abuse <Ekta Rachel PA-C - Last Filed: 04/08/25 13:47> Patient Disposition: Still a Patient <Ekta Rachel PA-C - Last Filed: 04/08/25 13:47> Condition: Stable <Ekta Rachel PA-C - Last Filed: 04/08/25 13:47>
[2025-04-08 10:22] LABS: Alanine Aminotransferase 36 U/L (6-50); Albumin Level 4.3 g/dL (3.5-5.1); Alkaline Phosphatase 69 U/L (38-126); Anion Gap 12 mmol/L (4-12); Aspartate Amino Transferase 46 U/L (17-59); Bilirubin,Total 0.7 mg/dL (0.2-1.3); Blood Urea Nitrogen 19 mg/dL (9-20); Calcium 9.7 mg/dL (8.4-10.2); Carbon Dioxide 19 mmol/L (22-30); Chloride 104 mmol/L (98-107); Estimated CRCL calculation 48 ml/min; Estimated Glomerular Filt Rate 40; Glucose 133 mg/dL (65-110); Potassium 4.4 mmol/L (3.4-5.0); Sodium 135 mmol/L (137-145); Total Protein 6.9 g/dL (6.3-8.2)
[2025-04-08] MEDS: SODIUM CHLORIDE 0.9% IV 1,000 ML 999 ML IV CONT (10:24)
[2025-04-08 10:34] LABS: Magnesium 2.0 mg/dL (1.6-2.3)
[2025-04-08 10:38] LABS: INR 1.1; Prothrombin Time 14.3 Seconds (11.1-14.7)
[2025-04-08 10:39] LABS: Partial Thromboplastin Time 24.3 Seconds (22.3-36.8)
--- OUTSIDE RECORDS SUMMARY | 2025-04-08 11:04 | XMS_ITS | Patient Health Record ---
Author Organization [facility] Address [address] [facility] [address] [place], [place] [id number] Care Team Providers Care Forming Acid Dumper Name Role Phone BRENDA MCINTOSH MD Primary Care Provider Valeria Acosta Unavailable [phone] ALLERGIES Allergen (clinical drug ingredient) Drug/Non Drug Allergy documented on EMR Reaction Allergy Type Onset Date Status NSAIDS (uncoded) stomach upset Allergy Active REASON FOR REFERRAL No Information MEDICATIONS Medication SIG (Take, Route, Fr equency, Duration) Notes Start Date End Date Status nabumetone 750 mg 1 tab(s) orally bid for 30 days 10/28/2019 Active Protonix Active amLODIPine Active PROBLEMS Problem Type ICD Code Onset Dates Problem Status W/U Status Risk SNOMED Code Notes Problem Psoriasis (L40.9) Active confirmed 9014 002 Problem Pain in left foot (M79.672) Active confirmed [id number] Problem Pain in right foot (M79.671) Active confirmed [id number] Problem Osteoarthritis of multiple joints, unspecified osteoarthritis type (M15.9) Active confirmed [id number] Problem Secondary osteoarthritis, 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) Active confirmed 75730819 Problem Secondary osteoarthritis, left ankle and foot (M19.272) Active confirmed 11340010 PLAN OF TREATMENT Pending Test Test Name Order Date X ray : SI joints- outside order 020 X ray : Foot Left- outside order 020 X ray : Foot Right- outside order 2019 Insurance Providers Payer Name Payer Address Payer Phone Subscriber Number Group Number Insured Name Patient Relationship to Insured Coverage Start Date Coverage End Date [facility] [employer] [address] [address] [place] [address] [phone] [id number] Cinthia Lorenzo Self - patient is the insured 0 MEDICAL (GENERAL) HISTORY Medical History History ICD Code loss of hearing sinus problems bowel changes diarrhea gas rectal bleeding erection difficulties high blood pressure Surgical History Surgery Date(Month/Year) Hospitalization History Reason Date(Month/Year) stomach ulcer 2002
--- OUTSIDE RECORDS SUMMARY | 2025-04-08 11:04 | XMS_ITS | Clinical Summary ---
Author Organization [facility] [employer] Address [address] [place] [address] Care Team Providers Care Interventional Radiology Rn Name Role Phone Odilon Garvey MD Primary Care Provider [phone] Source Comments [facility] [employer],non-owned Affiliates and Associated Physician Practices is amultiple site organization consisting of ambulatory clinics and hospital sitesin [place], [place], [place] and [place]. This disclosure is being madepursuant to the Care Everywhere program and may not contain all information available regarding this patient. 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
--- OUTSIDE RECORDS SUMMARY | 2025-04-08 11:04 | XMS_ITS ---
Author Organization [facility] [place] ([address]) Address [address] [place] [address] Care Team Providers Care Production Manager Name Role Phone Odilon Garvey Primary Care Provider UnavailDr. Odilon Meza Unavailable [phone] ZZ-Migration, Provider Unavailable Unavailab le REASON FOR VISIT [facility] Encounter Medications Medication SIG (Take, [...] Active Encounters Encounter Location Date Provider Diagnosis [address] [address] 02/10/2024 Provider Pastor Hereditary and idiopathic neuropathy, [...] Farrukh VICENTE LDOB:1965 ( 59 yo M)Acc No.[id number]:02/10/2024 Patient: Farrukh SHER Provider: Mildred Prather :1965 A ge:58 Y S ex:Male Date:02/10/2024 Address[facility] [address], [facility] Pcp:Odilon Garvey Subjective: * Chief Complaints: * 1 . [facility] * Medical History: * Medications: T aking traMADol HCl 100 MG/24 HOURS CAPSULE, EXTENDED RELEASE 1 PILL ORALLY 4X/DAY , Notes to Pharmacist: *Please review and pick correct strength-formulation from [facility] options. If intended option is not [...] * Electronic signature of Marti MEDRANO-Migration on 04/08/2025 at 11:04 AM CDT Sign off status: Pending * Provider: Mildred amin Migration Date: 0 02/10/2024 Generated for Austin de dios/Kate/Genevievesmnoris on: 0 04/08/2025 11:04 AM CDT
--- OUTSIDE RECORDS SUMMARY | 2025-04-08 11:04 | XMS_ITS | Clinical Summary ---
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 Gender Identity Not on file Sexual Orientation Not on file Plan of Treatment Health Maintenance Due Date Last Done Comments DTAP/TDAP/TD VACCINES (1 - Tdap) 1982 COLORECTAL SCREENING 2008 Colorectal Cancer Screening 2008 FIT-DNA Q 3 years 2008 FIT/FOBT Q 1 year 2008 Flex Sig/CT Colonography Q 5 years 2008 ZOSTER VACCINE (1 of 2) 2013 INFLUENZA VACCINE (#1) 2025 RSV VACCINE (60+ or ) (1 - 1-dose 75+ series) 2038 Insurance [facility] OPTIONS PPO [id number] Care Teams Flying Squad Worker Relationship Specialty Start Date End Date Odilon Garvey MD [address] [place] [address] PCP - General Internal Medicine 09/16/19
--- OUTSIDE RECORDS SUMMARY | 2025-04-08 11:04 | XMS_ITS | Encounter Summary ---
Author Organization [facility] Address [address] [place] [place] [address] Care Team Providers Care Deputy Sheriff Name Role Phone Odilon Garvey MD Primary Care Provider [phone] Reason for Visit * Reason Onset Date Comments Appointment 08/24/2022 Encounter Details Date Type Department Care Team (Late st Contact Info) Description 08/24/2022 Telephone [facility] [address] [facility] [place] [id number] Checo Austin MD [address] [facility] [address] [place] [id number] Appointment Social History Tobacco Use Types Packs/Day Years Used Date Smoking Tobacco: Never Assessed Sex and Gender Information Value Date Recorded Sex Assigned at Not on file Legal Sex Male 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
--- OUTSIDE RECORDS SUMMARY | 2025-04-08 11:04 | XMS_ITS | Patient Health Record ---
Author Organization [facility] [employer] [place] ([address]) Address [address] [place] [address] Care Team Providers Care Baggage Porter Head Name Role Phone Odilon Garvey Primary Care Provider Dr. Odilon Ruby Unavailable [phone] Allergies No Known Allergies Reason For Referral [...] as directed; Duration: 30 days 06/29/2023 Active Metoprolol Tartrate 50 [...] as directed; Duration: 30 days 06/29/2023 Active Problems Problem Type SNOMED Code ICD Code Onset Dates Problem Status W/U Status Risk Notes Problem Chronic migraine without aura, non-refractory (disorder) (83757959203633 0) Migraine without aura, not intractable, without status migrainosus (G43.009) Active confirmed Problem Migraine with aura, not intractable, without status migrainosus (G43.109) Active confirmed Problem Chronic migraine without aura, non-intractable (05053150395416 0) Chronic migraine without aura, not intractable, without status migrainosus (G43.709) Active confirmed Problem Hereditary disorder of nervous system (484745261) Hereditary and idiopathic neuropathy, unspecified (G60.9) Active confirmed Plan Of Treatment No Information Insurance Providers Payer Name Payer Address Payer Phone Subscriber Number Group Number Insured Name Patient Relationship to Insured Coverage Start Date Coverage End Date [facility] [address] [address] [place] [address] [phone] [id number] Farrukh Vicente Self - patient is the insured
[2025-04-08 11:24] LABS: Cannabinoid Screen Urine Positive (Negative)
[2025-04-08 11:35] LABS: Add Urine Microscopic? YES; Appearance Urine Cloudy (Clear); Glucose Urine UA Negative (Negative); Leukocyte Esterase Ur Negative LEU/UL (Negative); Nitrate Urine Negative (Negative); Specific Grav Ur 1.010 (1.001-1.035)
[2025-04-08 12:44] LABS: Vitamin B12 774.0 pg/mL (239-931)
[2025-04-08] MEDS: ACETAMINOPHEN 500 MG TABLET 1000 MG PO (12:55)
--- NOTE | 2025-04-08 14:36 | ADMGEN ---
This patient, Lorenzo Vicente, was admitted to Medical Room 241-. Patient/family oriented to hospital policies and general routines including ID bracelet, bed and alarms, visiting hours, pain management, procedures, bathroom and other care routines, personal items, smoking policy, room service/diet, and visiting hours. Information on how to activate the Rapid Response Team has been discussed. Patient/Family are encouraged to report perceived risks to care and to ask questions if they do not understand what they are told or what they should do.
--- NOTE | 2025-04-08 14:36 | PM.IMHP ---
H&P: HPI History of Present Illness Date/Time: 04/08/25 14:36 Chief Complaint: Weakness Narrative: 59 y/o M with PMH of daily alcohol use, aneurysm in 1998, atrial flutter, hyperlipidemia, hypertension, pacemaker (Biotronik, 2024), sleep apnea not on CPAP, GERD, and ulcerative colitis presents here with weakness. The patient presents here from home via EMS for further evaluation of generalized weakness. He reports new onset generalized weakness starting this morning on 04/08. It is accompanied by tremors - described it as moderate in amplitude vs fine, in all extremities and had muscle twitching as well. Lasted for around an hour. Resolved without intervention or medication. No previous episodes that were similar. No associated loss of bowel or bladder. No confusion after the episode but did report some lightheadedness. He denies accompanying fever, chills, body aches, chest pain, shortness of breath, abdominal pain, nausea, vomiting, diarrhea. He iniitally reported daily alcohol use in the ER, currently reporting ETOH 3 days per week - around 6 to 7 beers. He denies any previously known chronic kidney disease. He denies any accompanying dysuria, hematuria, urinary frequency or urinary hesitancy. Has been out in the heat recently but not overly exposed to the heat. No change in appetite and reports he has been drinking fluids. Initial VS at presentation: 98.4? F, HR 93, R 23, 111/77, and 95% on RA. ED workup showed: WBC 10.2, no anemia, normal coags, sodium 135, creatinine 1.74 and GFR 40 (1.07 and GFR >60 on 12/12/2024), glucose 133, magnesium within normal limits, UA showed 2+ protein otherwise unremarkable, UDS showed marijuana otherwise unremarkable, ETOH negative. Head CT showed no acute intracranial hemorrhage or mass effect. CXR showed lingular atelectasis. EKG showed sinus rhythm, right bundle branch block, inferior infarct age indeterminate, borderline ST-T-wave abnormality anterior lateral leads (when compared to previous of, atrial paced complexes/rhythm no longer present). Review of Systems Review of Systems: All systems reviewed & are unremarkable except as noted in HPI and below [facility] Past Medical History Medical History (Updated 04/08/25 @ 15:03 by Rachana Victor, LEXUS) Aneurysm Pacemaker Hypertension Atrial flutter GERD (gastroesophageal reflux disease) Overweight (BMI 25.0-29.9) Tobacco use Ulcerative colitis Surgical History Surgical History Status post left rotator cuff repair (~2007) @ [facility] in [place] - Op Report no longer available (>12 yrs ago) Status post right rotator cuff repair (~12/20/24) SAD, Biceps tenodesis, Labral JEMAL Social History Social History Smoking packs per day: 0.20 Smoking cigarettes per day: 4.0 Years smoked: 20 Smoking pack-years: 4.00 Smoking status: Current some day smoker Tobacco type: cigarettes Additional smoking assessment comments: smokes about a pack a week Alcohol intake: current Drinks per week: 12 Alcohol use details: social Substance use: never Substance use type: does not use Do You Feel Safe in your Home?: Yes Lack of Transportation: No Lack of Food: Never True Current Housing: I Have Housing Concerned About Future Housing: No Difficulty Paying Gas/Electric Bills: No Difficulty Paying for Meds: No Currently Unemployed: No Education: Master's Degree or Higher Difficulty w/ Childcare or Family Care: No Living arrangements: alone Spiritual care concerns: No Meds Home Medications and Allergies Home Medications ?Medication ?Instructions ?Recorded ?Confirmed ?Type fenofibrate micronized 134 mg 134 mg PO DAILY 10/18/21 04/08/25 History capsule lisinopril 10 1 tablet PO DAILY 10/18/21 04/08/25 History mg-hydrochlorothiazide 12.5 mg tablet amiodarone 200 mg tablet 200 mg PO BID 11/21/23 04/08/25 History magnesium oxide 400 mg (241.3 mg 400 mg PO BID 11/21/23 04/08/25 History magnesium) tablet balsalazide 750 mg capsule See Rx Instructions .Route 05/22/24 04/08/25 Rx .COMPLEX #270 caps cetirizine 10 mg tablet 10 mg PO DAILY 12/11/24 04/08/25 History duloxetine 30 mg capsule,delayed 30 mg PO DAILY 12/11/24 04/08/25 History release flecainide 150 mg tablet 150 mg PO Q12H 12/11/24 04/08/25 History omeprazole 20 mg capsule,delayed 20 mg PO DAILY 12/11/24 04/08/25 History release tadalafil 10 mg tablet 10 mg PO PRN PRN sexual activity 12/11/24 04/08/25 History Allergies Allergy/AdvReac Type Severity Reaction Status Date / Time NSAIDS (Non-Steroidal AdvReac Mild Gastrointestinal Verified 04/08/25 09:53 Anti-Inflamma Upset Vital Signs Vital Signs - 24 hr 04/08/25 09:44 04/08/25 09:52 04/08/25 11:15 Temperature 98.4 F Pulse Rate 93 64 65 Respiratory Rate 23 H 17 Blood Pressure 111/77 100/60 Pulse Oximetry 95 97 Oxygen Delivery Room Air 04/08/25 12:48 04/08/25 13:01 04/08/25 14:17 Temperature 98.5 F Pulse Rate 64 62 62 Respiratory Rate 17 20 16 Blood Pressure 106/70 106/70 104/59 L Pulse Oximetry 96 97 96 Oxygen Delivery Exam Const: General: comfortable and no acute distress Other: , male, nontoxic appearance HENMT: Face/Nose/Sinus: Normal nares present Mouth: Yes moist mucous membranes Eyes: General: appearance normal, both eyes and all related structures Sclera: sclerae normal Pupils: Equal, round and reactive pupils present EOM: EOMs intact bilaterally Resp: Effort & Inspection: normal respiratory effort Auscultation: clear to auscultation bilaterally Cardio: Rate: regular rate Rhythm: regular rhythm Other: S1-S2 present without murmur, rub, ectopy GI: Other: Abdomen soft, nondistended, nontender. Normoactive bowel sounds in all quadrants. Skin: General skin exam: normal color and no rashes or lesions noted Wounds: no wounds Neuro: Speech: normal speech Motor exam (neuro): 5/5 motor strength present throughout Sensory Exam: normal sensation Other: A&O x4 Extrem: General: normal to inspection Psych: Mental Status: mental status grossly normal Affect: normal affect Other: Good insight and judgment, pleasant H&P: Results Labs Labs: Short CBC 04/08/25 Range/Units 09:56 WBC 10.2 H (4.5-10.0) K/mm3 Hgb 15.2 (14.0-18.0) g/dL Hct 46.3 (42.0-52.0) % Plt Count 172 (150-375) k/mm3 BMP 04/08/25 09:56 Sodium 135 L Potassium 4.4 Chloride 104 Carbon Dioxide 19 L BUN 19 Creatinine 1.74 H Glucose 133 H Calcium 9.7 Liver Function 04/08/25 Range/Units 09:56 Total Bilirubin 0.7 (0.2-1.3) mg/dL AST 46 (17-59) U/L ALT 36 (6-50) U/L Alkaline Phosphatase 69 (38-126) U/L Albumin 4.3 (3.5-5.1) g/dL Urine 04/08/25 Range/Units 10:58 Urine Color Yellow (Yellow) Urine Appearance Cloudy H (Clear) Urine pH 5.5 (5.0-9.0) Ur Specific [place] 1.010 (1.001-1.035) Urine Protein 2+ H (Negative) mg/dL Urine Glucose (UA) Negative (Negative) mg/dL Assessment and Plan Assessment and plan (1) Generalized weakness: Code(s): R53.1 - Weakness Status: Acute Assessment and Plan: - UA and CXR showed no indications for infection - UDS positive for marijuana otherwise unremarkable, ETOH negative - check viral PCR - DION noted - bradycardia noted upon admission with a heart rate in the 40s, plan for interrogation of pacemaker - reports improvement in weakness post-fluids, no reoccurrence of tremors (2) Acute kidney injury: Code(s): N17.9 - Acute kidney failure, unspecified Status: Acute Assessment and Plan: - upon admission patient's creatinine 1.74 and GFR 40 - baseline creatinine 1.0 - check renal ultrasound, CK, urine sodium, protein/creatinine, urea - UA: cloudy, 2+ protein - bladder scan for postvoid residual - monitor I&Os - IV fluids: 1L bolus -> 125 mL/hr - hold HCTZ - consider nephrology consultation, if no improvement with rehydration (3) Hypertension: Qualifiers: Hypertension type: primary hypertension Qualified Code(s): I10 - Essential (primary) hypertension Code(s): I10 - Essential (primary) hypertension Status: Chronic Assessment and Plan: - chronic, currently 104/59 - hold lisinopril-hydrochlorothiazide as the patient's blood pressure is on the low end of normal. Will continue flecainide. - monitor (4) Heavy alcohol consumption: Code(s): F10.90 - Alcohol use, unspecified, uncomplicated Status: Acute Assessment and Plan: - patient reports 6-7 beers 3 nights a week. No previous history of alcohol withdrawal. Currently denies hallucinations, diaphoresis, flu-like symptoms, or tremor. Educated on signs and symptoms, if they occur to alert staff. Monitor. Plan Diet: heart healthy GI Prophylaxis: n/a DVT Prophylaxis: scds IV fluids: 1L bolus -> 125 mL/hr Lines/Tubes: peripheral IV Code Status: full code Quality VTE Prophylaxis VTE prophylaxis: mechanical ordered Hospitalist [facility] Advance Care Plan I have confirmed that the patient's Advanced Care Plan is present, code status is documented, or surrogate decision maker is listed in patient medical record.: Yes Medication Reconciliation I have utilized all available resources to obtain, update and review the patients current medications (includes all prescriptions, OTC, herbals, cannabis, and nutritional supplements).: Yes
[2025-04-08] MEDS: SODIUM CHLORIDE 0.9% IV 1,000 ML 125 ML IV CONT ×2 (15:23→23:20)
[2025-04-08 16:19] LABS: Influenza A QL RT-PCR Negative (Negative); Influenza B QL RT-PCR Negative (Negative); RSV RNA, RT-PCR Negative (Negative); SARS-CoV-2 RNA PCR Negative (Negative)
[2025-04-08 19:24] LABS: Total Protein Urine Random 30 mg/dL; Ur Ttl Prot Creatinine Ratio 0.43 mg/mg (0-0.20)
[2025-04-08 19:30] LABS: Urea Random Urine 331 MG/DL
[2025-04-08 21:33] LABS: Creatine Kinase 377 U/L (55-170)
[2025-04-08] MEDS: FLECAINIDE ACETATE 50 MG TABLET PO (23:19)
[2025-04-08] MEDS: FLECAINIDE ACETATE 100 MG TABLET PO (23:19)
[2025-04-08] MEDS: HYDROcodone/acetaminophen (*CRX) 5-325 MG TABLET 1 TAB PO (23:42)
[2025-04-09] VITALS: PULSE 60
[2025-04-09 04:00] VITALS: PULSE 60
[2025-04-09 05:28] VITALS: BP 125/76; PULSE 61; RESP 20; TEMP 36.5; O2SAT 96
[2025-04-09 05:55] LABS: Hematocrit 42.2 % (42.0-52.0); Hemoglobin 13.6 g/dL (14.0-18.0); Immature Granulocyte Percent A 0.8 % (0-0.5); Lymphocytes Absolute Auto 2.60 K/mm3 (0.9-3.2); Mean Corpuscular HGB Conc 32.2 g/dl (32-36); Mean Corpuscular Hemoglobin 29.7 pg (26-34); Mean Corpuscular Volume 92.1 fl (80-100); Nucleated Red Blood Cells Absolute Auto 0.000 K/mm3 (0.0-0.012); Nucleated Red Blood Cells Perc 0.0 % (0.0-0.2); Platelet Count Result 161 k/mm3 (150-375); Red Blood Count 4.58 M/mm3 (4.6-6.20); White Blood Count 6.3 K/mm3 (4.5-10.0)
[2025-04-09 06:16] LABS: Alanine Aminotransferase 23 U/L (6-50); Albumin Level 3.3 g/dL (3.5-5.1); Alkaline Phosphatase 60 U/L (38-126); Anion Gap 4 mmol/L (4-12); Aspartate Amino Transferase 35 U/L (17-59); Bilirubin,Total 0.3 mg/dL (0.2-1.3); Blood Urea Nitrogen 20 mg/dL (9-20); Calcium 9.2 mg/dL (8.4-10.2); Carbon Dioxide 25 mmol/L (22-30); Chloride 111 mmol/L (98-107); Creatine Kinase 166 U/L (55-170); Estimated CRCL calculation 72 ml/min; Estimated Glomerular Filt Rate > 60; Glucose 90 mg/dL (65-110); Potassium 4.5 mmol/L (3.4-5.0); Sodium 140 mmol/L (137-145); Total Protein 5.5 g/dL (6.3-8.2)
[2025-04-09 08:00] VITALS: PULSE 60
[2025-04-09] MEDS: SODIUM CHLORIDE 0.9% IV 1,000 ML 125 ML IV CONT (08:01)
[2025-04-09 09:03] VITALS: PULSE 61
[2025-04-09] MEDS: FLECAINIDE ACETATE 100 MG TABLET PO (09:03)
[2025-04-09] MEDS: MAGNESIUM OXIDE 400 MG TABLET PO (09:03)
[2025-04-09] MEDS: FENOFIBRATE NANOCRYSTALLIZED 145 MG TABLET PO (09:03)
[2025-04-09] MEDS: LORATADINE 10 MG TABLET PO (09:03)
[2025-04-09] MEDS: PANTOPRAZOLE 40 MG TABLET PO (09:04)
[2025-04-09 09:05] VITALS: PULSE 61
[2025-04-09] MEDS: FLECAINIDE ACETATE 50 MG TABLET PO (09:05)
[2025-04-09] MEDS: HYDROcodone/acetaminophen (*CRX) 5-325 MG TABLET 1 TAB PO (09:10)
--- NOTE | 2025-04-09 10:56 | P.DS_ITS ---
DS: Admitting Diagnosis Discharge Date 04/09/2025 Admitting Diagnosis Weakness, DION DS: Discharge Diagnosis Discharge Diagnosis (1) Generalized weakness: Code(s): R53.1 - Weakness Status: Acute (2) Acute kidney injury: Code(s): N17.9 - Acute kidney failure, unspecified Status: Acute (3) Hypertension: Qualifiers: Hypertension type: primary hypertension Qualified Code(s): I10 - Essential (primary) hypertension Code(s): I10 - Essential (primary) hypertension Status: Chronic (4) Heavy alcohol consumption: Code(s): F10.90 - Alcohol use, unspecified, uncomplicated Status: Acute DS: Summary Hospital Course Reason for hospitalization: Generalized weakness Hospital Course: 59 y/o M with PMH of daily alcohol use, aneurysm in 1998, atrial flutter, hyperlipidemia, hypertension, pacemaker (Biotronik, 2024), sleep apnea not on CPAP, GERD, and ulcerative colitis presents here with weakness. The patient presents here from home via EMS for further evaluation of generalized weakness. He reports new onset generalized weakness starting this morning on 04/08. It is accompanied by tremors - described it as moderate in amplitude vs fine, in all extremities and had muscle twitching as well. Lasted for around an hour. Resolved without intervention or medication. No previous episodes that were similar. No associated loss of bowel or bladder. No confusion after the episode but did report some lightheadedness. He denies accompanying fe abhishek, chills, body aches, chest pain, shortness of breath, abdominal pain, nausea, vomiting, diarrhea. He iniitally reported daily alcohol use in the ER, currently reporting ETOH 3 days per week - around 6 to 7 beers. He denies any previously known chronic kidney disease. He denies any accompanying dysuria, hematuria, urinary frequency or urinary hesitancy. Has been out in the heat recently but not overly exposed to the heat. No change in appetite and reports he has been drinking fluids. Initial VS at presentation: 98.4? F, HR 93, R 23, 111/77, and 95% on RA. ED workup showed: WBC 10.2, no anemia, normal coags, sodium 135, creatinine 1.74 and GFR 40 (1.07 and GFR >60 on 12/12/2024), glucose 133, magnesium within normal limits, UA showed 2+ protein otherwise unremarkable, UDS showed marijuana otherwise unremarkable, ETOH negative. Head CT showed no acute intracranial hemorrhage or mass effect. CXR showed lingular atelectasis. EKG showed sinus rhythm, right bundle branch block, inferior infarct age indeterminate, borderline ST-T-wave abnormality anterior lateral leads (when compared to previous of, atrial paced complexes/rhythm no longer present). Patient was admitted on 04/08 and in the AM of 04/09, was denying any symptoms he had when he presented to the hospital. He stated i feel great and wished to be discharged at that time. Blood work and vitals are stable upon review in the AM. DION resolved. No episodes of bradycardia overnight. Symptoms likely secondary to underlying dehydration/ETOH use but imagining is reassuring and workup has been benign and symptoms resolved - can plan for discharge home at this time. Pt is amenable to this plan. Status at Discharge Functional status at discharge: independent ambulation Overall status at discharge: patient is back to baseline Time Spent with Patient Time attestation: Total time spent providing and/or coordinating discharge services: 31 Exam Narrative: benign Const: General: comfortable and no acute distress Other: , male, nontoxic appearance HENMT: Face/Nose/Sinus: Normal nares present Mouth: Yes moist mucous membranes Eyes: General: appearance normal, both eyes and all related structures Sclera: sclerae normal Pupils: Equal, round and reactive pupils present EOM: EOMs intact bilaterally Resp: Effort & Inspection: normal respiratory effort Auscultation: clear to auscultation bilaterally Cardio: Rate: regular rate Rhythm: regular rhythm Other: S1-S2 present without murmur, rub, ectopy GI: Other: Abdomen soft, nondistended, nontender. Normoactive bowel sounds in all quadrants. Skin: General skin exam: normal color and no rashes or lesions noted Wounds: no wounds Neuro: Cranial nerves: Yes Equal, round and reactive pupils present Speech: normal speech Motor exam (neuro): 5/5 motor strength present throughout Sensory Exam: normal sensation Other: A&O x4 Extrem: General: normal to inspection Psych: Mental Status: mental status grossly normal Affect: normal affect Other: Good insight and judgment, pleasant DS: Data Data Completed and Pending Labs on day of discharge: Labs from last 24 hours 04/09/25 04/08/25 04/08/25 05:08 18:51 15:38 WBC 6.3 RBC 4.58 L Hgb 13.6 L Hct 42.2 MCV 92.1 MCH 29.7 MCHC 32.2 RDW 13.4 Plt Count 161 MPV 8.6 Immature Gran % (Auto) 0.8 H Neut % (Auto) 44.8 L Lymph % (Auto) 41.2 [place] % (Auto) 8.2 Eos % (Auto) 4.4 Baso % (Auto) 0.6 Lymph # (Auto) 2.60 [place] # (Auto) 0.5 Eos # (Auto) 0.3 Baso # (Auto) 0.0 Abs Immat Gran (auto) 0.05 H Absolute Neuts (auto) 2.8 Absolute Nucleated RBC 0.000 Nucleated RBC % 0.0 Sodium 140 Potassium 4.5 Chloride 111 H Carbon Dioxide 25 Anion Gap 4 BUN 20 Creatinine 1.13 Estim Creat Clear Calc 72 Estimated GFR > 60 Glucose 90 Calcium 9.2 Total Bilirubin 0.3 AST 35 ALT 23 Alkaline Phosphatase 60 Total Creatine Kinase 166 Total Protein 5.5 L Albumin 3.3 L Vitamin B12 Folate Urine Color Urine Appearance Urine pH Ur Specific [place] Urine Protein Urine Glucose (UA) Urine Ketones Ur Blood (Man) Urine Nitrate Urine Bilirubin Urine Urobilinogen Leukocyte Esterase Rfl Urine RBC Urine WBC Ur Squamous Epith Cells Urine Bacteria Urine Casts U Random Total Protein 30 Ur Random Sodium 26 Ur Random Urea 331 Urine Creatinine 70.2 Protein/Creat Ratio 2 0.43 H Urine Opiates Screen Urine Methadone Screen Ur Barbiturates Screen Ur Phencyclidine Scrn Ur Amphetamine Screen U Benzodiazepines Scrn Urine Cocaine Screen U Cannabinoids Screen Ethyl Alcohol Influenza A (RT-PCR) Negative Influenza B (RT-PCR) Negative RSV (RT-PCR) Negative SARS-CoV-2 RNA (RT-PCR) Negative 04/08/25 04/08/25 10:58 09:56 WBC RBC Hgb Hct MCV MCH MCHC RDW Plt Count MPV Immature Gran % (Auto) Neut % (Auto) Lymph % (Auto) [place] % (Auto) Eos % (Auto) Baso % (Auto) Lymph # (Auto) [place] # (Auto) Eos # (Auto) Baso # (Auto) Abs Immat Gran (auto) Absolute Neuts (auto) Absolute Nucleated RBC Nucleated RBC % Sodium Potassium Chloride Carbon Dioxide Anion Gap BUN Creatinine Estim Creat Clear Calc Estimated GFR Glucose Calcium Total Bilirubin AST ALT Alkaline Phosphatase Total Creatine Kinase 377 H Total Protein Albumin Vitamin B12 774.0 Folate 11.4 Urine Color Yellow Urine Appearance Cloudy H Urine pH 5.5 Ur Specific [place] 1.010 Urine Protein 2+ H Urine Glucose (UA) Negative Urine Ketones Negative Ur Blood (Man) Trace Urine Nitrate Negative Urine Bilirubin Negative Urine Urobilinogen 0.2 Leukocyte Esterase Rfl Negative Urine RBC 0-2 Urine WBC 0-5 Ur Squamous Epith Cells None seen Urine Bacteria None seen Urine Casts 3-5 U Random Total Protein Ur Random Sodium Ur Random Urea Urine Creatinine Protein/Creat Ratio 2 Urine Opiates Screen Negative Urine Methadone Screen Negative Ur Barbiturates Screen Negative Ur Phencyclidine Scrn Negative Ur Amphetamine Screen Negative U Benzodiazepines Scrn Negative Urine Cocaine Screen Negative U Cannabinoids Screen Positive A Ethyl Alcohol < 10 Influenza A (RT-PCR) Influenza B (RT-PCR) RSV (RT-PCR) SARS-CoV-2 RNA (RT-PCR) Discharge Plan Discharge Attending physician on discharge: Bessie Mendoza Consulting providers: Michael Anderson Discharging Clinician: Michael Anderson Anticipated Discharge Date/Time: 04/09/25 10:52 Patient Disposition: Home Activity: no straining Diet: heart healthy Discharge Instructions: Discharge disposition: Home Take medications as prescribed Monitor blood pressures Take caution while standing, rising, or moving Change positions slowly taking a break between each position change If you standing feel dizzy sit back down and take a break Encouraged to continue with yearly vaccinations Return to the emergency department if he developed sudden shortness of breath, chest pain, nausea, vomiting, upset stomach or intractable diarrhea Return to the emergency department if you develop fever greater than 101.5 Follow-up with the primary care physician within 1-2 weeks Thank you for [facility] for your healthcare needs Patient Instructions: Antibiotic Form Patient Language: Mohawk Stand Alone Forms: General Discharge Information Follow-up/Referrals: Guru,MD Odilon [Primary Care Provider] - Discharge Medications: Continued amiodarone 200 mg tablet 200 mg PO BID magnesium oxide 400 mg (241.3 mg magnesium) tablet 400 mg PO BID fenofibrate micronized 134 mg capsule 134 mg PO DAILY lisinopril-hydrochlorothiazide 10-12.5 mg tablet 1 tablet PO DAILY flecainide 150 mg tablet 150 mg PO Q12H omeprazole 20 mg capsule,delayed release(DR/EC) 20 mg PO DAILY tadalafil 10 mg tablet 10 mg PO PRN PRN (Reason: sexual activity) duloxetine 30 mg capsule,delayed release(DR/EC) 30 mg PO DAILY cetirizine 10 mg tablet 10 mg PO DAILY balsalazide 750 mg capsule See Rx Instructions .ROUTE .COMPLEX Qty: 270 12RF Dose Instruction: TAKE 3 CAPSULES BY MOUTH THREE TIMES DAILY Rx Instructions: TAKE 3 CAPSULES BY MOUTH THREE TIMES DAILY Date of admission: 04/08/25 12:58 Primary Care Provider: EvelynOdilon Admitting Provider: Nigel Aden Attending physician on admission: Nigel Aden Condition: Stable Quality VTE Prophylaxis VTE prophylaxis: mechanical ordered
== END 2025-04-09 12:00 | disposition home or self-care (01) ==
LOC: ANHED 13:38 → ANH2MED 04-09 06:49 → ANH3MEDSUR 04-10 07:23
PROVIDERS: Student in an Organized Health Care Education/Training Program; Admitting Provider General Practice; Emergency Provider Physician Assistant; PCP Internal Medicine; Visit Provider Family Medicine
DX: N17.9 Acute kidney failure, unspecified (principal); R53.1 Weakness; F10.90 Alcohol use, unspecified, uncomplicated; I10 Essential (primary) hypertension; K21.9 Gastro-esophageal reflux disease without esophagitis; E78.5 Hyperlipidemia, unspecified; G47.30 Sleep apnea, unspecified; I48.92 Unspecified atrial flutter; F17.210 Nicotine dependence, cigarettes, uncomplicated; Z95.0 Presence of cardiac pacemaker; Z79.899 Other long term (current) drug therapy
CPT/HCPCS: 36415; 70450; 71046; 76775; 80053; 80307; 81001; 82077; 82550; 82570; 82607; 82746; 83735; 84156; 84300; 84540; 85025; 85610; 85730; 87637; 93005; 96360; 99285; A9270; G0378; J7030

== ENCOUNTER 2025-05-02 02:38 | Day surgery (SDC) | payer OTHER, SELFPAY ==
--- OUTSIDE RECORDS SUMMARY | 2024-02-10 16:30 | XMS_ITS ---
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 Odilon Meza Unavailable [phone] ZZ-Migration, Provider Unavailable Unavailab le [facility]AS[facility]IT [facility] Encounter Medications Medication SIG (Take, Route, Frequency, Duration) Notes Start Date End Date Status Lisinopril 10 MG 1 tab(s) orally once a day Active Fenofibrate 67 MG 1 cap(s) orally once a day Active Pantoprazole Sodium 40 MG 1 tab(s) orally once a day Active Alfuzosin HCl ER 10 MG 1 tab(s) orally once a day Active Pregabalin 100 MG 1 qHS x 1 wk, then 1 bid x 1 wk, then 1 tid orally as directed; Duration: 30 days 06/29/2023 Active Xarelto 10 MG 1 tab(s) orally once a day Active Metoprolol Tartrate 50 MG 1 tab(s) orally once a day Active Cetirizine HCl 10 MG 1 tab(s) orally once a day Active traMADol HCl 100 MG/24 HOURS 1 PILL ORALLY 4X/DAY *Please review and pick correct strength-formulatio n from Medispan options. 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 ANMOL BROWN, [facility][id number] Pcp:Odilon Garvey Subjective: * Chief Complaints: * [facility] . [facility] * Medical History: * Medications: T aking traMADol HCl 100 MG/24 HOURS CAPSULE, EXTENDED RELEASE 1 PILL ORALLY 4X/DAY , Notes to Pharmacist: *Please review and pick correct strength-formulation [facility]. If intended option is not shown, discontinue and re-order from Quick Search*, Taking Balsalazide Disodium 750 MG Capsule 3 cap(s) orally 3 times a day , Taking Metoprolol Tartrate 50 MG Tablet 1 tab(s) orally once a day , Taking Cetirizine HCl 10 MG Tablet 1 tab(s) orally once a day , Taking Xarelto 10 MG Tablet 1 tab(s) orally once a day , Taking Alfuzosin HCl ER 10 MG Tablet Extended Release 24 Hour 1 tab(s) orally once a day , Taking Fenofibrate 67 MG Capsule 1 cap(s) orally once a day , Taking Pantoprazole Sodium 40 MG Tablet Delayed Release 1 tab(s) orally once a day , Taking Lisinopril 10 MG Tablet 1 tab(s) orally once a day Objective: * Vitals: Assessment: * Assessment: 1. H ereditary and idiopathic neuropathy, unspecified - G60.9 (Primary) Plan: * Treatment: * Billing Information: * Visit Code: * Procedure Codes: * Electronic signature of Marti MEDRANO-Migration on 05/02/2025 at 02:41 AM CDT Sign off status: Pending * Provider: Mildred amin Migration Date: 02/10/2024 Generated for Austin de dios/Kate/Genevievesmnoris on: 05/02/2025 02:41 AM CDT
[2025-04-25 15:47] VITALS: BMI 29.4
--- OUTSIDE RECORDS SUMMARY | 2025-05-02 02:41 | XMS_ITS | Patient Health Record ---
Author Organization Pending Sale To [facility] ([address]) Address [address] [place] [address] Care Team Providers Care Laundromat Manager Name Role Phone Odilon Garvey Primary Care Provider Dr. Odilon Ruby Unavailable [phone] Allergies No Known Allergies Reason For Referral [...] Problem Chronic migraine without aura, non-refractory (disorder) (02474178256813 0) Migraine without aura, not intractable, without status migrainosus (G43.009) Active confirmed Problem Migraine with aura (8767621) Migraine with aura, not intractable, without status migrainosus (G43.109) Active confirmed Problem Chronic migraine without aura, non-intractable (10884303008312 0) Chronic migraine without aura, not intractable, without status migrainosus (G43.709) Active confirmed Problem Hereditary disorder of nervous system (677297494) Hereditary and idiopathic neuropathy, unspecified (G60.9) Active confirmed Plan Of Treatment No Information Insurance Providers Payer Name Payer Address Payer Phone Subscriber Number Group Number Insured Name Patient Relationship to Insured Coverage Start Date Coverage End Date Health system [address] [address] [place] [address] [id number] Farrukh Vicente Self - patient is the insured
--- OUTSIDE RECORDS SUMMARY | 2025-05-02 02:41 | XMS_ITS | Clinical Summary ---
Author Organization [facility] Address [address] [place] [address] Care Team Providers Care Senior Geotechnical Engineer Name Role Phone Odilon Garvey MD Primary Care Provider [phone] [facility],non-owned Affiliates and Associated Physician Practices is amultiple site organization consisting of ambulatory clinics and hospital sitesin [place], [place], [place] and [place]. This disclosure is being madepursuant to the Care Everywhere program and may not contain all information available regarding this patient. Last updated 18.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
--- OUTSIDE RECORDS SUMMARY | 2025-05-02 02:41 | XMS_ITS | Encounter Summary ---
Author Organization [facility] Address [address] [place] [address] Care Team Providers Care Spice Cleaner Name Role Phone Odilon Garvey MD Primary Care Provider [phone] Reason for Visit * Reason Onset Date Comments Appointment 08/24/2022 Encounter Details Date Type Department Care Team (Late st Contact Info) Description 08/24/2022 Telephone [facility] [address] [place] [id number] Checo Austin MD [address] [place] [id number] Appointment Social History Tobacco Use Types Packs/Day Years Used Date Smoking Tobacco: Never Assessed Sex and Gender Information Value Date Recorded Sex Assigned at Not on file 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
--- OUTSIDE RECORDS SUMMARY | 2025-05-02 02:41 | XMS_ITS | Clinical Summary ---
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
[2025-05-02 13:07] VITALS: BP 133/87; PULSE 73; RESP 16; TEMP 36.1; O2SAT 98
[2025-05-02] MEDS: LACTATED RINGERS 1,000 ML 150 ML IV CONT (13:13)
--- NOTE | 2025-05-02 13:22 | WPDANESEPPF ---
Anes - Initial Pre Proc Eval Procedure: Operation Date: 05/02/25 14:30 Proposed Procedures p Diagnostic Colonoscopy - Mark Ríos MD Date/Time: 05/02/25 13:22 Surgeon: Mark Ríos MD Pre Op Diagnosis: Ulcerative (chronic) pancolitis w/o complications Patient Data Age: 59 Gender: M Height: 1.78 m Weight: 90.7 kg Last Vital Signs Temp 36.1 C L 05/02/25 13:07 Pulse 73 05/02/25 13:07 Resp 16 05/02/25 13:07 BP 133/87 05/02/25 13:07 Pulse Ox 98 05/02/25 13:07 O2 Del Method Room Air 05/02/25 13:07 Allergies Allergy/AdvReac Type Severity Reaction Status Date / Time NSAIDS (Non-Steroidal AdvReac Mild Gastrointestinal Verified 05/02/25 13:05 Anti-Inflamma Upset Home Medications ?Medication ?Instructions ?Recorded ?Confirmed ?Type fenofibrate micronized 134 mg 134 mg PO DAILY 10/18/21 05/02/25 History capsule lisinopril 10 1 tablet PO DAILY 10/18/21 05/02/25 History mg-hydrochlorothiazide 12.5 mg tablet amiodarone 200 mg tablet 200 mg PO BID 11/21/23 05/02/25 History magnesium oxide 400 mg (241.3 mg 400 mg PO BID 11/21/23 05/02/25 History magnesium) tablet balsalazide 750 mg capsule See Rx Instructions .Route 05/22/24 05/02/25 Rx .COMPLEX #270 caps cetirizine 10 mg tablet 10 mg PO DAILY 12/11/24 05/02/25 History duloxetine 30 mg capsule,delayed 30 mg PO DAILY 12/11/24 05/02/25 History release flecainide 150 mg tablet 150 mg PO Q12H 12/11/24 05/02/25 History omeprazole 20 mg capsule,delayed 20 mg PO DAILY 12/11/24 05/02/25 History release tadalafil 10 mg tablet 10 mg PO PRN PRN sexual activity 12/11/24 04/25/25 History Patient hx anesthesia problems: none Family hx anesthesia problems: none Results Review: All pre-operative results and documents have been reviewed as part of the pre-operative evaluation. [facility] Past Medical History Medical History (Updated 05/01/25 @ 16:03 by Anatoly Zaidi DO) YONATAN (obstructive sleep apnea) Aneurysm Pacemaker Hypertension Atrial flutter GERD (gastroesophageal reflux disease) Overweight (BMI 25.0-29.9) Tobacco use Ulcerative colitis Surgical History Surgical History Status post left rotator cuff repair (~2007) @ [facility] in [place] - Op Report no longer available (>12 yrs ago) Status post right rotator cuff repair (~12/20/24) SAD, Biceps tenodesis, Labral JEMAL Social History Social History Smoking packs per day: 0.20 Smoking cigarettes per day: 4.0 Years smoked: 20 Smoking pack-years: 4.00 Smoking status: Current some day smoker Tobacco type: cigarettes Additional smoking assessment comments: smokes about a pack a week Alcohol intake: current Drinks per week: 12 Alcohol use details: social Substance use: never Substance use type: does not use Do You Feel Safe in your Home?: Yes Lack of Transportation: No Lack of Food: Never True Current Housing: I Have Housing Concerned About Future Housing: No Difficulty Paying Gas/Electric Bills: No Difficulty Paying for Meds: No Currently Unemployed: No Education: Master's Degree or Higher Difficulty w/ Childcare or Family Care: No Living arrangements: alone Spiritual care concerns: No Anes - Eval Final PreProcedure Day of Procedure 05/02/25 13:22 Patient weight: overweight Heart: regular rate and rhythm Lungs: clear to auscultation Airway: Mallampati scale class II Neurological: alert and oriented Last oral intake: >/= 8 hours ASA classification: III Emergent: no Anesthetic plan: proceed Anesthesia type and monitoring: general GIVS and standard monitoring Results Review: All pre-operative results and documents have been reviewed as part of the pre-operative evaluation. Informed Consent: The patient's anesthetic plan and its attendant risks and benefits were discussed with the patient/family/POA. Questions were solicited and answers provided to the satisfaction of the patient/family/POA.
--- NOTE | 2025-05-02 13:35 | PM.HPGS ---
History of Present Illness History of Present Illness Consent: Risks, benefits, and alternatives have been discussed and questions answered. Patient agrees to proceed with procedure. Chief complaint: Ulcerative (chronic) pancolitis w/o complications Narrative: Lorenzo Vicente is a 59 year old male history of ulcerative colitis diagnosed in 2005 currently on balsalazide 2250 mg TID never used biologics, last colonoscopy 2021. Review of Systems Review of Systems: All systems reviewed & are unremarkable except as noted in HPI and below PMFSH Past Medical History Medical History (Updated 05/01/25 @ 16:03 by Anatoly Zaidi, ) YONATAN (obstructive sleep apnea) Aneurysm Pacemaker Hypertension Atrial flutter GERD (gastroesophageal reflux disease) Overweight (BMI 25.0-29.9) Tobacco use Ulcerative colitis Surgical History Surgical History Status post left rotator cuff repair (~2007) @ [facility] in [place] - Op Report no longer available (>12 yrs ago) Status post right rotator cuff repair (~12/20/24) SAD, Biceps tenodesis, Labral JEMAL Social History Social History Smoking packs per day: 0.20 Smoking cigarettes per day: 4.0 Years smoked: 20 Smoking pack-years: 4.00 Smoking status: Current some day smoker Tobacco type: cigarettes Additional smoking assessment comments: smokes about a pack a week Alcohol intake: current Drinks per week: 12 Alcohol use details: social Substance use: never Substance use type: does not use Do You Feel Safe in your Home?: Yes Lack of Transportation: No Lack of Food: Never True Current Housing: I Have Housing Concerned About Future Housing: No Difficulty Paying Gas/Electric Bills: No Difficulty Paying for Meds: No Currently Unemployed: No Education: Master's Degree or Higher Difficulty w/ Childcare or Family Care: No Living arrangements: alone Spiritual care concerns: No Meds Home Medications and Allergies Home Medications ?Medication ?Instructions ?Recorded ?Confirmed ?Type fenofibrate micronized 134 mg 134 mg PO DAILY 10/18/21 05/02/25 History capsule lisinopril 10 1 tablet PO DAILY 10/18/21 05/02/25 History mg-hydrochlorothiazide 12.5 mg tablet amiodarone 200 mg tablet 200 mg PO BID 11/21/23 05/02/25 History magnesium oxide 400 mg (241.3 mg 400 mg PO BID 11/21/23 05/02/25 History magnesium) tablet balsalazide 750 mg capsule See Rx Instructions .Route 05/22/24 05/02/25 Rx .COMPLEX #270 caps cetirizine 10 mg tablet 10 mg PO DAILY 12/11/24 05/02/25 History duloxetine 30 mg capsule,delayed 30 mg PO DAILY 12/11/24 05/02/25 History release flecainide 150 mg tablet 150 mg PO Q12H 12/11/24 05/02/25 History omeprazole 20 mg capsule,delayed 20 mg PO DAILY 12/11/24 05/02/25 History release tadalafil 10 mg tablet 10 mg PO PRN PRN sexual activity 12/11/24 04/25/25 History Allergies Allergy/AdvReac Type Severity Reaction Status Date / Time NSAIDS (Non-Steroidal AdvReac Mild Gastrointestinal Verified 05/02/25 13:05 Anti-Inflamma Upset Vital Signs Vital Signs - 24 hr 05/02/25 13:07 Temperature 96.9 F L Pulse Rate 73 Respiratory Rate 16 Blood Pressure 133/87 Pulse Oximetry 98 Oxygen Delivery Room Air Exam Const: General: comfortable and no acute distress HENMT: Face/Nose/Sinus: Normal nares present Eyes: General: appearance normal, both eyes and all related structures Neck: Neck: no JVD Resp: Auscultation: clear to auscultation bilaterally Cardio: Rate: regular rate Rhythm: regular rhythm GI: Inspection: non-distended GI Palp: Yes Soft to palpation Skin: General skin exam: normal color Neuro: Speech: normal speech Extrem: General: normal to inspection Psych: Mental Status: mental status grossly normal Assessment and Plan Assessment and plan (1) Ulcerative colitis: Code(s): K51.90 - Ulcerative colitis, unspecified, without complications Status: Acute Assessment and Plan: clinically on remission here for surveillance
--- NOTE | 2025-05-02 13:42 | S_PTH ---
PATIENT: Lorenzo Vicente LOC: [facility]#:[id number] AGE/SX: 59/M ROOM: RE05/02/[address]: Mark Ríos MD : 1965 BED: DIS: 05/02/2025 SPEC #: [id number] RECD: 05/02/25 14:17 STATUS: YVES RERosendo #: [id number] LARA: 05/02/25 13:[address]: Mark Ríos DEPT: [facility] Surgical RECD BY: Jennifer Mckenzie ENTERED: 05/02/25 14:17 SP TYPE: Surgical OTHR DR: Odilon GarveyMD Tissues: A - Colon Biopsy B - Colon Biopsy Procedures: Hematoxylin and Eosin Stain Gross and Microscopic Level 4
[2025-05-02 13:46] VITALS: BP 103/66; PULSE 74; RESP 20; O2SAT 94
[2025-05-02 13:56] VITALS: BP 121/79; PULSE 60; RESP 20; O2SAT 95
[2025-05-02 14:06] VITALS: BP 131/95; PULSE 62; RESP 20; O2SAT 97
== END 2025-05-02 14:20 | disposition home or self-care (01) ==
PROVIDERS: PCP Internal Medicine; Referring Provider Internal Medicine; Visit Provider Internal Medicine Gastroenterology
PROC: 0DJD8ZZ Inspection of Lower Intestinal Tract, Via Natural or Artificial Opening Endoscopic (ICD-10-PCS; CPT 45378; principal; 2025-05-02 14:30)
DX: K51.00 Ulcerative (chronic) pancolitis without complications (principal); K51.90 Ulcerative colitis, unspecified, without complications; K64.8 Other hemorrhoids; G47.33 Obstructive sleep apnea (adult) (pediatric); Z95.0 Presence of cardiac pacemaker; I10 Essential (primary) hypertension; K21.9 Gastro-esophageal reflux disease without esophagitis; F17.210 Nicotine dependence, cigarettes, uncomplicated
CPT/HCPCS: 45380; 88305; J2704; J7120